=== PATIENT | male | born 1950 | race Caucasian/White ===

== ENCOUNTER 2021-05-03 22:12 | Inpatient (IN) | payer MEDICARE, SELFPAY ==
[2021-05-03 22:29] VITALS: BP 184/94; PULSE 93; RESP 17; TEMP 37; O2SAT 93; BMI 51.3
--- NOTE | 2021-05-03 22:44 | ECG_ITS ---
[facility] Test Date: 2021-05-04 Pat Name: Juan Jose Lamb Department: Room: Gender: Male [employer]cent Sal[employer] Compounder: : 1950 Requested By: Robert Skelton Order Number: [id number] Reading MD: JOON HUFF Measurements Intervals [place] Rate: 92 P: [place]: QRS: -43 QRSD: 117 T: 76 QT: 349 QTc: 433 Interpretive Statements ATRIAL FLUTTER/TACHYCARDIA INFERIOR MYOCARDIAL INFARCTION [40+ ms Q WAVE AND/OR ST/T ABNORMALITY IN II/aVF], PROBABLY OLD Compared to ECG 05/05/2019 17:10:57 Myocardial infarct finding now present Sinus rhythm no longer present Left-axis deviation no longer present Left bundle-branch block no longer present Electronically Signed On 05-05-2021 18:51:02 CDT by JOON HUFF [id number]
--- NOTE | 2021-05-03 22:44 | XRR_ITS ---
PROCEDURE INFORMATION: Exam: XR Chest Exam date and time: 05/03/2021 10:44 PM Age: 70 years old Clinical indication: Dyspnea; Prior surgery; Surgery date: 6+ months; Surgery type: Stent; Additional info: SOB TECHNIQUE: Imaging protocol: XR of the chest. Views: 1 view. COMPARISON: CR Chest 1 [place] [id number] 05/06/2019 11:03 AM FINDINGS: Lungs: There is enlargement of the pulmonary vascularity. There is thickening of the interstitial markings. There is airspace opacity in the right lung. Pleural spaces: Unremarkable. No pleural effusion. No pneumothorax. Heart/Mediastinum: The heart is mildly enlarged. Bones/joints: Unremarkable. XR/XR chest 1V portable [id number] IMPRESSION: Congestive heart failure with airspace opacities in the right lung..
--- NOTE | 2021-05-03 23:27 | ED_ITS ---
HPI - SOB/Dyspnea General: Chief Complaint: Shortness of Breath/Dyspnea Stated Complaint: DIFF BREATHING Time Seen by Provider: 05/03/21 22:13 History of Present Illness: HPI Narrative: 70-year-old male complains of a few days worsening shortness of breath, cough, headache, and feeling feverish. He usually uses 2 L of oxygen by nasal cannula, he is up to 4, and is still short of breath. MD elicited complaint: shortness of breath Pertinent past history: pneumonia and other Context: recent illness Timing: progressively worsening Severity: moderate Exacerbating factors: lying flat, exertion and coughing Relieving factors: oxygen Associated symptoms: Reports cough, dizziness, fever(s), hemoptysis, nausea and orthopnea; Deny abdominal pain, chest congestion, chest pain, diaphoresis, palpitations, rash, syncope or vomiting Treatment prior to arrival: oxygen Review of Systems Const: Reports: fever(s); Denies: diaphoresis Eyes: Denies: change in vision ENMT: Reports: sinus pain; Denies: throat pain Card: Reports: orthopnea; Denies: chest pain, palpitations or syncope Resp: Reports: hemoptysis; Denies: chest congestion GI: Reports: nausea; Denies: abdominal pain or vomiting : Denies: difficulty urinating Neuro: Reports: dizziness PFSH ED PFSH: Medical History B12 deficiency BPH (benign prostatic hyperplasia) Chronic diarrhea Chronic kidney disease, stage II (mild) COPD (chronic obstructive pulmonary disease) 4L oxygen dependent Coronary artery disease Coronary stent patent Diabetes Diastolic congestive heart failure Morbid obesity Obesity hypoventilation syndrome Sleep apnea Surgical History Hx of cardiac cath Family History Other Diabetes Social History (Updated 05/04/21 @ 02:15 by Radhika Vincent MD) Smoking and tobacco status: former smoker Alcohol intake: never Substance/Drug Use: never Household members: children Housing: House Physical Exam Const: GENERAL APPEARANCE: cooperative and ill appearing NUTRITIONAL APPEARANCE: obese morbidly obese ORIENTATION/CONSCIOUSNESS: Yes oriented to person, Yes oriented to place and Yes oriented to time HENMT: COMMON NORMALS: normocephalic, external ears normal and Normal external nose present HEAD & SCALP: normocephalic FACE & SINUS: normal facial exam NOSE: Normal external nose present and No nasal discharge present EXTERNAL EAR: Yes external ears normal Eye: COMMON NORMALS: Equal, round and reactive pupils present, EOMs intact bilaterally and conjunctivae normal EYELID: eyelids normal CONJUNCTIVA: Yes conjunctivae normal PUPIL: Yes Equal, round and reactive pupils present Neck/C-Spine: GENERAL: No tracheal deviation Chest: COMMONS NORMALS: normal inspection of the chest CHEST: No tenderness Resp: COMMON NORMALS: clear to auscultation bilaterally EFFORT & INSPECTION: No tachypneic, No respiratory distress, No retractions, No uses accessory muscles and No tracheal deviation AUSCULTATION: clear to auscultation bilaterally, no rhonchi, no wheezes and diminished lung sounds Cardio: COMMON NORMALS: regular rate and regular rhythm RATE: regular rate RHYTHM: regular rhythm HEART SOUNDS: no murmurs PERIPHERAL PULSES: radial pulses present GI: INSPECTION: No abdominal distension AUSCULTATION: No Hyperactive bowel sounds present and No Hypoactive bowel sounds present PALPATION: No Guarding due to palpation present (GI) and No Rigid due to palpation Neuro: SENSORIUM/ORIENTATION: Yes oriented to person, Yes oriented to place and Yes oriented to time Psych: COMMON NORMALS: mental status grossly normal Skin: COMMON NORMALS: no rashes or lesions noted GENERAL SKIN EXAM: no rashes or lesions noted Course Consultations: Consultation #1: [place] Vital Signs: Vital signs: Vital Signs Temperature 98.2 F 05/04/21 04:22 Pulse Rate 84 05/04/21 04:22 Respiratory Rate 18 05/04/21 04:22 Blood Pressure 152/76 05/04/21 04:22 Pulse Oximetry 93 05/04/21 04:22 MDM - SOB/Dyspnea MDM Narrative: Medical decision making narrative: 70-year-old male with shortness of breath. He says he has had a fever at home. His white blood cell count is 12.8. Hemoglobin 10.3. Chest x-ray shows both signs of heart failure and right-sided infiltrate that is asymmetrical. He will be treated for pneumonia and heart failure as well. His creatinine is 1.8. His BNP is significantly elevated. His rapid antigen is negative for Covid, he will be given a PCR test as well. Lab Data: Labs: Lab Results 05/04/21 05/04/21 05/04/21 Range/Units 00:00 00:00 00:00 WBC 12.8 H (4.0-10.0) 10^3/ uL RBC 3.70 L (4.1-5.3) 10^6/u L Hgb 10.3 L (11.7-16.6) g/dL Hct 34.4 L (42.0-52.0) % MCV 93.0 (80-94) fL MCH 27.8 L (28.0-34.0) pg MCHC 29.9 L (30.0-36.0) g/dL RDW 14.6 (12.1-15.1) % Plt Count 219 (130-400) 10^3/c mm MPV 10.6 H (7.4-10.4) fL Neut % (Auto) 82.7 % Lymph % (Auto) 10.0 % Gordon % (Auto) 6.2 % Eos % (Auto) 0.5 % Baso % (Auto) 0.2 % Neut # (Auto) 10.62 H (1.8-7.7) 10^3/u L Lymph # (Auto) 1.3 (0.8-4.8) 10^3/u L Gordon # (Auto) 0.8 (0.2-0.9) 10^3/u L Eos # (Auto) 0.1 (0.0-0.8) 10^3/u L Baso # (Auto) 0.0 (0.0-0.1) 10^3/u L Nucleated RBC % (a uto) 0 % Nucleated RBCs # 0.0 /100WBC D-Dimer 1.81 H (0-0.59) ug/mIFE U Sodium 141 (136-145) mmol/L Potassium 4.5 (3.5-5.1) mmol/L Chloride 101 (98-107) mmol/L Carbon Dioxide 27 (22-29) mmol/L Anion Gap 17.5 (5-19) BUN 16 (8-23) mg/dL Creatinine 1.8 H (0.7-1.2) mg/dL GFR Calculation Not Reportable Glucose 148 H (65-115) mg/dL Calculated Osmolal ity 296 H (285-295) mOsm/k g Lactic Acid (0.5-2.2) mmol/L Calcium 8.8 (8.5-10.5) mg/dL Total Bilirubin 0.5 (0.15-1.2) mg/dL AST 11 (0-40) U/L ALT 17 (0-41) U/L Alkaline Phosphata se 66 (40-130) IU/L C-Reactive Protein 57.0 H (0.0-4.9) mg/L NT-Pro-B Natriuret Pep 3631 H (0-125) pg/mL Total Protein 7.0 (6.6-8.7) g/dL Albumin 3.8 (3.5-5.2) g/dL Globulin 3.2 (1.3-4.6) g/dL Procalcitonin 0.14 (0-0.5) ng/mL SARS-CoV-2 Ag (Rap id) (Negative) 05/04/21 05/04/21 Range/Units 00:00 00:00 WBC (4.0-10.0) 10^3/ uL RBC (4.1-5.3) 10^6/u L Hgb (11.7-16.6) g/dL Hct (42.0-52.0) % MCV (80-94) fL MCH (28.0-34.0) pg MCHC (30.0-36.0) g/dL RDW (12.1-15.1) % Plt Count (130-400) 10^3/c mm MPV (7.4-10.4) fL Neut % (Auto) % Lymph % (Auto) % Gordon % (Auto) % Eos % (Auto) % Baso % (Auto) % Neut # (Auto) (1.8-7.7) 10^3/u L Lymph # (Auto) (0.8-4.8) 10^3/u L Gordon # (Auto) (0.2-0.9) 10^3/u L Eos # (Auto) (0.0-0.8) 10^3/u L Baso # (Auto) (0.0-0.1) 10^3/u L Nucleated RBC % (a uto) % Nucleated RBCs # /100WBC D-Dimer (0-0.59) ug/mIFE U Sodium (136-145) mmol/L Potassium (3.5-5.1) mmol/L Chloride (98-107) mmol/L Carbon Dioxide (22-29) mmol/L Anion Gap (5-19) BUN (8-23) mg/dL Creatinine (0.7-1.2) mg/dL GFR Calculation Glucose (65-115) mg/dL Calculated Osmolal ity (285-295) mOsm/k g Lactic Acid 1.5 (0.5-2.2) mmol/L Calcium (8.5-10.5) mg/dL Total Bilirubin (0.15-1.2) mg/dL AST (0-40) U/L ALT (0-41) U/L Alkaline Phosphata se (40-130) IU/L C-Reactive Protein (0.0-4.9) mg/L NT-Pro-B Natriuret Pep (0-125) pg/mL Total Protein (6.6-8.7) g/dL Albumin (3.5-5.2) g/dL Globulin (1.3-4.6) g/dL Procalcitonin (0-0.5) ng/mL SARS-CoV-2 Ag (Rap id) Negative (Negative) Discharge Plan Discharge Patient Disposition: Admitted As Inpatient Admit Provider: Radhika Vincent Clinical Impression: BRONWYN (acute kidney injury) Community acquired pneumonia Qualifiers: Laterality: right Lung location: unspecified part of lung Qualified Code(s): J18.9 - Pneumonia, unspecified organism Condition: Stable Coding Level of Care Code ED [employer] 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
[2021-05-04] VITALS (11 sets, daily range): BP systolic 145–173; BP diastolic 72–98; PULSE 18–115; RESP 15–81; TEMP 36.8–37.9; O2SAT 92–97
[2021-05-04 00:23] LABS: Basophils % 0.2 %; Eosinophils # 0.1 10^3/uL (0.0-0.8); Eosinophils % 0.5 %; Hematocrit 34.4 % (42.0-52.0); Hemoglobin 10.3 g/dL (11.7-16.6); Lymphocytes # 1.3 10^3/uL (0.8-4.8); Mean Corpuscular HGB Conc 29.9 g/dL (30.0-36.0); Mean Corpuscular Hemoglobin 27.8 pg (28.0-34.0); Mean Platelet Volume 10.6 fL (7.4-10.4); Monocytes # 0.8 10^3/uL (0.2-0.9); Monocytes % 6.2 %; Neutrophils # 10.62 10^3/uL (1.8-7.7); Neutrophils % 82.7 %; Nucleated Red Blood Cells % 0 %; Platelet Count 219 10^3/cmm (130-400); Red Cell Distribution Width 14.6 % (12.1-15.1); White Blood Count 12.8 10^3/uL (4.0-10.0)
[2021-05-04 00:32] LABS: D Dimer 1.81 ug/mIFEU (0-0.59)
[2021-05-04 00:42] LABS: NT Pro B Type Natriuretic Pept 3631 pg/mL (0-125); Procalcitonin 0.14 ng/mL (0-0.5)
[2021-05-04 00:46] LABS: SARS Covid-2 Antigen Negative (Negative)
[2021-05-04 00:54] LABS: Alanine Aminotransferase 17 U/L (0-41); Albumin Level 3.8 g/dL (3.5-5.2); Alkaline Phosphatase 66 IU/L (40-130); Anion Gap 17.5 (5-19); Aspartate Amino Transferase 11 U/L (0-40); Blood Urea Nitrogen 16 mg/dL (8-23); Calcium 8.8 mg/dL (8.5-10.5); Carbon Dioxide 27 mmol/L (22-29); Chloride 101 mmol/L (98-107); Globulin 3.2 g/dL (1.3-4.6); Glucose 148 mg/dL (65-115); Osmolality Calculated 296 mOsm/kg (285-295); Potassium 4.5 mmol/L (3.5-5.1); Sodium 141 mmol/L (136-145); Total Bilirubin 0.5 mg/dL (0.15-1.2)
[2021-05-04] MEDS: nitroglycerin 1 gm/inch oint Pkt 1 INCH TOPICAL (00:59)
[2021-05-04] MEDS: FUROsemide 10 mg/mL SDV 10mL 80 MG IVP (00:59)
[2021-05-04 01:04] LABS: Lactic Sepsis W/Reflex 1.5 mmol/L (0.5-2.2)
[2021-05-04] MEDS: levofloxacin-dextrose 5 % 750 MG/150 ML PREMIX 100 MG IV (01:21)
--- NOTE | 2021-05-04 01:42 | PM.HP ---
Providers/Chief Complaint Chief Complaint: DIFF BREATHING History of Present Illness Juan Jose Lamb is a 70 year old male with history of obesity hypoventilation, oxygen dependent COPD uses 4 L of oxygen [id number] presented today with chief complaint of subjective fevers and shortness of breath. Patient is stating that his symptoms started 2 to 3 days ago with shortness of breath and productive cough. He has not noticed any fever, he has been bringing up yellowish-green sputum, no diarrhea or recent exposure to a sick person. He is denying chest pain. He is compliant with his trilogy and uses 4 L at baseline. Lately he has been noticing weight gain as well he is not sure about his Lasix dose but tries to watch his sodium. He is adamant that he will not get COVID-19 vaccine. Diagnosis in the ER revealed leukocytosis, chronic anemia, high D-dimer, not a candidate to get CTA chest, he saturating well on 4 L nasal cannula he is not tachycardic, has bilateral lower extremity edema, with signs of congestive heart failure, high BNP with BRONWYN Covid antigen negative, requested PCR chest x-ray is showing pneumonia in the ER he received 80 mg of Lasix and Levaquin Review of Systems Const: Reports: chills, body aches, change in weight and fatigue; Denies: fever(s) Eyes: Denies: change in vision ENMT: Denies: throat pain Card: Reports: swelling of feet/ankles, dyspnea on exertion and orthopnea; Denies: chest pain Resp: Reports: dyspnea and productive cough GI: Denies: abdominal pain or diarrhea : Denies: flank pain Musc: Denies: neck pain Skin/Breast: Denies: lesions Neuro: Reports: headache(s) Psych: Denies: anxiety Endo: Denies: polyuria [place]/Lymph: Denies: easy bruising All/Imm: Denies: urticaria Medications/Allergies Allergies Allergy/AdvReac Type Severity Reaction Status Date / Time No Known Allergies Allergy Verified 05/03/21 22:34 PFSH Acute PFSH: Medical History B12 deficiency BPH (benign prostatic hyperplasia) Chronic diarrhea Chronic kidney disease, stage II (mild) COPD (chronic obstructive pulmonary disease) 4L oxygen dependent Coronary artery disease Coronary stent patent Diabetes Diastolic congestive heart failure Morbid obesity Obesity hypoventilation syndrome Sleep apnea Surgical History Hx of cardiac cath Family History Other Diabetes Social History (Updated 05/04/21 @ 02:15 by Radhika Vincent MD) Smoking and tobacco status: former smoker Alcohol intake: never Substance/Drug Use: never Household members: children Housing: House Vitals/I&O/Wt Last Vital Signs Temp 98.6 F 05/03/21 22:29 Pulse 93 05/03/21 22:29 Resp 17 05/03/21 22:29 BP 184/94 05/03/21 22:29 Pulse Ox 93 05/03/21 22:29 Weight last 48 hrs Weight 181.437 kg Physical Exam Narrative: EXAM NARRATIVE: Pleasant cooperative morbidly obese male was saturating well on 4L nasal cannula No active chest pain or shortness of breath, no active use of respiratory sensory muscles, bilateral breath sounds with crackles at the bases Low symmetry lymphedema with pitting edema Distended abdomen with obesity no signs of peritonitis Sinus rhythm on telemetry EOMI, PERRLA Awake alert oriented x3 GCS 15 No sign of cellulitis or joint swelling Appropriate mood and affect Data : 05/04/21 00:00 05/04/21 00:00 Micro: Microbiology 05/04/21 00:00 Blood Culture - Preliminary Blood SPECIMEN COLLECTED A&P Assessment and plan (1) Community acquired pneumonia: Status: Acute (2) D-dimer, elevated: Status: Acute (3) BRONWYN (acute kidney injury): Status: Acute Additional A&P Information Community-acquired pneumonia Procalcitonin unremarkable, currently saturating well on 4 L nasal cannula Uses BiPAP at night Requested urine antigens, no signs of sepsis Patient endorsing productive cough and shortness of breath Start ceftriaxone and azithromycin, in the ER he received Levaquin Would use Ventolin Reassess inflammatory markers Requested Covid PCR COVID-19 negative, patient is adamant that he would not like to get COVID-19 vaccination Considering elevated D-dimer, shortness of breath, I would start him on heparin and request VQ scan, rule out PE however this high D-dimer could be secondary to bacterial pneumonia as well Diastolic congestive heart failure exacerbation Clinical signs of fluid overload I would use Bumex 1 mg daily His BRONWYN seems secondary to prerenal cardiorenal etiology Anticipating provement with diuresis Etiology seems to be underlying pulmonary pathology and dietary indiscretion Full code Consistent carb diet Moderate sliding scale DVT prophylaxis not indicated, currently on heparin drip Attestations Medical Necessity Statement*: Anticipating discharge within 48 hours, started on community-acquired pneumonia treatment, rule out Covid Time Spent in Patient Care: (>than 50% of time spent in counselling and/or direct pt care on unit). 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
[2021-05-04] MEDS: heparin 5,000 unit/mL INJ 1 mL IV ×2 (04:44→20:01)
[2021-05-04] MEDS: heparin drip 25,000 UNIT/500 ML PREMIX 36 UNIT IV (04:46)
--- NOTE | 2021-05-04 04:51 | PC.NURSE ---
Physician contacted and made aware of heparin protocol's 140kg maximum with patients weight of 184kg. Physician ordered use of maximum weight of 140kg via protocol.
[2021-05-04 05:26] LABS: Basophils % 0.3 %; Eosinophils # 0.1 10^3/uL (0.0-0.8); Eosinophils % 0.8 %; Hematocrit 32.1 % (42.0-52.0); Hemoglobin 9.6 g/dL (11.7-16.6); Lymphocytes # 1.9 10^3/uL (0.8-4.8); Mean Corpuscular HGB Conc 29.9 g/dL (30.0-36.0); Mean Corpuscular Volume 93.6 fL (80-94); Mean Platelet Volume 10.4 fL (7.4-10.4); Monocytes # 1.2 10^3/uL (0.2-0.9); Monocytes % 9.7 %; Neutrophils % 72.8 %; Nucleated Red Blood Cells % 0 %; Platelet Count 210 10^3/cmm (130-400); Red Blood Count 3.43 10^6/uL (4.1-5.3); Red Cell Distribution Width 14.6 % (12.1-15.1); White Blood Count 11.8 10^3/uL (4.0-10.0)
[2021-05-04 05:51] LABS: Anion Gap 14.1 (5-19); Blood Urea Nitrogen 17 mg/dL (8-23); C Reactive Protein 67.6 mg/L (0.0-4.9); Calcium 8.6 mg/dL (8.5-10.5); Carbon Dioxide 28 mmol/L (22-29); Chloride 100 mmol/L (98-107); Glucose 98 mg/dL (65-115); Osmolality Calculated 288 mOsm/kg (285-295); Potassium 4.1 mmol/L (3.5-5.1); Sodium 138 mmol/L (136-145)
[2021-05-04 05:54] LABS: Partial Thromboplastin Time 139.7 SECONDS (23.9-36.7)
[2021-05-04 06:22] LABS: Glucose Point of Care 118 mg/dL (70-110)
[2021-05-04 06:25] LABS: Lactate Dehydrogenase 176 U/L (135-225)
--- NOTE | 2021-05-04 06:28 | PC.NURSE ---
Physician notified of PTT of 139.7. Physician ordered heparin drip held for 2 hours and amount to 33mL/hr from 36mL/hr.
[2021-05-04 07:12] LABS: ABG PCO2 50.3 mmHg (35-45); ABG PH Result 7.37 (7.35-7.45); Arterial Blood Gas Hematocrit 32.5 % (42-52); Base Excess ABG 2.8 mmol/L (-2.0-2.0); Blood Gas Allen Test Pos; Blood Gas Sample Site Radial, left; Blood Gas Sample Type Arterial; Carboxyhemoglobin 1.5 %THgb (0.4-20.1); HCO3 ABG 28.9 mmol/L (22-26); HGB O2 Sat 94.1 % (95-100); Methemoglobin 1.1 % (0.4-1.5); Oxygen Device NC; PO2 ABG 80.2 mmHg (80.0-100.0); Total Hemoglobin 10.6 g/dL (14-18)
--- NOTE | 2021-05-04 09:08 | USCV_ITS ---
Juan Jose Lamb Age: 70 Gender: M : 1950 Exam Date: 05/04/2021 09:39 Ordering Phys: Isidro Adrian MD Technologist: Saloni Cornelius [place] [facility] [place]: Shortness of breath BP: 145 / 74 HR: 86 Rhythm: Sinus Technical Quality: Poor because of body habitus MEASUREMENTS (Male / Female) Normal Values 2D ECHO LV Diastolic Diameter PLAX 5.1 cm 4.2 - 5.9 / 3.9 - 5.3 cm LV Systolic Diameter PLAX 3.5 cm LV Chamber Size 4.0 cm IVS Diastolic Thickness 1.9 cm 0.6 - 1.0 / 0.6 - 0.9 cm IVS Systolic Thickness 2.7 cm LVPW Diastolic Thickness 1.5 cm 0.6 - 1.0 / 0.6 - 0.9 cm LVPW Systolic Thickness 1.7 cm RV Chamber Size 3.8 cm LVOT Diameter 2.7 cm LV Ejection Fraction 2D Teich 59.1 % LA Diameter 3.8 cm LA Width 3.0 cm LA Height 5.6 cm RA Width 3.0 cm RA Height 6.3 cm M-MODE LV Diastolic Diameter MM 6.0 cm 4.2 - 5.9 / 3.9 - 5.3 cm LV Systolic Diameter MM 3.6 cm LV Ejection Fraction MM Teich 69.2 % IVS Diastolic Thickness MM 1.7 cm 0.6 - 1.0 / 0.6 - 0.9 cm IVS Systolic Thickness MM 2.5 cm LVPW Diastolic Thickness MM 1.8 cm 0.6 - 1.0 / 0.6 - 0.9 cm LVPW Systolic Thickness MM 2.2 cm RV Diastolic Diameter MM 2.0 cm DOPPLER AV Peak Velocity 160.0 cm/s LVOT Peak Velocity 97.0 cm/s AV Area Cont Eq vti 3.7 cm squared AV Area Cont Eq pk 3.4 cm squared MV Area PHT 5.0 cm squared MV E' Velocity 124.0 cm/s TV Peak E Velocity 66.0 cm/s Right Atrial Pressure 8.0 mmHg RV Acceleration Time 0.1 s RV Ejection Time 0.2 s RV AcT/ET 0.4 FINDINGS Left Ventricle Normal left ventricular cavity size. Normal left ventricular systolic function. Left ventricular ejection fraction is estimated at 55 %. In the presence of atrial fibrillation diastolic function cannot be assessed accurately. Right Ventricle The right ventricle is normal in size and function. RVSP could not be calculated due to incomplete tricuspid regurgitation velocity profile. Right Atrium The right atrium is normal in size. Left Atrium The left atrium is normal in size. Mitral Valve Moderately thickened mitral valve. Moderate mitral annular calcification. No mitral valve stenosis. Mild mitral valve regurgitation. Aortic Valve Moderate aortic valve calcification. No aortic valve stenosis. Trace aortic valve regurgitation. Tricuspid Valve Structurally normal tricuspid valve without significant stenosis or regurgitation. Pulmonic Valve Structurally normal pulmonic valve without significant stenosis. There is no pulmonic regurgitation. Pericardium Normal pericardium without effusion. Aorta Normal ascending aorta dimension. CONCLUSIONS 1-Normal left ventricular cavity size. Normal left ventricular systolic function. Left ventricular ejection fraction is estimated at 55 %. In the presence of atrial fibrillation diastolic function cannot be assessed accurately. 2-The right ventricle is normal in size and function. RVSP could not be calculated due to incomplete tricuspid regurgitation velocity profile. 3-Moderately thickened mitral valve. Moderate mitral annular calcification. No mitral valve stenosis. Mild mitral valve regurgitation. 4-Moderate aortic valve calcification. No aortic valve stenosis. Trace aortic valve regurgitation. 5-There is no pericardial effusion. 6-Right atrial pressure is around 5 mm of mercury. 7-When compared to the prior echocardiogram dated May 07, 2019 patient appeared to be in atrial fibrillation however left ventricle function appeared to be preserved. Radhika Chaudhary MD (Electronically Signed) Final Date: 04 May 2021 15:24 S
[2021-05-04 09:49] LABS: Ferritin 68 ng/mL (30-400); Iron 22 ug/dL (59-158)
[2021-05-04] MEDS: azithromycin 250 mg Tablet 500 MG PO (10:23)
[2021-05-04] MEDS: bumetanide 0.25 mg/mL SDV 4 mL 1 MG IV (10:23)
[2021-05-04] MEDS: pantoprazole 40 mg SDV IVP ×2 (10:23→22:10)
[2021-05-04] MEDS: cefTRIAXone 1,000 MG in sodium chloride 0.9% (plus) 50 ML 100 MG IV (10:23)
[2021-05-04 10:38] LABS: Partial Thromboplastin Time 31.9 SECONDS (23.9-36.7)
[2021-05-04 10:56] LABS: Glucose Point of Care 99 mg/dL (70-110)
--- NOTE | 2021-05-04 12:31 | P.PN_ITS ---
Subjective Subjective: Interval history: Patient was seen this morning, he tells me that he ambulates around the home in a walker, has diastolic CHF, his legs have been swollen, he does take Lasix at home, he does use 2 L nasal cannula at home, more with exertion, currently he denies any shortness of breath, no fevers, chills Vitals/I&O/Wt Last Vital Signs Temp 98.4 F 05/04/21 11:20 Pulse 92 05/04/21 11:20 Resp 20 H 05/04/21 11:20 BP 164/79 05/04/21 11:20 Pulse Ox 92 05/04/21 11:20 05/03/21 05/04/21 05/04/21 22:59 06:59 14:59 Intake Total 150 / 150 410 / 410 Output Total 575 / 575 250 / 250 Balance -425 / -425 160 / 160 Weight last 48 hrs Weight 181.437 kg Physical Exam Const: COMMON NORMALS: no acute distress and patient oriented x3 HENMT: COMMON NORMALS: normocephalic HEAD & SCALP: normocephalic Resp: COMMON NORMALS: normal respiratory effort, No retractions, No use of accessory muscles and clear to auscultation bilaterally AUSCULTATION: clear to auscultation bilaterally Cardio: COMMON NORMALS: regular rate, regular rhythm, S1 normal heart sound present and S2 normal heart sound present RATE: regular rate RHYTHM: regular rhythm HEART SOUNDS: S1 normal heart sound present and S2 normal heart sound present GI: COMMON NORMALS: Normal to inspection, nondistended, normoactive bowel sounds present, Soft to palpation and non-tender PALPATION: Yes Soft to palpation OTHER: Obese abdomen Extremity: NARRATIVE EXTREMITY EXAM: 1+ pitting edema bilaterally Neuro: COMMON NORMALS: patient oriented x3 Psych: COMMON NORMALS: mental status grossly normal Data : 05/04/21 05:06 05/04/21 05:06 Micro: Microbiology 05/03/21 10:15 Blood Culture - Preliminary Blood SPECIMEN COLLECTED 05/04/21 06:50 Legionella Urinary Antigen - Final Urine,Voided Bacterial Antigens - Final 05/04/21 00:00 Blood Culture - Preliminary Blood SPECIMEN COLLECTED A&P Assessment and plan (1) Community acquired pneumonia: Status: Acute Qualifiers: Laterality: right Lung location: unspecified part of lung Qualified Code(s): J18.9 - Pneumonia, unspecified organism (2) D-dimer, elevated: Status: Acute (3) BRONWYN (acute kidney injury): Status: Acute Additional A&P Information Community-acquired pneumonia COVID-19 isolation until PCR returns back negative Procalcitonin unremarkable, currently saturating well on 4 L nasal cannula Uses BiPAP at night, as needed BiPAP during the day, schedule during the night Requested urine antigens, no signs of sepsis Patient endorsing productive cough and shortness of breath Continue ceftriaxone and azithromycin, in the ER he received Levaquin Would use Ventolin, Advair Vitamin C, zinc, vitamin D, incentive spirometer, flutter valve Reassess inflammatory markers Requested Covid PCR, RAPID COVID-19 negative Considering elevated D-dimer, shortness of breath, I would start him on heparin drip, as we cannot do a CT angiogram given his creatinine 1.8, and cannot do a VQ scan as he is a PUI for COVID-19, rule out PE however this high D-dimer could be secondary to bacterial pneumonia as well Diastolic congestive heart failure exacerbation Clinical signs of fluid overload I would use Bumex 1 mg IV daily, fluid restriction 1500 cc His BRONWYN seems secondary to prerenal cardiorenal etiology, monitor creatinine, monitor potassium Anticipating provement with diuresis Etiology seems to be underlying pulmonary pathology and dietary indiscretion Gmp-vqiwult-ibphhqcim type 2 diabetes mellitus, continue moderate dose sliding scale Full code Consistent carb diet Moderate sliding scale DVT prophylaxis not indicated, currently on heparin drip Attestations Medical Necessity Statement*: Patient requires hospitalization for [facility] pneumonia, diastolic CHF exacerbation, Covid PUI Coding Level of Care Code Acute Pediatric Physiatrist for [facility] Diagnoses Community acquired pneumonia J18.9 Laterality: right Lung location: unspecified part of lung D-dimer, elevated R79.89 BRONWYN (acute kidney injury) N17.9
--- NOTE | 2021-05-04 13:30 | PC.PT ---
Recieved order for PT , as per discussion with nurse, reccomend not starting PT until wednesday. Per nursing patient has completed 3 to 4 supine to sit to std to sit to supine transfers to use urinal , all with only SBA to manage urinal. RESEARCH CHIEF ENGINEER reported patient didn't require any physical assist but would be slightly fatigued from the required effort. Patient is in isolation & may require wide jorge-walker to progress his mobility.
--- NOTE | 2021-05-04 14:55 | PC.OT ---
Orders received. Per nursing, patient is fatigued. Will hold OT evaluation for now and check back tomorrow.
[2021-05-04 16:32] LABS: Partial Thromboplastin Time 25.2 SECONDS (23.9-36.7)
[2021-05-04 17:30] LABS: Glucose Point of Care 91 mg/dL (70-110)
[2021-05-04] MEDS: ascorbic acid 500 mg Tablet PO (18:39)
--- NOTE | 2021-05-04 19:09 | PC.NURSE ---
AT APPROX 1840 DR. BUCHANAN NOTIFIED THAT PTS PTT WAS 25.2, WAS TOLD TO FOLLOW PROTOCOL. 7000 UNIT BOLUS, 44MLS/HR
[2021-05-04] MEDS: albuterol 8 gm MDI 2 PUFF INHALATION (20:11)
[2021-05-04 20:34] LABS: Glucose Point of Care 123 mg/dL (70-110)
[2021-05-04] MEDS: buPROPion SR (12 HR) 150 mg Tablet PO (21:38)
[2021-05-04] MEDS: metoprolol tartrate 25 mg Tablet 12.5 MG PO (21:38)
[2021-05-04] MEDS: heparin drip 25,000 UNIT/500 ML PREMIX 44 UNIT IV (23:45)
[2021-05-05] VITALS (11 sets, daily range): BP systolic 151–188; BP diastolic 66–77; PULSE 85–100; RESP 17–18; TEMP 36.9–37.2; O2SAT 3–97
[2021-05-05 01:59] LABS: Basophils # 0.1 10^3/uL (0.0-0.1); Basophils % 0.4 %; Eosinophils # 0.3 10^3/uL (0.0-0.8); Eosinophils % 2.5 %; Hematocrit 31.7 % (42.0-52.0); Hemoglobin 9.5 g/dL (11.7-16.6); Lymphocytes # 1.9 10^3/uL (0.8-4.8); Lymphocytes % 16.8 %; Mean Corpuscular Hemoglobin 28.1 pg (28.0-34.0); Mean Corpuscular Volume 93.8 fL (80-94); Mean Platelet Volume 10.2 fL (7.4-10.4); Monocytes # 1.2 10^3/uL (0.2-0.9); Monocytes % 10.3 %; Neutrophils # 7.94 10^3/uL (1.8-7.7); Neutrophils % 69.6 %; Nucleated Red Blood Cells % 0 %; Platelet Count 192 10^3/cmm (130-400); Red Blood Count 3.38 10^6/uL (4.1-5.3); Red Cell Distribution Width 14.8 % (12.1-15.1); White Blood Count 11.4 10^3/uL (4.0-10.0)
[2021-05-05 02:25] LABS: Partial Thromboplastin Time 43.8 SECONDS (23.9-36.7)
[2021-05-05 02:35] LABS: NT Pro B Type Natriuretic Pept 1978 pg/mL (0-125); Procalcitonin 0.19 ng/mL (0-0.5)
[2021-05-05 02:46] LABS: Alanine Aminotransferase 14 U/L (0-41); Albumin Level 3.6 g/dL (3.5-5.2); Alkaline Phosphatase 59 IU/L (40-130); Aspartate Amino Transferase 10 U/L (0-40); Blood Urea Nitrogen 20 mg/dL (8-23); C Reactive Protein 101.2 mg/L (0.0-4.9); Calcium 8.7 mg/dL (8.5-10.5); Carbon Dioxide 26 mmol/L (22-29); Chloride 102 mmol/L (98-107); Globulin 3.3 g/dL (1.3-4.6); Glucose 116 mg/dL (65-115); Magnesium 1.9 mg/dL (1.7-2.3); Osmolality Calculated 296 mOsm/kg (285-295); Phosphorus 3.8 mg/dL (2.5-4.5); Sodium 141 mmol/L (136-145); Total Bilirubin 0.4 mg/dL (0.15-1.2); Total Protein 6.9 g/dL (6.6-8.7)
[2021-05-05] MEDS: heparin 5,000 unit/mL INJ 1 mL IV (03:17)
[2021-05-05 06:29] LABS: Glucose Point of Care 148 mg/dL (70-110)
[2021-05-05] MEDS: pantoprazole 40 mg SDV IVP ×2 (08:29→22:48)
[2021-05-05] MEDS: azithromycin 250 mg Tablet 500 MG PO (08:30)
[2021-05-05] MEDS: buPROPion SR (12 HR) 150 mg Tablet PO ×2 (08:30→21:24)
[2021-05-05] MEDS: metoprolol tartrate 25 mg Tablet 12.5 MG PO (08:30)
[2021-05-05] MEDS: zinc gluconate 50 mg Tablet PO (08:30)
[2021-05-05] MEDS: cholecalciferol (vitamin D3) 1,000 unit Tablet 1000 UNIT PO (08:30)
[2021-05-05] MEDS: ascorbic acid 500 mg Tablet PO ×2 (08:31→17:08)
[2021-05-05] MEDS: atorvastatin 40 mg Tablet 20 MG PO (08:31)
[2021-05-05] MEDS: bumetanide 0.25 mg/mL SDV 4 mL 1 MG IV ×2 (08:31→17:09)
[2021-05-05] MEDS: cefTRIAXone 1,000 MG in sodium chloride 0.9% (plus) 50 ML 100 MG IV (08:32)
[2021-05-05] MEDS: albuterol 8 gm MDI 2 PUFF INHALATION ×2 (08:34→20:02)
[2021-05-05 09:47] LABS: Partial Thromboplastin Time 57.9 SECONDS (23.9-36.7)
--- NOTE | 2021-05-05 09:58 | PC.NURSE ---
Aptt was 57.9. NO change to rate of Heparin per protocol.
[2021-05-05] MEDS: amlodipine 10 mg Tablet PO (10:26)
[2021-05-05] MEDS: nystatin cream 30 gm 1 APPLIC TOPICAL ×2 (11:17→17:09)
[2021-05-05 11:18] LABS: Glucose Point of Care 169 mg/dL (70-110)
[2021-05-05] MEDS: heparin drip 25,000 UNIT/500 ML PREMIX 49 UNIT IV ×2 (11:49→21:28)
--- NOTE | 2021-05-05 13:18 | PM.PN ---
Subjective Subjective: Interval history: This morning patient was examined, he does still complain of bilateral extremity edema, but improving, minimal shortness of breath, no fevers, chills, no nausea, no vomiting Vitals/I&O/Wt Last Vital Signs Temp 99.0 F 05/05/21 11:29 Pulse 93 05/05/21 11:29 Resp 18 05/05/21 11:29 BP 188/66 05/05/21 11:29 Pulse Ox 94 05/05/21 11:29 05/04/21 05/05/21 05/05/21 22:59 06:59 14:59 Intake Total 740 / 1390 1150 / 1150 Output Total 350 / 600 575 / 1175 450 / 450 Balance 390 / 790 -575 / 215 700 / 700 Weight last 48 hrs Weight 181.437 kg Physical Exam Const: COMMON NORMALS: no acute distress and patient oriented x3 Resp: COMMON NORMALS: normal respiratory effort, No retractions, No use of accessory muscles and clear to auscultation bilaterally AUSCULTATION: clear to auscultation bilaterally Cardio: COMMON NORMALS: regular rate, S1 normal heart sound present and S2 normal heart sound present RATE: regular rate RHYTHM: abnormal rhythm HEART SOUNDS: S1 normal heart sound present and S2 normal heart sound present GI: COMMON NORMALS: Normal to inspection, nondistended, normoactive bowel sounds present and Soft to palpation PALPATION: Yes Soft to palpation OTHER: Obese abdomen Extremity: NARRATIVE EXTREMITY EXAM: 1+ pitting edema Neuro: COMMON NORMALS: patient oriented x3 Psych: COMMON NORMALS: mental status grossly normal Data : 05/05/21 01:50 05/05/21 01:50 Micro: Microbiology 05/03/21 10:15 Blood Culture - Preliminary Blood NEGATIVE TO DATE 05/04/21 00:00 Blood Culture - Preliminary Blood NEGATIVE TO DATE A&P Assessment and plan (1) Community acquired pneumonia: Status: Acute Qualifiers: Laterality: right Lung location: unspecified part of lung Qualified Code(s): J18.9 - Pneumonia, unspecified organism (2) D-dimer, elevated: Status: Acute (3) BRONWYN (acute kidney injury): Status: Acute (4) New onset atrial fibrillation: Status: Acute Additional A&P Information Community-acquired pneumonia COVID-19 isolation until PCR returns back negative Procalcitonin unremarkable, currently saturating well on 4 L nasal cannula Uses BiPAP at night, as needed BiPAP during the day, schedule during the night Requested urine antigens, no signs of sepsis Patient endorsing productive cough and shortness of breath Continue ceftriaxone and azithromycin, in the ER he received Levaquin Would use Ventolin, Advair Vitamin C, zinc, vitamin D, incentive spirometer, flutter valve Reassess inflammatory markers Requested Covid PCR, RAPID COVID-19 negative Considering elevated D-dimer, shortness of breath, continue heparin drip, as we cannot do a CT angiogram given his creatinine 1.8, and cannot do a VQ scan as he is a PUI for COVID-19, rule out PE however this high D-dimer could be secondary to bacterial pneumonia as well New onset A. fib, no prior history, check TSH, mag within normal limits, currently rate controlled, with metoprolol, currently on heparin drip, cardiac echo shows an ejection fraction of 55%, BRONWYN, creatinine 1.8, likely cardiorenal syndrome, urine output lackluster, potassium 4 Diastolic congestive heart failure exacerbation Clinical signs of fluid overload I would use Bumex 1 mg IV q12h fluid restriction 1500 cc His BRONWYN seems secondary to prerenal cardiorenal etiology, monitor creatinine, monitor potassium Anticipating provement with diuresis Etiology seems to be underlying pulmonary pathology and dietary indiscretion Bnu-ptajorj-aklxmsxxa type 2 diabetes mellitus, continue moderate dose sliding scale Full code Consistent carb diet Moderate sliding scale DVT prophylaxis not indicated, currently on heparin drip Plan for today increase diuresis continue antibiotics, await Covid testing, PT OT Attestations Medical Necessity Statement*: Patient requires hospitalization for pneumonia, BRONWYN, new onset A. fib Coding Level of Care Code Acute Manager Residential for [facility] Diagnoses Community acquired pneumonia J18.9 Laterality: right Lung location: unspecified part of lung D-dimer, elevated R79.89 BRONWYN (acute kidney injury) N17.9 New onset atrial fibrillation I48.91
[2021-05-05] MEDS: cloNIDine 0.1 mg Tablet PO ×2 (15:19→17:08)
[2021-05-05 16:32] LABS: Partial Thromboplastin Time 59.4 SECONDS (23.9-36.7)
[2021-05-05 17:11] LABS: Glucose Point of Care 103 mg/dL (70-110)
[2021-05-05 21:08] LABS: Glucose Point of Care 140 mg/dL (70-110)
[2021-05-05 21:09] LABS: Partial Thromboplastin Time 46.7 SECONDS (23.9-36.7)
[2021-05-05] MEDS: metoprolol tartrate 25 mg Tablet PO (21:24)
[2021-05-05 23:34] LABS: Partial Thromboplastin Time 46.8 SECONDS (23.9-36.7)
[2021-05-06] VITALS (13 sets, daily range): BP systolic 142–175; BP diastolic 72–81; PULSE 80–90; RESP 16–18; TEMP 36.6–36.8; O2SAT 92–96
[2021-05-06] MEDS: heparin 5,000 unit/mL INJ 1 mL IV (00:04)
[2021-05-06] MEDS: bumetanide 0.25 mg/mL SDV 4 mL 1 MG IV ×3 (05:32→22:56)
[2021-05-06 06:30] LABS: Basophils % 0.4 %; Eosinophils # 0.4 10^3/uL (0.0-0.8); Eosinophils % 4.3 %; Hematocrit 31.7 % (42.0-52.0); Hemoglobin 9.4 g/dL (11.7-16.6); Lymphocytes # 1.8 10^3/uL (0.8-4.8); Lymphocytes % 19.5 %; Mean Corpuscular HGB Conc 29.7 g/dL (30.0-36.0); Mean Corpuscular Hemoglobin 28.2 pg (28.0-34.0); Mean Corpuscular Volume 95.2 fL (80-94); Mean Platelet Volume 10.5 fL (7.4-10.4); Monocytes # 0.9 10^3/uL (0.2-0.9); Monocytes % 9.6 %; Neutrophils # 6.05 10^3/uL (1.8-7.7); Neutrophils % 65.8 %; Nucleated Red Blood Cells % 0 %; Platelet Count 193 10^3/cmm (130-400); Red Blood Count 3.33 10^6/uL (4.1-5.3); Red Cell Distribution Width 14.8 % (12.1-15.1); White Blood Count 9.2 10^3/uL (4.0-10.0)
[2021-05-06 06:45] LABS: Partial Thromboplastin Time 55.8 SECONDS (23.9-36.7)
[2021-05-06 06:50] LABS: Alanine Aminotransferase 14 U/L (0-41); Albumin Level 3.6 g/dL (3.5-5.2); Alkaline Phosphatase 55 IU/L (40-130); Anion Gap 12.6 (5-19); Aspartate Amino Transferase 10 U/L (0-40); Blood Urea Nitrogen 18 mg/dL (8-23); C Reactive Protein 84.9 mg/L (0.0-4.9); Calcium 8.6 mg/dL (8.5-10.5); Carbon Dioxide 32 mmol/L (22-29); Chloride 102 mmol/L (98-107); Globulin 3.1 g/dL (1.3-4.6); Glucose 104 mg/dL (65-115); Magnesium 2.2 mg/dL (1.7-2.3); Osmolality Calculated 296 mOsm/kg (285-295); Phosphorus 3.7 mg/dL (2.5-4.5); Potassium 4.6 mmol/L (3.5-5.1); Sodium 142 mmol/L (136-145); Total Bilirubin 0.3 mg/dL (0.15-1.2); Total Protein 6.7 g/dL (6.6-8.7)
[2021-05-06 07:30] LABS: NT Pro B Type Natriuretic Pept 837 pg/mL (0-125); Procalcitonin 0.17 ng/mL (0-0.5)
[2021-05-06] MEDS: heparin drip 25,000 UNIT/500 ML PREMIX 52 UNIT IV (07:56)
[2021-05-06] MEDS: cefTRIAXone 1,000 MG in sodium chloride 0.9% (plus) 50 ML 100 MG IV (07:57)
[2021-05-06] MEDS: cholecalciferol (vitamin D3) 1,000 unit Tablet 1000 UNIT PO (07:58)
[2021-05-06] MEDS: zinc gluconate 50 mg Tablet PO (07:58)
[2021-05-06] MEDS: ascorbic acid 500 mg Tablet PO ×2 (07:58→17:16)
[2021-05-06] MEDS: metoprolol tartrate 25 mg Tablet PO ×2 (07:58→22:56)
[2021-05-06] MEDS: buPROPion SR (12 HR) 150 mg Tablet PO ×2 (07:58→22:56)
[2021-05-06] MEDS: cloNIDine 0.1 mg Tablet PO ×2 (07:59→17:16)
[2021-05-06] MEDS: atorvastatin 40 mg Tablet 20 MG PO (07:59)
[2021-05-06] MEDS: amlodipine 10 mg Tablet PO (07:59)
[2021-05-06] MEDS: azithromycin 250 mg Tablet 500 MG PO (07:59)
[2021-05-06] MEDS: pantoprazole 40 mg SDV IVP ×2 (08:00→22:57)
[2021-05-06] MEDS: albuterol 8 gm MDI 2 PUFF INHALATION ×2 (09:08→19:57)
[2021-05-06 09:12] LABS: Glucose Point of Care 128 mg/dL (70-110)
[2021-05-06 12:23] LABS: Glucose Point of Care 131 mg/dL (70-110)
[2021-05-06 12:57] LABS: Partial Thromboplastin Time 49.9 SECONDS (23.9-36.7)
[2021-05-06] MEDS: nystatin cream 30 gm 1 APPLIC TOPICAL ×2 (13:46→17:18)
--- NOTE | 2021-05-06 14:21 | PM.PN ---
Subjective Subjective: Interval history: Patient was seen this morning, he does tell me he is doing better, but his swelling persists in his legs, still feels short of breath, but tells me he is doing better, no fevers, no chills, no cough, his Covid test still is pending Vitals/I&O/Wt Last Vital Signs Temp 98.1 F 05/06/21 12:00 Pulse 80 05/06/21 12:00 Resp 18 05/06/21 12:00 BP 142/80 05/06/21 12:00 Pulse Ox 94 05/06/21 12:00 05/05/21 05/06/21 05/06/21 22:59 06:59 14:59 Intake Total 832.85 / 2102.85 124.133 / 2226.983 1093.534 / 1093.534 Output Total 1000 / 1450 650 / 2100 1000 / 1000 Balance -167.15 / 652.85 -525.867 / 126.983 93.534 / 93.534 Physical Exam Const: COMMON NORMALS: no acute distress and patient oriented x3 Resp: COMMON NORMALS: normal respiratory effort, No retractions, No use of accessory muscles and clear to auscultation bilaterally AUSCULTATION: clear to auscultation bilaterally Cardio: COMMON NORMALS: regular rate, regular rhythm, S1 normal heart sound present and S2 normal heart sound present RATE: regular rate RHYTHM: regular rhythm HEART SOUNDS: S1 normal heart sound present and S2 normal heart sound present GI: COMMON NORMALS: Normal to inspection, nondistended, normoactive bowel sounds present, Soft to palpation and non-tender PALPATION: Yes Soft to palpation Extremity: NARRATIVE EXTREMITY EXAM: 2+ pitting edema bilaterally Neuro: COMMON NORMALS: patient oriented x3 Psych: COMMON NORMALS: mental status grossly normal Data : 05/06/21 06:06 05/06/21 06:06 Micro: Microbiology 05/05/21 21:30 Gram Stain - Final Sputum - Expectorated Sputum 05/03/21 10:15 Blood Culture - Preliminary Blood NEGATIVE TO DATE A&P Assessment and plan (1) Community acquired pneumonia: Status: Acute Qualifiers: Laterality: right Lung location: unspecified part of lung Qualified Code(s): J18.9 - Pneumonia, unspecified organism (2) D-dimer, elevated: Status: Acute (3) BRONWYN (acute kidney injury): Status: Acute (4) New onset atrial fibrillation: Status: Acute (5) Acute respiratory failure with hypoxia: Status: Acute (6) Diastolic CHF: Status: Acute (7) Obesity hypoventilation syndrome: Status: Acute Additional A&P Information Community-acquired pneumonia COVID-19 isolation until PCR returns back negative Procalcitonin unremarkable, currently saturating well on 3 L nasal cannula Uses BiPAP at night, as needed BiPAP during the day, schedule during the night Requested urine antigens, no signs of sepsis Patient endorsing productive cough and shortness of breath, but improved, continues to have bilateral extremity swelling Continue ceftriaxone and azithromycin, in the ER he received Levaquin Would use Ventolin, Advair Vitamin C, zinc, vitamin D, incentive spirometer, flutter valve Reassess inflammatory markers Requested Covid PCR, RAPID COVID-19 negative Considering elevated D-dimer, shortness of breath, switch to therapeutic Lovenox from heparin drip as his PTTs have been difficult to titrate, as we cannot do a CT angiogram given his creatinine 1.8, and cannot do a VQ scan as he is a PUI for COVID-19, rule out PE however this high D-dimer could be secondary to bacterial pneumonia as well New onset A. fib, no prior history, check TSH 1.5, mag within normal limits, currently rate controlled, with metoprolol, switch to therapeutic Lovenox, cardiac echo shows an ejection fraction of 55%, BRONWYN, creatinine 1.8, likely cardiorenal syndrome, urine output lackluster, potassium 4 Diastolic congestive heart failure exacerbation Clinical signs of fluid overload I would increase Bumex to 1 mg IV every 8 hours for 24 hours, daily dose as needed fluid restriction 1500 cc His BRONWYN seems secondary to prerenal cardiorenal etiology, monitor creatinine, monitor potassium Anticipating provement with diuresis Etiology seems to be underlying pulmonary pathology and dietary indiscretion Egs-uyijcjx-yfzabiado type 2 diabetes mellitus, continue moderate dose sliding scale Full code Consistent carb diet Moderate sliding scale DVT prophylaxis not indicated, currently on heparin drip Plan for today increase diuresis continue antibiotics, await Covid testing, PT OT Attestations Medical Necessity Statement*: Patient requires hospitalization for acute respiratory failure secondary to [facility] pneumonia, diastolic CHF, Covid PUI, new onset A. 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
[2021-05-06] MEDS: enoxaparin 100 mg/mL Syringe SUBCUT (14:46)
[2021-05-06] MEDS: enoxaparin 60 mg/0.6 mL Syringe 50 MG SUBCUT (14:47)
[2021-05-06 15:54] LABS: Coronavirus Test Green County Not Detected
[2021-05-06 17:00] LABS: Glucose Point of Care 123 mg/dL (70-110)
[2021-05-06] MEDS: acetaminophen 500 mg Tablet PO (17:16)
[2021-05-06 21:33] LABS: Glucose Point of Care 116 mg/dL (70-110)
[2021-05-07] VITALS (13 sets, daily range): BP systolic 127–174; BP diastolic 72–84; PULSE 87–114; RESP 15–20; TEMP 36.8–37.3; O2SAT 87–98
[2021-05-07] MEDS: enoxaparin 60 mg/0.6 mL Syringe 50 MG SUBCUT ×2 (03:53→13:42)
[2021-05-07] MEDS: enoxaparin 100 mg/mL Syringe SUBCUT ×2 (03:53→13:42)
[2021-05-07] MEDS: bumetanide 0.25 mg/mL SDV 4 mL 1 MG IV ×2 (05:51→13:42)
[2021-05-07 06:44] LABS: Basophils % 0.2 %; Eosinophils # 0.4 10^3/uL (0.0-0.8); Eosinophils % 4.4 %; Hematocrit 31.3 % (42.0-52.0); Hemoglobin 9.5 g/dL (11.7-16.6); Lymphocytes # 1.6 10^3/uL (0.8-4.8); Lymphocytes % 19.7 %; Mean Corpuscular HGB Conc 30.4 g/dL (30.0-36.0); Mean Corpuscular Hemoglobin 28.2 pg (28.0-34.0); Mean Corpuscular Volume 92.9 fL (80-94); Mean Platelet Volume 10.9 fL (7.4-10.4); Monocytes # 0.8 10^3/uL (0.2-0.9); Monocytes % 9.4 %; Neutrophils % 65.9 %; Nucleated Red Blood Cells % 0 %; Platelet Count 210 10^3/cmm (130-400); Red Blood Count 3.37 10^6/uL (4.1-5.3); Red Cell Distribution Width 14.7 % (12.1-15.1); White Blood Count 8.3 10^3/uL (4.0-10.0)
[2021-05-07 06:48] LABS: Glucose Point of Care 131 mg/dL (70-110)
[2021-05-07 07:08] LABS: INR 1.13 (0.8-1.2)
[2021-05-07 07:26] LABS: Procalcitonin 0.14 ng/mL (0-0.5)
[2021-05-07 07:37] LABS: Alanine Aminotransferase 15 U/L (0-41); Albumin Level 3.5 g/dL (3.5-5.2); Alkaline Phosphatase 60 IU/L (40-130); Anion Gap 14.2 (5-19); Aspartate Amino Transferase 10 U/L (0-40); Blood Urea Nitrogen 17 mg/dL (8-23); C Reactive Protein 75.6 mg/L (0.0-4.9); Carbon Dioxide 30 mmol/L (22-29); Chloride 99 mmol/L (98-107); Globulin 3.3 g/dL (1.3-4.6); Glucose 118 mg/dL (65-115); Osmolality Calculated 291 mOsm/kg (285-295); Phosphorus 2.9 mg/dL (2.5-4.5); Potassium 4.2 mmol/L (3.5-5.1); Sodium 139 mmol/L (136-145); Total Bilirubin 0.4 mg/dL (0.15-1.2); Total Protein 6.8 g/dL (6.6-8.7)
[2021-05-07 08:13] LABS: NT Pro B Type Natriuretic Pept 759 pg/mL (0-125)
[2021-05-07] MEDS: acetaminophen 500 mg Tablet PO (09:14)
[2021-05-07] MEDS: cholecalciferol (vitamin D3) 1,000 unit Tablet 1000 UNIT PO (09:14)
[2021-05-07] MEDS: atorvastatin 40 mg Tablet 20 MG PO (09:14)
[2021-05-07] MEDS: zinc gluconate 50 mg Tablet PO (09:14)
[2021-05-07] MEDS: buPROPion SR (12 HR) 150 mg Tablet PO ×2 (09:14→21:32)
[2021-05-07] MEDS: azithromycin 250 mg Tablet 500 MG PO (09:14)
[2021-05-07] MEDS: ascorbic acid 500 mg Tablet PO ×2 (09:14→18:40)
[2021-05-07] MEDS: cloNIDine 0.1 mg Tablet PO ×2 (09:15→18:40)
[2021-05-07] MEDS: pantoprazole 40 mg SDV IVP (09:15)
[2021-05-07] MEDS: metoprolol tartrate 25 mg Tablet PO ×2 (09:15→21:32)
[2021-05-07] MEDS: cefTRIAXone 1,000 MG in sodium chloride 0.9% (plus) 50 ML 100 MG IV (09:15)
[2021-05-07] MEDS: amlodipine 10 mg Tablet PO (09:15)
[2021-05-07] MEDS: nystatin cream 30 gm 1 APPLIC TOPICAL ×2 (09:17→18:41)
[2021-05-07] MEDS: albuterol 8 gm MDI 2 PUFF INHALATION ×2 (09:32→20:52)
[2021-05-07 11:02] LABS: Glucose Point of Care 122 mg/dL (70-110)
--- NOTE | 2021-05-07 12:21 | P.PN_ITS ---
Subjective Subjective: Interval history: Noted feeling weak and still short of breath. no fever, chills, nausea or vomiting. COVID19 PCR pending Vitals/I&O/Wt Last Vital Signs Temp 98.2 F 05/07/21 15:49 Pulse 100 05/07/21 15:49 Resp 18 05/07/21 15:49 BP 127/72 05/07/21 18:40 Pulse Ox 92 05/07/21 15:49 05/07/21 05/07/21 05/07/21 06:59 14:59 22:59 Intake Total 118 / 2171.534 770 / 770 360 / 1130 Output Total 2350 / 4475 300 / 300 950 / 1250 Balance -2232 / -2303.466 470 / 470 -590 / -120 Physical Exam Const: COMMON NORMALS: no acute distress and patient oriented x3 HENMT: COMMON NORMALS: normocephalic HEAD & SCALP: normocephalic Resp: COMMON NORMALS: normal respiratory effort, No retractions, No use of accessory muscles and clear to auscultation bilaterally AUSCULTATION: clear to auscultation bilaterally Cardio: COMMON NORMALS: regular rate, regular rhythm, S1 normal heart sound present and S2 normal heart sound present RATE: regular rate RHYTHM: regular rhythm and abnormal rhythm HEART SOUNDS: S1 normal heart sound present and S2 normal heart sound present GI: COMMON NORMALS: Normal to inspection, nondistended, normoactive bowel sounds present, Soft to palpation and non-tender PALPATION: Yes Soft to palpation OTHER: Obese abdomen Extremity: NARRATIVE EXTREMITY EXAM: 2+ pitting edema bilaterally Neuro: COMMON NORMALS: patient oriented x3 Psych: COMMON NORMALS: mental status grossly normal Data : 05/07/21 05:47 05/07/21 05:47 Micro: Microbiology 05/05/21 21:30 Gram Stain - Final Sputum - Expectorated Sputum Sputum Culture - Preliminary 05/07/21 01:14 Occult Blood (FIT) - Final Stool Routine Collection A&P Assessment and plan (1) Community acquired pneumonia: Status: Acute Qualifiers: Laterality: right Lung location: unspecified part of lung Qualified Code(s): J18.9 - Pneumonia, unspecified organism (2) D-dimer, elevated: Status: Acute (3) BRONWYN (acute kidney injury): Status: Acute (4) New onset atrial fibrillation: Status: Acute (5) Acute respiratory failure with hypoxia: Status: Acute (6) Diastolic CHF: Status: Acute (7) Obesity hypoventilation syndrome: Status: Acute Additional A&P Information Community-acquired pneumonia Repeat COVID-19 PCR -pending Supplemental o2 Wean as tolerated Chest x-ray in am Duoneb Pablo Sanchez in am New onset A. fib, Rate control Lovenox - will change to eliquis ECHO noted Acute kidney injury Cr stable Likly CKD Renal US Monitor U/o Will consult nephrology Chronic Diastolic congestive heart failure exacerbation ECHO noted Daily weight Continue diuretics Mfm-tzapjey-decnzltqb type 2 diabetes mellitus, Continue moderate dose sliding scale Full code Consistent carb diet Moderate sliding scale DVT prophylaxis not indicated, currently on heparin drip Attestations Medical Necessity Statement*: Will continue hospitalization for management of respiratory failure Time Spent in Patient Care: Greater than 35 minutes (>than 50% of time spent in counselling and/or direct pt care on unit) . 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
--- NOTE | 2021-05-07 13:43 | PC.SOCIAL ---
IMM UPDATE IMM updated with patient. Left copy at bedside. Verbalized understanding. Initialed, dated, timed and placed in chart.
[2021-05-07 17:18] LABS: Glucose Point of Care 127 mg/dL (70-110)
[2021-05-07] MEDS: pantoprazole DR 40 mg Tablet PO (21:32)
[2021-05-07] MEDS: apixaban 5 mg Tablet PO (21:32)
[2021-05-07 21:49] LABS: Glucose Point of Care 123 mg/dL (70-110)
[2021-05-08] VITALS (12 sets, daily range): BP systolic 144–174; BP diastolic 75–82; PULSE 87–116; RESP 16–18; TEMP 36.2–36.8; O2SAT 88–98
[2021-05-08] MEDS: bumetanide 0.25 mg/mL SDV 4 mL 1 MG IV ×2 (01:25→13:45)
--- NOTE | 2021-05-08 05:00 | US_ITS ---
WS: [id number] RENAL ULTRASOUND HISTORY: renal failure COMPARISON: None available. TECHNIQUE: 2-D and color Doppler imaging of the kidney submitted. Right kidney: 13.7 cm x 7.1 cm x 7.7 cm. Normal echogenicity with no hydronephrosis or mass. Left kidney: 10.0 cm x 5.7 cm x 5.1 cm. Normal size kidney. No hydronephrosis. Mild limitations evaluating the kidney due to body habitus. Ex ophytic cyst from the lower pole measures 3.2 x 2.8 x 2.3 cm. Additional cyst from the upper pole beatris sures 2.3 x 2.4 x 2.5 cm. Aorta: Normal. Urinary Bladder: Normal distention. US/US renal BI* [id number] IMPRESSION: 1. No hydronephrosis. 2. LEFT renal cysts. Similar size as compared to 2018. 3. No solid mass.
[2021-05-08 06:39] LABS: Glucose Point of Care 178 mg/dL (70-110)
[2021-05-08 06:57] LABS: Basophils # 0.1 10^3/uL (0.0-0.1); Basophils % 0.7 %; Eosinophils # 0.4 10^3/uL (0.0-0.8); Eosinophils % 5.5 %; Hematocrit 32.7 % (42.0-52.0); Hemoglobin 9.7 g/dL (11.7-16.6); Lymphocytes # 1.6 10^3/uL (0.8-4.8); Lymphocytes % 22.7 %; Mean Corpuscular HGB Conc 29.7 g/dL (30.0-36.0); Mean Corpuscular Hemoglobin 27.7 pg (28.0-34.0); Mean Corpuscular Volume 93.4 fL (80-94); Mean Platelet Volume 10.5 fL (7.4-10.4); Monocytes # 0.8 10^3/uL (0.2-0.9); Monocytes % 11.2 %; Neutrophils # 4.24 10^3/uL (1.8-7.7); Neutrophils % 59.5 %; Nucleated Red Blood Cells % 0 %; Platelet Count 213 10^3/cmm (130-400); Red Cell Distribution Width 14.6 % (12.1-15.1); White Blood Count 7.1 10^3/uL (4.0-10.0)
--- NOTE | 2021-05-08 07:00 | XR_ITS ---
WS: [id number] Portable AP upright chest, 05/08/2021 Clinical Data: respiratory failure Comparison: Portable chest, 05/03/2021. Findings: The pulmonary opacities have partially cleared. There is a pulmonary density remaining in t he right lower lobe. The heart is enlarged. The aortic arch and descending aorta show mild tortuosity . No pneumothorax is seen. Monitor leads are on the chest wall. There are calcifications in the neck which may be in the carotid bifurcations. XR/XR chest 1V portable [id number] Impression: 1. Partial clearing of pulmonary opacities with residual right lower lobe densi ty. 2. Decrease in heart size.
[2021-05-08 07:13] LABS: Alanine Aminotransferase 14 U/L (0-41); Albumin Level 3.8 g/dL (3.5-5.2); Alkaline Phosphatase 57 IU/L (40-130); Anion Gap 12.1 (5-19); Aspartate Amino Transferase 12 U/L (0-40); Blood Urea Nitrogen 15 mg/dL (8-23); Carbon Dioxide 34 mmol/L (22-29); Chloride 99 mmol/L (98-107); Globulin 3.5 g/dL (1.3-4.6); Glucose 138 mg/dL (65-115); Osmolality Calculated 295 mOsm/kg (285-295); Potassium 4.1 mmol/L (3.5-5.1); Sodium 141 mmol/L (136-145); Total Bilirubin 0.3 mg/dL (0.15-1.2); Total Protein 7.3 g/dL (6.6-8.7)
--- NOTE | 2021-05-08 07:25 | PC.RESP ---
PULMONARY REHAB INFORMATION SENT TO PATIENT.
[2021-05-08 07:34] LABS: INR 1.15 (0.8-1.2)
[2021-05-08 08:00] LABS: Procalcitonin 0.16 ng/mL (0-0.5)
[2021-05-08] MEDS: cefTRIAXone 1,000 MG in sodium chloride 0.9% (plus) 50 ML 100 MG IV (09:04)
[2021-05-08] MEDS: buPROPion SR (12 HR) 150 mg Tablet PO (09:05)
[2021-05-08] MEDS: zinc gluconate 50 mg Tablet PO (09:05)
[2021-05-08] MEDS: azithromycin 250 mg Tablet 500 MG PO (09:05)
[2021-05-08] MEDS: cholecalciferol (vitamin D3) 1,000 unit Tablet 1000 UNIT PO (09:05)
[2021-05-08] MEDS: atorvastatin 40 mg Tablet 20 MG PO (09:05)
[2021-05-08] MEDS: apixaban 5 mg Tablet PO (09:05)
[2021-05-08] MEDS: cloNIDine 0.1 mg Tablet PO ×2 (09:05→16:55)
[2021-05-08] MEDS: ascorbic acid 500 mg Tablet PO ×2 (09:05→16:55)
[2021-05-08] MEDS: nystatin cream 30 gm 1 APPLIC TOPICAL ×2 (09:06→16:56)
[2021-05-08] MEDS: metoprolol tartrate 25 mg Tablet PO (09:06)
[2021-05-08] MEDS: pantoprazole DR 40 mg Tablet PO (09:06)
[2021-05-08] MEDS: amlodipine 10 mg Tablet PO (09:10)
[2021-05-08 09:22] LABS: Quest SARS-CoV-2 RNA NOT DETECTED (NOT DETECTED)
[2021-05-08 11:18] LABS: Glucose Point of Care 160 mg/dL (70-110)
--- NOTE | 2021-05-08 15:18 | PM.DCS ---
Discharge Providers Date of Admission: 05/04/21 14:35 Date of Discharge: May 08, 2021 Attending Provider at Admission: Radhika Vincent MD Attending Provider at Discharge: Stephen Monsalve Diagnoses at Discharge Discharge Diagnosis (1) Community acquired pneumonia: Status: Acute Qualifiers: Laterality: right Lung location: unspecified part of lung Qualified Code(s): J18.9 - Pneumonia, unspecified organism (2) D-dimer, elevated: Status: Acute (3) BRONWYN (acute kidney injury): Status: Acute (4) New onset atrial fibrillation: Status: Acute (5) Acute respiratory failure with hypoxia: Status: Acute (6) Diastolic CHF: Status: Acute (7) Obesity hypoventilation syndrome: Status: Acute Reason for Visit Reason for Visit: DIFF BREATHING Hospital Course Hospital Course 70 year old male with history of obesity hypoventilation, oxygen dependent COPD uses 4 L of oxygen appwgy-sbh-tlprz presented today with chief complaint of subjective fevers and shortness of breath. Patient is stating that his symptoms started 2 to 3 days ago with shortness of breath and productive cough. He has not noticed any fever, he has been bringing up yellowish-green sputum, no diarrhea or recent exposure to a sick person. He is denying chest pain. He is compliant with his trilogy and uses 4 L at baseline. Lately he has been noticing weight gain as well he is not sure about his Lasix dose but tries to watch his sodium. He is adamant that he will not get COVID-19 vaccine. Diagnosis in the ER revealed leukocytosis, chronic anemia, high D-dimer, not a candidate to get CTA chest, he saturating well on 4 L nasal cannula he is not tachycardic, has bilateral lower extremity edema, with signs of congestive heart failure, high BNP with BRONWYN. Initial chest x-ray is showing pneumonia in the ER he received 80 mg of Lasix and Levaquin. COVID19 ag and PCR were negative. Upon admission to the hospital patent was started on antibiotics for suspected community acquired pneumonia. Patients leukocytosis had rapidly resolved. Procalcitonin was negative x3 and remained afebrile. Blood and sputum culture were negative. Antibiotics were not continued at discharge. He was suspected to have likely fluid overload. Started on Bumex 1 mg IV q8hr. Creatinine of 1.8 on arrival which remained stable. It was likely patient now had CKD stage 3. Renal US performed did not show any evidence of hydroephrosis. At discharge he was resumed on lasix however dose increased to 40 mg PO BID. AceIn[employer] was held. Advised to avoid NSAIDS. Respiratory status improved. Patient was requiring 2L of o2 via NC on eval. Also patient was noted to have atrial fibrillation with RVR on admission. This was a new diagnosis for him. He was started on metoprolol. Rate remained controlled. He was started on full dose lovenox which was transitioned to Eliquis 5 mg PO BID at discharge. Outpatient follow was arranged with PCP and pulmonary medicine. Follow up labs were ordered. Physical Exam Const: COMMON NORMALS: no acute distress and patient oriented x3 HENMT: COMMON NORMALS: normocephalic HEAD & SCALP: normocephalic Resp: COMMON NORMALS: normal respiratory effort, No retractions, No use of accessory muscles and clear to auscultation bilaterally AUSCULTATION: clear to auscultation bilaterally Cardio: COMMON NORMALS: regular rate, regular rhythm, S1 normal heart sound present and S2 normal heart sound present RATE: regular rate RHYTHM: regular rhythm and abnormal rhythm HEART SOUNDS: S1 normal heart sound present and S2 normal heart sound present GI: COMMON NORMALS: Normal to inspection, nondistended, normoactive bowel sounds present, Soft to palpation and non-tender PALPATION: Yes Soft to palpation Neuro: COMMON NORMALS: patient oriented x3 Psych: COMMON NORMALS: mental status grossly normal Discharge Data Data Completed and Pending: Completed Studies During Hospitalization Category Date Time Status XR chest 1V noe ble [id number] Routine Exams 05/08/21 07:00 Completed XR chest 1V noe ble [id number] Urgent Exams 05/03/21 22:44 Completed CV. echo complete * [id number] Routine Ultrasound 05/04/21 09:08 Completed US renal BI* [id number] Routine Ultrasound 05/08/21 05:00 Completed Pending at discharge Category Date Time Status Blood Culture Sta t Lab 05/03/21 10:15 Results Prothrombin Time INR AM LABS Lab 05/09/21 04:00 Ordered NM pul vent and p erfus* [id number] Routi ne Nuc Med 05/06/21 07:00 Unverified Labs from last 24 hours 05/08/21 05/08/21 05/08/21 10:55 06:32 06:31 WBC RBC Hgb Hct MCV MCH MCHC RDW Plt Count MPV Neut % (Auto) Lymph % (Auto) [place] % (Auto) Eos % (Auto) Baso % (Auto) Neut # (Auto) Lymph # (Auto) [place] # (Auto) Eos # (Auto) Baso # (Auto) Nucleated RBC % (a uto) Nucleated RBCs # PT INR Sodium Potassium Chloride Carbon Dioxide Anion Gap BUN Creatinine GFR Calculation Glucose POC Glucose 160 H 178 H Calculated Osmolal ity Calcium Magnesium Total Bilirubin AST ALT Alkaline Phosphata se Total Protein Albumin Globulin Procalcitonin 0.16 SARS-CoV-2 RNA (RT -PCR) 05/08/21 05/08/21 05/08/21 06:31 06:31 06:31 WBC 7.1 RBC 3.50 L Hgb 9.7 L Hct 32.7 L MCV 93.4 MCH 27.7 L MCHC 29.7 L RDW 14.6 Plt Count 213 MPV 10.5 H Neut % (Auto) 59.5 Lymph % (Auto) 22.7 [place] % (Auto) 11.2 Eos % (Auto) 5.5 Baso % (Auto) 0.7 Neut # (Auto) 4.24 Lymph # (Auto) 1.6 [place] # (Auto) 0.8 Eos # (Auto) 0.4 Baso # (Auto) 0.1 Nucleated RBC % (a uto) 0 Nucleated RBCs # 0.0 PT 15.00 H INR 1.15 Sodium 141 Potassium 4.1 Chloride 99 Carbon Dioxide 34 H Anion Gap 12.1 BUN 15 Creatinine 1.7 H GFR Calculation Not Reportable Glucose 138 H POC Glucose Calculated Osmolal ity 295 Calcium 9.0 Magnesium 2.0 Total Bilirubin 0.3 AST 12 ALT 14 Alkaline Phosphata se 57 Total Protein 7.3 Albumin 3.8 Globulin 3.5 Procalcitonin SARS-CoV-2 RNA (RT -PCR) 05/07/21 05/07/21 05/04/21 21:46 15:54 09:40 WBC RBC Hgb Hct MCV MCH MCHC RDW Plt Count MPV Neut % (Auto) Lymph % (Auto) [place] % (Auto) Eos % (Auto) Baso % (Auto) Neut # (Auto) Lymph # (Auto) [place] # (Auto) Eos # (Auto) Baso # (Auto) Nucleated RBC % (a uto) Nucleated RBCs # PT INR Sodium Potassium Chloride Carbon Dioxide Anion Gap BUN Creatinine GFR Calculation Glucose POC Glucose 123 H 127 H Calculated Osmolal ity Calcium Magnesium Total Bilirubin AST ALT Alkaline Phosphata se Total Protein Albumin Globulin Procalcitonin SARS-CoV-2 RNA (RT -PCR) Not detected Vitals: Last Vital Signs Temp 98.0 F 05/08/21 13:02 Pulse 87 05/08/21 13:02 Resp 16 05/08/21 13:02 BP 144/77 05/08/21 13:02 Pulse Ox 88 L 05/08/21 14:50 Discharge Plan Discharge Patient Disposition: Home Health Service Condition: Stable Prescriptions: New Advair Diskus 250-50 mcg/dose Blister With Device 1 puff inhalation BID.RESPIRATORY Qty: 1 RF: 0 Eliquis 5 mg tablet 5 mg PO BID Qty: 60 RF: 0 Continued fluoxetine 40 mg Capsule 40 mg PO DAILY RF: 0 bupropion HCl 150 mg tablet sustained-release 12 hr 150 mg PO BID RF: 0 albuterol sulfate 2.5 mg /3 mL (0.083 %) solution for nebulization 2.5 mg continuous nebulization Q6H PRN (Reason: Shortness Of Breath) RF: 0 glimepiride 2 mg tablet 2 mg PO DAILY RF: 0 amlodipine 10 mg tablet 10 mg PO DAILY RF: 0 simvastatin 20 mg tablet 20 mg PO DAILY RF: 0 nitroglycerin 0.4 mg tablet, sublingual 0.4 mg sublingual Q5M PRN (Reason: Chest Pain) RF: 0 metoprolol tartrate 25 mg tablet 25 mg PO DAILY RF: 0 Changed furosemide 20 mg tablet 40 mg PO BID Qty: 30 RF: 0 Discontinued metformin 500 mg tablet 500 mg PO BID RF: 0 metoprolol tartrate 50 mg tablet 50 mg PO BID RF: 0 lisinopril 40 mg tablet 40 mg PO DAILY RF: 0 Discharge Orders: Discharge Order (Routine); Ordered 05/08/21 Ordered By: Stephen Monsalev Other Ambulatory Orders: Basic Metabolic Panel (Routine) Timeframe: 3 Days Facility: [facility] - Location: Lab - Main Lab Ordered By: Stephen Monsalve DME: Oxygen (Order) Location: None Selected Ordered By: Stephen Monsalve Referrals: Ledy Lancaster MD [Physician] - 05/15/21 8:45 am Radhika Chaudhary MD [Physician] - 1 week (New onset atrial fib) Discharge Diet: Usual diet Discharge Activity: Increase activity as tolerated Patient Instructions: Furosemide (By mouth), Fluticasone/Salmeterol (By breathing), Atrial Fibrillation (DC), Hypoxia (GEN), CHF Stoplight, Opioid Safety Activity Restrictions/Additional Instructions: Monitor daily weight Return to hospital if increasing respiratory distress. Discharge Attestations Time Spent in Discharge Care*: greater than 30 min Specific Discharge Activities: educating patient, discussing with leather case finisher/social workers/dc planners, documenting/other paperwork and evaluating patient/reviewing data Status at Discharge: Cognitive status at discharge: cognitively intact, Behavioral status at discharge: cooperative, Functional status at discharge: independent ambulation Overall status at discharge: patient is progressing back to baseline Quality Metrics Clinical Quality Measures During this hospital stay, did patient experience: None Coding Level of Care Code Acute Chg FW DC note Diagnoses Community acquired pneumonia J18.9 Laterality: right Lung location: unspecified part of lung D-dimer, elevated R79.89 BRONWYN (acute kidney injury) N17.9 New onset atrial fibrillation I48.91 Acute respiratory failure with hypoxia J96.01 Diastolic CHF I50.30 Obesity hypoventilation syndrome E66.2
== END 2021-05-08 18:49 | disposition home or self-care (01) | DRG 193 ==
LOC: ER 22:48 → MEDSURG 05-04 04:23
PROVIDERS: Family Medicine; Admitting Provider Internal Medicine; Emergency Provider Emergency Medicine; Visit Provider Hospitalist
DX: J18.9 Pneumonia, unspecified organism (principal); I50.33 Acute on chronic diastolic (congestive) heart failure; J96.01 Acute respiratory failure with hypoxia; J44.0 Chronic obstructive pulmonary disease with (acute) lower respiratory infection; I13.0 Hypertensive heart and chronic kidney disease with heart failure and stage 1 through stage 4 chronic kidney disease, or unspecified chronic kidney disease; E66.2 Morbid (severe) obesity with alveolar hypoventilation; Z68.43 Body mass index [BMI] 50.0-59.9, adult; N17.9 Acute kidney failure, unspecified; N18.30 Chronic kidney disease, stage 3 unspecified; E11.22 Type 2 diabetes mellitus with diabetic chronic kidney disease; Z99.81 Dependence on supplemental oxygen; D63.1 Anemia in chronic kidney disease; N40.0 Benign prostatic hyperplasia without lower urinary tract symptoms; K52.9 Noninfective gastroenteritis and colitis, unspecified; I25.10 Atherosclerotic heart disease of native coronary artery without angina pectoris; Z95.5 Presence of coronary angioplasty implant and graft; Z87.891 Personal history of nicotine dependence; I48.91 Unspecified atrial fibrillation; Z79.84 Long term (current) use of oral hypoglycemic drugs
CPT/HCPCS: 36415; 36416; 36600; 71045; 76770; 80048; 80053; 82274; 82728; 82805; 82962; 83540; 83605; 83615; 83735; 83880; 84100; 84145; 84443; 85025; 85378; 85610; 85730; 86140; 86403; 87040; 87070; 87205; 87426; 87449; 87635; 93005; 93306; 94640; 96365; 96372; 96375; 97110; 97162; 97166; 97530; 97535; 99285; C9113; G0378; J0696; J1644; J1650; J1815; J1940; J1956; J3490; J3535; Q0144

== ENCOUNTER → 2021-06-10 10:00 | Outpatient (BNVA) | payer MEDICARE, SELFPAY | PROVIDERS: PCP Family Medicine; Visit Provider Internal Medicine Critical Care Medicine | DX: E66.2 Morbid (severe) obesity with alveolar hypoventilation (principal); Z20.822 Contact with and (suspected) exposure to COVID-19 | CPT/HCPCS: 87635 ==

== ENCOUNTER → 2021-07-25 09:53 | Outpatient (BNVA) | payer MEDICARE, SELFPAY | PROVIDERS: PCP Family Medicine; Visit Provider Internal Medicine Critical Care Medicine | DX: Z01.812 Encounter for preprocedural laboratory examination (principal); Z20.822 Contact with and (suspected) exposure to COVID-19 | CPT/HCPCS: 87635 ==

== ENCOUNTER 2021-07-30 09:49 | Outpatient (CLI) | payer MEDICARE, SELFPAY ==
--- NOTE | 2021-07-30 10:43 | PFTS_ITS ---
Date of Study:07/30/21 Date of Dictation: 07/30/2021 MECHANICS: Postbronchodilator forced vital capacity (FVC) is reduced.. Postbronchodilator forced expiratory volume in one second (FEV1) is moderately reduced.. FEV1/FVC is normal. There is no significant broncho-dilator response FLOW VOLUME LOOP: Flattening of inspiratory limb suggestive of dynamic extrathoracic compression. . LUNG VOLUMES: Total lung capacity (TLC) is normal. Residual volume (RV) is mildly increased suggestive of mild air trapping. DIFFUSING CAPACITY FOR CARBON MONOXIDE: Mildly reduced 61% . INTERPRETATION: The spirometry consistent with moderate restriction. Lung volumes reflect mild air trapping. There is mild gas transfer defect. Flattening of inspiratory limb suggestive of dynamic extrathoracic compression.Clinical correlation recommended.. MTDD
== END 2021-07-30 09:50 | disposition home or self-care (01) ==
LOC: RT 09:52
PROVIDERS: PCP Family Medicine; Visit Provider Internal Medicine Critical Care Medicine
DX: J96.12 Chronic respiratory failure with hypercapnia (principal)
CPT/HCPCS: 94060; 94726; 94729; J7611

== ENCOUNTER 2022-10-23 11:00 | Inpatient (IN) | payer MEDICARE, SELFPAY ==
[2022-10-23] VITALS (29 sets, daily range): BP systolic 123–199; BP diastolic 75–123; PULSE 64–119; RESP 16–30; TEMP 36.5–36.8; O2SAT 84–98; BMI 48.7; BMI 82.7
[2022-10-23] MEDS: FUROsemide 10 mg/mL SDV 10mL 60 MG IVP ×2 (11:10→18:35)
--- NOTE | 2022-10-23 11:11 | ECG_ITS ---
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 Measurements Intervals [place] Rate: 77 P: 0 [place]: 0 QRS: -9 QRSD: 124 T: 47 QT: 367 QTc: 417 Interpretive Statements ATRIAL FIBRILLATION LEFT BUNDLE BRANCH BLOCK [120+ ms QRS DURATION, 80+ ms Q/S IN V1/V2, 85+ ms R IN I/aVL/V5/V6] Compared to ECG 05/04/2021 00:26:31 Left bundle-branch block now present Atrial flutter no longer present Myocardial infarct finding no longer present Electronically Signed On 10-23-2022 15:41:42 VP OF GLOBAL MARKETING by Suman Cordero M.D. [id number]
--- NOTE | 2022-10-23 11:16 | ED_ITS ---
HPI - SOB/Dyspnea General: Chief Complaint: Shortness of Breath/Dyspnea Stated Complaint: Resp Distress Time Seen by Provider: 10/23/22 11:08 Source: patient Mode of arrival: EMS History of Present Illness: HPI Narrative: 72-year-old male who presents to the emergency room with complaint of shortness of breath and increasing swelling in his legs for the last couple of weeks been present progressively worsening increasing orthopnea. Did not recently change any medications he normally takes 20 mg of Lasix twice daily. On arrival in the emergency room he is hypoxic and tachypneic. He has increased work of breathing as well. He has moderate swelling in his lower extremities is progressively worsened. He has a history of congestive heart failure as well. He has atrial fibrillation and is anticoagulated. Denies fever or productive cough. MD elicited complaint: shortness of breath and cough Pertinent past history: COPD and congestive heart failure Severity: moderate Exacerbating factors: nothing Relieving factors: nothing Known history of: COPD Associated symptoms: Deny abdominal pain, chest congestion, chest pain, cough, diaphoresis, dizziness, extremity pain, fever(s), hemoptysis, lightheadedness, myalgias, nausea, orthopnea, palpitations, paresthesias, polydipsia, polyuria, rash, sense of impending doom, syncope or vomiting Treatment prior to arrival: oxygen Review of Systems Const: Denies: fever(s), chills, fatigue, malaise or diaphoresis ENMT: Denies: throat pain, ear or mastoid pain, nasal discharge or nasal congestion Card: Denies: chest pain, palpitations, lightheadedness, syncope or orthopnea Resp: Reports: dyspnea and productive cough; Denies: hemoptysis or chest congestion GI: Denies: abdominal pain, nausea or vomiting : Denies: flank pain, dysuria, urinary frequency or urinary urgency Musc: Denies: extremity pain Skin/Breast: Denies: rash or pruritus Neuro: Denies: dizziness Endo: Denies: polyuria or polydipsia PFS ED PFSH: Medical History Atrial fibrillation B12 deficiency BPH (benign prostatic hyperplasia) Chronic diarrhea Chronic kidney disease, stage II (mild) COPD (chronic obstructive pulmonary disease) 4L oxygen dependent Coronary artery disease Coronary stent patent Diabetes Diastolic congestive heart failure Morbid obesity Obesity hypoventilation syndrome Sleep apnea Surgical History Hx of cardiac cath Family History Other Diabetes Social History Smoking and tobacco status: former smoker Quit status (tobacco): has quit using tobacco Year quit tobacco: 1994 Former quit date comment: Hx of 1 PPD x 20 Years Second hand smoke exposure: No Smoking risk assessment/counseling performed?: No Alcohol intake: never Counseling given: No Counseling given: No Caregiver/support person: Yes Lives independently: Yes Household members: children Housing: House Marital status: / Current occupational status: retired and disabled History of recent travel: No Current gender identity: Male Physical Exam Const: GENERAL APPEARANCE: cooperative ORIENTATION/CONSCIOUSNESS: Yes awake, Yes oriented to person, Yes oriented to place and Yes oriented to time HENMT: COMMON NORMALS: normocephalic, atraumatic and hearing grossly normal bilaterally HEAD & SCALP: normocephalic and atraumatic Resp: COMMON NORMALS: normal respiratory effort, No retractions and No use of accessory muscles AUSCULTATION: crackles Laterality: bilateral (Bases), wheezes and diminished lung sounds Cardio: COMMON NORMALS: regular rate and No murmurs present (Cardio) RATE: regular rate RHYTHM: abnormal rhythm irregularly irregular GI: COMMON NORMALS: Soft to palpation and No hepatosplenomegaly present AUSCULTATION: Yes normoactive bowel sounds PALPATION: Yes Soft to palpation, No Tenderness to palpation present (GI), No Guarding due to palpation present (GI) and Yes No hepatosplenomegaly present Extremity: COMMON NORMALS: normal to inspection, capillary refill normal and no calf tenderness GENERAL: Yes edema (2-3+) Neuro: SENSORIUM/ORIENTATION: Yes oriented to person, Yes oriented to place and Yes oriented to time Skin: COMMON NORMALS: no rashes or lesions noted GENERAL SKIN EXAM: no rashes or lesions noted Course 2 Vital Signs: Vital signs: Vital Signs Temperature 98.0 F 10/24/22 04:00 Pulse Rate 76 10/24/22 08:42 Respiratory Rate 22 H 10/24/22 08:42 Blood Pressure 152/96 10/24/22 04:00 Pulse Oximetry 90 10/24/22 08:42 Oxygen Delivery Me thod 10/24/22 08:42 Oxygen Flow Rate 4 10/24/22 08:42 MDM - SOB/Dyspnea Medical Decision Making Labs imaging and EKG reviewed no acute ST changes noted. Patient has significant oxygen deficit from baseline. He has exacerbation of COPD he was given Lasix in the emergency room as well as nebulizers some mild improvement. Patient has acute exacerbation of COPD as well as exacerbation of congestive h eart failure. Discussed with hospitalist will admit Medical Records I reviewed the patient's medical records. Lab Data I reviewed the patient's lab results. 10/24/22 05:16 10/24/22 05:16 Labs/Radiology: Radiology Impressions Chest X-Ray 10/23/22 11:23 IMPRESSION: 1. Cardiac enlargement with pulmonary vascular congestion and signs of acute CHF. Bilateral basal infiltrates and prominent bibasal pleural effusions. Laboratory Results WBC 12.8 10^3/uL (4.0-10.0) H 10/23/22 11:07 RBC 4.72 10^6/uL (4.1-5.3) 10/23/22 11:07 Hgb 13.1 g/dL (11.7-16.6) 10/23/22 11:07 Hct 44.2 % (42.0-52.0) 10/23/22 11:07 MCV 93.6 fl (80-94) 10/23/22 11:07 MCH 27.8 pg (28.0-34.0) L 10/23/22 11:07 MCHC 29.6 g/dL (30.0-36.0) L 10/23/22 11:07 RDW 15.1 % (12.1-15.1) 10/23/22 11:07 Plt Count 236 10^3/cmm (130-400) 10/23/22 11:07 MPV 11.3 fL (7.4-10.4) H 10/23/22 11:07 Neut % (Auto) 77.7 % 10/23/22 11:07 Lymph % (Auto) 12.1 % 10/23/22 11:07 [place] % (Auto) 7.5 % 10/23/22 11:07 Eos % (Auto) 2.1 % 10/23/22 11:07 Baso % (Auto) 0.4 % 10/23/22 11:07 Neut # (Auto) 9.92 10^3/uL (1.8-7.7) H 10/23/22 11:07 Lymph # (Auto) 1.5 10^3/uL (0.8-4.8) 10/23/22 11:07 [place] # (Auto) 1.0 10^3/uL (0.2-0.9) H 10/23/22 11:07 Eos # (Auto) 0.3 10^3/uL (0.0-0.8) 10/23/22 11:07 Baso # (Auto) 0.1 10^3/uL (0.0-0.1) 10/23/22 11:07 Nucleated RBC % (auto) 0 % 10/23/22 11:07 Nucleated RBCs # 0.0 /100WBC 10/23/22 11:07 Specimen Type Arterial 10/23/22 11:07 Sample Site Radial, left 10/23/22 11:07 ABG pH 7.36 (7.35-7.45) 10/23/22 11:07 ABG pCO2 57.0 mmHg (35-45) H 10/23/22 11:07 ABG pO2 63.2 mmHg (80.0-100.0) L 10/23/22 11:07 ABG HCO3 32.2 mmol/L (22-26) H 10/23/22 11:07 ABG O2 Saturation 92.3 10/23/22 11:07 ABG Base Excess 5.2 mmol/L (-2.0-2.0) H 10/23/22 11:07 Uli Test Pos 10/23/22 11:07 A-a O2 Gradient 12.9 mmHg (5-10) H 10/23/22 11:07 Hematocrit 39.6 % (42-52) L 10/23/22 11:07 Hgb O2 Saturation 90.6 % (95-100) L 10/23/22 11:07 Carboxyhemoglobin 1.5 %THgb (0.4-20.1) 10/23/22 11:07 Methemoglobin 0.4 % (0.4-1.5) 10/23/22 11:07 Total Hemoglobin 12.9 g/dL (14-18) L 10/23/22 11:07 Sodium 144.0 mmol/L (131-143) H 10/23/22 11:07 Potassium 4.5 mmol/L (3.5-5.0) 10/23/22 11:07 Glucose 128.0 mg/dL (70-115) H 10/23/22 11:07 Ionized Calcium 1.2 mmol/L (1.1-1.4) 10/23/22 11:07 O2 Delivery Device Nc 10/23/22 11:07 O2 Liters/Min 3.0 % 10/23/22 11:07 FiO2 32.0 % 10/23/22 11:07 Loss Control Representative ID Cak 10/23/22 11:07 Sodium 140 mmol/L (136-145) 10/23/22 11:07 Potassium 4.3 mmol/L (3.5-5.1) 10/23/22 11:07 Chloride 100 mmol/L (98-107) 10/23/22 11:07 Carbon Dioxide 30 mmol/L (22-29) H 10/23/22 11:07 Anion Gap 14.3 (5-19) 10/23/22 11:07 BUN 21 mg/dL (8-23) 10/23/22 11:07 Creatinine 1.4 mg/dL (0.7-1.2) H 10/23/22 11:07 GFR Calculation Not Reportable 10/23/22 11:07 Glucose 142 mg/dL (65-115) H 10/23/22 11:07 Calculated Osmolality 295 mOsm/kg (285-295) 10/23/22 11:07 Calcium 9.5 mg/dL (8.5-10.5) 10/23/22 11:07 Total Bilirubin 0.5 mg/dL (0.15-1.2) 10/23/22 11:07 AST 20 U/L (0-40) 10/23/22 11:07 ALT 15 U/L (0-41) 10/23/22 11:07 Alkaline Phosphatase 83 U/L (40-130) 10/23/22 11:07 Troponin T Baseline 26 ng/L (0-15) H 10/23/22 11:07 Troponin T 120 Minute 25.49 ng/L (0-15) H 10/23/22 13:08 Delta Troponin T -0.51 ABS# (0-10) L 10/23/22 13:08 NT-Pro-B Natriuret Pep 2754 pg/mL (0-125) H 10/23/22 11:07 Total Protein 8.0 g/dL (6.6-8.7) 10/23/22 11:07 Albumin 3.9 g/dL (3.5-5.2) 10/23/22 11:07 Globulin 4.1 g/dL (1.3-4.6) 10/23/22 11:07 Urine Color Yellow (Yellow) 10/23/22 12:01 Urine Appearance Clear (CLEAR) 10/23/22 12:01 Urine pH 5 (5-7) 10/23/22 12:01 Ur Specific [place] 1.015 (1.005-1.030) 10/23/22 12:01 Urine Protein 3+ (Negative) H 10/23/22 12:01 Urine Glucose (UA) Norm (Normal) 10/23/22 12:01 Urine Ketones Negative (Negative) 10/23/22 12:01 Urine Blood 2+ (Negative) H 10/23/22 12:01 Urine Nitrate Negative (Negative) 10/23/22 12:01 Urine Bilirubin Neg (Negative) 10/23/22 12:01 Urine Urobilinogen Neg mg/dL (Negative) 10/23/22 12:01 Ur Leukocyte Esterase Negative (Negative) 10/23/22 12:01 Urine RBC 10-15 /hpf (0-2) H 10/23/22 12:01 Urine WBC None /hpf (0-5) 10/23/22 12:01 Ur Squamous Epith Cells None /hpf (0-5) 10/23/22 12:01 Amorphous Sediment Not Reportable 10/23/22 12:01 Urine Bacteria None /hpf (NONE) 10/23/22 12:01 Discharge Plan Discharge Patient Disposition: Admitted As Inpatient Admit Provider: Tito Mcclellan Clinical Impression: Acute exacerbation of chronic obstructive airways disease, Heart failure with preserved ejection fraction, Obesity hypoventilation syndrome, Congestive heart failure, Acute respiratory failure with hypoxia and hypercapnia Condition: Stable Coding Level of Care Code ED Estimator Project Manager for Юлия Kenny
[2022-10-23 11:18] LABS: ABG PH Result 7.36 (7.35-7.45); Alveolar-Arterial Oxygen Gradi 12.9 mmHg (5-10); Arterial Blood Gas Hematocrit 39.6 % (42-52); Base Excess ABG 5.2 mmol/L (-2.0-2.0); Blood Gas Allen Test Pos; Blood Gas Operator Identificat CAK; Blood Gas Sample Site Radial, left; Blood Gas Sample Type Arterial; Carboxyhemoglobin 1.5 %THgb (0.4-20.1); HCO3 ABG 32.2 mmol/L (22-26); HGB O2 Sat 90.6 % (95-100); Ionized Calcium Level - ABG 1.2 mmol/L (1.1-1.4); Methemoglobin 0.4 % (0.4-1.5); Oxygen Device NC; Oxygen Saturation ABG 92.3; PO2 ABG 63.2 mmHg (80.0-100.0); Potassium Level - ABG 4.5 mmol/L (3.5-5.0); Total Hemoglobin 12.9 g/dL (14-18)
--- NOTE | 2022-10-23 11:23 | XR_ITS ---
WS: [id number] Exam: XR chest 1V portable [id number] Date/Time of Exam: 10/23/2022 11:23 AM Reason For Exam: dyspnea/cough Comparison 05/08/2021. There is marked cardiac enlargement. Large bibasal pleural effusions are noted. Bilateral lower lobe infiltrates are noted. Pulmonary vascular engorgement. No pneumothorax. Osseous structures are unrema rkable. The mediastinum is unremarkable for technique. XR/XR chest 1V portable [id number] IMPRESSION: 1. Cardiac enlargement with pulmonary vascular congestion and signs of acute CH F. Bilateral basal infiltrates and prominent bibasal pleural effusions.
[2022-10-23 11:36] LABS: Basophils # 0.1 10^3/uL (0.0-0.1); Basophils % 0.4 %; Eosinophils # 0.3 10^3/uL (0.0-0.8); Eosinophils % 2.1 %; Hematocrit 44.2 % (42.0-52.0); Hemoglobin 13.1 g/dL (11.7-16.6); Lymphocytes # 1.5 10^3/uL (0.8-4.8); Lymphocytes % 12.1 %; Mean Corpuscular HGB Conc 29.6 g/dL (30.0-36.0); Mean Corpuscular Hemoglobin 27.8 pg (28.0-34.0); Mean Corpuscular Volume 93.6 fl (80-94); Mean Platelet Volume 11.3 fL (7.4-10.4); Monocytes % 7.5 %; Neutrophils # 9.92 10^3/uL (1.8-7.7); Neutrophils % 77.7 %; Nucleated Red Blood Cells % 0 %; Platelet Count 236 10^3/cmm (130-400); Red Blood Count 4.72 10^6/uL (4.1-5.3); Red Cell Distribution Width 15.1 % (12.1-15.1); White Blood Count 12.8 10^3/uL (4.0-10.0)
[2022-10-23 11:56] LABS: Troponin(5th) Baseline 26 ng/L (0-15)
[2022-10-23 12:05] LABS: Alanine Aminotransferase 15 U/L (0-41); Albumin Level 3.9 g/dL (3.5-5.2); Alkaline Phosphatase 83 U/L (40-130); Aspartate Amino Transferase 20 U/L (0-40); Blood Urea Nitrogen 21 mg/dL (8-23); Calcium 9.5 mg/dL (8.5-10.5); Carbon Dioxide 30 mmol/L (22-29); Chloride 100 mmol/L (98-107); Globulin 4.1 g/dL (1.3-4.6); Glucose 142 mg/dL (65-115); NT Pro B Type Natriuretic Pept 2754 pg/mL (0-125); Osmolality Calculated 295 mOsm/kg (285-295); Sodium 140 mmol/L (136-145); Total Bilirubin 0.5 mg/dL (0.15-1.2)
[2022-10-23 12:09] LABS: Anion Gap 14.3 (5-19); Potassium 4.3 mmol/L (3.5-5.1)
[2022-10-23 12:20] LABS: Add Urine Culture? No; Add Urine Microscopic? YES; Bilirubin Urine Neg (Negative); Blood Urine 2+ (Negative); Glucose Urine UA Norm (Normal); Ketones Urine Negative (Negative); Leukocyte Esterase Urine Negative (Negative); Nitrate Urine Negative (Negative); Protein Urine 3+ (Negative); Specific Gravity, Urine 1.015 (1.005-1.030); Urine Appearance Clear (CLEAR); Urine Color Yellow (Yellow); Urobilinogen Urine Neg (Negative); pH Urine 5 (5-7)
[2022-10-23] MEDS: hyDRALAzine 20 mg/mL INJ 1 mL 10 MG IVP (13:16)
--- NOTE | 2022-10-23 13:43 | ECG_ITS ---
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 Measurements Intervals [place] Rate: 73 P: 0 TN: 0 QRS: -28 QRSD: 127 T: 146 QT: 358 QTc: 396 Interpretive Statements ATRIAL FIBRILLATION LEFT BUNDLE BRANCH BLOCK [120+ ms QRS DURATION, 80+ ms Q/S IN V1/V2, 85+ ms R IN I/aVL/V5/V6] Compared to ECG 10/23/2022 11:11:26 No significant changes Electronically Signed On 10-23-2022 15:47:54 STENCIL MACHINE OPERATOR by Suman Cordero M.D. [id number]
[2022-10-23 13:46] LABS: Troponin 5 2HR 25.49 ng/L (0-15)
[2022-10-23 13:49] LABS: Troponin 5 2HR Delta -0.51 ABS# (0-10)
--- NOTE | 2022-10-23 16:11 | P.HP_ITS ---
Providers/Chief Complaint Primary Care Provider: Unruly Starkey Chief Complaint: Resp Distress History of Present Illness Juan Jose Lamb is a 72 year old male past medical history of hypertension COPD on 4 Ls, home oxygen, obstructive sleep apnea, obesity hypoventilation, atrial fibrillation on Eliquis, coronary artery disease,HFpEF, CKD stage II, Came in with chief complaint of worsening shortness of breath with minimal exertion, PND orthopnea, worsening bilateral lower extremity swelling going on for last couple of months. Patient has denied any cough fever chills, abdominal pain nausea vomiting. X-ray chest done in the ER has shown: Bilateral pleural effusion, pulmonary vascular congestion, bilateral lower lobe infiltrates. EKG: Atrial fibrillation with left bundle branch block Pertinent labs: WBC 12.8, H&H 13/44 , PLT : 236 , serum sodium 140 , serum potassium 4.3, BUN serum creatinine 21/1.4, Serum bicarb 30, 2-hour troponin trend: Unremarkable proBNP 2754 Patient received a dose of Lasix 60 IV in the ER. Review of Systems General: Reports: 10 or more systems reviewed and unremarkable except in HPI and below Card: Reports: edema, swelling of feet/ankles, dyspnea on exertion and orthopnea; Denies: palpitations or leg pain with exertion Resp: Reports: dyspnea; Denies: productive cough, wheezing or pain on inspiration GI: Denies: abdominal pain, nausea, vomiting, diarrhea or constipation Musc: Reports: extremity swelling; Denies: back pain or extremity pain Neuro: Denies: headache(s), difficulty walking or confusion Medications/Allergies Home Medications Medication Instructions Recorded Confirmed Last Taken Type albuterol sulfate 2.5 mg/3 mL 2.5 mg continuous nebulization Q6H 05/04/21 10/23/22 05/03/21 History (0.083 %) solution for nebulization PRN Shortness Of Breath amlodipine 10 mg tablet 10 mg PO DAILY 05/04/21 10/23/22 10/23/22 History bupropion HCl 150 mg tablet,12 hr 150 mg PO BID 05/04/21 10/23/22 10/23/22 History sustained-release fluoxetine 40 mg capsule 40 mg PO DAILY 05/04/21 10/23/22 10/23/22 History nitroglycerin 0.4 mg sublingual 0.4 mg sublingual Q5M PRN Chest 05/04/21 10/23/22 Unknown History tablet Pain simvastatin 20 mg tablet 20 mg PO QPM 05/04/21 10/23/22 10/22/22 History apixaban 5 mg tablet (Eliquis) 5 mg PO BID #60 tabs 05/08/21 10/23/22 10/23/22 Rx multivitamin 1 tab PO DAILY 05/29/21 10/23/22 10/23/22 History potassium chloride 20 mEq 20 meq PO DAILY 05/29/21 10/23/22 10/23/22 History tablet,extended release tramadol 50 mg tablet 50 mg PO Q8H PRN Pain 05/29/21 10/23/22 Unknown History fluticasone fur. 200 mcg-umeclid 1 inh inhalation DAILY 10/23/22 10/23/22 10/23/22 History 62.5 mcg-vilant 25 mcg inhalat.powder (Trelegy Ellipta) furosemide 20 mg tablet 20 mg PO BID 10/23/22 10/23/22 10/23/22 History metoprolol succinate 100 mg 100 mg PO DAILY 10/23/22 10/23/22 10/23/22 History tablet,extended release 24 hr Allergies Allergy/AdvReac Type Severity Reaction Status Date / Time No Known Allergies Allergy Verified 10/23/22 11:48 PFSH Acute PFSH: Medical History (Updated 05/29/21 @ 11:50 by Ledy Lancaster MD) Atrial fibrillation B12 deficiency BPH (benign prostatic hyperplasia) Chronic diarrhea Chronic kidney disease, stage II (mild) COPD (chronic obstructive pulmonary disease) 4L oxygen dependent Coronary artery disease Coronary stent patent Diabetes Diastolic congestive heart failure Morbid obesity Obesity hypoventilation syndrome Sleep apnea Surgical History Hx of cardiac cath Family History Other Diabetes Social History Smoking and tobacco status: former smoker Quit status (tobacco): has quit using tobacco Year quit tobacco: 1994 Former quit date comment: Hx of 1 PPD x 20 Years Second hand smoke exposure: No Smoking risk assessment/counseling performed?: No Alcohol intake: never Counseling given: No Counseling given: No Caregiver/support person: Yes Lives independently: Yes Household members: children Housing: House Marital status: / Current occupational status: retired and disabled History of recent travel: No Current gender identity: Male Vitals/I&O/Wt Last Vital Signs Temp 98.2 F 10/23/22 11:01 Pulse 80 10/23/22 15:15 Resp 18 10/23/22 15:15 BP 154/82 10/23/22 15:15 Pulse Ox 98 10/23/22 15:15 O2 Del Method 10/23/22 11:30 O2 Flow Rate 3 10/23/22 11:30 Weight last 48 hrs Weight 172.365 kg Physical Exam Const: COMMON NORMALS: patient oriented x3 Resp: OTHER: Diminished air entry bilaterally Cardio: PERIPHERAL PULSES: Peripheral pulses 2+ throughout OTHER: Irregularly irregular rhythm S1-S2 variable intensity GI: COMMON NORMALS: Normal to inspection, nondistended, normoactive bowel sounds present, Soft to palpation, non-tender, No hepatosplenomegaly present and no masses AUSCULTATION: Yes normoactive bowel sounds PALPATION: Yes Soft to palpation and Yes No hepatosplenomegaly present RECTAL EXAM: Yes deferred Extremity: NARRATIVE EXTREMITY EXAM: 3+ pitting edema present in both lower extremity up to knee Neuro: COMMON NORMALS: patient oriented x3 Data 10/23/22 11:07 10/23/22 11:07 A&P Assessment and plan (1) COPD (chronic obstructive pulmonary disease): (2) Obstructive sleep apnea: (3) Heart failure with preserved ejection fraction: (4) Obesity hypoventilation syndrome: Plan 72 year old male past medical history of hypertension COPD on 4 Ls, home oxygen, obstructive sleep apnea, obesity hypoventilation, atrial fibrillation on Eliquis, coronary artery disease,HFpEF, CKD stage II, Came in with chief complaint of worsening shortness of breath with minimal exertion, PND orthopnea, worsening bilateral lower extremity swelling going on for last couple of months.Patient has denied any cough fever chills, abdominal pain nausea vomiting. Assessment: Decompensated heart failure with preserved ejection fraction COPD currently not in exacerbation Hypertension Atrial fibrillation Coronary artery disease CKD versus BRONWYN on CKD [facility] Plan: 2D echo done in 2020 result appreciated: Follow 2D echo Lasix 60 IV 3 times daily Monitor intake output charting Monitor electrolytes Continue amlodipine Continue metoprolol succinate Currently on Lovenox for therapeutic anticoagulation Continue atorvastatin DuoNebs as needed Budesonide inhaler CODE STATUS: Attestations Medical Necessity Statement*: Patient is in hospital for management of dec ompensated heart failure.Anticipated length of stay greater than 2 midnights. Time Spent in Patient Care: Greater than 35 minutes (>than 50% of time spent in counselling and/or direct pt care on unit) . Coding Level of Care Code Acute Merchandising Execution Manager for [facility] Fwd Diagnoses COPD (chronic obstructive pulmonary disease) J44.9 Obstructive sleep apnea G47.33 Heart failure with preserved ejection fraction I50.30 Obesity hypoventilation syndrome E66.2
--- NOTE | 2022-10-23 17:15 | ECG_ITS ---
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 Measurements Intervals [place] Rate: 71 P: 0 HI: 0 QRS: -39 QRSD: 125 T: 23 QT: 376 QTc: 409 Interpretive Statements ATRIAL FIBRILLATION LEFT AXIS DEVIATION [QRS AXIS < -30] LEFT BUNDLE BRANCH BLOCK [120+ ms QRS DURATION, 80+ ms Q/S IN V1/V2, 85+ ms R IN I/aVL/V5/V6] Compared to ECG 10/23/2022 13:43:48 Left-axis deviation now present Electronically Signed On 10-25-2022 8:31:17 GREEN PIPEFITTER by Andreina Jauregui M.D. [email or web address] ([id number]
[2022-10-23] MEDS: hyDRALAzine 25 mg Tablet 50 MG PO (18:36)
[2022-10-23] MEDS: atorvastatin 40 mg Tablet 20 MG PO (18:36)
[2022-10-23] MEDS: apixaban 5 mg Tablet PO (18:37)
[2022-10-23 19:03] LABS: Troponin 5 6HR 17.93 ng/L (0-15)
[2022-10-23 19:17] LABS: Troponin 5 6HR Delta -8.07 ng/L (0-12)
[2022-10-23] MEDS: ipratropium-albuterol 3 mL Neb INHALATION (20:00)
[2022-10-23] MEDS: budesonide 0.5 mg/2 mL Neb INHALATION (20:00)
[2022-10-23] MEDS: buPROPion SR (12 HR) 150 mg Tablet PO (20:20)
[2022-10-23] MEDS: acetaminophen 325 mg Tablet 650 MG PO (21:35)
[2022-10-23] MEDS: guaiFENesin 100 mg/5 mL UDC 10 mL 200 MG PO (21:36)
[2022-10-24] VITALS (21 sets, daily range): BP systolic 123–165; BP diastolic 66–96; PULSE 68–85; RESP 16–22; TEMP 36.5–37.2; O2SAT 88–96
--- NOTE | 2022-10-24 06:00 | USCV_ITS ---
Juan Jose Lamb Age: 72 Gender: M : 1950 Exam Date: 10/24/2022 07:32 Ordering Phys: Tito Mcclellan MD Technologist: HEMANT [place] [facility] [place]: Shortness of breath BP: 152 / 96 HR: 62 Rhythm: Sinus Technical Quality: Technically difficult study MEASUREMENTS (Male / Female) Normal Values 2D ECHO LV Diastolic Diameter PLAX 4.5 cm 4.2 - 5.9 / 3.9 - 5.3 cm LV Systolic Diameter PLAX 3.0 cm IVS Diastolic Thickness 1.2 cm 0.6 - 1.0 / 0.6 - 0.9 cm IVS Systolic Thickness 1.7 cm LVPW Diastolic Thickness 1.3 cm 0.6 - 1.0 / 0.6 - 0.9 cm LVPW Systolic Thickness 1.6 cm LVOT Diameter 2.6 cm LV Ejection Fraction 2D Teich 62.2 % LV Ejection Fraction MOD 2C 58.6 % LV Ejection Fraction 2C AL 58.7 % LA Diameter 5.2 cm IVC Diameter 2.4 cm M-MODE Aortic Annulus Diameter 4.3 cm LA Ao Ratio MM 1.2 MV E Point Septal Separation 1.4 cm DOPPLER AV Peak Velocity 103.0 cm/s LVOT Peak Velocity 89.0 cm/s AV Area Cont Eq vti 4.5 cm squared AV Area Cont Eq pk 4.6 cm squared MV Area PHT 3.9 cm squared Mitral E to A Ratio 2.5 MV E' Velocity 77.0 cm/s Mitral E to MV E' Ratio 19.7 Mitral E to LV E' Lateral Ratio 14.1 Mitral E to LV E' Septal Ratio 32.8 TV Peak E Velocity 51.0 cm/s FINDINGS Left Ventricle Normal left ventricular cavity size and systolic function. Left ventricular ejection fraction is estimated at 60 %. There is possible septal hypokinesis. Abnormal septal motion consistent with conduction abnormality. Right Ventricle Normal right ventricular size and systolic function. Right Atrium Normal right atrial size. Left Atrium Mildly increased left atrial size. Mitral Valve Mildly thickened mitral valve. No mitral valve stenosis. No mitral valve regurgitation. Aortic Valve Aortic valve not well visualized. No aortic valve stenosis. No aortic valve regurgitation. Tricuspid Valve Structurally normal tricuspid valve. Trace tricuspid valve regurgitation. Pulmonic Valve Pulmonic valve not well visualized. Pericardium No pericardial effusion. Echo free space anterior to the right ventricle likely represents a fat pad. Aorta Aorta not well visualized. IVC Dilated inferior vena cava with less than 50% respiratory variation. CONCLUSIONS 1. This is a technically difficult study. Optison was used per protocol. 2. Normal left ventricular cavity size and systolic function. Left ventricular ejection fraction is estimated at 60 %. There is possible septal hypokinesis. Abnormal septal motion consistent with conduction abnormality. 3. When compared to study dated 05/04/2021, there may not have been any significant change. Andreina Jauregui MD (Electronically Signed) Final Date: 24 October 2022 13:46 S
[2022-10-24 06:04] LABS: Basophils % 0.1 %; Hematocrit 37.9 % (42.0-52.0); Hemoglobin 11.2 g/dL (11.7-16.6); Lymphocytes # 1.1 10^3/uL (0.8-4.8); Lymphocytes % 7.9 %; Mean Corpuscular HGB Conc 29.6 g/dL (30.0-36.0); Mean Corpuscular Hemoglobin 27.5 pg (28.0-34.0); Mean Corpuscular Volume 93.1 fl (80-94); Mean Platelet Volume 10.9 fL (7.4-10.4); Monocytes % 7.4 %; Neutrophils # 11.32 10^3/uL (1.8-7.7); Neutrophils % 84.1 %; Nucleated Red Blood Cells % 0 %; Platelet Count 225 10^3/cmm (130-400); Red Blood Count 4.07 10^6/uL (4.1-5.3); Red Cell Distribution Width 14.8 % (12.1-15.1); White Blood Count 13.5 10^3/uL (4.0-10.0)
[2022-10-24 06:34] LABS: Anion Gap 12.7 (5-19); Blood Urea Nitrogen 24 mg/dL (8-23); Calcium 9.1 mg/dL (8.5-10.5); Carbon Dioxide 32 mmol/L (22-29); Chloride 100 mmol/L (98-107); Glucose 117 mg/dL (65-115); Osmolality Calculated 297 mOsm/kg (285-295); Potassium 3.7 mmol/L (3.5-5.1); Sodium 141 mmol/L (136-145)
[2022-10-24] MEDS: budesonide 0.5 mg/2 mL Neb INHALATION ×2 (08:39→19:24)
[2022-10-24] MEDS: ipratropium-albuterol 3 mL Neb INHALATION ×4 (08:40→19:24)
[2022-10-24 08:43] LABS: Procalcitonin 0.09 ng/mL (0-0.5); Thyroid Stimulating Hormone 0.85 uIU/mL (0.27-4.20)
[2022-10-24] MEDS: perflutren protein-a microsphr 0.22 mg/mL SDV 3 mL IV (08:51)
[2022-10-24] MEDS: metoprolol succinate ER (24 HR) 100 mg Tablet PO (09:11)
[2022-10-24] MEDS: FUROsemide 10 mg/mL SDV 10mL 60 MG IVP ×3 (09:12→20:34)
[2022-10-24] MEDS: amlodipine 10 mg Tablet PO (09:12)
[2022-10-24] MEDS: fluoxetine 20 mg Capsule 40 MG PO (09:12)
[2022-10-24] MEDS: multivitamin therapeutic Tablet 1 TAB PO (09:12)
[2022-10-24] MEDS: potassium chloride ER 20 mEq Tablet 40 MEQ PO (09:12)
[2022-10-24] MEDS: apixaban 5 mg Tablet PO ×2 (09:12→18:44)
[2022-10-24] MEDS: buPROPion SR (12 HR) 150 mg Tablet PO ×2 (09:12→19:09)
--- NOTE | 2022-10-24 14:59 | P.PN_ITS ---
Subjective Subjective: Patient was seen and examined this morning, was complaining of significant shortness of breath with minimal exertion, agrees for placement of Sanchez catheter for short time so that he can have some rest. Documented urine output since admission 2100. Medications: Medication Review Details: Generic Name Dose Route Start Last Admin Trade Name Freq PRN Reason Stop Dose Admin Acetaminophen 650 mg 10/23/22 16:02 10/23/22 21:35 Acetaminophen 32 5 Mg Tablet PO 650 mg Q6H PRN Administration Mild/Mod Pain Or Temp >/= 101 Albuterol/Ipratrop ium 3 ml 10/23/22 20:00 10/24/22 11:58 Ipratropium-Albu terol 3 Ml Neb INHALATION 3 ml QID.RESPIRATORY S CH Administration Amlodipine Besylat e 10 mg 10/24/22 09:00 10/24/22 09:12 Amlodipine 10 Mg Tablet PO 10 mg DAILY TRELL Administration Apixaban 5 mg 10/23/22 18:00 10/24/22 09:12 Apixaban 5 Mg Ta blet PO 5 mg BID TRELL Administration Atorvastatin Calci um 20 mg 10/23/22 18:00 10/23/22 18:36 Atorvastatin 40 Mg Tablet PO 20 mg QPM TRELL Administration Budesonide 0.5 mg 10/23/22 20:00 10/24/22 08:39 Budesonide 0.5 M g/2 Ml Neb INHALATION 0.5 mg BID.RESPIRATORY S CH Administration Bupropion HCl 150 mg 10/23/22 18:00 10/24/22 09:12 Bupropion Sr (12 Hr) 150 Mg Tablet PO 150 mg BID TRELL Administration Fluoxetine HCl 40 mg 10/24/22 09:00 10/24/22 09:12 Fluoxetine 20 Mg Capsule PO 40 mg DAILY TRELL Administration Furosemide 60 mg 10/23/22 18:00 10/24/22 09:12 Furosemide 10 Mg /Ml Sdv 10ml IVP 60 mg TID TRELL Administration Guaifenesin 200 mg 10/23/22 21:25 10/23/22 21:36 Guaifenesin 100 Mg/5 Ml Udc 10 Ml PO 200 mg Q4H PRN Administration COUGH Metoprolol Succina te 100 mg 10/24/22 09:00 10/24/22 09:11 Metoprolol Succi cullen Er (24 Hr) 10 0 Mg Tablet PO 100 mg DAILY TRELL Administration Multivitamins Ther apeutic 1 tab 10/24/22 09:00 10/24/22 09:12 Multivitamin The rapeutic Tablet PO 1 tab DAILY TRELL Administration Potassium Chloride 40 meq 10/24/22 09:00 10/24/22 09:12 Potassium Chlori de Er 20 Meq Table t PO 40 meq DAILY TRELL Administration Vitals/I&O/Wt Last Vital Signs Temp 97.7 F 10/24/22 12:52 Pulse 77 10/24/22 12:52 Resp 17 10/24/22 12:52 BP 157/82 10/24/22 12:52 Pulse Ox 92 10/24/22 12:52 O2 Del Method 10/24/22 12:52 O2 Flow Rate 3 10/24/22 12:52 10/23/22 10/24/22 10/24/22 22:59 06:59 14:59 Intake Total 240 / 240 720 / 720 Output Total 1350 / 1350 450 / 1800 760 / 760 Balance -1110 / -1110 -450 / -1560 -40 / -40 Weight last 48 hrs Weight 162.84 kg Weight 292.567 kg Weight 172.365 kg Physical Exam Const: COMMON NORMALS: patient oriented x3 Resp: OTHER: Diminished air entry bilaterally Cardio: COMMON NORMALS: Peripheral pulses 2+ throughout PERIPHERAL PULSES: Peripheral pulses 2+ throughout OTHER: Irregularly irregular rhythm S1-S2 variable intensity GI: COMMON NORMALS: Normal to inspection, nondistended, normoactive bowel sounds present, Soft to palpation, non-tender, No hepatosplenomegaly present and no masses AUSCULTATION: Yes normoactive bowel sounds PALPATION: Yes Soft to palpation and Yes No hepatosplenomegaly present RECTAL EXAM: Yes deferred Extremity: NARRATIVE EXTREMITY EXAM: 3+ pitting edema present in both lower extremity up to knee Neuro: COMMON NORMALS: patient oriented x3 Data 10/24/22 05:16 10/24/22 05:16 A&P Assessment and plan (1) COPD (chronic obstructive pulmonary disease): (2) Obstructive sleep apnea: (3) Heart failure with preserved ejection fraction: (4) Obesity hypoventilation syndrome: Plan 72 year old male past medical history of hypertension COPD on 4 Ls, home oxygen, obstructive sleep apnea, obesity hypoventilation, atrial fibrillation on Eliquis, coronary artery disease,HFpEF, CKD stage II, Came in with chief complaint of worsening shortness of breath with minimal exertion, PND orthopnea, worsening bilateral lower extremity swelling going on for last couple of months.Patient has denied any cough fever chills, abdominal pain nausea vomiting. Assessment: Decompensated heart failure with preserved ejection fraction COPD currently not in exacerbation Hypertension Atrial fibrillation Coronary artery disease CKD versus BRONWYN on CKD [facility] Plan: 2D echo done in 2020 result appreciated: 2D echo: Normal LV size and systolic function with LVEF of 60%, dilated IVC, with less than 50% respiratory variation. Lasix 60 IV 3 times daily Monitor intake output charting Monitor electrolytes Continue amlodipine Continue metoprolol succinate Currently on Lovenox for therapeutic anticoagulation Continue atorvastatin DuoNebs as needed Budesonide inhaler CODE STATUS: Full code Attestations Medical Necessity Statement*: Patient needs to be in hospital management of decompensated heart failure. Time Spent in Patient Care: Greater than 35 minutes (>than 50% of time spent in counselling and/or direct pt care on unit) . Coding Level of Care Code Acute Records Management Analyst for [facility] Exam Expanded Problem Focused Diagnoses COPD (chronic obstructive pulmonary disease) J44.9 Obstructive sleep apnea G47.33 Heart failure with preserved ejection fraction I50.30 Obesity hypoventilation syndrome E66.2
[2022-10-24] MEDS: lidocaine 1% 5 ML in potassium chloride premix 100 ML 25 ML IV (18:44)
[2022-10-24] MEDS: atorvastatin 40 mg Tablet 20 MG PO (18:45)
[2022-10-24] MEDS: guaiFENesin 100 mg/5 mL UDC 10 mL 200 MG PO (21:26)
[2022-10-24] MEDS: ondansetron 2 mg/ML SDV 2 mL 4 MG IVP (22:39)
[2022-10-25] VITALS (15 sets, daily range): BP systolic 131–184; BP diastolic 89–111; PULSE 67–91; RESP 16–31; TEMP 36.2–36.8; O2SAT 88–99
[2022-10-25 05:32] LABS: ABG PCO2 57.2 mmHg (35-45); Alveolar-Arterial Oxygen Gradi 10.9 mmHg (5-10); Arterial Blood Gas Hematocrit 34.9 % (42-52); Blood Gas Allen Test Pos; Blood Gas Sample Site Radial, right; Blood Gas Sample Type Arterial; Carboxyhemoglobin 1.6 %THgb (0.4-20.1); HCO3 ABG 35.5 mmol/L (22-26); HGB O2 Sat 96.9 % (95-100); Ionized Calcium Level - ABG 1.2 mmol/L (1.1-1.4); Methemoglobin 0.3 % (0.4-1.5); Oxygen Saturation ABG 98.8; Total Hemoglobin 11.4 g/dL (14-18)
[2022-10-25 05:33] LABS: Oxygen Device BIPAP
[2022-10-25 06:02] LABS: Basophils % 0.3 %; Eosinophils # 0.1 10^3/uL (0.0-0.8); Hematocrit 40.7 % (42.0-52.0); Hemoglobin 11.9 g/dL (11.7-16.6); Lymphocytes # 1.7 10^3/uL (0.8-4.8); Lymphocytes % 12.8 %; Mean Corpuscular HGB Conc 29.2 g/dL (30.0-36.0); Mean Corpuscular Volume 95.8 fl (80-94); Mean Platelet Volume 10.3 fL (7.4-10.4); Monocytes # 1.1 10^3/uL (0.2-0.9); Monocytes % 8.8 %; Neutrophils # 9.92 10^3/uL (1.8-7.7); Neutrophils % 76.8 %; Nucleated Red Blood Cells % 0 %; Platelet Count 205 10^3/cmm (130-400); Red Blood Count 4.25 10^6/uL (4.1-5.3); Red Cell Distribution Width 15.2 % (12.1-15.1); White Blood Count 12.9 10^3/uL (4.0-10.0)
[2022-10-25 06:25] LABS: Blood Urea Nitrogen 28 mg/dL (8-23); Calcium 9.3 mg/dL (8.5-10.5); Carbon Dioxide 35 mmol/L (22-29); Chloride 100 mmol/L (98-107); Glucose 102 mg/dL (65-115); Osmolality Calculated 302 mOsm/kg (285-295); Sodium 143 mmol/L (136-145)
[2022-10-25] MEDS: budesonide 0.5 mg/2 mL Neb INHALATION ×2 (09:06→20:34)
[2022-10-25] MEDS: ipratropium-albuterol 3 mL Neb INHALATION ×4 (09:06→20:34)
[2022-10-25] MEDS: amlodipine 10 mg Tablet PO (09:47)
[2022-10-25] MEDS: fluoxetine 20 mg Capsule 40 MG PO (09:47)
[2022-10-25] MEDS: potassium chloride ER 20 mEq Tablet 40 MEQ PO (09:47)
[2022-10-25] MEDS: multivitamin therapeutic Tablet 1 TAB PO (09:48)
[2022-10-25] MEDS: apixaban 5 mg Tablet PO ×2 (09:48→17:43)
[2022-10-25] MEDS: buPROPion SR (12 HR) 150 mg Tablet PO ×2 (09:48→17:41)
[2022-10-25] MEDS: metoprolol succinate ER (24 HR) 100 mg Tablet PO (09:48)
[2022-10-25] MEDS: FUROsemide 10 mg/mL SDV 10mL 60 MG IVP ×3 (10:09→21:55)
--- NOTE | 2022-10-25 14:36 | P.PN_ITS ---
Subjective Subjective: Patient was seen and examined this morning, still complaining of significant shortness of breath, though slightly better than yesterday.Continue to have robust urine output. Currently patient is -4 LS. Medications: Medication Review Details: Generic Name Dose Route Start Last Admin Trade Name Freq PRN Reason Stop Dose Admin Acetaminophen 650 mg 10/23/22 16:02 10/23/22 21:35 Acetaminophen 32 5 Mg Tablet PO 650 mg Q6H PRN Administration Mild/Mod Pain Or Temp >/= 101 Albuterol/Ipratrop ium 3 ml 10/23/22 20:00 10/25/22 11:51 Ipratropium-Albu terol 3 Ml Neb INHALATION 3 ml QID.RESPIRATORY S CH Administration Amlodipine Besylat e 10 mg 10/24/22 09:00 10/25/22 09:47 Amlodipine 10 Mg Tablet PO 10 mg DAILY TRELL Administration Apixaban 5 mg 10/23/22 18:00 10/25/22 09:48 Apixaban 5 Mg Ta blet PO 5 mg BID TRELL Administration Atorvastatin Calci um 20 mg 10/23/22 18:00 10/24/22 18:45 Atorvastatin 40 Mg Tablet PO 20 mg QPM TRELL Administration Budesonide 0.5 mg 10/23/22 20:00 10/25/22 09:06 Budesonide 0.5 M g/2 Ml Neb INHALATION 0.5 mg BID.RESPIRATORY S CH Administration Bupropion HCl 150 mg 10/23/22 18:00 10/25/22 09:48 Bupropion Sr (12 Hr) 150 Mg Tablet PO 150 mg BID TRELL Administration Fluoxetine HCl 40 mg 10/24/22 09:00 10/25/22 09:47 Fluoxetine 20 Mg Capsule PO 40 mg DAILY TRELL Administration Furosemide 60 mg 10/23/22 18:00 10/25/22 10:09 Furosemide 10 Mg /Ml Sdv 10ml IVP 60 mg TID TRELL Administration Guaifenesin 200 mg 10/23/22 21:25 10/24/22 21:26 Guaifenesin 100 Mg/5 Ml Udc 10 Ml PO 200 mg Q4H PRN Administration COUGH Metoprolol Succina te 100 mg 10/24/22 09:00 10/25/22 09:48 Metoprolol Succi cullen Er (24 Hr) 10 0 Mg Tablet PO 100 mg DAILY TRELL Administration Multivitamins Ther apeutic 1 tab 10/24/22 09:00 10/25/22 09:48 Multivitamin The rapeutic Tablet PO 1 tab DAILY TRELL Administration Ondansetron HCl 4 mg 10/23/22 16:02 10/24/22 22:39 Ondansetron 2 Mg /Ml Sdv 2 Ml IVP 4 mg Q8H PRN Administration vomiting, or N/V if npo Potassium Chloride 40 meq 10/24/22 09:00 10/25/22 09:47 Potassium Chlori de Er 20 Meq Table t PO 40 meq DAILY TRELL Administration Vitals/I&O/Wt Last Vital Signs Temp 97.6 F 10/25/22 11:46 Pulse 78 10/25/22 11:52 Resp 17 10/25/22 11:52 BP 170/89 10/25/22 11:46 Pulse Ox 92 10/25/22 11:52 O2 Del Method 10/25/22 11:52 O2 Flow Rate 6 10/25/22 11:52 10/24/22 10/25/22 10/25/22 22:59 06:59 14:59 Intake Total 465 / 1185 400 / 400 Output Total 1130 / 1890 1450 / 3340 700 / 700 Balance -665 / -705 -1450 / -2155 -300 / -300 Weight last 48 hrs Weight 162.93 kg Weight 162.84 kg Weight 292.567 kg Physical Exam Const: COMMON NORMALS: patient oriented x3 Resp: OTHER: Diminished air entry bilaterally Cardio: COMMON NORMALS: Peripheral pulses 2+ throughout PERIPHERAL PULSES: Peripheral pulses 2+ throughout OTHER: Irregularly irregular rhythm S1-S2 variable intensity GI: COMMON NORMALS: Normal to inspection, nondistended, normoactive bowel sounds present, Soft to palpation, non-tender, No hepatosplenomegaly present and no masses AUSCULTATION: Yes normoactive bowel sounds PALPATION: Yes Soft to palpation and Yes No hepatosplenomegaly present RECTAL EXAM: Yes deferred Extremity: NARRATIVE EXTREMITY EXAM: 3+ pitting edema present in both lower extremity up to knee Neuro: COMMON NORMALS: patient oriented x3 Urinary Catheter Management: Sanchez: Cath Placed During This Visit: yes Reason for Continuing Indwelling Catheter: Other Urinary Catheter Date of Insertion: 10/24/22 Urinary Catheter Time of Insertion: 22:00 Data 10/25/22 05:50 12/25/22 05:50 A&P Assessment and plan (1) COPD (chronic obstructive pulmonary disease): (2) Obstructive sleep apnea: (3) Heart failure with preserved ejection fraction: (4) Obesity hypoventilation syndrome: Plan 72 year old male past medical history of hypertension COPD on 4 Ls, home oxygen, obstructive sleep apnea, obesity hypoventilation, atrial fibrillation on Eliquis, coronary artery disease,HFpEF, CKD stage II, Came in with chief complaint of worsening shortness of breath with minimal exertion, PND orthopnea, worsening bilateral lower extremity swelling going on for last couple of months.Patient has denied any cough fever chills, abdominal pain nausea vomiting. Assessment: Decompensated heart failure with preserved ejection fraction COPD currently not in exacerbation Hypertension Atrial fibrillation Coronary artery disease CKD versus BRONWYN on CKD [facility] Plan: 2D echo done in 2020 result appreciated: 2D echo: Normal LV size and systolic function with LVEF of 60%, dilated IVC, with less than 50% respiratory variation. Lasix 60 IV 3 times daily Monitor intake output charting Monitor electrolytes Continue amlodipine Continue metoprolol succinate Currently on Eliquis for therapeutic anticoagulation Continue atorvastatin DuoNebs as needed Budesonide inhaler Plan for today: Continue aggressive IV diuresis CODE STATUS: Full code Attestations Medical Necessity Statement*: Patient is still in hospital for management of decompensated heart failure, continued need for IV diuresis. Coding Level of Care Code Acute Abrasive Wheel Molder for Юлия Kenny Diagnoses COPD (chronic obstructive pulmonary disease) J44.9 Obstructive sleep apnea G47.33 Heart failure with preserved ejection fraction I50.30 Obesity hypoventilation syndrome E66.2
--- NOTE | 2022-10-25 14:38 | XRR_ITS ---
PROCEDURE INFORMATION: Exam: XR Chest Exam date and time: 10/25/2022 3:32 PM Age: 72 years old Clinical indication: Cough; Additional info: B/l pleural effusion TECHNIQUE: Imaging protocol: Radiologic exam of the chest. Views: 1 view. COMPARISON: CR XR chest 1V portable [id number] 10/23/2022 11:26 AM FINDINGS: Lungs: See Pleural spaces finding. Pleural spaces: Bilateral pleural effusions with adjacent compressive atelectasis and or pneumonia, similar to the prior study. Heart/Mediastinum: Cardiomegaly. Bones/joints: Unremarkable. XR/XR chest 1V portable [id number] IMPRESSION: 1. Bilateral pleural effusions with adjacent compressive atelectasis and or pneumonia, similar to the prior study. 2. Cardiomegaly.
[2022-10-25] MEDS: ondansetron 2 mg/ML SDV 2 mL 4 MG IVP ×2 (16:52→23:53)
[2022-10-25] MEDS: atorvastatin 40 mg Tablet 20 MG PO (17:41)
[2022-10-25] MEDS: acetaminophen 325 mg Tablet 650 MG PO (23:51)
[2022-10-26] VITALS (16 sets, daily range): BP systolic 150–164; BP diastolic 65–82; PULSE 64–80; RESP 12–32; TEMP 36–37.3; O2SAT 88–95
[2022-10-26] MEDS: acetaminophen 325 mg Tablet 650 MG PO ×3 (03:50→20:51)
[2022-10-26 04:01] LABS: Basophils % 0.3 %; Eosinophils # 0.2 10^3/uL (0.0-0.8); Eosinophils % 1.6 %; Hematocrit 39.9 % (42.0-52.0); Hemoglobin 11.3 g/dL (11.7-16.6); Lymphocytes # 1.4 10^3/uL (0.8-4.8); Lymphocytes % 12.5 %; Mean Corpuscular HGB Conc 28.3 g/dL (30.0-36.0); Mean Corpuscular Hemoglobin 27.5 pg (28.0-34.0); Mean Corpuscular Volume 97.1 fl (80-94); Mean Platelet Volume 10.8 fL (7.4-10.4); Monocytes # 1.1 10^3/uL (0.2-0.9); Monocytes % 9.8 %; Neutrophils # 8.66 10^3/uL (1.8-7.7); Neutrophils % 75.3 %; Nucleated Red Blood Cells % 0 %; Platelet Count 192 10^3/cmm (130-400); Red Blood Count 4.11 10^6/uL (4.1-5.3); Red Cell Distribution Width 15.2 % (12.1-15.1); White Blood Count 11.5 10^3/uL (4.0-10.0)
[2022-10-26 04:18] LABS: Anion Gap 10.7 (5-19); Blood Urea Nitrogen 26 mg/dL (8-23); Calcium 8.9 mg/dL (8.5-10.5); Carbon Dioxide 40 mmol/L (22-29); Chloride 97 mmol/L (98-107); Glucose 102 mg/dL (65-115); Osmolality Calculated 303 mOsm/kg (285-295); Potassium 3.7 mmol/L (3.5-5.1); Sodium 144 mmol/L (136-145)
[2022-10-26] MEDS: ondansetron 2 mg/ML SDV 2 mL 4 MG IVP (04:43)
[2022-10-26] MEDS: multivitamin therapeutic Tablet 1 TAB PO (08:32)
[2022-10-26] MEDS: fluoxetine 20 mg Capsule 40 MG PO (08:33)
[2022-10-26] MEDS: FUROsemide 10 mg/mL SDV 10mL 60 MG IVP ×3 (08:33→20:40)
[2022-10-26] MEDS: metoprolol succinate ER (24 HR) 100 mg Tablet PO (08:33)
[2022-10-26] MEDS: potassium chloride ER 20 mEq Tablet 40 MEQ PO (08:33)
[2022-10-26] MEDS: buPROPion SR (12 HR) 150 mg Tablet PO ×2 (08:33→18:10)
[2022-10-26] MEDS: amlodipine 10 mg Tablet PO (08:33)
[2022-10-26] MEDS: apixaban 5 mg Tablet PO ×2 (08:33→18:11)
[2022-10-26] MEDS: budesonide 0.5 mg/2 mL Neb INHALATION ×2 (08:49→20:30)
[2022-10-26] MEDS: ipratropium-albuterol 3 mL Neb INHALATION ×4 (08:49→20:30)
--- NOTE | 2022-10-26 11:44 | PC.SOCIAL ---
Pg 2 IMM Explained to pt Pg 2 IMM. No questions voiced. Provided pt a copy. Initialed, dated, & timed a copy & placed in chart.
--- NOTE | 2022-10-26 16:51 | P.PN_ITS ---
Subjective Subjective: Noted to be in recliner next to bed. States that his breathing is slightly improved and he feels his lower extremity edema is improving, though on examination still has gross anasarca. Oxygen saturation 88 to 92% on 7 to 8 L/min supplemental O2. Medications: Medication Review Details: Generic Name Dose Route Start Last Admin Trade Name Freq PRN Reason Stop Dose Admin Acetaminophen 650 mg 10/23/22 16:02 10/23/22 21:35 Acetaminophen 32 5 Mg Tablet PO 650 mg Q6H PRN Administration Mild/Mod Pain Or Temp >/= 101 Albuterol/Ipratrop ium 3 ml 10/23/22 20:00 10/25/22 11:51 Ipratropium-Albu terol 3 Ml Neb INHALATION 3 ml QID.RESPIRATORY S CH Administration Amlodipine Besylat e 10 mg 10/24/22 09:00 10/25/22 09:47 Amlodipine 10 Mg Tablet PO 10 mg DAILY TRELL Administration Apixaban 5 mg 10/23/22 18:00 10/25/22 09:48 Apixaban 5 Mg Ta blet PO 5 mg BID TRELL Administration Atorvastatin Calci um 20 mg 10/23/22 18:00 10/24/22 18:45 Atorvastatin 40 Mg Tablet PO 20 mg QPM TRELL Administration Budesonide 0.5 mg 10/23/22 20:00 10/25/22 09:06 Budesonide 0.5 M g/2 Ml Neb INHALATION 0.5 mg BID.RESPIRATORY S CH Administration Bupropion HCl 150 mg 10/23/22 18:00 10/25/22 09:48 Bupropion Sr (12 Hr) 150 Mg Tablet PO 150 mg BID TRELL Administration Fluoxetine HCl 40 mg 10/24/22 09:00 10/25/22 09:47 Fluoxetine 20 Mg Capsule PO 40 mg DAILY TRELL Administration Furosemide 60 mg 10/23/22 18:00 10/25/22 10:09 Furosemide 10 Mg /Ml Sdv 10ml IVP 60 mg TID TRELL Administration Guaifenesin 200 mg 10/23/22 21:25 10/24/22 21:26 Guaifenesin 100 Mg/5 Ml Udc 10 Ml PO 200 mg Q4H PRN Administration COUGH Metoprolol Succina te 100 mg 10/24/22 09:00 10/25/22 09:48 Metoprolol Succi cullen Er (24 Hr) 10 0 Mg Tablet PO 100 mg DAILY TRELL Administration Multivitamins Ther apeutic 1 tab 10/24/22 09:00 10/25/22 09:48 Multivitamin The rapeutic Tablet PO 1 tab DAILY TRELL Administration Ondansetron HCl 4 mg 10/23/22 16:02 10/24/22 22:39 Ondansetron 2 Mg /Ml Sdv 2 Ml IVP 4 mg Q8H PRN Administration vomiting, or N/V if npo Potassium Chloride 40 meq 10/24/22 09:00 10/25/22 09:47 Potassium Chlori de Er 20 Meq Table t PO 40 meq DAILY TRELL Administration Vitals/I&O/Wt Last Vital Signs Temp 99.1 F 10/26/22 15:23 Pulse 69 10/26/22 15:23 Resp 32 H 10/26/22 15:23 BP 164/80 10/26/22 15:23 Pulse Ox 88 L 10/26/22 15:23 O2 Del Method 10/26/22 15:23 O2 Flow Rate 5 10/26/22 15:23 FiO2 40 10/26/22 04:00 10/26/22 10/26/22 10/26/22 06:59 14:59 22:59 Intake Total 240 / 1600 460 / 460 Output Total 550 / 3450 900 / 900 Balance -310 / -1850 -440 / -440 Weight last 48 hrs Weight 161.649 kg Weight 162.93 kg Physical Exam Narrative: General: No acute distress, AO x3 HEENT: PERRLA, pupils bilaterally equal and reactive, pallors not present Chest: Normal vesicular breath sounds, no added sounds, equal good air entry bilaterally CVS: S1-S2 regular, no murmurs, no tachycardia, no gallops, no rubs Abdomen: Soft, nontender, no organomegaly, bowel sounds present Neuro: No focal deficits, no facial deformity, AO x3, power 5/5 in all limbs Extremities: 3+ pitting lower extremity edema Urinary Catheter Management: Sanchez: Cath Placed During This Visit: yes Reason for Continuing Indwelling Catheter: Accurate Measurement of Urinary Output in Critically Ill Patients Urinary Catheter Date of Insertion: 10/24/22 Urinary Catheter Time of Insertion: 22:00 Data 10/26/22 02:20 10/26/22 02:20 A&P Assessment and plan (1) COPD (chronic obstructive pulmonary disease): (2) Obstructive sleep apnea: (3) Heart failure with preserved ejection fraction: (4) Obesity hypoventilation syndrome: Plan 72 year old male past medical history of hypertension COPD on 4 Ls, home oxygen, obstructive sleep apnea, obesity hypoventilation, atrial fibrillation on Eliquis, coronary artery disease,HFpEF, CKD stage II, Came in with chief complaint of worsening shortness of breath with minimal exertion, PND orthopnea, worsening bilateral lower extremity swelling going on for last couple of months. Patient has denied any cough fever chills, abdominal pain nausea vomiting. Assessment: Decompensated heart failure with preserved ejection fraction COPD currently not in exacerbation Hypertension Atrial fibrillation Coronary artery disease CKD versus BRONWYN on CKD [facility] Plan: 2D echo done in 2020 result appreciated: 2D echo: Normal LV size and systolic function with LVEF of 60%, dilated IVC, with less than 50% respiratory variation. Lasix 60 IV 3 times daily Monitor intake output charting Monitor electrolytes Continue amlodipine Continue metoprolol succinate Currently on Eliquis for therapeutic anticoagulation Continue atorvastatin DuoNebs as needed Budesonide inhaler Plan for today: Continue aggressive IV diuresis. Lasix cannot be weaned down just yet. Continue with 60 IV 3 times daily closely monitoring renal function and urine output. CODE STATUS: Full code Attestations Medical Necessity Statement*: Ongoing IV diuresis Coding Level of Care Code Acute Cutting And Boning Supervisor for [facility] Fwd Diagnoses COPD (chronic obstructive pulmonary disease) J44.9 Obstructive sleep apnea G47.33 Heart failure with preserved ejection fraction I50.30 Obesity hypoventilation syndrome E66.2
[2022-10-26] MEDS: atorvastatin 40 mg Tablet 20 MG PO (18:10)
[2022-10-26] MEDS: guaiFENesin 100 mg/5 mL UDC 10 mL 200 MG PO (22:21)
[2022-10-27] VITALS (12 sets, daily range): BP systolic 151–172; BP diastolic 79–91; PULSE 58–82; RESP 18–27; TEMP 36.6–37; O2SAT 86–98
[2022-10-27] MEDS: ondansetron 2 mg/ML SDV 2 mL 4 MG IVP ×2 (00:33→14:24)
[2022-10-27 03:09] LABS: Basophils % 0.3 %; Eosinophils # 0.2 10^3/uL (0.0-0.8); Eosinophils % 1.9 %; Hematocrit 38.7 % (42.0-52.0); Hemoglobin 11.1 g/dL (11.7-16.6); Lymphocytes # 1.4 10^3/uL (0.8-4.8); Lymphocytes % 11.8 %; Mean Corpuscular HGB Conc 28.7 g/dL (30.0-36.0); Mean Corpuscular Hemoglobin 27.8 pg (28.0-34.0); Mean Corpuscular Volume 96.8 fl (80-94); Mean Platelet Volume 10.6 fL (7.4-10.4); Monocytes # 1.2 10^3/uL (0.2-0.9); Neutrophils # 8.78 10^3/uL (1.8-7.7); Neutrophils % 75.7 %; Nucleated Red Blood Cells % 0 %; Platelet Count 184 10^3/cmm (130-400); Red Cell Distribution Width 14.9 % (12.1-15.1); White Blood Count 11.6 10^3/uL (4.0-10.0)
[2022-10-27 03:35] LABS: Alanine Aminotransferase 41 U/L (0-41); Albumin Level 3.7 g/dL (3.5-5.2); Alkaline Phosphatase 74 U/L (40-130); Anion Gap 10.8 (5-19); Aspartate Amino Transferase 26 U/L (0-40); Blood Urea Nitrogen 26 mg/dL (8-23); Calcium 8.3 mg/dL (8.5-10.5); Chloride 94 mmol/L (98-107); Globulin 3.2 g/dL (1.3-4.6); Glucose 141 mg/dL (65-115); Osmolality Calculated 301 mOsm/kg (285-295); Potassium 3.8 mmol/L (3.5-5.1); Sodium 142 mmol/L (136-145); Total Bilirubin 0.6 mg/dL (0.15-1.2); Total Protein 6.9 g/dL (6.6-8.7)
[2022-10-27 04:24] LABS: Carbon Dioxide 41 mmol/L (22-29)
[2022-10-27] MEDS: acetaminophen 325 mg Tablet 650 MG PO (05:16)
[2022-10-27] MEDS: saline nasal spray 44mL Btl 1 SPRAY NASAL (07:43)
[2022-10-27] MEDS: budesonide 0.5 mg/2 mL Neb INHALATION ×2 (08:16→22:29)
[2022-10-27] MEDS: ipratropium-albuterol 3 mL Neb INHALATION ×4 (08:19→22:29)
[2022-10-27] MEDS: FUROsemide 10 mg/mL SDV 10mL 60 MG IVP ×2 (09:24→15:50)
[2022-10-27] MEDS: apixaban 5 mg Tablet PO ×2 (09:24→17:14)
[2022-10-27] MEDS: multivitamin therapeutic Tablet 1 TAB PO (09:24)
[2022-10-27] MEDS: potassium chloride ER 20 mEq Tablet 40 MEQ PO (09:24)
[2022-10-27] MEDS: buPROPion SR (12 HR) 150 mg Tablet PO ×2 (09:24→17:28)
[2022-10-27] MEDS: metoprolol succinate ER (24 HR) 100 mg Tablet PO (09:24)
[2022-10-27] MEDS: amlodipine 10 mg Tablet PO (09:24)
[2022-10-27] MEDS: fluoxetine 20 mg Capsule 40 MG PO (09:24)
--- NOTE | 2022-10-27 13:16 | ECG_ITS ---
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 Measurements Intervals [place] Rate: 76 P: 0 MI: 0 QRS: -34 QRSD: 129 T: 106 QT: 380 QTc: 427 Interpretive Statements ATRIAL FIBRILLATION LEFT AXIS DEVIATION [QRS AXIS < -30] LEFT BUNDLE BRANCH BLOCK [120+ ms QRS DURATION, 80+ ms Q/S IN V1/V2, 85+ ms R IN I/aVL/V5/V6] Compared to ECG 10/23/2022 17:31:41 No significant changes Electronically Signed On 10-27-2022 14:09:07 LIQUID FLOOR AND WALL APPLIER by Broderick Bell M.D. [id number]
--- NOTE | 2022-10-27 14:00 | PC.NURSE ---
Patient had complaint of chest pain to left chest and discomfort to left arm. EKG performed and posted to chart. Provider notified. Trop to be drawn will monitor.
[2022-10-27 14:32] LABS: Troponin(5th) Baseline 30 ng/L (0-15)
--- NOTE | 2022-10-27 15:32 | PC.NURSE ---
Provider rounded on patient at this time verbal instructions received to start Nitro paste 1 Q6H as long a pressure holds
[2022-10-27] MEDS: nitroglycerin 1 gm/inch oint Pkt 1 INCH TOPICAL ×2 (15:50→22:19)
[2022-10-27 16:20] LABS: Troponin 5 2HR 30.81 ng/L (0-15)
[2022-10-27 16:22] LABS: Troponin 5 2HR Delta 0.81 ABS# (0-10)
[2022-10-27] MEDS: atorvastatin 40 mg Tablet 20 MG PO (17:14)
[2022-10-27] MEDS: FUROsemide 100 MG in sodium chloride 0.9% 40 ML IV (17:14)
[2022-10-27] MEDS: sodium chloride 0.9% (100 ml) 100 ML 10 ML (17:27)
[2022-10-27] MEDS: metOLazone 5 MG Tablet PO (17:29)
--- NOTE | 2022-10-27 17:32 | P.PN_ITS ---
Subjective Subjective: Patient complains of feeling more short of breath today. He is noted to be more tachypneic. Oxygen requirements are stable at 7 L/min, however tires out easily in conversation. Additionally also complaining of chest pain. EKG and troponin series ordered. Medications: Reviewed: Yes Medication Review Details: Generic Name Dose Route Start Last Admin Trade Name Freq PRN Reason Stop Dose Admin Acetaminophen 650 mg 10/23/22 16:02 10/23/22 21:35 Acetaminophen 32 5 Mg Tablet PO 650 mg Q6H PRN Administration Mild/Mod Pain Or Temp >/= 101 Albuterol/Ipratrop ium 3 ml 10/23/22 20:00 10/25/22 11:51 Ipratropium-Albu terol 3 Ml Neb INHALATION 3 ml QID.RESPIRATORY S CH Administration Amlodipine Besylat e 10 mg 10/24/22 09:00 10/25/22 09:47 Amlodipine 10 Mg Tablet PO 10 mg DAILY TRELL Administration Apixaban 5 mg 10/23/22 18:00 10/25/22 09:48 Apixaban 5 Mg Ta blet PO 5 mg BID TRELL Administration Atorvastatin Calci um 20 mg 10/23/22 18:00 10/24/22 18:45 Atorvastatin 40 Mg Tablet PO 20 mg QPM TRELL Administration Budesonide 0.5 mg 10/23/22 20:00 10/25/22 09:06 Budesonide 0.5 M g/2 Ml Neb INHALATION 0.5 mg BID.RESPIRATORY S CH Administration Bupropion HCl 150 mg 10/23/22 18:00 10/25/22 09:48 Bupropion Sr (12 Hr) 150 Mg Tablet PO 150 mg BID TRELL Administration Fluoxetine HCl 40 mg 10/24/22 09:00 10/25/22 09:47 Fluoxetine 20 Mg Capsule PO 40 mg DAILY TRELL Administration Furosemide 60 mg 10/23/22 18:00 10/25/22 10:09 Furosemide 10 Mg /Ml Sdv 10ml IVP 60 mg TID TRELL Administration Guaifenesin 200 mg 10/23/22 21:25 10/24/22 21:26 Guaifenesin 100 Mg/5 Ml Udc 10 Ml PO 200 mg Q4H PRN Administration COUGH Metoprolol Succina te 100 mg 10/24/22 09:00 10/25/22 09:48 Metoprolol Succi cullen Er (24 Hr) 10 0 Mg Tablet PO 100 mg DAILY TRELL Administration Multivitamins Ther apeutic 1 tab 10/24/22 09:00 10/25/22 09:48 Multivitamin The rapeutic Tablet PO 1 tab DAILY TRELL Administration Ondansetron HCl 4 mg 10/23/22 16:02 10/24/22 22:39 Ondansetron 2 Mg /Ml Sdv 2 Ml IVP 4 mg Q8H PRN Administration vomiting, or N/V if npo Potassium Chloride 40 meq 10/24/22 09:00 10/25/22 09:47 Potassium Chlori de Er 20 Meq Table t PO 40 meq DAILY TRELL Administration Vitals/I&O/Wt Last Vital Signs Temp 98.5 F 10/27/22 16:00 Pulse 82 10/27/22 16:00 Resp 18 10/27/22 16:00 BP 169/85 10/27/22 16:00 Pulse Ox 96 10/27/22 16:00 O2 Del Method 10/27/22 16:00 O2 Flow Rate 7 10/27/22 16:00 FiO2 40 10/27/22 04:00 10/27/22 10/27/22 10/27/22 06:59 14:59 22:59 Intake Total 960 / 960 Output Total 700 / 3600 1300 / 1300 Balance -700 / -2980 -340 / -340 Weight last 48 hrs Weight 160.26 kg Physical Exam Narrative: General: tachypenic in conversation, AO x3 HEENT: PERRLA, pupils bilaterally equal and reactive, pallors not present Chest: Normal vesicular breath sounds, no added sounds, equal good air entry bilaterally CVS: S1-S2 regular, no murmurs, no tachycardia, no gallops, no rubs Abdomen: Soft, nontender, no organomegaly, bowel sounds present Neuro: No focal deficits, no facial deformity, AO x3, power 5/5 in all limbs Urinary Catheter Management: Sanchez: Cath Placed During This Visit: yes Reason for Continuing Indwelling Catheter: Acute Urinary Retention or Obstruction Urinary Catheter Date of Insertion: 10/24/22 Urinary Catheter Time of Insertion: 22:00 Data 10/27/22 02:49 10/27/22 02:49 A&P Assessment and plan (1) COPD (chronic obstructive pulmonary disease): (2) Obstructive sleep apnea: (3) Heart failure with preserved ejection fraction: (4) Obesity hypoventilation syndrome: Plan 72 year old male past medical history of hypertension COPD on 4 Ls, home oxygen, obstructive sleep apnea, obesity hypoventilation, atrial fibrillation on Rose Mary hermes, coronary artery disease,HFpEF, CKD stage II, Came in with chief complaint of worsening shortness of breath with minimal exertion, PND orthopnea, worsening bilateral lower extremity swelling going on for last couple of months.Patient has denied any cough fever chills, abdominal pain nausea vomiting. Assessment: Decompensated heart failure with preserved ejection fraction COPD currently not in exacerbation Hypertension Atrial fibrillation Coronary artery disease CKD versus BRONWYN on CKD [facility] Plan: 2D echo done in 2020 result appreciated: 2D echo: Normal LV size and systolic function with LVEF of 60%, dilated IVC, with less than 50% respiratory variation. Monitor intake output charting Monitor electrolytes Continue amlodipine Continue metoprolol succinate Currently on Eliquis for therapeutic anticoagulation Continue atorvastatin DuoNebs as needed Budesonide inhaler Plan for today: transition iv lasix to lasix drip today, monitor urine output closely. Check EKG and troponin series, D dimer, if elevated, will Obtain CTA CODE STATUS: Full code Attestations Medical Necessity Statement*: lasix drip, monitor urine output Coding Level of Care Code Acute Military Source Operations Officer for [facility] Diagnoses COPD (chronic obstructive pulmonary disease) J44.9 Obstructive sleep apnea G47.33 Heart failure with preserved ejection fraction I50.30 Obesity hypoventilation syndrome E66.2
[2022-10-27 19:03] LABS: D Dimer 2.83 ug/mIFEU (0-0.59)
[2022-10-27 19:12] LABS: Troponin 5 6HR 27.66 ng/L (0-15); Troponin 5 6HR Delta -2.34 ng/L (0-12)
--- NOTE | 2022-10-27 19:30 | ECG_ITS ---
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 Measurements Intervals [place] Rate: 77 P: 0 [place]: 0 QRS: -16 QRSD: 130 T: 80 QT: 383 QTc: 433 Interpretive Statements ATRIAL FIBRILLATION LEFT BUNDLE BRANCH BLOCK [120+ ms QRS DURATION, 80+ ms Q/S IN V1/V2, 85+ ms R IN I/aVL/V5/V6] Compared to ECG 10/27/2022 13:15:21 Left-axis deviation no longer present Electronically Signed On 10-27-2022 16:16:22 ACQUISITIONS EDITOR by Broderick Bell M.D. [id number]
--- NOTE | 2022-10-27 20:03 | CTR_ITS ---
PROCEDURE INFORMATION: Exam: CTA Chest With Contrast Exam date and time: 10/27/2022 11:08 PM Age: 72 years old Clinical indication: Abnormal findings; Abnormal diagnostic tests; Elevated d-dimer; Shortness of breath; Prior surgery; Surgery type: Coronary stent; Patient HX: SOB with hypoxia. Elevated d dimer. TECHNIQUE: Imaging protocol: Computed tomographic angiography of the chest with contrast. 3D rendering (Not supervised by radiologist): MIP and/or 3D reconstructed images were created by the technologist. Radiation optimization: All CT scans at this facility use at least one of these dose optimization techniques: automated exposure control; mA and/or kV adjustment per patient size (includes targeted exams where dose is matched to clinical indication); or iterative reconstruction. Contrast material: OMNI 350; Contrast volume: 89 ml; Contrast route: INTRAVENOUS (IV); COMPARISON: CR (CHEST, ) 10/25/2022 3:32 PM RADIATION DOSE METRICS: Total DLP (mGy-cm): 567.41 FINDINGS: Pulmonary arteries: Normal. No pulmonary emboli. Aorta: Unremarkable. No aortic aneurysm. No aortic dissection. Lungs: Diffuse ground-glass attenuation opacities within the upper lobes and lower lobe superior segments. Right middle lobe partial collapse. Partial collapse of the lingula. Basal segments of the lower lobes are mostly collapsed. Pleural spaces: Large volume bilateral pleural effusions. Negative for pneumothorax. Heart: Mildly dilated cardiac chambers. Negative for pericardial effusion. Lymph nodes: Mildly enlarged right hilar lymph nodes. Bones/joints: Unremarkable. No acute fracture. Soft tissues: Unremarkable. CT/CT angio chest PE protcl [id number] IMPRESSION: 1. Negative for pulmonary embolism. 2. Substantial intrathoracic fluid overload changes. Large volume pleural effusions and pulmonary edema features. 3. Poorly aerated lungs with large areas of atelectasis.
[2022-10-27] MEDS: nystatin powder 15 gm Btl 1 APPLIC TOPICAL (20:23)
--- NOTE | 2022-10-27 23:05 | PC.NURSE ---
Patient transported via W/C to CT for ordered CTA at this time. Accompanied by tech and on the monitor.
[2022-10-27] MEDS: iohexol 350 mg/mL 500 mL Btl (per mL) IV (23:17)
[2022-10-28] VITALS (13 sets, daily range): BP systolic 131–152; BP diastolic 70–81; PULSE 58–82; RESP 13–20; TEMP 36.5–36.8; O2SAT 93–98
[2022-10-28] MEDS: acetaminophen 325 mg Tablet 650 MG PO ×2 (00:12→09:30)
[2022-10-28 03:23] LABS: Glucose Point of Care 108 mg/dL (70-110)
[2022-10-28] MEDS: nitroglycerin 1 gm/inch oint Pkt 1 INCH TOPICAL ×4 (04:36→21:30)
[2022-10-28] MEDS: ondansetron 2 mg/ML SDV 2 mL 4 MG IVP (05:17)
[2022-10-28 07:52] LABS: Anion Gap 8.1 (5-19); Blood Urea Nitrogen 23 mg/dL (8-23); Calcium 8.6 mg/dL (8.5-10.5); Chloride 89 mmol/L (98-107); Glucose 106 mg/dL (65-115); Osmolality Calculated 290 mOsm/kg (285-295); Potassium 3.1 mmol/L (3.5-5.1); Sodium 138 mmol/L (136-145)
[2022-10-28 08:01] LABS: Carbon Dioxide 44 mmol/L (22-29)
[2022-10-28] MEDS: ipratropium-albuterol 3 mL Neb INHALATION ×4 (08:43→21:31)
[2022-10-28] MEDS: budesonide 0.5 mg/2 mL Neb INHALATION ×2 (08:43→21:31)
[2022-10-28] MEDS: guaiFENesin 100 mg/5 mL UDC 10 mL 200 MG PO (09:28)
[2022-10-28] MEDS: potassium chloride ER 20 mEq Tablet 40 MEQ PO (09:28)
[2022-10-28] MEDS: multivitamin therapeutic Tablet 1 TAB PO (09:28)
[2022-10-28] MEDS: amlodipine 10 mg Tablet PO (09:28)
[2022-10-28] MEDS: apixaban 5 mg Tablet PO (09:28)
[2022-10-28] MEDS: fluoxetine 20 mg Capsule 40 MG PO (09:29)
[2022-10-28] MEDS: buPROPion SR (12 HR) 150 mg Tablet PO ×2 (09:29→17:52)
[2022-10-28] MEDS: metoprolol succinate ER (24 HR) 100 mg Tablet PO (09:29)
[2022-10-28] MEDS: nystatin powder 15 gm Btl 1 APPLIC TOPICAL ×2 (09:30→17:52)
[2022-10-28 11:45] LABS: ABG PH Result 7.38 (7.35-7.45); Arterial Blood Gas Hematocrit 34.5 % (42-52); Base Excess ABG 20.3 mmol/L (-2.0-2.0); Blood Gas Allen Test Pos; Blood Gas Sample Type Arterial; HCO3 ABG 49.4 mmol/L (22-26); PO2 ABG 83.5 mmHg (80.0-100.0)
[2022-10-28 11:49] LABS: Blood Gas Sample Site Radial, right; Oxygen Device BIPAP
[2022-10-28 11:50] LABS: ABG PCO2 83.8 mmHg (35-45)
--- NOTE | 2022-10-28 12:12 | PC.SOCIAL ---
IMM Updated Updated pt on IMM. No questions voiced. Provided pt a copy. Initialed, dated, & timed copy in chart.
--- NOTE | 2022-10-28 13:09 | P.PN_ITS ---
Subjective Subjective: Started on Lasix drip yesterday and also received metolazone. This morning he is appearing to be more lethargic. CTA was completed last night due to elevated D-dimer and was noted to be elevated. He is net -11 L, however has not had any significant improvement in his respiratory status. CT also showed bilateral large pleural effusions Medications: Reviewed: Yes Medication Review Details: Generic Name Dose Route Start Last Admin Trade Name Freq PRN Reason Stop Dose Admin Acetaminophen 650 mg 10/23/22 16:02 10/23/22 21:35 Acetaminophen 32 5 Mg Tablet PO 650 mg Q6H PRN Administration Mild/Mod Pain Or Temp >/= 101 Albuterol/Ipratrop ium 3 ml 10/23/22 20:00 10/25/22 11:51 Ipratropium-Albu terol 3 Ml Neb INHALATION 3 ml QID.RESPIRATORY S CH Administration Amlodipine Besylat e 10 mg 10/24/22 09:00 10/25/22 09:47 Amlodipine 10 Mg Tablet PO 10 mg DAILY TRELL Administration Apixaban 5 mg 10/23/22 18:00 10/25/22 09:48 Apixaban 5 Mg Ta blet PO 5 mg BID TRELL Administration Atorvastatin Calci um 20 mg 10/23/22 18:00 10/24/22 18:45 Atorvastatin 40 Mg Tablet PO 20 mg QPM TRELL Administration Budesonide 0.5 mg 10/23/22 20:00 10/25/22 09:06 Budesonide 0.5 M g/2 Ml Neb INHALATION 0.5 mg BID.RESPIRATORY S CH Administration Bupropion HCl 150 mg 10/23/22 18:00 10/25/22 09:48 Bupropion Sr (12 Hr) 150 Mg Tablet PO 150 mg BID TRELL Administration Fluoxetine HCl 40 mg 10/24/22 09:00 10/25/22 09:47 Fluoxetine 20 Mg Capsule PO 40 mg DAILY TRELL Administration Furosemide 60 mg 10/23/22 18:00 10/25/22 10:09 Furosemide 10 Mg /Ml Sdv 10ml IVP 60 mg TID TRELL Administration Guaifenesin 200 mg 10/23/22 21:25 10/24/22 21:26 Guaifenesin 100 Mg/5 Ml Udc 10 Ml PO 200 mg Q4H PRN Administration COUGH Metoprolol Succina te 100 mg 10/24/22 09:00 10/25/22 09:48 Metoprolol Succi cullen Er (24 Hr) 10 0 Mg Tablet PO 100 mg DAILY TRELL Administration Multivitamins Ther apeutic 1 tab 10/24/22 09:00 10/25/22 09:48 Multivitamin The rapeutic Tablet PO 1 tab DAILY TRELL Administration Ondansetron HCl 4 mg 10/23/22 16:02 10/24/22 22:39 Ondansetron 2 Mg /Ml Sdv 2 Ml IVP 4 mg Q8H PRN Administration vomiting, or N/V if npo Potassium Chloride 40 meq 10/24/22 09:00 10/25/22 09:47 Potassium Chlori de Er 20 Meq Table t PO 40 meq DAILY TRELL Administration Vitals/I&O/Wt Last Vital Signs Temp 98.3 F 10/28/22 03:29 Pulse 61 10/28/22 11:15 Resp 20 H 10/28/22 11:12 BP 131/70 10/28/22 09:35 Pulse Ox 96 10/28/22 11:15 O2 Del Method 10/28/22 11:12 O2 Flow Rate 5 10/28/22 08:44 FiO2 40 10/28/22 11:15 10/27/22 10/28/22 10/28/22 22:59 06:59 14:59 Intake Total 480 / 1440 360 / 360 Output Total 2100 / 3400 1275 / 4675 Balance -1620 / -1960 -1275 / -3235 360 / 360 Weight last 48 hrs Weight 160.26 kg Physical Exam Narrative: General: No acute distress, AO x3 however appears to be more l ethargic. Placed on BiPAP currently. HEENT: PERRLA, pupils bilaterally equal and reactive, pallors not present Chest: Normal vesicular breath sounds, no added sounds, equal good air entry bilaterally CVS: S1-S2 regular, no murmurs, no tachycardia, no gallops, no rubs Abdomen: Soft, nontender, no organomegaly, bowel sounds present Neuro: No focal deficits, no facial deformity, power 5/5 in all limbs Urinary Catheter Management: Sanchez: Cath Placed During This Visit: yes Reason for Continuing Indwelling Catheter: Acute Urinary Retention or Obstruction Urinary Catheter Date of Insertion: 10/24/22 Urinary Catheter Time of Insertion: 22:00 Data 10/27/22 02:49 10/28/22 07:26 A&P Assessment and plan (1) COPD (chronic obstructive pulmonary disease): (2) Obstructive sleep apnea: (3) Heart failure with preserved ejection fraction: (4) Obesity hypoventilation syndrome: Plan 72 year old male past medical history of hypertension COPD on 4 Ls, home oxygen, obstructive sleep apnea, obesity hypoventilation, atrial fibrillation on Eliquis, coronary artery disease,HFpEF, CKD stage II, Came in with chief complaint of worsening shortness of breath with minimal exertion, PND orthopnea, worsening bilateral lower extremity swelling going on for last couple of months.Patient has denied any cough fever chills, abdominal pain nausea vomiting. Assessment: Decompensated heart failure with preserved ejection fraction Patient has been on aggressive diuresis with Lasix, yesterday he was changed from Lasix 60 mg IV 3 times daily to a Lasix drip which he is continuing at this time. He is net negative overall 11 L since admission, however has not had any significant improvement in his breathing over the last 2 days. Received an additional dose of metolazone last evening. CTA was performed last night to evaluate for possible PE, while the study was negative for the same it did show bilateral large pleural effusion and signs of pulmonary edema. Echocardiogram from 1224 showed he has a normal left ventricular cavity size and systolic function. LVEF estimated at 60%. There is possible septal hypokinesis. Dilated IVC with less than 50% respiratory variation. No pericardial effusion. Echo-free space anterior to the right ventricle likely a fat pad. 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
[2022-10-28 13:59] LABS: Adenovirus Not Detected (NOT DETECT); Chlamydia Pneumoniae Not Detected (NOT DETECT); Coronavirus 229E,HKU1,NL63,OC4 Not Detected (NOT DETECT); Human Metapneumovirus Not Detected (NOT DETECT); Human Rhinovirus/Enterovirus Not Detected (NOT DETECT); Influenza A Not Detected (NOT DETECT); Influenza A H1 Not Detected (NOT DETECT); Influenza A H1-2009 Not Detected (NOT DETECT); Influenza A H3 Not Detected (NOT DETECT); Influenza B Not Detected (NOT DETECT); Mycoplasma Pneumoniae Not Detected (NOT DETECT); Parainfluenza Virus Type 1 Not Detected (NOT DETECT); Parainfluenza Virus Type 2 Not Detected (NOT DETECT); Parainfluenza Virus Type 3 Not Detected (NOT DETECT); Parainfluenza Virus Type 4 Not Detected (NOT DETECT); Respiratory Syncytial Virus A Not Detected (NOT DETECT); Respiratory Syncytial Virus B Not Detected (NOT DETECT); SARS-COV-2 Not Detected (NOT DETECT)
--- NOTE | 2022-10-28 16:13 | PC.NURSE ---
evening and morning dose of apixaban on hold for thoracentesis 10/29/22,per dr branham.
--- NOTE | 2022-10-28 17:20 | P.CONIM_ITS ---
Providers/Reason For Consult Consulting Physician/Specialty*: LIA Cordero MD/cardiology Reason for Consult*: Patient with worsening shortness of breath spite of aggressive diuresis/heart failure with preserved LV ejection fraction/atrial fibrillation Requesting Physician: Dr. Lau Attending Physician: Linn Lau MD Primary Care Provider: Unruly Starkey History of Present Illness History of Present Illness Juan Jose Lamb is a 72 year old male with a history of COPD with intermittent exacerbation, heart failure with preserved LV ejection fraction, chronic atrial fibrillation?, morbid obesity, coronary artery disease with a previous myocardial infarction and PCI, presented to the hospital due to progressive shortness of breath and cough. She was found to be in congestive heart failure with a COPD exacerbation. She been getting IV diuresis since hospital admission. Apparently there is no significant improvement of the shortness of breath. Cardiology consult is requested for further cardiac evaluation recommendations. Patient denies any chest pain or chest tightness. According to him, ever since the PCI in 2006, he has not had any chest pains or other ischemic symptoms. But he had a few episodes of diastolic heart failure with COPD exacerbations, requiring hospital admissions. He has been in his baseline state of health up until a week prior to hospital admission when he started having a cough associated with shortness of breath. The symptoms gradually started getting worse. For that reason, he came to the hospital. He also had a low-grade fever. No hemoptysis. No abdominal pain or dysuria. He has a history of chronic leg swelling. The swelling also was getting worse with the shortness of breath. Denies any abdominal pain or dysuria. No headache or blurring of vision. No other specific complaints. Patient was treated with IV diuretics, since hospital admission. Currently he is on IV Lasix drip. He has been responding appropriately. He had a chest x- ray showing some features of pulmonary venous congestion and pleural effusion. The CT of the chest from today revealed possibly large bilateral pleural effusion. Patient had echocardiogram which revealed normal LV size and ejection fraction of around 60%. Review of Systems Narrative: CONSTITUTIONAL: No fever or chills. EYES: No blurring of vision or other visual disturbances lately. ENT: No hoarseness of voice, auditory disturbances or sore throat. CARDIOVASCULAR: As mentioned above. RESPIRATORY: As mentioned above. GASTROINTESTINAL: No hematemesis or melena. GENITOURINARY: No dysuria or hematuria. INTEGUMENTARY: No skin rashes or history of skin cancer. NEURO: History of altered mental status with the previous hospital admissions PSYCHIATRIC: No history of psychosis or major depression. HEMATOLOGIC: Patient is on long-term oral anticoagulation for the chronic atrial fibrillation ENDOCRINE: No history of polyuria or polydipsia. MUSCULOSKELETAL: No recent joint pain or swelling. ALLERGY/IMMUNOLOGY: As mentioned above. Medications/Allergies Home Medications Medication Instructions Recorded Confirmed Last Taken Type albuterol sulfate 2.5 mg/3 mL 2.5 mg continuous nebulization Q6H 05/04/21 10/23/22 05/03/21 History (0.083 %) solution for nebulization PRN Shortness Of Breath amlodipine 10 mg tablet 10 mg PO DAILY 05/04/21 10/23/22 10/23/22 History bupropion HCl 150 mg tablet,12 hr 150 mg PO BID 05/04/21 10/23/22 10/23/22 Hi story sustained-release fluoxetine 40 mg capsule 40 mg PO DAILY 05/04/21 10/23/22 10/23/22 History nitroglycerin 0.4 mg sublingual 0.4 mg sublingual Q5M PRN Chest 05/04/21 10/23/22 Unknown History tablet Pain simvastatin 20 mg tablet 20 mg PO QPM 05/04/21 10/23/22 10/22/22 History apixaban 5 mg tablet (Eliquis) 5 mg PO BID #60 tabs 05/08/21 10/23/22 10/23/22 Rx multivitamin 1 tab PO DAILY 05/29/21 10/23/22 10/23/22 History potassium chloride 20 mEq 20 meq PO DAILY 05/29/21 10/23/22 10/23/22 History tablet,extended release tramadol 50 mg tablet 50 mg PO Q8H PRN Pain 05/29/21 10/23/22 Unknown History fluticasone fur. 200 mcg-umeclid 1 inh inhalation DAILY 10/23/22 10/23/22 10/23/22 History 62.5 mcg-vilant 25 mcg inhalat.powder (Trelegy Ellipta) furosemide 20 mg tablet 20 mg PO BID 10/23/22 10/23/22 10/23/22 History metoprolol succinate 100 mg 100 mg PO DAILY 10/23/22 10/23/22 10/23/22 History tablet,extended release 24 hr Allergies Allergy/AdvReac Type Severity Reaction Status Date / Time No Known Allergies Allergy Verified 10/23/22 11:48 Current Medications Generic Name Dose Route Start Last Admin Trade Name Majo PRN Reason Stop Dose Admin Acetaminophen 650 mg 10/23/22 16:02 10/28/22 09:30 Acetaminophen 325 Mg Tablet PO 650 mg Q6H PRN Administration Mild/Mod Pain Or Temp >/= 101 Albuterol/Ipratropium 3 ml 10/23/22 20:00 10/28/22 15:19 Ipratropium-Albuterol 3 Ml Neb INHALATION 3 ml QID.RESPIRATORY TRELL Administration Amlodipine Besylate 10 mg 10/24/22 09:00 10/28/22 09:28 Amlodipine 10 Mg Tablet PO 10 mg DAILY TRELL Administration Apixaban 5 mg 10/23/22 18:00 10/28/22 16:13 Apixaban 5 Mg Tablet PO Not Given BID TRELL Atorvastatin Calcium 20 mg 10/23/22 18:00 10/27/22 17:14 Atorvastatin 40 Mg Tablet PO 20 mg QPM TRELL Administration Budesonide 0.5 mg 10/23/22 20:00 10/28/22 08:43 Budesonide 0.5 Mg/2 Ml Neb INHALATION 0.5 mg BID.RESPIRATORY TRELL Administration Bupropion HCl 150 mg 10/23/22 18:00 10/28/22 09:29 Bupropion Sr (12 Hr) 150 Mg Tablet PO 150 mg BID TRELL Administration Fluoxetine HCl 40 mg 10/24/22 09:00 10/28/22 09:29 Fluoxetine 20 Mg Capsule PO 40 mg DAILY TRELL Administration Guaifenesin 200 mg 10/23/22 21:25 10/28/22 09:28 Guaifenesin 100 Mg/5 Ml Udc 10 Ml PO 200 mg Q4H PRN Administration COUGH Furosemide 100 mg/ Sodium 50 mls @ 0.5 mls/hr 10/27/22 16:30 10/27/22 17:14 Chloride IV 0.5 mls/hr CONT TRELL Administration Metoprolol Succinate 100 mg 10/24/22 09:00 10/28/22 09:29 Metoprolol Succinate Er (24 Hr) 100 Mg Tablet PO 100 mg DAILY TRELL Administration Multivitamins Therapeutic 1 tab 10/24/22 09:00 10/28/22 09:28 Multivitamin Therapeutic Tablet PO 1 tab DAILY TRELL Administration Nitroglycerin 1 inch 10/27/22 16:00 10/28/22 15:36 Nitroglycerin 1 Gm/Inch Oint Pkt TOPICAL 1 inch Q6H TRELL Administration Nystatin 1 applic 10/27/22 18:00 10/28/22 09:30 Nystatin Powder 15 Gm Btl TOPICAL 1 applic BID TRELL Administration Ondansetron HCl 4 mg 10/23/22 16:02 10/28/22 05:17 Ondansetron 2 Mg/Ml Sdv 2 Ml IVP 4 mg Q8H PRN Administration vomiting, or N/V if npo Potassium Chloride 40 meq 10/24/22 09:00 10/28/22 09:28 Potassium Chloride Er 20 Meq Tablet PO 40 meq DAILY TRELL Administration Sodium Chloride 1 spray 10/27/22 07:03 10/27/22 07:43 Saline Nasal [place] 44ml Btl NASAL 1 spray PRN PRN Administration DRYNESS PFSH Acute PFSH: Medical History Atrial fibrillation B12 deficiency BPH (benign prostatic hyperplasia) Chronic diarrhea Chronic kidney disease, stage II (mild) COPD (chronic obstructive pulmonary disease) 4L oxygen dependent Coronary artery disease Coronary stent patent Diabetes Diastolic congestive heart failure Morbid obesity Obesity hypoventilation syndrome Sleep apnea Surgical History Hx of cardiac cath Family History Other Diabetes Social History Smoking and tobacco status: former smoker Quit status (tobacco): has quit using tobacco Year quit tobacco: 1994 Former quit date comment: Hx of 1 PPD x 20 Years Second hand smoke exposure: No Smoking risk assessment/counseling performed?: No Alcohol intake: never Counseling given: No Counseling given: No Caregiver/support person: Yes Lives independently: Yes Household members: children Housing: House Marital status: / Current occupational status: retired and disabled History of recent travel: No Current gender identity: Male Vitals/I&O/Wt Last Vital Signs Temp 98.3 F 10/28/22 03:29 Pulse 58 L 10/28/22 16:31 Resp 20 H 10/28/22 16:31 BP 137/76 10/28/22 16:31 Pulse Ox 97 10/28/22 16:31 O2 Del Method 10/28/22 15:22 O2 Flow Rate 5 10/28/22 08:44 FiO2 40 10/28/22 15:22 10/28/22 10/28/22 10/28/22 06:59 14:59 22:59 Intake Total 720 / 720 Output Total 1275 / 4675 Balance -1275 / -3235 720 / 720 Weight last 48 hrs Weight 353 lb 5 oz Physical Exam Narrative: GENERAL: The patient is alert and oriented times three. Not in any acute distress. Morbidly obese HEENT: No significant pallor, icterus or lymphadenopathy.Oral cavity: There are no mucous membrane lesions. NECK: Trachea appears to be central. No masses noted. No JVD or thyromegaly appreciated. RESPIRATORY: Chest is symmetrical. No intercostals muscle retraction or any accessory muscle activation. There is no chest wall tenderness. Breath sounds are heard bilaterally. The breath sounds are markedly diminished in the mid to lower zone BREASTS: Deferred. HEART: The heart sounds are distant. No S3 or S4. No significant murmurs. No pericardial rub ABDOMEN: Obese, no tenderness. No organomegaly appreciated. Bowel sounds are normally heard. : Deferred. RECTAL: Deferred. LYMPHATIC: No lymphadenopathy noted in the neck. EXTREMITIES: 1+ edema both lower extremities. A focal area of cellulitis in the anterior aspect of the right leg, just above the ankle MUSCULOSKELETAL: No acute joint deformities or swelling SKIN: There are no significant rashes or ecchymosis NEUROPSYCHIATRIC: The patient is alert and oriented x3. Appears to be in a good mood. No tremors or rigidity noted. Urinary Catheter Management: Sanchez: Cath Placed During This Visit: yes Reason for Continuing Indwelling Catheter: Acute Urinary Retention or Obstruction Urinary Catheter Date of Insertion: 10/24/22 Urinary Catheter Time of Insertion: 22:00 Data 10/27/22 02:49 10/28/22 07:26 Other Labs: Laboratory Last Values WBC 11.6 10^3/uL (4.0-10.0) H 10/27/22 02:49 RBC 4.00 10^6/uL (4.1-5.3) L 10/27/22 02:49 Hgb 11.1 g/dL (11.7-16.6) L 10/27/22 02:49 Hct 38.7 % (42.0-52.0) L 10/27/22 02:49 MCV 96.8 fl (80-94) H 10/27/22 02:49 MCH 27.8 pg (28.0-34.0) L 10/27/22 02:49 MCHC 28.7 g/dL (30.0-36.0) L 10/27/22 02:49 RDW 14.9 % (12.1-15.1) 10/27/22 02:49 Plt Count 184 10^3/cmm (130-400) 10/27/22 02:49 MPV 10.6 fL (7.4-10.4) H 10/27/22 02:49 Neut % (Auto) 75.7 % 10/27/22 02:49 Lymph % (Auto) 11.8 % 10/27/22 02:49 [place] % (Auto) 10.0 % 10/27/22 02:49 Eos % (Auto) 1.9 % 10/27/22 02:49 Baso % (Auto) 0.3 % 10/27/22 02:49 Neut # (Auto) 8.78 10^3/uL (1.8-7.7) H 10/27/22 02:49 Lymph # (Auto) 1.4 10^3/uL (0.8-4.8) 10/27/22 02:49 [place] # (Auto) 1.2 10^3/uL (0.2-0.9) H 10/27/22 02:49 Eos # (Auto) 0.2 10^3/uL (0.0-0.8) 10/27/22 02:49 Baso # (Auto) 0.0 10^3/uL (0.0-0.1) 10/27/22 02:49 Nucleated RBC % (auto) 0 % 10/27/22 02:49 Nucleated RBCs # 0.0 /100WBC 10/27/22 02:49 D-Dimer 2.83 ug/mIFEU (0-0.59) H 10/27/22 18:42 Specimen Type Arterial 10/28/22 11:37 Sample Site Radial, right 12/28/22 11:37 ABG pH 7.38 (7.35-7.45) 10/28/22 11:37 ABG pCO2 83.8 mmHg (35-45) H* 10/28/22 11:37 ABG pO2 83.5 mmHg (80.0-100.0) 10/28/22 11:37 ABG HCO3 49.4 mmol/L (22-26) H 10/28/22 11:37 ABG O2 Saturation 98.8 10/25/22 05:20 ABG Base Excess 20.3 mmol/L (-2.0-2.0) H 10/28/22 11:37 Uli Test Pos 10/28/22 11:37 A-a O2 Gradient 10.9 mmHg (5-10) H 10/25/22 05:20 Hematocrit 34.5 % (42-52) L 10/28/22 11:37 Hgb O2 Saturation 96.9 % (95-100) 10/25/22 05:20 Carboxyhemoglobin 1.6 %THgb (0.4-20.1) 10/25/22 05:20 Methemoglobin 0.3 % (0.4-1.5) L 10/25/22 05:20 Total Hemoglobin 11.4 g/dL (14-18) L 10/25/22 05:20 Sodium 146.0 mmol/L (131-143) H 10/25/22 05:20 Potassium 4.0 mmol/L (3.5-5.0) 10/25/22 05:20 Glucose 104.0 mg/dL (70-115) 10/25/22 05:20 Ionized Calcium 1.2 mmol/L (1.1-1.4) 10/25/22 05:20 O2 Delivery Device Bipap 10/28/22 11:37 O2 Liters/Min 3.0 % 10/23/22 11:07 FiO2 40.0 % 10/28/22 11:37 Imcu Nurse ID Monros 10/28/22 11:37 Sodium 138 mmol/L (136-145) 10/28/22 07:26 Potassium 3.1 mmol/L (3.5-5.1) L 10/28/22 07:26 Chloride 89 mmol/L (98-107) L 10/28/22 07:26 Carbon Dioxide 44 mmol/L (22-29) H* 10/28/22 07:26 Anion Gap 8.1 (5-19) 10/28/22 07:26 BUN 23 mg/dL (8-23) 10/28/22 07:26 Creatinine 1.3 mg/dL (0.7-1.2) H 10/28/22 07:26 GFR Calculation Not Reportable 10/28/22 07:26 Glucose 106 mg/dL (65-115) 10/28/22 07:26 POC Glucose 108 mg/dL (70-110) 10/28/22 03:16 Calculated Osmolality 290 mOsm/kg (285-295) 10/28/22 07:26 Calcium 8.6 mg/dL (8.5-10.5) 10/28/22 07:26 Magnesium 2.0 mg/dL (1.7-2.3) 10/24/22 05:16 Total Bilirubin 0.6 mg/dL (0.15-1.2) 10/27/22 02:49 AST 26 U/L (0-40) 10/27/22 02:49 ALT 41 U/L (0-41) 10/27/22 02:49 Alkaline Phosphatase 74 U/L (40-130) 10/27/22 02:49 Troponin T Baseline 30 ng/L (0-15) H 10/27/22 13:45 Troponin T 120 Minute 30.81 ng/L (0-15) H 10/27/22 15:36 Delta Troponin T 0.81 ABS# (0-10) 10/27/22 15:36 Troponin T Hi Sens 6Hr 27.66 ng/L (0-15) H 10/27/22 18:42 Troponin T Hi Sens 6Hr Delta -2.34 ng/L (0-12) L 10/27/22 18:42 NT-Pro-B Natriuret Pep 2754 pg/mL (0-125) H 10/23/22 11:07 Total Protein 6.9 g/dL (6.6-8.7) 10/27/22 02:49 Albumin 3.7 g/dL (3.5-5.2) 10/27/22 02:49 Globulin 3.2 g/dL (1.3-4.6) 10/27/22 02:49 Procalcitonin 0.09 ng/mL (0-0.5) 10/24/22 05:16 TSH 0.85 uIU/mL (0.27-4.20) 10/24/22 05:16 Urine Color Yellow (Yellow) 10/23/22 12:01 Urine Appearance Clear (CLEAR) 10/23/22 12:01 Urine pH 5 (5-7) 10/23/22 12:01 Ur Specific [place] 1.015 (1.005-1.030) 10/23/22 12:01 Urine Protein 3+ (Negative) H 10/23/22 12:01 Urine Glucose (UA) Norm (Normal) 10/23/22 12:01 Urine Ketones Negative (Negative) 10/23/22 12:01 Urine Blood 2+ (Negative) H 10/23/22 12:01 Urine Nitrate Negative (Negative) 10/23/22 12:01 Urine Bilirubin Neg (Negative) 10/23/22 12:01 Urine Urobilinogen Neg mg/dL (Negative) 10/23/22 12:01 Ur Leukocyte Esterase Negative (Negative) 10/23/22 12:01 Urine RBC 10-15 /hpf (0-2) H 10/23/22 12:01 Urine WBC None /hpf (0-5) 10/23/22 12:01 Ur Squamous Epith Cells None /hpf (0-5) 10/23/22 12:01 Amorphous Sediment Not Reportable 10/23/22 12:01 Urine Bacteria None /hpf (NONE) 10/23/22 12:01 Nasal Influ A H1 2008 PCR Not detected (NOT DETECT) 10/28/22 12:00 Adenovirus (PCR) Not detected (NOT DETECT) 10/28/22 12:00 C. pneumoniae DNA (PCR) Not detected (NOT DETECT) 10/28/22 12:00 Coronavirus 229E (PCR) Not detected (NOT DETECT) 10/28/22 12:00 Human Metapneumovir PCR Not detected (NOT DETECT) 10/28/22 12:00 Influenza A (H1) PCR Not detected (NOT DETECT) 10/28/22 12:00 Influenza A (H3) PCR Not detected (NOT DETECT) 10/28/22 12:00 Influenza Type A (PCR) Not detected (NOT DETECT) 10/28/22 12:00 Influenza Type B (PCR) Not detected (NOT DETECT) 10/28/22 12:00 M. pneumoniae (PCR) Not detected (NOT DETECT) 10/28/22 12:00 Parainfluenza 1 (PCR) Not detected (NOT DETECT) 10/28/22 12:00 Parainfluenza 2 (PCR) Not detected (NOT DETECT) 10/28/22 12:00 Parainfluenza 3 (PCR) Not detected (NOT DETECT) 10/28/22 12:00 Parainfluenza 4 (PCR) Not detected (NOT DETECT) 10/28/22 12:00 RSV Type A (PCR) Not detected (NOT DETECT) 10/28/22 12:00 RSV Type B (PCR) Not detected (NOT DETECT) 10/28/22 12:00 Entero/Rhino (PCR) Not detected (NOT DETECT) 10/28/22 12:00 SARS-CoV-2 (PCR) Not detected (NOT DETECT) 10/28/22 12:00 CT Chest: Radiologist's impression: 1. Negative for pulmonary embolism. 2. Substantial intrathoracic fluid overload changes. Large volume pleural effusions and pulmonary edema features. 3. Poorly aerated lungs with large areas of atelectasis. CXR: My impression: 1. Bilateral pleural effusions with adjacent compressive atelectasis and or pneumonia, similar to the prior study. 2. Cardiomegaly. Echo: My impression: 1. This is a technically difficult study.? Optison was used per ?protocol. ?2. Normal left ventricular cavity size and systolic function. ?Left ventricular ejection fraction is estimated at 60 %.? There ?is possible septal hypokinesis. Abnormal septal motion ?consistent with conduction abnormality. ?3.? When compared to study dated 05/04/2021, there may not have ?been any significant change. EKG 1: My Interpretation: Atrial fibrillation with a controlled ventricular response rate of 77 bpm. Nonspecific IVCD. Nonspecific T wave changes A&P Assessment and plan (1) Acute on chronic diastolic (congestive) heart failure: Patient is the heart failure seems to be fairly compensated at this time. (2) Acute exacerbation of chronic obstructive airways disease: The etiology could be multifactorial. Respiratory infection, heart failure, obstructive sleep apnea, etc. are contributing factors. (3) Obstructive sleep apnea: May continue on the current management (4) Atherosclerosis of coronary artery of [place] heart without angina pectoris: Patient has a history of atherosclerotic heart disease and myocardial infarction in 2006. According to him, he had an angiogram followed by PCI of the circumflex artery. This was performed at the [facility] in [place], [place]?. Details are not available. Currently seems to have no specific symptoms of coronary insufficiency. (5) Atrial fibrillation by electrocardiogram: Patient is on oral anticoagulation. Heart rate is under control. Mental recurrence depression at this point. (6) Large pleural effusion: The etiology of the pleural effusion is not clear at this time. Possibly due to the respiratory infection. Most of the shortness of breath, could be related to the large bilateral pleural effusion. Review appropriate to go ahead and do the thoracentesis for diagnostic as well as therapeutic purposes. Plan Problems are Possible respiratory tract infection Renal insufficiency Cellulitis of the right lower extremity Patient is currently on 1 mg of Lasix IV infusion per hour. This may be cont inued. I agree with the thoracentesis, scheduled for tomorrow. I may hold off on any further interventions until the thoracentesis is completed. Based on the progress, further recommendations will be made. Patient may require further cardiac work-up, once respiratory status is stabilized. Thank you for the opportunity to evaluate this patient and make these recommendations Consult Attestations Medical Necessity Statement: Patient requires continued hospital stay for close monitoring and further management Coding Level of Care Code Acute [employer] for Юлия Kenny History Detailed Exam Detailed Medical Decision Making High Complexity Diagnoses Acute on chronic diastolic (congestive) heart failure I50.33 Acute exacerbation of chronic obstructive airways disease J44.1 Obstructive sleep apnea G47.33 Atherosclerosis of coronary artery of [place] heart without angina pectoris I25.10 Atrial fibrillation by electrocardiogram I48.91 Large pleural effusion J90
[2022-10-28] MEDS: atorvastatin 40 mg Tablet 20 MG PO (17:52)
[2022-10-28] MEDS: hyDROXYzine 25 mg Capsule PO (22:06)
[2022-10-29] VITALS (16 sets, daily range): BP systolic 133–158; BP diastolic 77–84; PULSE 59–80; RESP 14–28; TEMP 36.4–36.6; O2SAT 93–97
[2022-10-29] MEDS: bisacodyl 5 mg Tablet 10 MG PO (01:59)
[2022-10-29] MEDS: nitroglycerin 1 gm/inch oint Pkt 1 INCH TOPICAL ×4 (04:42→22:04)
[2022-10-29] MEDS: budesonide 0.5 mg/2 mL Neb INHALATION ×2 (07:52→21:41)
[2022-10-29] MEDS: ipratropium-albuterol 3 mL Neb INHALATION ×4 (07:52→21:41)
--- NOTE | 2022-10-29 08:39 | P.PN_ITS ---
Subjective Subjective: Continues on 7lpm this morning. Planned for throacentesis , kept BIPAP on overnight. No acute events,. Diuresed 2.4 L over last 24 hrs, net negative 13L since admission Medications: Reviewed: Yes Medication Review Details: Generic Name Dose Route Start Last Admin Trade Name Freq PRN Reason Stop Dose Admin Acetaminophen 650 mg 10/23/22 16:02 10/23/22 21:35 Acetaminophen 32 5 Mg Tablet PO 650 mg Q6H PRN Administration Mild/Mod Pain Or Temp >/= 101 Albuterol/Ipratrop ium 3 ml 10/23/22 20:00 10/25/22 11:51 Ipratropium-Albu terol 3 Ml Neb INHALATION 3 ml QID.RESPIRATORY S CH Administration Amlodipine Besylat e 10 mg 10/24/22 09:00 10/25/22 09:47 Amlodipine 10 Mg Tablet PO 10 mg DAILY TRELL Administration Apixaban 5 mg 10/23/22 18:00 10/25/22 09:48 Apixaban 5 Mg Ta blet PO 5 mg BID TRELL Administration Atorvastatin Calci um 20 mg 10/23/22 18:00 10/24/22 18:45 Atorvastatin 40 Mg Tablet PO 20 mg QPM TRELL Administration Budesonide 0.5 mg 10/23/22 20:00 10/25/22 09:06 Budesonide 0.5 M g/2 Ml Neb INHALATION 0.5 mg BID.RESPIRATORY S CH Administration Bupropion HCl 150 mg 10/23/22 18:00 10/25/22 09:48 Bupropion Sr (12 Hr) 150 Mg Tablet PO 150 mg BID TRELL Administration Fluoxetine HCl 40 mg 10/24/22 09:00 10/25/22 09:47 Fluoxetine 20 Mg Capsule PO 40 mg DAILY TRELL Administration Furosemide 60 mg 10/23/22 18:00 10/25/22 10:09 Furosemide 10 Mg /Ml Sdv 10ml IVP 60 mg TID TRELL Administration Guaifenesin 200 mg 10/23/22 21:25 10/24/22 21:26 Guaifenesin 100 Mg/5 Ml Udc 10 Ml PO 200 mg Q4H PRN Administration COUGH Metoprolol Succina te 100 mg 10/24/22 09:00 10/25/22 09:48 Metoprolol Succi cullen Er (24 Hr) 10 0 Mg Tablet PO 100 mg DAILY TRELL Administration Multivitamins Ther apeutic 1 tab 10/24/22 09:00 10/25/22 09:48 Multivitamin The rapeutic Tablet PO 1 tab DAILY TRELL Administration Ondansetron HCl 4 mg 10/23/22 16:02 10/24/22 22:39 Ondansetron 2 Mg /Ml Sdv 2 Ml IVP 4 mg Q8H PRN Administration vomiting, or N/V if npo Potassium Chloride 40 meq 10/24/22 09:00 10/25/22 09:47 Potassium Chlori de Er 20 Meq Table t PO 40 meq DAILY TRELL Administration Vitals/I&O/Wt Last Vital Signs Temp 97.6 F 10/29/22 07:12 Pulse 63 10/29/22 07:55 Resp 19 H 10/29/22 07:54 BP 158/84 10/29/22 07:12 Pulse Ox 96 10/29/22 07:55 O2 Del Method 10/29/22 07:54 O2 Flow Rate 5 10/28/22 08:44 FiO2 40 10/29/22 07:55 10/28/22 10/29/22 10/29/22 22:59 06:59 14:59 Intake Total 240 / 960 Output Total 1725 / 1725 700 / 2425 Balance -1485 / -765 -700 / -1465 Weight last 48 hrs Weight 157.124 kg Physical Exam Narrative: General: lying in bed, tachypneic when laying flat, mouth breathing HEENT: PERRLA, pupils bilaterally equal and reactive, pallors not present Chest: reduced air entry B/L all areas CVS: S1-S2 regular, no murmurs, no tachycardia, no gallops, no rubs Abdomen: Soft, nontender, no organomegaly, bowel sounds present Neuro: No focal deficits, no facial deformity, AO x3, power 5/5 in all limbs Extremities: Improving LE edema Urinary Catheter Management: Sanchez: Cath Placed During This Visit: yes Reason for Continuing Indwelling Catheter: Accurate Measurement of Urinary Output in Critically Ill Patients Urinary Catheter Date of Insertion: 10/24/22 Urinary Catheter Time of Insertion: 22:00 Data 10/27/22 02:49 10/28/22 07:26 A&P Assessment and plan (1) COPD (chronic obstructive pulmonary disease): (2) Obstructive sleep apnea: (3) Heart failure with preserved ejection fraction: (4) Obesity hypoventilation syndrome: Plan 72 year old male past medical history of hypertension COPD on 4 Ls, home oxygen, obstructive sleep apnea, obesity hypoventilation, atrial fibrillation on Eliquis, coronary artery disease,HFpEF, CKD stage II, Came in with chief complaint of worsening shortness of breath with minimal exertion, PND orthopnea, worsening bilateral lower extremity swelling going on for last couple of months.Patient has denied any cough fever chills, abdominal pain nausea vomiting. Assessment: Decompensated heart failure with preserved ejection fraction Patient has been on aggressive diuresis with Lasix, most recently on Lasix drip. He is net negative overall 13 L since admission, however has not had any significant improvement in his breathing over the last 2-3 days. Continues to be tachypneic on laying flat and in conversation. LE edema is improving Change lasix drip to Bumex 2 mg iv q12h CTA negative for PE and consolidation, showed bilateral large pleural effusion and signs of pulmonary edema. Echocardiogram from 10/24 showed he has a normal left ventricular cavity size and systolic function. LVEF estimated at 60%. There is possible septal hypokinesis. Dilated IVC with less than 50% respiratory variation. No pericardial effusion. Echo-free space anterior to the right ventricle likely a fat pad. Less likely pneumonia given absence of fever, leukocytosis or significant cough Check procalcitonin Thoracentesis today, will obtain pleural fluid analysis and gram stain and cx renal function improving at 1.3 thoraentesis today negative resp viral panel Appreciate cardiology recommendations BMP pending COPD , concern for exacerbation ABG with hypercapneic respiratory failure Continue BIpap use at night and prn Hypertension, currently well controlled Atrial fibrillation, rate controlled currently hold Eliquis Coronary artery disease trop series without significant deltas on 10/27, mildly elevated trop 30s range CKD versus BRONWYN on CKD [facility]/OHS CODE STATUS: Full code Attestations Medical Necessity Statement*: thoracentesis, iv diuresis Coding Level of Care Code Acute Steam Tank Operator for Chg Fwd Diagnoses COPD (chronic obstructive pulmonary disease) J44.9 Obstructive sleep apnea G47.33 Heart failure with preserved ejection fraction I50.30 Obesity hypoventilation syndrome E66.2
[2022-10-29 09:51] LABS: Procalcitonin 0.13 ng/mL (0-0.5)
--- NOTE | 2022-10-29 10:00 | US_ITS ---
WS: [id number] ULTRASOUND-GUIDED THORACENTESIS, RIGHT HISTORY: large B/L pleural effusions, worsening respiratory status Procedure, risks, and complications were explained to the patient. With the patient in an upright pos ition, the skin over the RIGHT posterior thorax was cleansed with ChloraPrep and anesthetized with 1% buffered lidocaine. A 5 [place] Yueh needle is inserted into the pleural fluid without complication. Approximately 1000 cc of dark red pleural fluid is removed without difficulty. Specimen collected for analysis as requested. Patient also has a small LEFT pleural effusion with long noted within the effusion. / thoracentesis [id number] IMPRESSION: 1. RIGHT thoracentesis yielding 1000 cc of fluid. 2. Chest radiograph to follow to evaluate for pneumothorax. 3. Fluid collected for analysis as requested.
[2022-10-29 10:03] LABS: Blood Urea Nitrogen 25 mg/dL (8-23); Calcium 9.5 mg/dL (8.5-10.5); Chloride 91 mmol/L (98-107); Glucose 96 mg/dL (65-115); Lactate Dehydrogenase 137 U/L (135-225); Osmolality Calculated 298 mOsm/kg (285-295); Sodium 142 mmol/L (136-145)
[2022-10-29] MEDS: nystatin powder 15 gm Btl 1 APPLIC TOPICAL ×2 (10:03→17:40)
[2022-10-29] MEDS: ondansetron 2 mg/ML SDV 2 mL 4 MG IVP (10:04)
[2022-10-29] MEDS: buPROPion SR (12 HR) 150 mg Tablet PO ×2 (10:04→17:39)
[2022-10-29 10:05] LABS: Carbon Dioxide 45 mmol/L (22-29)
[2022-10-29] MEDS: metoprolol succinate ER (24 HR) 100 mg Tablet PO (10:05)
[2022-10-29] MEDS: amlodipine 10 mg Tablet PO (10:05)
[2022-10-29] MEDS: fluoxetine 20 mg Capsule 40 MG PO (10:05)
[2022-10-29] MEDS: multivitamin therapeutic Tablet 1 TAB PO (10:06)
[2022-10-29] MEDS: potassium chloride ER 20 mEq Tablet 40 MEQ PO ×2 (10:06→23:51)
--- NOTE | 2022-10-29 10:37 | XR_ITS ---
WS: [id number] PORTABLE CHEST HISTORY: post thoracentesis, RIGHT. COMPARISON: 10/25/2022 Status post RIGHT thoracentesis. There is a small residual RIGHT pleural effusion with compressive at electasis at the RIGHT lung base. Moderate improvement since the prior study. Small LEFT pleural effusion is reidentified but improved since 10/25/2022. Improved pulmonary edema. Cardiac size: Moderately enlarged cardiac silhouette. Mediastinum/Aorta: Mild atherosclerosis aorta. No osseous abnormality seen. XR/XR chest 1V portable [id number] IMPRESSION: 1. No pneumothorax status post RIGHT thoracentesis. 2. Small bilateral pleural effusions but improved since 10/25/2022.
--- NOTE | 2022-10-29 11:06 | PC.NURSE ---
dr hernandez performed thorocentesis on right lung at 1030,using sterile technique.approx 1000 cc dark red pleural fluid obtained.pt tolerated procedure well.
[2022-10-29 11:09] LABS: Body Fluid WBC 983 /uL; Monocytes # Body Fluid 0.913
[2022-10-29 11:28] LABS: Albumin Body Fluid 2.5 g/dL; Creatinine Body Fluid 1.52 (0.7-1.2); LDH Pleural Fluid 136 U/L; Total Protein Pleural Fluid 3.7 g/dL; Triglycerides, Pleural Fluid 24 mg/dL
[2022-10-29 11:30] LABS: Apprearance, Body Fluid CLOUDY; Color, Body Fluid SLIGHT PINK
[2022-10-29 11:48] LABS: Cyto Order Verification Order Verified
[2022-10-29] MEDS: bumetanide 0.25 mg/mL SDV 10 mL 2 MG IVP ×2 (13:22→23:52)
[2022-10-29] MEDS: atorvastatin 40 mg Tablet 20 MG PO (17:40)
--- NOTE | 2022-10-29 19:18 | PM.PN ---
Subjective Subjective: The patient had a thoracentesis on the right side. 1 L of fluid was taken out. The fluid studies are pending. According the patient, he is feeling much better. He is able to lie almost flat in the bed. Denies any chest pain. No fever or chills. Medications: Medication Review Details: Current Medications Acetaminophen (Acetaminophen 325 Mg Tablet) 650 mg PO Q6H PRN PRN Reason: Mild/Mod Pain Or Temp >/= 101 Last Admin: 10/28/22 09:30 Dose: 650 mg Albuterol/Ipratropium (Ipratropium-Albuterol 3 Ml Neb) 3 ml INHALATION Q6H PRN PRN Reason: SHORTNESS OF BREATH Albuterol/Ipratropium (Ipratropium-Albuterol 3 Ml Neb) 3 ml INHALATION QID.RESPIRATORY TRELL Last Admin: 10/29/22 16:13 Dose: 3 ml Amlodipine Besylate (Amlodipine 10 Mg Tablet) 10 mg PO DAILY TRELL Last Admin: 10/29/22 10:05 Dose: 10 mg Apixaban (Apixaban 5 Mg Tablet) 5 mg PO BID TRELL Last Admin: 10/29/22 07:31 Dose: Not Given Atorvastatin Calcium (Atorvastatin 40 Mg Tablet) 20 mg PO QPM TRELL Last Admin: 10/29/22 17:40 Dose: 20 mg Bisacodyl (Bisacodyl 5 Mg Tablet) 10 mg PO DAILY PRN; Protocol PRN Reason: Constipation (see protocol) Last Admin: 10/29/22 01:59 Dose: 10 mg Budesonide (Budesonide 0.5 Mg/2 Ml Neb) 0.5 mg INHALATION BID.RESPIRATORY TRELL Last Admin: 10/29/22 07:52 Dose: 0.5 mg Bumetanide (Bumetanide 0.25 Mg/Ml Sdv 10 Ml) 2 mg IVP Q12H TRELL Last Admin: 10/29/22 13:22 Dose: 2 mg Bupropion HCl (Bupropion Sr (12 Hr) 150 Mg Tablet) 150 mg PO BID TRELL Last Admin: 10/29/22 17:39 Dose: 150 mg Fluoxetine HCl (Fluoxetine 20 Mg Capsule) 40 mg PO DAILY TRELL Last Admin: 10/29/22 10:05 Dose: 40 mg Guaifenesin (Guaifenesin 100 Mg/5 Ml Udc 10 Ml) 200 mg PO Q4H PRN PRN Reason: COUGH Last Admin: 10/28/22 09:28 Dose: 200 mg Metoprolol Succinate (Metoprolol Succinate Er (24 Hr) 100 Mg Tablet) 100 mg PO DAILY [facility] Last Admin: 10/29/22 10:05 Dose: 100 mg Multivitamins Therapeutic (Multivitamin Therapeutic Tablet) 1 tab PO DAILY [facility] Last Admin: 10/29/22 10:06 Dose: 1 tab Nitroglycerin (Nitroglycerin 1 Gm/Inch Oint Pkt) 1 inch TOPICAL Q6H [facility] Last Admin: 10/29/22 17:39 Dose: 1 inch Nystatin (Nystatin Powder 15 Gm Btl) 1 applic TOPICAL BID [facility] Last Admin: 10/29/22 17:40 Dose: 1 applic Ondansetron HCl (Ondansetron 2 Mg/Ml Sdv 2 Ml) 4 mg IVP Q8H PRN PRN Reason: vomiting, or N/V if npo Last Admin: 10/29/22 10:04 Dose: 4 mg Potassium Chloride (Potassium Chloride Er 20 Meq Tablet) 40 meq PO DAILY [facility] Last Admin: 10/29/22 10:06 Dose: 40 meq Sodium Chloride (Saline Nasal [place] 44ml Btl) 1 spray NASAL PRN PRN PRN Reason: DRYNESS Last Admin: 10/27/22 07:43 Dose: 1 spray Vitals/I&O/Wt Last Vital Signs Temp 97.6 F 10/29/22 07:12 Pulse 78 10/29/22 16:15 Resp 16 10/29/22 16:15 BP 155/81 10/29/22 15:06 Pulse Ox 96 10/29/22 16:15 O2 Del Method 10/29/22 16:15 O2 Flow Rate 4 10/29/22 16:15 FiO2 5 10/29/22 11:40 10/29/22 10/29/22 10/29/22 06:59 14:59 22:59 Intake Total 50 / 50 240 / 290 Output Total 700 / 2425 1000 / 1000 1425 / 2425 Balance -700 / -1465 -950 / -950 -1185 / -2135 Weight last 48 hrs Weight 346 lb 6.4 oz Physical Exam Narrative: GENERAL: The patient is alert and oriented times three. Not in any acute distress. Morbidly obese HEENT: No significant pallor, icterus or lymphadenopathy.Oral cavity: There are no mucous membrane lesions. NECK: Trachea appears to be central. No masses noted. No JVD or thyromegaly appreciated. RESPIRATORY: Chest is symmetrical. No intercostals muscle retraction or any accessory muscle activation. There is no chest wall tenderness. Breath sounds are heard bilaterally. No rales or rhonchi heard. No evidence of any consolidation. BREASTS: Deferred. HEART: The heart sounds are somewhat distant. No S3 or S4. Short systolic murmur in the left sternal border. No pericardial rub ABDOMEN: No vessel pulsations or distention. No tenderness. No organomegaly appreciated. Bowel sounds are normally heard. : Deferred. RECTAL: Deferred. LYMPHATIC: No lymphadenopathy noted in the neck. EXTREMITIES: Trace edema with no cyanosis. No clubbing. MUSCULOSKELETAL: No acute joint deformities or swelling SKIN: There are no significant rashes or ecchymosis NEUROPSYCHIATRIC: The patient is alert and oriented x3. Appears to be in a good mood. No tremors or rigidity noted. Urinary Catheter Management: Sanchez: Cath Placed During This Visit: yes Reason for Continuing Indwelling Catheter: Accurate Measurement of Urinary Output in Critically Ill Patients Urinary Catheter Date of Insertion: 10/24/22 Urinary Catheter Time of Insertion: 22:00 Data 10/27/22 02:49 10/29/22 09:13 Micro: Microbiology 10/29/22 10:40 Gram Stain - Final Pleural Fluid A&P Assessment and plan (1) Acute on chronic diastolic (congestive) heart failure: Patient is the heart failure seems to be fairly compensated at this time. (2) Acute exacerbation of chronic obstructive airways disease: The etiology could be multifactorial. Respiratory infection, heart failure, obstructive sleep apnea, etc. are contributing factors. (3) Obstructive sleep apnea: May continue on the current management (4) Atherosclerosis of coronary artery of [place] heart without angina pectoris: Patient has a history of atherosclerotic heart disease and myocardial infarction in 2006. According to him, he had an angiogram followed by PCI of the circumflex artery. This was performed at the [facility] in [place], [place]?. Details are not available. Currently seems to have no specific symptoms of coronary insufficiency. May consider doing a Myocardial perfusion imaging later on, when he is able to lie totally flat in the bed (5) Atrial fibrillation by electrocardiogram: Patient is on oral anticoagulation. Heart rate is under control. May continue on the current measures. (6) Large pleural effusion: Status post thoracentesis. Pleural fluid studies pending. Plan Other problems are Hypokalemia, needs to be corrected Possible respiratory tract infection Renal insufficiency Cellulitis of the right lower extremity Possible thoracentesis of the left side tomorrow May switch to p.o. Lasix tomorrow Potassium supplement Continue on the other current measures Attestations Medical Necessity Statement*: Patient requires continued hospital stay for close monitoring and further management Coding Level of Care Code Acute Graphic Design Assistant for Chg Fwd History Expanded Problem Focused Exam Expanded Problem Focused Medical Decision Making Moderate Complexity Diagnoses Acute on chronic diastolic (congestive) heart failure I50.33 Acute exacerbation of chronic obstructive airways disease J44.1 Obstructive sleep apnea G47.33 Atherosclerosis of coronary artery of [place] heart without angina pectoris I25.10 Atrial fibrillation by electrocardiogram I48.91 Large pleural effusion J90
[2022-10-29 20:21] LABS: Blood Urea Nitrogen 28 mg/dL (8-23); Calcium 8.8 mg/dL (8.5-10.5); Chloride 90 mmol/L (98-107); Glucose 113 mg/dL (65-115); Osmolality Calculated 300 mOsm/kg (285-295); Sodium 142 mmol/L (136-145)
[2022-10-29 20:40] LABS: Carbon Dioxide 47 mmol/L (22-29)
--- NOTE | 2022-10-29 22:20 | PC.NURSE ---
Messaged Dr Adrian regarding patients low potassium from this morning, received Scheduled dose of potassium but no further supplementation. wanted repeat BMP, potassium was still 3.0. Dr Adrian ordered 40meq PO potassium.
[2022-10-30] VITALS (15 sets, daily range): BP systolic 119–151; BP diastolic 62–80; PULSE 65–82; RESP 17–24; TEMP 36.6–37.1; O2SAT 84–96
[2022-10-30] MEDS: nitroglycerin 1 gm/inch oint Pkt 1 INCH TOPICAL ×4 (04:29→22:26)
[2022-10-30] MEDS: bisacodyl 5 mg Tablet 10 MG PO (04:29)
[2022-10-30 04:39] LABS: Basophils # 0.1 10^3/uL (0.0-0.1); Basophils % 0.5 %; Eosinophils # 0.3 10^3/uL (0.0-0.8); Eosinophils % 2.7 %; Hematocrit 36.4 % (42.0-52.0); Hemoglobin 10.7 g/dL (11.7-16.6); Lymphocytes # 1.5 10^3/uL (0.8-4.8); Lymphocytes % 14.6 %; Mean Corpuscular HGB Conc 29.4 g/dL (30.0-36.0); Mean Corpuscular Hemoglobin 27.6 pg (28.0-34.0); Mean Corpuscular Volume 94.1 fl (80-94); Mean Platelet Volume 11.1 fL (7.4-10.4); Monocytes # 1.2 10^3/uL (0.2-0.9); Monocytes % 11.7 %; Neutrophils # 7.15 10^3/uL (1.8-7.7); Neutrophils % 70.1 %; Nucleated Red Blood Cells % 0 %; Platelet Count 165 10^3/cmm (130-400); Red Blood Count 3.87 10^6/uL (4.1-5.3); Red Cell Distribution Width 14.8 % (12.1-15.1); White Blood Count 10.2 10^3/uL (4.0-10.0)
[2022-10-30 04:46] LABS: Alanine Aminotransferase 26 U/L (0-41); Albumin Level 3.5 g/dL (3.5-5.2); Alkaline Phosphatase 78 U/L (40-130); Anion Gap 9.1 (5-19); Aspartate Amino Transferase 21 U/L (0-40); Blood Urea Nitrogen 26 mg/dL (8-23); Calcium 8.8 mg/dL (8.5-10.5); Chloride 89 mmol/L (98-107); Globulin 3.1 g/dL (1.3-4.6); Glucose 92 mg/dL (65-115); Osmolality Calculated 298 mOsm/kg (285-295); Potassium 3.1 mmol/L (3.5-5.1); Sodium 142 mmol/L (136-145); Total Bilirubin 0.6 mg/dL (0.15-1.2); Total Protein 6.6 g/dL (6.6-8.7)
[2022-10-30 05:09] LABS: Carbon Dioxide 47 mmol/L (22-29)
[2022-10-30] MEDS: budesonide 0.5 mg/2 mL Neb INHALATION ×2 (09:07→22:20)
--- NOTE | 2022-10-30 09:45 | US_ITS ---
WS: [id number] ULTRASOUND-GUIDED THORACENTESIS, LEFT HISTORY: LT pleural effusion Procedure, risks, and complications were explained to the patient. With the patient in an upright pos ition, the skin over the LEFT posterior thorax was cleansed with ChloraPrep and anesthetized with 1% buffered lidocaine. A 5 [place] Yueh needle is inserted into the pleural fluid without complication. A pproximately 900 cc of light red pleural fluid is removed without difficulty. / thoracentesis [id number] IMPRESSION: 1. LEFT thoracentesis yielding 900 cc of fluid. 2. Chest radiograph to follow to evaluate for pneumothorax.
[2022-10-30] MEDS: buPROPion SR (12 HR) 150 mg Tablet PO ×2 (09:54→17:16)
[2022-10-30] MEDS: fluoxetine 20 mg Capsule 40 MG PO (09:55)
[2022-10-30] MEDS: multivitamin therapeutic Tablet 1 TAB PO (09:55)
[2022-10-30] MEDS: metoprolol succinate ER (24 HR) 100 mg Tablet PO (09:56)
[2022-10-30] MEDS: amlodipine 10 mg Tablet PO (09:56)
[2022-10-30] MEDS: potassium chloride ER 20 mEq Tablet 40 MEQ PO (09:57)
[2022-10-30] MEDS: nystatin powder 15 gm Btl 1 APPLIC TOPICAL ×2 (09:58→17:33)
--- NOTE | 2022-10-30 10:35 | PM.PN ---
Subjective Subjective: Underwent thoracentesis yesterday following which symptoms are improving. He is able to lay flat. Metabolic alkalosis worsening Medications: Reviewed: Yes Medication Review Details: Current Medications Acetaminophen (Acetaminophen 325 Mg Tablet) 650 mg PO Q6H PRN PRN Reason: Mild/Mod Pain Or Temp >/= 101 Last Admin: 10/28/22 09:30 Dose: 650 mg Albuterol/Ipratropium (Ipratropium-Albuterol 3 Ml Neb) 3 ml INHALATION Q6H PRN PRN Reason: SHORTNESS OF BREATH Albuterol/Ipratropium (Ipratropium-Albuterol 3 Ml Neb) 3 ml INHALATION QID.RESPIRATORY TRELL Last Admin: 10/29/22 16:13 Dose: 3 ml Amlodipine Besylate (Amlodipine 10 Mg Tablet) 10 mg PO DAILY TRELL Last Admin: 10/29/22 10:05 Dose: 10 mg Apixaban (Apixaban 5 Mg Tablet) 5 mg PO BID TRELL Last Admin: 10/29/22 07:31 Dose: Not Given Atorvastatin Calcium (Atorvastatin 40 Mg Tablet) 20 mg PO QPM TRELL Last Admin: 10/29/22 17:40 Dose: 20 mg Bisacodyl (Bisacodyl 5 Mg Tablet) 10 mg PO DAILY PRN; Protocol PRN Reason: Constipation (see protocol) Last Admin: 10/29/22 01:59 Dose: 10 mg Budesonide (Budesonide 0.5 Mg/2 Ml Neb) 0.5 mg INHALATION BID.RESPIRATORY TRELL Last Admin: 10/29/22 07:52 Dose: 0.5 mg Bumetanide (Bumetanide 0.25 Mg/Ml Sdv 10 Ml) 2 mg IVP Q12H TRELL Last Admin: 10/29/22 13:22 Dose: 2 mg Bupropion HCl (Bupropion Sr (12 Hr) 150 Mg Tablet) 150 mg PO BID TRELL Last Admin: 10/29/22 17:39 Dose: 150 mg Fluoxetine HCl (Fluoxetine 20 Mg Capsule) 40 mg PO DAILY TRELL Last Admin: 10/29/22 10:05 Dose: 40 mg Guaifenesin (Guaifenesin 100 Mg/5 Ml Udc 10 Ml) 200 mg PO Q4H PRN PRN Reason: COUGH Last Admin: 10/28/22 09:28 Dose: 200 mg Metoprolol Succinate (Metoprolol Succinate Er (24 Hr) 100 Mg Tablet) 100 mg PO DAILY [facility] Last Admin: 10/29/22 10:05 Dose: 100 mg Multivitamins Therapeutic (Multivitamin Therapeutic Tablet) 1 tab PO DAILY [facility] Last Admin: 10/29/22 10:06 Dose: 1 tab Nitroglycerin (Nitroglycerin 1 Gm/Inch Oint Pkt) 1 inch TOPICAL Q6H [facility] Last Admin: 10/29/22 17:39 Dose: 1 inch Nystatin (Nystatin Powder 15 Gm Btl) 1 applic TOPICAL BID [facility] Last Admin: 10/29/22 17:40 Dose: 1 applic Ondansetron HCl (Ondansetron 2 Mg/Ml Sdv 2 Ml) 4 mg IVP Q8H PRN PRN Reason: vomiting, or N/V if npo Last Admin: 10/29/22 10:04 Dose: 4 mg Potassium Chloride (Potassium Chloride Er 20 Meq Tablet) 40 meq PO DAILY [facility] Last Admin: 10/29/22 10:06 Dose: 40 meq Sodium Chloride (Saline Nasal [place] 44ml Btl) 1 spray NASAL PRN PRN PRN Reason: DRYNESS Last Admin: 10/27/22 07:43 Dose: 1 spray Vitals/I&O/Wt Last Vital Signs Temp 97.8 F 10/30/22 08:00 Pulse 82 10/30/22 08:08 Resp 24 H 10/30/22 08:08 BP 119/62 10/30/22 08:08 Pulse Ox 92 10/30/22 08:08 O2 Del Method 10/30/22 08:00 O2 Flow Rate 4 10/30/22 08:00 FiO2 40 10/30/22 04:00 10/29/22 10/30/22 10/30/22 22:59 06:59 14:59 Intake Total 480 / 530 240 / 770 354 / 354 Output Total 1925 / 2925 1450 / 4375 Balance -1445 / -2395 -1210 / -3605 354 / 354 Weight last 48 hrs Weight 157.538 kg Weight 157.124 kg Physical Exam Narrative: General: No acute distress, AO x3 HEENT: PERRLA, pupils bilaterally equal and reactive, pallors not present Chest: Normal vesicular breath sounds, no added sounds, equal good air entry bilaterally CVS: S1-S2 regular, no murmurs, no tachycardia, no gallops, no rubs Abdomen: Soft, nontender, no organomegaly, bowel sounds present Neuro: No focal deficits, no facial deformity, AO x3, power 5/5 in all limbs Urinary Catheter Management: Sanchez: Cath Placed During This Visit: yes Reason for Continuing Indwelling Catheter: Acute Urinary Retention or Obstruction Urinary Catheter Date of Insertion: 10/24/22 Urinary Catheter Time of Insertion: 22:00 Data 10/30/22 03:11 10/30/22 03:11 Micro: Microbiology 10/29/22 10:40 Gram Stain - Final Pleural Fluid A&P Assessment and plan (1) COPD (chronic obstructive pulmonary disease): (2) Obstructive sleep apnea: (3) Heart failure with preserved ejection fraction: (4) Obesity hypoventilation syndrome: Plan 72 year old male past medical history of hypertension COPD on 4 Ls, home oxygen, obstructive sleep apnea, obesity hypoventilation, atrial fibrillation on Eliquis, coronary artery disease,HFpEF, CKD stage II, Came in with chief complaint of worsening shortness of breath with minimal exertion, PND orthopnea, worsening bilateral lower extremity swelling going on for last couple of months.Patient has denied any cough fever chills, abdominal pain nausea vomiting. Assessment: Decompensated heart failure with preserved ejection fraction Patient has been on aggressive diuresis with Lasix, most recently on Lasix drip. He is net negative overall 13 L since admission, however did not have any significant improvement in his breathing. Underwent thoracentesis 10/29 with symptomatic relief. LE edema is improving Change iv bumex to po today, diamox x 1 CTA negative for PE and consolidation, showed bilateral large pleural effusion and signs of pulmonary edema. Echocardiogram from 10/24 showed he has a normal left ventricular cavity size and systolic function. LVEF estimated at 60%. There is possible septal hypokinesis. Dilated IVC with less than 50% respiratory variation. No pericardial effusion. Echo-free space anterior to the right ventricle likely a fat pad. Less likely pneumonia given absence of fever, leukocytosis or significant cough Appreciate cardiology recommendations #Large oleural effusion s/p thoracentesis exudative per light's criteria however unlikely parapneumonic effusion or empyema, LDH normal, Ph elevated, no consolidation on C, afebrile. . Negative procal. Gram stain with GPR prelim- discussed with micro lab- likely contaminant- is an ongoing issue for the lab. No growth on plates thus far, will follow. negative resp viral panel # metaboilic alkalosis related to diuresis, diamox x1 today COPD , concern for exacerbation ABG with hypercapneic respiratory failure Continue BIpap use at night and prn continue scheduled duoneb and budesonide inhalation Hypertension, currently well controlled Atrial fibrillation, rate controlled currently resume Eliquis Coronary artery disease trop series without significant deltas on 10/27, mildly elevated trop 30s range CKD versus BRONWYN on CKD [facility]/OHS CODE STATUS: Full code Attestations Medical Necessity Statement*: change iv to po diuresis, monitor for improvement Coding Level of Care Code Acute Air Route Traffic Controller for Chg Fwd Diagnoses COPD (chronic obstructive pulmonary disease) J44.9 Obstructive sleep apnea G47.33 Heart failure with preserved ejection fraction I50.30 Obesity hypoventilation syndrome E66.2
--- NOTE | 2022-10-30 11:15 | PM.PN ---
Subjective Subjective: The patient continues to feel better. The chest x-ray revealed no pneumothorax after the thoracentesis. Medications: Medication Review Details: Current Medications Acetaminophen (Acetaminophen 325 Mg Tablet) 650 mg PO Q6H PRN PRN Reason: Mild/Mod Pain Or Temp >/= 101 Last Admin: 10/28/22 09:30 Dose: 650 mg Acetazolamide (Acetazolamide 250 Mg Tablet) 250 mg PO ONCE TRELL Albuterol Sulfate (Albuterol 2.5 Mg/3 Ml Neb) 2.5 mg INHALATION Q4H.RESPIRATORY TRELL Albuterol/Ipratropium (Ipratropium-Albuterol 3 Ml Neb) 3 ml INHALATION Q6H PRN PRN Reason: SHORTNESS OF BREATH Albuterol/Ipratropium (Ipratropium-Albuterol 3 Ml Neb) 3 ml INHALATION QID.RESPIRATORY TRELL Last Admin: 10/30/22 09:06 Dose: Not Given Amlodipine Besylate (Amlodipine 10 Mg Tablet) 10 mg PO DAILY TRELL Last Admin: 10/30/22 09:56 Dose: 10 mg Apixaban (Apixaban 5 Mg Tablet) 5 mg PO BID TRELL Last Admin: 10/29/22 07:31 Dose: Not Given Atorvastatin Calcium (Atorvastatin 40 Mg Tablet) 20 mg PO QPM TRELL Last Admin: 10/29/22 17:40 Dose: 20 mg Bisacodyl (Bisacodyl 5 Mg Tablet) 10 mg PO DAILY PRN; Protocol PRN Reason: Constipation (see protocol) Last Admin: 10/30/22 04:29 Dose: 10 mg Budesonide (Budesonide 0.5 Mg/2 Ml Neb) 0.5 mg INHALATION BID.RESPIRATORY TRELL Last Admin: 10/30/22 09:07 Dose: 0.5 mg Bumetanide (Bumetanide 1 Mg Tablet) 2 mg PO DAILY TRELL Bupropion HCl (Bupropion Sr (12 Hr) 150 Mg Tablet) 150 mg PO BID TRELL Last Admin: 10/30/22 09:54 Dose: 150 mg Doxycycline Monohydrate (Doxycycline 100 Mg Tablet) 100 mg PO BID TRELL; Protocol Fluoxetine HCl (Fluoxetine 20 Mg Capsule) 40 mg PO DAILY TRELL Last Admin: 10/30/22 09:55 Dose: 40 mg Guaifenesin (Guaifenesin 100 Mg/5 Ml Udc 10 Ml) 200 mg PO Q4H PRN PRN Reason: COUGH Last Admin: 10/28/22 09:28 Dose: 200 mg Ipratropium [place] (Ipratropium 0.5 Mg/2.5 Ml Neb) 0.5 mg INHALATION Q4H.RESPIRATORY TRELL Metoprolol Succinate (Metoprolol Succinate Er (24 Hr) 100 Mg Tablet) 100 mg PO DAILY [facility] Last Admin: 10/30/22 09:56 Dose: 100 mg Multivitamins Therapeutic (Multivitamin Therapeutic Tablet) 1 tab PO DAILY [facility] Last Admin: 10/30/22 09:55 Dose: 1 tab Nitroglycerin (Nitroglycerin 1 Gm/Inch Oint Pkt) 1 inch TOPICAL Q6H [facility] Last Admin: 10/30/22 10:00 Dose: 1 inch Nystatin (Nystatin Powder 15 Gm Btl) 1 applic TOPICAL BID [facility] Last Admin: 10/30/22 09:58 Dose: 1 applic Ondansetron HCl (Ondansetron 2 Mg/Ml Sdv 2 Ml) 4 mg IVP Q8H PRN PRN Reason: vomiting, or N/V if npo Last Admin: 10/29/22 10:04 Dose: 4 mg Potassium Chloride (Potassium Chloride Er 20 Meq Tablet) 40 meq PO DAILY [facility] Last Admin: 10/30/22 09:57 Dose: 40 meq Sodium Chloride (Saline Nasal Speculator 44ml Btl) 1 spray NASAL PRN PRN PRN Reason: DRYNESS Last Admin: 10/27/22 07:43 Dose: 1 spray Vitals/I&O/Wt Last Vital Signs Temp 97.8 F 10/30/22 08:00 Pulse 82 10/30/22 08:08 Resp 24 H 10/30/22 08:08 BP 119/62 10/30/22 08:08 Pulse Ox 92 10/30/22 08:08 O2 Del Method 10/30/22 08:00 O2 Flow Rate 4 10/30/22 08:00 FiO2 40 10/30/22 04:00 10/29/22 10/30/22 10/30/22 22:59 06:59 14:59 Intake Total 480 / 530 240 / 770 354 / 354 Output Total 1925 / 2925 1450 / 4375 Balance -1445 / -2395 -1210 / -3605 354 / 354 Weight last 48 hrs Weight 347 lb 5 oz Weight 346 lb 6.4 oz Physical Exam Narrative: GENERAL: The patient is alert and oriented times three. Not in any acute distress. Morbidly obese HEENT: No significant pallor, icterus or lymphadenopathy.Oral cavity: There are no mucous membrane lesions. NECK: Trachea appears to be central. No masses noted. No JVD or thyromegaly appreciated. RESPIRATORY: Chest is symmetrical. No intercostals muscle retraction or any accessory muscle activation. There is no chest wall tenderness. Breath sounds are heard bilaterally. No rales or rhonchi heard. No evidence of any consolidation. BREASTS: Deferred. HEART: The heart sounds are normal. No S3 or S4. No significant murmurs. No pericardial rub ABDOMEN: No vessel pulsations or distention. No tenderness. No organomegaly appreciated. Bowel sounds are normally heard. : Deferred. RECTAL: Deferred. LYMPHATIC: No lymphadenopathy noted in the neck. EXTREMITIES: Trace edema with no cyanosis MUSCULOSKELETAL: No acute joint deformities or swelling SKIN: There are no significant rashes or ecchymosis NEUROPSYCHIATRIC: The patient is alert and oriented x3. Appears to be in a good mood. No tremors or rigidity noted. Urinary Catheter Management: Sanchez: Cath Placed During This Visit: yes Reason for Continuing Indwelling Catheter: Acute Urinary Retention or Obstruction Urinary Catheter Date of Insertion: 10/24/22 Urinary Catheter Time of Insertion: 22:00 Data 10/30/22 03:11 10/30/22 03:11 Other Labs: Laboratory Last Values WBC 10.2 10^3/uL (4.0-10.0) H 10/30/22 03:11 RBC 3.87 10^6/uL (4.1-5.3) L 10/30/22 03:11 Hgb 10.7 g/dL (11.7-16.6) L 10/30/22 03:11 Hct 36.4 % (42.0-52.0) L 10/30/22 03:11 MCV 94.1 fl (80-94) H 10/30/22 03:11 MCH 27.6 pg (28.0-34.0) L 10/30/22 03:11 MCHC 29.4 g/dL (30.0-36.0) L 10/30/22 03:11 RDW 14.8 % (12.1-15.1) 10/30/22 03:11 Plt Count 165 10^3/cmm (130-400) 10/30/22 03:11 MPV 11.1 fL (7.4-10.4) H 10/30/22 03:11 Neut % (Auto) 70.1 % 10/30/22 03:11 Lymph % (Auto) 14.6 % 10/30/22 03:11 Person % (Auto) 11.7 % 10/30/22 03:11 Eos % (Auto) 2.7 % 10/30/22 03:11 Baso % (Auto) 0.5 % 10/30/22 03:11 Neut # (Auto) 7.15 10^3/uL (1.8-7.7) 10/30/22 03:11 Lymph # (Auto) 1.5 10^3/uL (0.8-4.8) 10/30/22 03:11 Person # (Auto) 1.2 10^3/uL (0.2-0.9) H 10/30/22 03:11 Eos # (Auto) 0.3 10^3/uL (0.0-0.8) 10/30/22 03:11 Baso # (Auto) 0.1 10^3/uL (0.0-0.1) 10/30/22 03:11 Nucleated RBC % (auto) 0 % 10/30/22 03:11 Nucleated RBCs # 0.0 /100WBC 10/30/22 03:11 D-Dimer 2.83 ug/mIFEU (0-0.59) H 10/27/22 18:42 Specimen Type Arterial 10/28/22 11:37 Sample Site Radial, right 10/28/22 11:37 ABG pH 7.38 (7.35-7.45) 10/28/22 11:37 ABG pCO2 83.8 mmHg (35-45) H* 10/28/22 11:37 ABG pO2 83.5 mmHg (80.0-100.0) 10/28/22 11:37 ABG HCO3 49.4 mmol/L (22-26) H 10/28/22 11:37 ABG O2 Saturation 98.8 10/25/22 05:20 ABG Base Excess 20.3 mmol/L (-2.0-2.0) H 10/28/22 11:37 Uli Test Pos 10/28/22 11:37 A-a O2 Gradient 10.9 mmHg (5-10) H 10/25/22 05:20 Hematocrit 34.5 % (42-52) L 10/28/22 11:37 Hgb O2 Saturation 96.9 % (95-100) 10/25/22 05:20 Carboxyhemoglobin 1.6 %THgb (0.4-20.1) 10/25/22 05:20 Methemoglobin 0.3 % (0.4-1.5) L 10/25/22 05:20 Total Hemoglobin 11.4 g/dL (14-18) L 10/25/22 05:20 Sodium 146.0 mmol/L (131-143) H 10/25/22 05:20 Potassium 4.0 mmol/L (3.5-5.0) 10/25/22 05:20 Glucose 104.0 mg/dL (70-115) 10/25/22 05:20 Ionized Calcium 1.2 mmol/L (1.1-1.4) 10/25/22 05:20 O2 Delivery Device Bipap 10/28/22 11:37 O2 Liters/Min 3.0 % 10/23/22 11:07 FiO2 40.0 % 10/28/22 11:37 Manager Fund ID Monros 10/28/22 11:37 Sodium 142 mmol/L (136-145) 10/30/22 03:11 Potassium 3.1 mmol/L (3.5-5.1) L 10/30/22 03:11 Chloride 89 mmol/L (98-107) L 10/30/22 03:11 Carbon Dioxide 47 mmol/L (22-29) H* 10/30/22 03:11 Anion Gap 9.1 (5-19) 10/30/22 03:11 BUN 26 mg/dL (8-23) H 10/30/22 03:11 Creatinine 1.5 mg/dL (0.7-1.2) H 10/30/22 03:11 GFR Calculation Not Reportable 10/30/22 03:11 Glucose 92 mg/dL (65-115) 10/30/22 03:11 POC Glucose 108 mg/dL (70-110) 10/28/22 03:16 Calculated Osmolality 298 mOsm/kg (285-295) H 10/30/22 03:11 Calcium 8.8 mg/dL (8.5-10.5) 10/30/22 03:11 Magnesium 2.0 mg/dL (1.7-2.3) 10/24/22 05:16 Total Bilirubin 0.6 mg/dL (0.15-1.2) 10/30/22 03:11 AST 21 U/L (0-40) 10/30/22 03:11 ALT 26 U/L (0-41) 10/30/22 03:11 Alkaline Phosphatase 78 U/L (40-130) 10/30/22 03:11 Lactate Dehydrogenase 137 U/L (135-225) 10/29/22 09:13 Troponin T Baseline 30 ng/L (0-15) H 10/27/22 13:45 Troponin T 120 Minute 30.81 ng/L (0-15) H 10/27/22 15:36 Delta Troponin T 0.81 ABS# (0-10) 10/27/22 15:36 Troponin T Hi Sens 6Hr 27.66 ng/L (0-15) H 10/27/22 18:42 Troponin T Hi Sens 6Hr Delta -2.34 ng/L (0-12) L 10/27/22 18:42 NT-Pro-B Natriuret Pep 2754 pg/mL (0-125) H 10/23/22 11:07 Total Protein 6.6 g/dL (6.6-8.7) 10/30/22 03:11 Albumin 3.5 g/dL (3.5-5.2) 10/30/22 03:11 Globulin 3.1 g/dL (1.3-4.6) 10/30/22 03:11 Procalcitonin 0.13 ng/mL (0-0.5) 10/29/22 09:13 TSH 0.85 uIU/mL (0.27-4.20) 10/24/22 05:16 Urine Color Yellow (Yellow) 10/23/22 12:01 Urine Appearance Clear (CLEAR) 10/23/22 12:01 Urine pH 5 (5-7) 10/23/22 12:01 Ur Specific [place] 1.015 (1.005-1.030) 10/23/22 12:01 Urine Protein 3+ (Negative) H 10/23/22 12:01 Urine Glucose (UA) Norm (Normal) 10/23/22 12:01 Urine Ketones Negative (Negative) 10/23/22 12:01 Urine Blood 2+ (Negative) H 10/23/22 12:01 Urine Nitrate Negative (Negative) 10/23/22 12:01 Urine Bilirubin Neg (Negative) 10/23/22 12:01 Urine Urobilinogen Neg mg/dL (Negative) 10/23/22 12:01 Ur Leukocyte Esterase Negative (Negative) 10/23/22 12:01 Urine RBC 10-15 /hpf (0-2) H 10/23/22 12:01 Urine WBC None /hpf (0-5) 10/23/22 12:01 Ur Squamous Epith Cells None /hpf (0-5) 10/23/22 12:01 Amorphous Sediment Not Reportable 10/23/22 12:01 Urine Bacteria None /hpf (NONE) 10/23/22 12:01 Fluid Color Slight pink 10/29/22 10:40 Fluid Appearance Cloudy 10/29/22 10:40 Fluid WBC 983 /uL 10/29/22 10:40 Fluid RBC 20.000 10^3/uL 10/29/22 10:40 Fld Polynuclear WBCs # 0.070 10/29/22 10:40 Fld Polynuclear WBCs % 7.100 % 10/29/22 10:40 Fl Mononucl WBCs #(Auto) 0.913 10/29/22 10:40 Fl Mononuclear % Auto 92.900 % 10/29/22 10:40 Fluid Albumin 2.5 g/dL 10/29/22 10:40 Fluid Creatinine 1.52 (0.7-1.2) H 10/29/22 10:40 Pleural pH 8.00 (6.5-7.5) H 10/29/22 10:40 Pleural Total Protein 3.7 g/dL 10/29/22 10:40 Pleural LDH 136 U/L 10/29/22 10:40 Pleural Glucose 98.0 mg/dL 10/29/22 10:40 Pleural Amylase 24.0 U/L 10/29/22 10:40 Pleural Triglycerides 24 mg/dL 10/29/22 10:40 Nasal Influ A H1 2008 PCR Not detected (NOT DETECT) 10/28/22 12:00 Adenovirus (PCR) Not detected (NOT DETECT) 10/28/22 12:00 C. pneumoniae DNA (PCR) Not detected (NOT DETECT) 10/28/22 12:00 Coronavirus 229E (PCR) Not detected (NOT DETECT) 10/28/22 12:00 Human Metapneumovir PCR Not detected (NOT DETECT) 10/28/22 12:00 Influenza A (H1) PCR Not detected (NOT DETECT) 10/28/22 12:00 Influenza A (H3) PCR Not detected (NOT DETECT) 10/28/22 12:00 Influenza Type A (PCR) Not detected (NOT DETECT) 10/28/22 12:00 Influenza Type B (PCR) Not detected (NOT DETECT) 10/28/22 12:00 M. pneumoniae (PCR) Not detected (NOT DETECT) 10/28/22 12:00 Parainfluenza 1 (PCR) Not detected (NOT DETECT) 10/28/22 12:00 Parainfluenza 2 (PCR) Not detected (NOT DETECT) 10/28/22 12:00 Parainfluenza 3 (PCR) Not detected (NOT DETECT) 10/28/22 12:00 Parainfluenza 4 (PCR) Not detected (NOT DETECT) 10/28/22 12:00 RSV Type A (PCR) Not detected (NOT DETECT) 10/28/22 12:00 RSV Type B (PCR) Not detected (NOT DETECT) 10/28/22 12:00 Entero/Rhino (PCR) Not detected (NOT DETECT) 10/28/22 12:00 SARS-CoV-2 (PCR) Not detected (NOT DETECT) 10/28/22 12:00 Micro: Microbiology 10/29/22 10:40 Gram Stain - Final Pleural Fluid Body Fluid Culture - Preliminary A&P Assessment and plan (1) Acute on chronic diastolic (congestive) heart failure: Patient is the heart failure seems to be fairly compensated at this time. (2) Atherosclerosis of coronary artery of [place] heart without angina pectoris: Patient has a history of atherosclerotic heart disease and myocardial infarction in 2006. According to him, he had an angiogram followed by PCI of the circumflex artery. This was performed at the [facility] in [place], [place]?. Details are not available. Currently seems to have no specific symptoms of coronary insufficiency. May consider doing a Myocardial perfusion imaging next week as an outpatient. (3) Acute exacerbation of chronic obstructive airways disease: The etiology could be multifactorial. Respiratory infection, heart failure, obstructive sleep apnea, etc. are contributing factors. (4) Obstructive sleep apnea: May continue on the current management (5) Atrial fibrillation by electrocardiogram: Patient is on oral anticoagulation. Heart rate is under control. May continue on the current measures. (6) Large pleural effusion: Status post thoracentesis. The pleural fluid is found to be exudative, based on Light's criteria Plan Other problems are Hypokalemia, Possible respiratory tract infection Renal insufficiency Cellulitis of the right lower extremity Possible thoracentesis of the left side today May switch to p.o. Lasix today Potassium supplement Continue on the other current measures Attestations Medical Necessity Statement*: Patient requires continued hospital stay for close monitoring and further management Coding Level of Care Code Acute Slot Operations Manager for Chg Fwd History Expanded Problem Focused Exam Detailed Medical Decision Making Moderate Complexity Diagnoses Acute on chronic diastolic (congestive) heart failure I50.33 Atherosclerosis of coronary artery of [place] heart without angina pectoris I25.10 Acute exacerbation of chronic obstructive airways disease J44.1 Obstructive sleep apnea G47.33 Atrial fibrillation by electrocardiogram I48.91 Large pleural effusion J90
--- NOTE | 2022-10-30 11:38 | XR_ITS ---
WS: [id number] PORTABLE CHEST HISTORY: Status post LEFT thoracentesis. COMPARISON: 10/29/2022. Mild improvement in aeration at the LEFT lung base. No pneumothorax status post LEFT thoracentesis. T here is continued obscuration of the LEFT lung base due to combination of residual fluid and compress santiago atelectasis. Small RIGHT pleural effusion. Mild pulmonary congestion. Cardiac size: Moderately enlarged cardiac silhouette. Mediastinum/Aorta: Mild atherosclerosis aorta. No osseous abnormality seen. XR/XR chest 1V portable [id number] IMPRESSION: 1. No pneumothorax status post LEFT thoracentesis. 2. Small, residual bilateral pleural effusions. 3. Mild pulmonary congestion.
[2022-10-30] MEDS: ipratropium 0.5 mg/2.5 mL Neb INHALATION ×2 (15:19→22:20)
[2022-10-30] MEDS: albuterol 2.5 mg/3 mL Neb INHALATION ×2 (15:19→22:20)
[2022-10-30] MEDS: acetaZOLAMIDE 250 mg Tablet PO (17:16)
[2022-10-30] MEDS: bumetanide 1 mg Tablet 2 MG PO (17:16)
[2022-10-30] MEDS: atorvastatin 40 mg Tablet 20 MG PO (17:17)
[2022-10-30] MEDS: apixaban 5 mg Tablet PO (17:25)
[2022-10-30] MEDS: doxycycline 100 mg Tablet PO (17:30)
[2022-10-31] VITALS (13 sets, daily range): BP systolic 111–164; BP diastolic 72–89; PULSE 62–88; RESP 12–24; TEMP 36.7; O2SAT 90–99
--- NOTE | 2022-10-31 04:00 | XRR_ITS ---
PROCEDURE INFORMATION: Exam: XR Chest Exam date and time: 10/31/2022 4:02 AM Age: 72 years old Clinical indication: Other: Effusion; Additional info: Follow up effusion TECHNIQUE: Imaging protocol: Radiologic exam of the chest. Views: 1 view. COMPARISON: CR XR chest 1V portable [id number] 10/30/2022 11:48 AM FINDINGS: Lungs: Bibasilar consolidative changes likely secondary to the increased bilateral pleural effusions and associated atelectasis. Pleural spaces: Bilateral pleural effusions persist and appear mildly increased when compared to the prior exam. No pneumothorax. Heart/Mediastinum: Cardiomegaly. Bones/joints: No acute fracture. XR/XR chest 1V portable [id number] IMPRESSION: 1. Bilateral pleural effusions appear mildly increased when compared with the prior exam. 2. Basilar consolidative changes likely secondary to effusions and atelectasis, cardiomegaly, and pulmonary vascular congestion persist.
[2022-10-31] MEDS: nitroglycerin 1 gm/inch oint Pkt 1 INCH TOPICAL ×3 (04:34→16:28)
[2022-10-31 07:15] LABS: Basophils % 0.3 %; Eosinophils # 0.2 10^3/uL (0.0-0.8); Eosinophils % 2.5 %; Hematocrit 36.8 % (42.0-52.0); Hemoglobin 10.7 g/dL (11.7-16.6); Lymphocytes # 1.6 10^3/uL (0.8-4.8); Lymphocytes % 16.6 %; Mean Corpuscular HGB Conc 29.1 g/dL (30.0-36.0); Mean Corpuscular Hemoglobin 27.5 pg (28.0-34.0); Mean Corpuscular Volume 94.6 fl (80-94); Monocytes % 10.3 %; Neutrophils % 70.1 %; Nucleated Red Blood Cells % 0 %; Platelet Count 169 10^3/cmm (130-400); Red Blood Count 3.89 10^6/uL (4.1-5.3); Red Cell Distribution Width 14.9 % (12.1-15.1); White Blood Count 9.6 10^3/uL (4.0-10.0)
[2022-10-31 07:30] LABS: Alanine Aminotransferase 22 U/L (0-41); Albumin Level 3.5 g/dL (3.5-5.2); Alkaline Phosphatase 72 U/L (40-130); Anion Gap 7.8 (5-19); Aspartate Amino Transferase 17 U/L (0-40); Blood Urea Nitrogen 24 mg/dL (8-23); Calcium 8.6 mg/dL (8.5-10.5); Chloride 92 mmol/L (98-107); Glucose 97 mg/dL (65-115); Osmolality Calculated 302 mOsm/kg (285-295); Sodium 144 mmol/L (136-145); Total Bilirubin 0.5 mg/dL (0.15-1.2); Total Protein 6.5 g/dL (6.6-8.7)
[2022-10-31 07:44] LABS: Carbon Dioxide 47 mmol/L (22-29); Potassium 2.8 mmol/L (3.5-5.1)
[2022-10-31] MEDS: nystatin powder 15 gm Btl 1 APPLIC TOPICAL ×2 (08:56→17:32)
[2022-10-31] MEDS: multivitamin therapeutic Tablet 1 TAB PO (08:57)
[2022-10-31] MEDS: apixaban 5 mg Tablet PO ×2 (08:57→17:31)
[2022-10-31] MEDS: potassium chloride ER 20 mEq Tablet 40 MEQ PO (08:57)
[2022-10-31] MEDS: doxycycline 100 mg Tablet PO ×2 (08:57→17:31)
[2022-10-31] MEDS: fluoxetine 20 mg Capsule 40 MG PO (08:57)
[2022-10-31] MEDS: buPROPion SR (12 HR) 150 mg Tablet PO ×2 (08:57→17:31)
[2022-10-31] MEDS: metoprolol succinate ER (24 HR) 100 mg Tablet PO (08:57)
[2022-10-31] MEDS: bumetanide 1 mg Tablet 2 MG PO (08:57)
[2022-10-31] MEDS: amlodipine 10 mg Tablet PO (09:01)
--- NOTE | 2022-10-31 09:22 | PM.PN ---
Subjective Subjective: This patient had a thoracentesis on the left side yesterday. A total of 900 cc of fluid was drained from the side. He is feeling okay. Apparently he was getting dizzy when he tried to get up and move around. He has no chest pain. No fever or chills. No cough. He is able to lie flat in the bed. No other specific complaints. Potassium was found to be very low today Medications: Medication Review Details: Current Medications Acetaminophen (Acetaminophen 325 Mg Tablet) 650 mg PO Q6H PRN PRN Reason: Mild/Mod Pain Or Temp >/= 101 Last Admin: 10/28/22 09:30 Dose: 650 mg Acetazolamide (Acetazolamide 250 Mg Tablet) 250 mg PO ONCE PENDING SALE TO [facility] Last Admin: 10/30/22 17:16 Dose: 250 mg Albuterol Sulfate (Albuterol 2.5 Mg/3 Ml Neb) 2.5 mg INHALATION Q4H.RESPIRATORY TRELL Last Admin: 10/31/22 09:15 Dose: Not Given Albuterol/Ipratropium (Ipratropium-Albuterol 3 Ml Neb) 3 ml INHALATION Q6H PRN PRN Reason: SHORTNESS OF BREATH Amlodipine Besylate (Amlodipine 10 Mg Tablet) 10 mg PO DAILY TRELL Last Admin: 10/31/22 09:01 Dose: 10 mg Apixaban (Apixaban 5 Mg Tablet) 5 mg PO BID TRELL Last Admin: 10/31/22 08:57 Dose: 5 mg Atorvastatin Calcium (Atorvastatin 40 Mg Tablet) 20 mg PO QPM TRELL Last Admin: 10/30/22 17:17 Dose: 20 mg Bisacodyl (Bisacodyl 5 Mg Tablet) 10 mg PO DAILY PRN; Protocol PRN Reason: Constipation (see protocol) Last Admin: 10/30/22 04:29 Dose: 10 mg Budesonide (Budesonide 0.5 Mg/2 Ml Neb) 0.5 mg INHALATION BID.RESPIRATORY TRELL Last Admin: 10/31/22 09:15 Dose: Not Given Bumetanide (Bumetanide 1 Mg Tablet) 2 mg PO DAILY TRELL Last Admin: 10/31/22 08:57 Dose: 2 mg Bupropion HCl (Bupropion Sr (12 Hr) 150 Mg Tablet) 150 mg PO BID TRELL Last Admin: 10/31/22 08:57 Dose: 150 mg Doxycycline Monohydrate (Doxycycline 100 Mg Tablet) 100 mg PO BID [facility] TO [facility]; Protocol Last Admin: 10/31/22 08:57 Dose: 100 mg Fluoxetine HCl (Fluoxetine 20 Mg Capsule) 40 mg PO DAILY [facility] Last Admin: 10/31/22 08:57 Dose: 40 mg Guaifenesin (Guaifenesin 100 Mg/5 Ml Udc 10 Ml) 200 mg PO Q4H PRN PRN Reason: COUGH Last Admin: 10/28/22 09:28 Dose: 200 mg Ipratropium [place] (Ipratropium 0.5 Mg/2.5 Ml Neb) 0.5 mg INHALATION Q4H.RESPIRATORY [facility] Last Admin: 10/31/22 04:00 Dose: Not Given Metoprolol Succinate (Metoprolol Succinate Er (24 Hr) 100 Mg Tablet) 100 mg PO DAILY [facility] Last Admin: 10/31/22 08:57 Dose: 100 mg Multivitamins Therapeutic (Multivitamin Therapeutic Tablet) 1 tab PO DAILY [facility] Last Admin: 10/31/22 08:57 Dose: 1 tab Nitroglycerin (Nitroglycerin 1 Gm/Inch Oint Pkt) 1 inch TOPICAL Q6H [facility] Last Admin: 10/31/22 08:57 Dose: 1 inch Nystatin (Nystatin Powder 15 Gm Btl) 1 applic TOPICAL BID [facility] Last Admin: 10/31/22 08:56 Dose: 1 applic Ondansetron HCl (Ondansetron 2 Mg/Ml Sdv 2 Ml) 4 mg IVP Q8H PRN PRN Reason: vomiting, or N/V if npo Last Admin: 10/29/22 10:04 Dose: 4 mg Potassium Chloride (Potassium Chloride Er 20 Meq Tablet) 40 meq PO DAILY [facility] Last Admin: 10/31/22 08:57 Dose: 40 meq Sodium Chloride (Saline Nasal [place] 44ml Btl) 1 spray NASAL PRN PRN PRN Reason: DRYNESS Last Admin: 10/27/22 07:43 Dose: 1 spray Vitals/I&O/Wt Last Vital Signs Temp 98.0 F 10/31/22 04:00 Pulse 67 10/31/22 07:56 Resp 13 10/31/22 07:56 BP 164/79 10/31/22 07:56 Pulse Ox 93 10/31/22 07:56 O2 Del Method 10/31/22 04:00 O2 Flow Rate 5 10/31/22 04:00 FiO2 40 10/31/22 04:00 10/30/22 10/31/22 10/31/22 22:59 06:59 14:59 Intake Total 358 / 830 Output Total 1400 / 1980 500 / 2480 Balance -1042 / -1150 -500 / -1650 Weight last 48 hrs Weight 340 lb Weight 347 lb 5 oz Physical Exam Narrative: GENERAL: The patient is alert and oriented times three. Not in any acute distress. Morbidly obese HEENT: No significant pallor, icterus or lymphadenopathy.Oral cavity: There are no mucous membrane lesions. NECK: Trachea appears to be central. No masses noted. No JVD or thyromegaly appreciated. RESPIRATORY: Chest is symmetrical. No intercostals muscle retraction or any accessory muscle activation. There is no chest wall tenderness. Breath sounds are heard bilaterally. The intensity of breath sounds are diminished in the bases, bilaterally. BREASTS: Deferred. HEART: The heart sounds are normal. No S3 or S4. Short systolic murmur at the mitral area. No significant murmurs. No pericardial rub ABDOMEN: No vessel pulsations or distention. No tenderness. No organomegaly appreciated. Bowel sounds are normally heard. : Deferred. RECTAL: Deferred. LYMPHATIC: No lymphadenopathy noted in the neck. EXTREMITIES: Trace edema with no cyanosis MUSCULOSKELETAL: No acute joint deformities or swelling SKIN: There are no significant rashes or ecchymosis NEUROPSYCHIATRIC: The patient is alert and oriented x3. Appears to be in a good mood. No tremors or rigidity noted. Urinary Catheter Management: Sanchez: Cath Placed During This Visit: yes Reason for Continuing Indwelling Catheter: Acute Urinary Retention or Obstruction Urinary Catheter Date of Insertion: 10/24/22 Urinary Catheter Time of Insertion: 22:00 Data 10/31/22 06:57 10/31/22 06:57 Other Labs: Laboratory Last Values WBC 9.6 10^3/uL (4.0-10.0) 10/31/22 06:57 RBC 3.89 10^6/uL (4.1-5.3) L 10/31/22 06:57 Hgb 10.7 g/dL (11.7-16.6) L 10/31/22 06:57 Hct 36.8 % (42.0-52.0) L 10/31/22 06:57 MCV 94.6 fl (80-94) H 10/31/22 06:57 MCH 27.5 pg (28.0-34.0) L 10/31/22 06:57 MCHC 29.1 g/dL (30.0-36.0) L 10/31/22 06:57 RDW 14.9 % (12.1-15.1) 10/31/22 06:57 Plt Count 169 10^3/cmm (130-400) 10/31/22 06:57 MPV 11.0 fL (7.4-10.4) H 10/31/22 06:57 Neut % (Auto) 70.1 % 10/31/22 06:57 Lymph % (Auto) 16.6 % 10/31/22 06:57 [place] % (Auto) 10.3 % 10/31/22 06:57 Eos % (Auto) 2.5 % 10/31/22 06:57 Baso % (Auto) 0.3 % 10/31/22 06:57 Neut # (Auto) 6.70 10^3/uL (1.8-7.7) 10/31/22 06:57 Lymph # (Auto) 1.6 10^3/uL (0.8-4.8) 10/31/22 06:57 [place] # (Auto) 1.0 10^3/uL (0.2-0.9) H 10/31/22 06:57 Eos # (Auto) 0.2 10^3/uL (0.0-0.8) 10/31/22 06:57 Baso # (Auto) 0.0 10^3/uL (0.0-0.1) 10/31/22 06:57 Nucleated RBC % (auto) 0 % 10/31/22 06:57 Nucleated RBCs # 0.0 /100WBC 10/31/22 06:57 D-Dimer 2.83 ug/mIFEU (0-0.59) H 10/27/22 18:42 Specimen Type Arterial 10/28/22 11:37 Sample Site Radial, right 10/28/22 11:37 ABG pH 7.38 (7.35-7.45) 10/28/22 11:37 ABG pCO2 83.8 mmHg (35-45) H* 10/28/22 11:37 ABG pO2 83.5 mmHg (80.0-100.0) 10/28/22 11:37 ABG HCO3 49.4 mmol/L (22-26) H 10/28/22 11:37 ABG O2 Saturation 98.8 10/25/22 05:20 ABG Base Excess 20.3 mmol/L (-2.0-2.0) H 10/28/22 11:37 Uli Test Pos 10/28/22 11:37 A-a O2 Gradient 10.9 mmHg (5-10) H 10/25/22 05:20 Hematocrit 34.5 % (42-52) L 10/28/22 11:37 Hgb O2 Saturation 96.9 % (95-100) 10/25/22 05:20 Carboxyhemoglobin 1.6 %THgb (0.4-20.1) 10/25/22 05:20 Methemoglobin 0.3 % (0.4-1.5) L 10/25/22 05:20 Total Hemoglobin 11.4 g/dL (14-18) L 10/25/22 05:20 Sodium 146.0 mmol/L (131-143) H 10/25/22 05:20 Potassium 4.0 mmol/L (3.5-5.0) 10/25/22 05:20 Glucose 104.0 mg/dL (70-115) 10/25/22 05:20 Ionized Calcium 1.2 mmol/L (1.1-1.4) 10/25/22 05:20 O2 Delivery Device Bipap 10/28/22 11:37 O2 Liters/Min 3.0 % 10/23/22 11:07 FiO2 40.0 % 10/28/22 11:37 Channel Supervisor ID Johnros 10/28/22 11:37 Sodium 144 mmol/L (136-145) 10/31/22 06:57 Potassium 2.8 mmol/L (3.5-5.1) L* 10/31/22 06:57 Chloride 92 mmol/L (98-107) L 10/31/22 06:57 Carbon Dioxide 47 mmol/L (22-29) H* 10/31/22 06:57 Anion Gap 7.8 (5-19) 10/31/22 06:57 BUN 24 mg/dL (8-23) H 10/31/22 06:57 Creatinine 1.5 mg/dL (0.7-1.2) H 10/31/22 06:57 GFR Calculation Not Reportable 10/31/22 06:57 Glucose 97 mg/dL (65-115) 10/31/22 06:57 POC Glucose 108 mg/dL (70-110) 10/28/22 03:16 Calculated Osmolality 302 mOsm/kg (285-295) H 10/31/22 06:57 Calcium 8.6 mg/dL (8.5-10.5) 10/31/22 06:57 Magnesium 2.0 mg/dL (1.7-2.3) 10/24/22 05:16 Total Bilirubin 0.5 mg/dL (0.15-1.2) 10/31/22 06:57 AST 17 U/L (0-40) 10/31/22 06:57 ALT 22 U/L (0-41) 10/31/22 06:57 Alkaline Phosphatase 72 U/L (40-130) 10/31/22 06:57 Lactate Dehydrogenase 137 U/L (135-225) 10/29/22 09:13 Troponin T Baseline 30 ng/L (0-15) H 10/27/22 13:45 Troponin T 120 Minute 30.81 ng/L (0-15) H 10/27/22 15:36 Delta Troponin T 0.81 ABS# (0-10) 10/27/22 15:36 Troponin T Hi Sens 6Hr 27.66 ng/L (0-15) H 10/27/22 18:42 Troponin T Hi Sens 6Hr Delta -2.34 ng/L (0-12) L 10/27/22 18:42 NT-Pro-B Natriuret Pep 2754 pg/mL (0-125) H 10/23/22 11:07 Total Protein 6.5 g/dL (6.6-8.7) L 10/31/22 06:57 Albumin 3.5 g/dL (3.5-5.2) 10/31/22 06:57 Globulin 3.0 g/dL (1.3-4.6) 10/31/22 06:57 Procalcitonin 0.13 ng/mL (0-0.5) 10/29/22 09:13 TSH 0.85 uIU/mL (0.27-4.20) 10/24/22 05:16 Urine Color Yellow (Yellow) 10/23/22 12:01 Urine Appearance Clear (CLEAR) 10/23/22 12:01 Urine pH 5 (5-7) 10/23/22 12:01 Ur Specific [place] 1.015 (1.005-1.030) 10/23/22 12:01 Urine Protein 3+ (Negative) H 10/23/22 12:01 Urine Glucose (UA) Norm (Normal) 10/23/22 12:01 Urine Ketones Negative (Negative) 10/23/22 12:01 Urine Blood 2+ (Negative) H 10/23/22 12:01 Urine Nitrate Negative (Negative) 10/23/22 12:01 Urine Bilirubin Neg (Negative) 10/23/22 12:01 Urine Urobilinogen Neg mg/dL (Negative) 10/23/22 12:01 Ur Leukocyte Esterase Negative (Negative) 10/23/22 12:01 Urine RBC 10-15 /hpf (0-2) H 10/23/22 12:01 Urine WBC None /hpf (0-5) 10/23/22 12:01 Ur Squamous Epith Cells None /hpf (0-5) 10/23/22 12:01 Amorphous Sediment Not Reportable 10/23/22 12:01 Urine Bacteria None /hpf (NONE) 10/23/22 12:01 Fluid Color Slight pink 10/29/22 10:40 Fluid Appearance Cloudy 10/29/22 10:40 Fluid WBC 983 /uL 10/29/22 10:40 Fluid RBC 20.000 10^3/uL 10/29/22 10:40 Fld Polynuclear WBCs # 0.070 10/29/22 10:40 Fld Polynuclear WBCs % 7.100 % 10/29/22 10:40 Fl Mononucl WBCs #(Auto) 0.913 10/29/22 10:40 Fl Mononuclear % Auto 92.900 % 10/29/22 10:40 Fluid Albumin 2.5 g/dL 10/29/22 10:40 Fluid Creatinine 1.52 (0.7-1.2) H 10/29/22 10:40 Pleural pH 8.00 (6.5-7.5) H 10/29/22 10:40 Pleural Total Protein 3.7 g/dL 10/29/22 10:40 Pleural LDH 136 U/L 10/29/22 10:40 Pleural Glucose 98.0 mg/dL 10/29/22 10:40 Pleural Amylase 24.0 U/L 10/29/22 10:40 Pleural Triglycerides 24 mg/dL 10/29/22 10:40 Nasal Influ A H1 2009 PCR Not detected (NOT DETECT) 10/28/22 12:00 Adenovirus (PCR) Not detected (NOT DETECT) 10/28/22 12:00 C. pneumoniae DNA (PCR) Not detected (NOT DETECT) 10/28/22 12:00 Coronavirus 229E (PCR) Not detected (NOT DETECT) 10/28/22 12:00 Human Metapneumovir PCR Not detected (NOT DETECT) 10/28/22 12:00 Influenza A (H1) PCR Not detected (NOT DETECT) 10/28/22 12:00 Influenza A (H3) PCR Not detected (NOT DETECT) 10/28/22 12:00 Influenza Type A (PCR) Not detected (NOT DETECT) 10/28/22 12:00 Influenza Type B (PCR) Not detected (NOT DETECT) 10/28/22 12:00 M. pneumoniae (PCR) Not detected (NOT DETECT) 10/28/22 12:00 Parainfluenza 1 (PCR) Not detected (NOT DETECT) 10/28/22 12:00 Parainfluenza 2 (PCR) Not detected (NOT DETECT) 10/28/22 12:00 Parainfluenza 3 (PCR) Not detected (NOT DETECT) 10/28/22 12:00 Parainfluenza 4 (PCR) Not detected (NOT DETECT) 10/28/22 12:00 RSV Type A (PCR) Not detected (NOT DETECT) 10/28/22 12:00 RSV Type B (PCR) Not detected (NOT DETECT) 10/28/22 12:00 Entero/Rhino (PCR) Not detected (NOT DETECT) 10/28/22 12:00 SARS-CoV-2 (PCR) Not detected (NOT DETECT) 10/28/22 12:00 Micro: Microbiology 10/29/22 10:40 Gram Stain - Final Pleural Fluid Body Fluid Culture - Preliminary A&P Assessment and plan (1) Hypokalemia: The patient will be treated with IV potassium rider. May continue on the p.o. May hold off on the Lasix for today (2) Acute on chronic diastolic (congestive) heart failure: Patient is the heart failure seems to be fairly compensated at this time. (3) Atherosclerosis of coronary artery of [place] heart without angina pectoris: Patient has a history of atherosclerotic heart disease and myocardial infarction in 2006. According to him, he had an angiogram followed by PCI of the circumflex artery. This was performed at the [facility] in [place], [place]?. Details are not available. Currently seems to have no specific symptoms of coronary insufficiency. May consider doing a Myocardial perfusion imaging next week as an outpatient. (4) Acute exacerbation of chronic obstructive airways disease: Currently the respiratory status has improved. Continue the management as per the primary attending (5) Obstructive sleep apnea: May continue on the current management (6) Atrial fibrillation by electrocardiogram: Patient is on oral anticoagulation. Heart rate is under control. May continue on the current measures. (7) Large pleural effusion: Status post thoracentesis. The pleural fluid is found to be exudative, based on Light's criteria Further studies are pending. Plan Other problems are Dizziness, etiology, could be multifactorial. Poor ambulation Will correct the potassium. Need to encourage ambulation, after correcting the potassium. Continue on all current medications. 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
[2022-10-31] MEDS: lidocaine 1% 5 ML in potassium chloride premix 100 ML 25 ML IV ×2 (11:17→15:32)
[2022-10-31] MEDS: ipratropium 0.5 mg/2.5 mL Neb INHALATION ×2 (11:26→15:09)
[2022-10-31] MEDS: albuterol 2.5 mg/3 mL Neb INHALATION ×2 (11:27→15:09)
--- NOTE | 2022-10-31 15:44 | P.PN_ITS ---
Subjective Subjective: Patient underwent left-sided thoracentesis on October 30, 2022 900 cc fluid was removed. 1 day prior he had had right-sided thoracentesis with removal of 1 L fluid.Patient states he is feeling much improved as far as his breathing goes. He is tired. Oxygen requirements are down to 4 L/min today. Hypokalemia corrected. Medications: Reviewed: Yes Medication Review Details: Current Medications Acetaminophen (Acetaminophen 325 Mg Tablet) 650 mg PO Q6H PRN PRN Reason: Mild/Mod Pain Or Temp >/= 101 Last Admin: 10/28/22 09:30 Dose: 650 mg Acetazolamide (Acetazolamide 250 Mg Tablet) 250 mg PO ONCE TRELL Last Admin: 10/30/22 17:16 Dose: 250 mg Albuterol Sulfate (Albuterol 2.5 Mg/3 Ml Neb) 2.5 mg INHALATION Q4H.RESPIRATORY TRELL Last Admin: 10/31/22 09:15 Dose: Not Given Albuterol/Ipratropium (Ipratropium-Albuterol 3 Ml Neb) 3 ml INHALATION Q6H PRN PRN Reason: SHORTNESS OF BREATH Amlodipine Besylate (Amlodipine 10 Mg Tablet) 10 mg PO DAILY [facility] Last Admin: 10/31/22 09:01 Dose: 10 mg Apixaban (Apixaban 5 Mg Tablet) 5 mg PO BID TRELL Last Admin: 10/31/22 08:57 Dose: 5 mg Atorvastatin Calcium (Atorvastatin 40 Mg Tablet) 20 mg PO QPM TRELL Last Admin: 10/30/22 17:17 Dose: 20 mg Bisacodyl (Bisacodyl 5 Mg Tablet) 10 mg PO DAILY PRN; Protocol PRN Reason: Constipation (see protocol) Last Admin: 10/30/22 04:29 Dose: 10 mg Budesonide (Budesonide 0.5 Mg/2 Ml Neb) 0.5 mg INHALATION BID.RESPIRATORY TRELL Last Admin: 10/31/22 09:15 Dose: Not Given Bumetanide (Bumetanide 1 Mg Tablet) 2 mg PO DAILY TRELL Last Admin: 10/31/22 08:57 Dose: 2 mg Bupropion HCl (Bupropion Sr (12 Hr) 150 Mg Tablet) 150 mg PO BID TRELL Last Admin: 10/31/22 08:57 Dose: 150 mg Doxycycline Monohydrate (Doxycycline 100 Mg Tablet) 100 mg PO BID TRELL; Protocol Last Admin: 10/31/22 08:57 Dose: 100 mg Fluoxetine HCl (Fluoxetine 20 Mg Capsule) 40 mg PO DAILY [facility] Last Admin: 10/31/22 08:57 Dose: 40 mg Guaifenesin (Guaifenesin 100 Mg/5 Ml Udc 10 Ml) 200 mg PO Q4H PRN PRN Reason: COUGH Last Admin: 10/28/22 09:28 Dose: 200 mg Ipratropium [place] (Ipratropium 0.5 Mg/2.5 Ml Neb) 0.5 mg INHALATION Q4H.RESPIRATORY TRELL Last Admin: 10/31/22 04:00 Dose: Not Given Metoprolol Succinate (Metoprolol Succinate Er (24 Hr) 100 Mg Tablet) 100 mg PO DAILY [facility] Last Admin: 10/31/22 08:57 Dose: 100 mg Multivitamins Therapeutic (Multivitamin Therapeutic Tablet) 1 tab PO DAILY [facility] Last Admin: 10/31/22 08:57 Dose: 1 tab Nitroglycerin (Nitroglycerin 1 Gm/Inch Oint Pkt) 1 inch TOPICAL Q6H TRELL Last Admin: 10/31/22 08:57 Dose: 1 inch Nystatin (Nystatin Powder 15 Gm Btl) 1 applic TOPICAL BID [facility] Last Admin: 10/31/22 08:56 Dose: 1 applic Ondansetron HCl (Ondansetron 2 Mg/Ml Sdv 2 Ml) 4 mg IVP Q8H PRN PRN Reason: vomiting, or N/V if npo Last Admin: 10/29/22 10:04 Dose: 4 mg Potassium Chloride (Potassium Chloride Er 20 Meq Tablet) 40 meq PO DAILY [facility] Last Admin: 10/31/22 08:57 Dose: 40 meq Sodium Chloride (Saline Nasal [place] 44ml Btl) 1 spray NASAL PRN PRN PRN Reason: DRYNESS Last Admin: 10/27/22 07:43 Dose: 1 spray Vitals/I&O/Wt Last Vital Signs Temp 98.0 F 10/31/22 04:00 Pulse 69 10/31/22 15:14 Resp 18 10/31/22 15:14 BP 122/73 10/31/22 12:14 Pulse Ox 99 10/31/22 15:14 O2 Del Method 10/31/22 15:10 O2 Flow Rate 4 10/31/22 11:27 FiO2 4 10/31/22 15:10 10/31/22 10/31/22 10/31/22 06:59 14:59 22:59 Intake Total 720 / 720 105 / 825 Output Total 500 / 2480 Balance -500 / -1650 720 / 720 105 / 825 Weight last 48 hrs Weight 154.221 kg Weight 157.538 kg Physical Exam Narrative: General: No acute distress, AO x3 HEENT: PERRLA, pupils bilaterally equal and reactive, pallors not present Chest: Normal vesicular breath sounds, no added sounds, equal good air entry bilaterally CVS: S1-S2 regular, no murmurs, no tachycardia, no gallops, no rubs Abdomen: Soft, nontender, no organomegaly, bowel sounds present Neuro: No focal deficits, no facial deformity, AO x3, power 5/5 in all limbs ext: B/L LE edema is improving Urinary Catheter Management: Sanchez: Cath Placed During This Visit: yes Reason for Continuing Indwelling Catheter: Acute Urinary Retention or Obstructio n Urinary Catheter Date of Insertion: 10/24/22 Urinary Catheter Time of Insertion: 22:00 Data 10/31/22 06:57 10/31/22 06:57 Micro: Microbiology 10/29/22 10:40 Gram Stain - Final Pleural Fluid Body Fluid Culture - Preliminary A&P Assessment and plan (1) COPD (chronic obstructive pulmonary disease): (2) Obstructive sleep apnea: (3) Heart failure with preserved ejection fraction: (4) Obesity hypoventilation syndrome: Plan 72 year old male past medical history of hypertension COPD on 4 Ls, home oxygen, obstructive sleep apnea, obesity hypoventilation, atrial fibrillation on Eliquis, coronary artery disease,HFpEF, CKD stage II, Came in with chief complaint of worsening shortness of breath with minimal exertion, PND orthopnea, worsening bilateral lower extremity swelling going on for last couple of months.Patient has denied any cough fever chills, abdominal pain nausea vomiting. Assessment: Decompensated heart failure with preserved ejection fraction Patient has been on aggressive diuresis with Lasix, then Lasix drip and most recently Bumex now . He is net negative overall 17 L since admission, Underwent thoracentesis right side on 10/29 and then left sided on 10/30 with symptomatic relief. LE edema is improving Continue Bumex 2mg po daily, additional diamox x 1 today CTA negative for PE and consolidation, showed bilateral large pleural effusion and signs of pulmonary edema. Echocardiogram from 10/24 showed he has a normal left ventricular cavity size and systolic function. LVEF estimated at 60%. There is possible septal hypokinesis. Dilated IVC with less than 50% respiratory variation. No pericardial effusion. Echo-free space anterior to the right ventricle likely a fat pad. No current chest pain. Less likely pneumonia given absence of fever, leukocytosis or significant cough Appreciate cardiology recommendations #Large oleural effusion s/p thoracentesis exudative per light's criteria however unlikely parapneumonic effusion or e mpyema, LDH normal, Ph elevated, no consolidation on C, afebrile. . Negative procal. Gram stain with GPR prelim- discussed with micro lab- likely contaminant- is an ongoing issue for the lab. No growth on plates thus far, will follow. negative resp viral panel # metaboilic alkalosis related to diuresis, diamox x1 today COPD , concern for exacerbation ABG with hypercapneic respiratory failure Continue BIpap use at night and prn continue scheduled duoneb and budesonide inhalation Hypertension, currently well controlled Atrial fibrillation, rate controlled currently resume Eliquis Coronary artery disease trop series without significant deltas on 10/27, mildly elevated trop 30s range CKD versus BRONWYN on CKD [place]/[facility] CODE STATUS: Full code Ambulating with PT. 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
[2022-10-31] MEDS: acetaZOLAMIDE 250 mg Tablet PO (16:28)
[2022-10-31] MEDS: atorvastatin 40 mg Tablet 20 MG PO (17:31)
[2022-11-01] VITALS (9 sets, daily range): BP systolic 129–148; BP diastolic 64–81; PULSE 70–78; RESP 16–22; TEMP 36.9–37; O2SAT 85–99
[2022-11-01 04:24] LABS: Basophils % 0.4 %; Eosinophils # 0.4 10^3/uL (0.0-0.8); Eosinophils % 3.2 %; Hematocrit 36.4 % (42.0-52.0); Hemoglobin 10.6 g/dL (11.7-16.6); Lymphocytes % 18.3 %; Mean Corpuscular HGB Conc 29.1 g/dL (30.0-36.0); Mean Corpuscular Hemoglobin 27.5 pg (28.0-34.0); Mean Corpuscular Volume 94.5 fl (80-94); Mean Platelet Volume 11.1 fL (7.4-10.4); Monocytes # 1.2 10^3/uL (0.2-0.9); Monocytes % 11.3 %; Neutrophils # 7.17 10^3/uL (1.8-7.7); Neutrophils % 66.5 %; Nucleated Red Blood Cells % 0 %; Platelet Count 170 10^3/cmm (130-400); Red Blood Count 3.85 10^6/uL (4.1-5.3); Red Cell Distribution Width 14.9 % (12.1-15.1); White Blood Count 10.8 10^3/uL (4.0-10.0)
[2022-11-01 04:47] LABS: Alanine Aminotransferase 22 U/L (0-41); Albumin Level 3.5 g/dL (3.5-5.2); Alkaline Phosphatase 75 U/L (40-130); Aspartate Amino Transferase 18 U/L (0-40); Blood Urea Nitrogen 30 mg/dL (8-23); Calcium 9.2 mg/dL (8.5-10.5); Globulin 3.3 g/dL (1.3-4.6); Glucose 104 mg/dL (65-115); Total Bilirubin 0.5 mg/dL (0.15-1.2); Total Protein 6.8 g/dL (6.6-8.7)
[2022-11-01 05:01] LABS: Carbon Dioxide 44 mmol/L (22-29)
[2022-11-01 06:39] LABS: Anion Gap 10.2 (5-19); Chloride 91 mmol/L (98-107); Osmolality Calculated 300 mOsm/kg (285-295); Potassium 3.2 mmol/L (3.5-5.1); Sodium 142 mmol/L (136-145)
[2022-11-01] MEDS: ipratropium 0.5 mg/2.5 mL Neb INHALATION (08:53)
[2022-11-01] MEDS: albuterol 2.5 mg/3 mL Neb INHALATION (08:53)
[2022-11-01] MEDS: budesonide 0.5 mg/2 mL Neb INHALATION (08:53)
[2022-11-01] MEDS: buPROPion SR (12 HR) 150 mg Tablet PO (09:04)
[2022-11-01] MEDS: apixaban 5 mg Tablet PO (09:04)
[2022-11-01] MEDS: metoprolol succinate ER (24 HR) 100 mg Tablet PO (09:04)
[2022-11-01] MEDS: amlodipine 10 mg Tablet PO (09:04)
[2022-11-01] MEDS: multivitamin therapeutic Tablet 1 TAB PO (09:04)
[2022-11-01] MEDS: nystatin powder 15 gm Btl 1 APPLIC TOPICAL (09:04)
[2022-11-01] MEDS: doxycycline 100 mg Tablet PO (09:04)
[2022-11-01] MEDS: potassium chloride ER 20 mEq Tablet 40 MEQ PO (09:04)
[2022-11-01] MEDS: fluoxetine 20 mg Capsule 40 MG PO (09:05)
[2022-11-01] MEDS: bumetanide 1 mg Tablet 2 MG PO (09:05)
--- NOTE | 2022-11-01 09:52 | PC.SOCIAL ---
IMM Update pg 2 of IMM updated and reviewed w/ patient. Copy provided and copy in chart dated, and initialed.
--- NOTE | 2022-11-01 10:34 | PM.PN ---
Subjective Subjective: Patient is feeling much better. No chest pain or chest tightness. Has been ambulating on telemetry. The potassium levels are improving. Medications: Medication Review Details: Current Medications Acetaminophen (Acetaminophen 325 Mg Tablet) 650 mg PO Q6H PRN PRN Reason: Mild/Mod Pain Or Temp >/= 101 Last Admin: 10/28/22 09:30 Dose: 650 mg Acetazolamide (Acetazolamide 250 Mg Tablet) 250 mg PO ONCE [facility] [place] Last Admin: 10/30/22 17:16 Dose: 250 mg Albuterol Sulfate (Albuterol 2.5 Mg/3 Ml Neb) 2.5 mg INHALATION Q4H.RESPIRATORY RTELL Last Admin: 11/01/22 08:53 Dose: 2.5 mg Albuterol/Ipratropium (Ipratropium-Albuterol 3 Ml Neb) 3 ml INHALATION Q6H PRN PRN Reason: SHORTNESS OF BREATH Amlodipine Besylate (Amlodipine 10 Mg Tablet) 10 mg PO DAILY [facility] [place] Last Admin: 11/01/22 09:04 Dose: 10 mg Apixaban (Apixaban 5 Mg Tablet) 5 mg PO BID [facility] [place] Last Admin: 11/01/22 09:04 Dose: 5 mg Atorvastatin Calcium (Atorvastatin 40 Mg Tablet) 20 mg PO QPM TRELL Last Admin: 10/31/22 17:31 Dose: 20 mg Bisacodyl (Bisacodyl 5 Mg Tablet) 10 mg PO DAILY PRN; Protocol PRN Reason: Constipation (see protocol) Last Admin: 10/30/22 04:29 Dose: 10 mg Budesonide (Budesonide 0.5 Mg/2 Ml Neb) 0.5 mg INHALATION BID.RESPIRATORY TRELL Last Admin: 11/01/22 08:53 Dose: 0.5 mg Bumetanide (Bumetanide 1 Mg Tablet) 2 mg PO DAILY [facility] [place] Last Admin: 11/01/22 09:05 Dose: 2 mg Bupropion HCl (Bupropion Sr (12 Hr) 150 Mg Tablet) 150 mg PO BID TRELL Last Admin: 11/01/22 09:04 Dose: 150 mg Doxycycline Monohydrate (Doxycycline 100 Mg Tablet) 100 mg PO BID [facility] [place]; Protocol Last Admin: 11/01/22 09:04 Dose: 100 mg Fluoxetine HCl (Fluoxetine 20 Mg Capsule) 40 mg PO DAILY [facility] [place] Last Admin: 11/01/22 09:05 Dose: 40 mg Guaifenesin (Guaifenesin 100 Mg/5 Ml Udc 10 Ml) 200 mg PO Q4H PRN PRN Reason: COUGH Last Admin: 10/28/22 09:28 Dose: 200 mg Ipratropium [place] (Ipratropium 0.5 Mg/2.5 Ml Neb) 0.5 mg INHALATION Q4H.RESPIRATORY [facility] [place] Last Admin: 11/01/22 08:53 Dose: 0.5 mg Metoprolol Succinate (Metoprolol Succinate Er (24 Hr) 100 Mg Tablet) 100 mg PO DAILY [facility] [place] Last Admin: 11/01/22 09:04 Dose: 100 mg Multivitamins Therapeutic (Multivitamin Therapeutic Tablet) 1 tab PO DAILY [facility] [place] Last Admin: 11/01/22 09:04 Dose: 1 tab Nystatin (Nystatin Powder 15 Gm Btl) 1 applic TOPICAL BID [facility] [place] Last Admin: 11/01/22 09:04 Dose: 1 applic Ondansetron HCl (Ondansetron 2 Mg/Ml Sdv 2 Ml) 4 mg IVP Q8H PRN PRN Reason: vomiting, or N/V if npo Last Admin: 10/29/22 10:04 Dose: 4 mg Potassium Chloride (Potassium Chloride Er 20 Meq Tablet) 40 meq PO DAILY [facility] [place] Last Admin: 11/01/22 09:04 Dose: 40 meq Sodium Chloride (Saline Nasal [place] 44ml Btl) 1 spray NASAL PRN PRN PRN Reason: DRYNESS Last Admin: 10/27/22 07:43 Dose: 1 spray Vitals/I&O/Wt Last Vital Signs Temp 98.4 F 11/01/22 04:00 Pulse 78 11/01/22 09:05 Resp 16 11/01/22 09:05 BP 148/81 11/01/22 07:13 Pulse Ox 95 11/01/22 09:05 O2 Del Method 11/01/22 09:05 O2 Flow Rate 4 11/01/22 09:05 FiO2 40 11/01/22 08:00 10/31/22 11/01/22 11/01/22 22:59 06:59 14:59 Intake Total 810 / 1530 600 / 600 Output Total 1550 / 1550 600 / 2150 Balance -740 / -20 -600 / -620 600 / 600 Weight last 48 hrs Weight 347 lb 3.2 oz Weight 340 lb Physical Exam Narrative: GENERAL: The patient is alert and oriented times three. Not in any acute distress. HEENT: No significant pallor, icterus or lymphadenopathy.Oral cavity: There are no mucous membrane lesions. NECK: Trachea appears to be central. No masses noted. No JVD or thyromegaly appreciated. RESPIRATORY: Chest is symmetrical. No intercostals muscle retraction or any accessory muscle activation. There is no chest wall tenderness. Breath sounds are heard bilaterally. No rales or rhonchi heard. No evidence of any consolidation. BREASTS: Deferred. HEART: The heart sounds are normal. No S3 or S4. Short systolic murmur in the left sternal border no pericardial rub ABDOMEN: No vessel pulsations or distention. No tenderness. No organomegaly appreciated. Bowel sounds are normally heard. : Deferred. RECTAL: Deferred. LYMPHATIC: No lymphadenopathy noted in the neck. EXTREMITIES: Trace edema with no cyanosis MUSCULOSKELETAL: No acute joint deformities or swelling SKIN: There are no significant rashes or ecchymosis NEUROPSYCHIATRIC: The patient is alert and oriented x3. Appears to be in a good mood. No tremors or rigidity noted. Urinary Catheter Management: Sanchez: Cath Placed During This Visit: yes, but has since been removed by the nurse Reason for Continuing Indwelling Catheter: Decision to DC Catheter Urinary Catheter Date of Insertion: 10/24/22 Urinary Catheter Time of Insertion: 22:00 Date Urinary Catheter Removed: 11/01/22 Time Urinary Catheter Discontinued: 05:39 Data 11/01/22 03:07 11/01/22 03:07 Other Labs: Laboratory Last Values WBC 10.8 10^3/uL (4.0-10.0) H 11/01/22 03:07 RBC 3.85 10^6/uL (4.1-5.3) L 11/01/22 03:07 Hgb 10.6 g/dL (11.7-16.6) L 11/01/22 03:07 Hct 36.4 % (42.0-52.0) L 11/01/22 03:07 MCV 94.5 fl (80-94) H 11/01/22 03:07 MCH 27.5 pg (28.0-34.0) L 11/01/22 03:07 MCHC 29.1 g/dL (30.0-36.0) L 11/01/22 03:07 RDW 14.9 % (12.1-15.1) 11/01/22 03:07 Plt Count 170 10^3/cmm (130-400) 11/01/22 03:07 MPV 11.1 fL (7.4-10.4) H 11/01/22 03:07 Neut % (Auto) 66.5 % 11/01/22 03:07 Lymph % (Auto) 18.3 % 11/01/22 03:07 Ashley % (Auto) 11.3 % 11/01/22 03:07 Eos % (Auto) 3.2 % 11/01/22 03:07 Baso % (Auto) 0.4 % 11/01/22 03:07 Neut # (Auto) 7.17 10^3/uL (1.8-7.7) 11/01/22 03:07 Lymph # (Auto) 2.0 10^3/uL (0.8-4.8) 11/01/22 03:07 Ashley # (Auto) 1.2 10^3/uL (0.2-0.9) H 11/01/22 03:07 Eos # (Auto) 0.4 10^3/uL (0.0-0.8) 11/01/22 03:07 Baso # (Auto) 0.0 10^3/uL (0.0-0.1) 11/01/22 03:07 Nucleated RBC % (auto) 0 % 11/01/22 03:07 Nucleated RBCs # 0.0 /100WBC 11/01/22 03:07 D-Dimer 2.83 ug/mIFEU (0-0.59) H 10/27/22 18:42 Specimen Type Arterial 10/28/22 11:37 Sample Site Radial, right 10/28/22 11:37 ABG pH 7.38 (7.35-7.45) 10/28/22 11:37 ABG pCO2 83.8 mmHg (35-45) H* 10/28/22 11:37 ABG pO2 83.5 mmHg (80.0-100.0) 10/28/22 11:37 ABG HCO3 49.4 mmol/L (22-26) H 10/28/22 11:37 ABG O2 Saturation 98.8 10/25/22 05:20 ABG Base Excess 20.3 mmol/L (-2.0-2.0) H 10/28/22 11:37 Uli Test Pos 10/28/22 11:37 A-a O2 Gradient 10.9 mmHg (5-10) H 10/25/22 05:20 Hematocrit 34.5 % (42-52) L 10/28/22 11:37 Hgb O2 Saturation 96.9 % (95-100) 10/25/22 05:20 Carboxyhemoglobin 1.6 %THgb (0.4-20.1) 10/25/22 05:20 Methemoglobin 0.3 % (0.4-1.5) L 10/25/22 05:20 Total Hemoglobin 11.4 g/dL (14-18) L 10/25/22 05:20 Sodium 146.0 mmol/L (131-143) H 10/25/22 05:20 Potassium 4.0 mmol/L (3.5-5.0) 10/25/22 05:20 Glucose 104.0 mg/dL (70-115) 10/25/22 05:20 Ionized Calcium 1.2 mmol/L (1.1-1.4) 10/25/22 05:20 O2 Delivery Device Bipap 10/28/22 11:37 O2 Liters/Min 3.0 % 10/23/22 11:07 FiO2 40.0 % 10/28/22 11:37 Go Go Dancer ID Johnros 10/28/22 11:37 Sodium 142 mmol/L (136-145) 11/01/22 03:07 Potassium 3.2 mmol/L (3.5-5.1) L 11/01/22 03:07 Chloride 91 mmol/L (98-107) L 11/01/22 03:07 Carbon Dioxide 44 mmol/L (22-29) H* 11/01/22 03:07 Anion Gap 10.2 (5-19) 11/01/22 03:07 BUN 30 mg/dL (8-23) H 11/01/22 03:07 Creatinine 1.7 mg/dL (0.7-1.2) H 11/01/22 03:07 GFR Calculation Not Reportable 11/01/22 03:07 Glucose 104 mg/dL (65-115) 11/01/22 03:07 POC Glucose 108 mg/dL (70-110) 10/28/22 03:16 Calculated Osmolality 300 mOsm/kg (285-295) H 11/01/22 03:07 Calcium 9.2 mg/dL (8.5-10.5) 11/01/22 03:07 Magnesium 2.0 mg/dL (1.7-2.3) 10/24/22 05:16 Total Bilirubin 0.5 mg/dL (0.15-1.2) 11/01/22 03:07 AST 18 U/L (0-40) 11/01/22 03:07 ALT 22 U/L (0-41) 11/01/22 03:07 Alkaline Phosphatase 75 U/L (40-130) 11/01/22 03:07 Lactate Dehydrogenase 137 U/L (135-225) 10/29/22 09:13 Troponin T Baseline 30 ng/L (0-15) H 10/27/22 13:45 Troponin T 120 Minute 30.81 ng/L (0-15) H 10/27/22 15:36 Delta Troponin T 0.81 ABS# (0-10) 10/27/22 15:36 Troponin T Hi Sens 6Hr 27.66 ng/L (0-15) H 10/27/22 18:42 Troponin T Hi Sens 6Hr Delta -2.34 ng/L (0-12) L 10/27/22 18:42 NT-Pro-B Natriuret Pep 2754 pg/mL (0-125) H 10/23/22 11:07 Total Protein 6.8 g/dL (6.6-8.7) 11/01/22 03:07 Albumin 3.5 g/dL (3.5-5.2) 11/01/22 03:07 Globulin 3.3 g/dL (1.3-4.6) 11/01/22 03:07 Procalcitonin 0.13 ng/mL (0-0.5) 10/29/22 09:13 TSH 0.85 uIU/mL (0.27-4.20) 10/24/22 05:16 Urine Color Yellow (Yellow) 10/23/22 12:01 Urine Appearance Clear (CLEAR) 10/23/22 12:01 Urine pH 5 (5-7) 10/23/22 12:01 Ur Specific [place] 1.015 (1.005-1.030) 10/23/22 12:01 Urine Protein 3+ (Negative) H 10/23/22 12:01 Urine Glucose (UA) Norm (Normal) 10/23/22 12:01 Urine Ketones Negative (Negative) 10/23/22 12:01 Urine Blood 2+ (Negative) H 10/23/22 12:01 Urine Nitrate Negative (Negative) 10/23/22 12:01 Urine Bilirubin Neg (Negative) 10/23/22 12:01 Urine Urobilinogen Neg mg/dL (Negative) 10/23/22 12:01 Ur Leukocyte Esterase Negative (Negative) 10/23/22 12:01 Urine RBC 10-15 /hpf (0-2) H 10/23/22 12:01 Urine WBC None /hpf (0-5) 10/23/22 12:01 Ur Squamous Epith Cells None /hpf (0-5) 10/23/22 12:01 Amorphous Sediment Not Reportable 10/23/22 12:01 Urine Bacteria None /hpf (NONE) 10/23/22 12:01 Fluid Color Slight pink 10/29/22 10:40 Fluid Appearance Cloudy 10/29/22 10:40 Fluid WBC 983 /uL 10/29/22 10:40 Fluid RBC 20.000 10^3/uL 10/29/22 10:40 Fld Polynuclear WBCs # 0.070 10/29/22 10:40 Fld Polynuclear WBCs % 7.100 % 10/29/22 10:40 Fl Mononucl WBCs #(Auto) 0.913 10/29/22 10:40 Fl Mononuclear % Auto 92.900 % 10/29/22 10:40 Fluid Albumin 2.5 g/dL 10/29/22 10:40 Fluid Creatinine 1.52 (0.7-1.2) H 10/29/22 10:40 Pleural pH 8.00 (6.5-7.5) H 10/29/22 10:40 Pleural Total Protein 3.7 g/dL 10/29/22 10:40 Pleural LDH 136 U/L 10/29/22 10:40 Pleural Glucose 98.0 mg/dL 10/29/22 10:40 Pleural Amylase 24.0 U/L 10/29/22 10:40 Pleural Triglycerides 24 mg/dL 10/29/22 10:40 Nasal Influ A H1 2009 PCR Not detected (NOT DETECT) 10/28/22 12:00 Adenovirus (PCR) Not detected (NOT DETECT) 10/28/22 12:00 C. pneumoniae DNA (PCR) Not detected (NOT DETECT) 10/28/22 12:00 Coronavirus 229E (PCR) Not detected (NOT DETECT) 10/28/22 12:00 Human Metapneumovir PCR Not detected (NOT DETECT) 10/28/22 12:00 Influenza A (H1) PCR Not detected (NOT DETECT) 10/28/22 12:00 Influenza A (H3) PCR Not detected (NOT DETECT) 10/28/22 12:00 Influenza Type A (PCR) Not detected (NOT DETECT) 10/28/22 12:00 Influenza Type B (PCR) Not detected (NOT DETECT) 10/28/22 12:00 M. pneumoniae (PCR) Not detected (NOT DETECT) 10/28/22 12:00 Parainfluenza 1 (PCR) Not detected (NOT DETECT) 10/28/22 12:00 Parainfluenza 2 (PCR) Not detected (NOT DETECT) 10/28/22 12:00 Parainfluenza 3 (PCR) Not detected (NOT DETECT) 10/28/22 12:00 Parainfluenza 4 (PCR) Not detected (NOT DETECT) 10/28/22 12:00 RSV Type A (PCR) Not detected (NOT DETECT) 10/28/22 12:00 RSV Type B (PCR) Not detected (NOT DETECT) 10/28/22 12:00 Entero/Rhino (PCR) Not detected (NOT DETECT) 10/28/22 12:00 SARS-CoV-2 (PCR) Not detected (NOT DETECT) 10/28/22 12:00 Micro: Microbiology 10/29/22 10:40 Gram Stain - Final Pleural Fluid Body Fluid Culture - Preliminary A&P Assessment and plan (1) Hypokalemia: The potassium levels are improving. The patient has no specific symptoms of hypokalemia at this time. He continues to be on potassium supplement. (2) Acute on chronic diastolic (congestive) heart failure: Patient is the heart failure seems to be fairly compensated at this time. (3) Atherosclerosis of coronary artery of [place] heart without angina pectoris: Patient has a history of atherosclerotic heart disease and myocardial infarction in 2006. According to him, he had an angiogram followed by PCI of the circumflex artery. This was performed at the [facility] in [place], [place]?. Details are not available. Currently seems to have no specific symptoms of coronary insufficiency. Planning to schedule Myocardial perfusion imaging as an outpatient. (4) Acute exacerbation of chronic obstructive airways disease: Currently the respiratory status has improved. Continue the management as per the primary attending (5) Obstructive sleep apnea: May continue on the current management (6) Atrial fibrillation by electrocardiogram: Patient is on oral anticoagulation. Heart rate is under control. May continue on the current measures. (7) Large pleural effusion: Status post thoracentesis. The pleural fluid is found to be exudative, based on Light's criteria Further studies are pending. 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
--- NOTE | 2022-11-01 10:59 | P.DS_ITS ---
Discharge Providers Date of Admission: 10/23/22 16:58 Date of Discharge: November 01, 2022 Attending Provider at Admission: Tito Mcclellan MD Attending Provider at Discharge: Linn Lau MD Primary Care Provider: Unruly Starkey Diagnoses at Discharge Discharge Diagnosis (1) Hypokalemia: Status: Acute (2) Acute on chronic diastolic (congestive) heart failure: Status: Acute (3) Atherosclerosis of coronary artery of [place] heart without angina pectoris: Status: Acute (4) Acute exacerbation of chronic obstructive airways disease: Status: Acute (5) Obstructive sleep apnea: Status: Acute (6) Atrial fibrillation by electrocardiogram: Status: Acute (7) Large pleural effusion: Status: Acute Reason for Visit Reason for Visit: Resp Distress Brief History: Juan Jose Lamb is a 72 year old male with a history of COPD with intermitte nt exacerbation, heart failure with preserved LV ejection fraction, chronic atrial fibrillation?, morbid obesity, coronary artery disease with a previous myocardial infarction and PCI, presented to the hospital due to progressive shortness of breath, Le edema and cough.? he was found to be in congestive heart failure with a COPD exacerbation. Hospital Course Hospital Course Assessment: - Decompensated heart failure with preserved ejection fraction Patient was on aggressive diuresis with Lasix, then Lasix drip and most recently iv Bumex now .? He is net negative overall 17 L since admission, Underwent thoracentesis right side on 10/29 and then left sided on 10/30 with symptomatic relief. His oxygen requirements improved from 8-10 lpm upon admission to 4lpm now. LE edema is improving Planned discharge on Bumex 2mg po BID with supplemental potassium CTA negative for PE and consolidation,? showed bilateral large pleural effusion and signs of pulmonary edema. Echocardiogram from 10/24 showed he has a normal left ventricular cavity size and systolic function.? LVEF estimated at 60%.? There is possible septal hypokinesis.? Dilated IVC with less than 50% respiratory variation.? No pericardial effusion.? Echo-free space anterior to the right ventricle likely a fat pad. No current chest pain. Less likely pneumonia given absence of fever, leukocytosis or significant cough Appreciate cardiology recommendations #Large pleural effusion s/p thoracentesis left and right sides exudative per light's criteria however unlikely parapneumonic effusion or empyema, LDH normal, Ph elevated, no consolidation on CT, afebrile. . Negative procal. Gram stain with GPR prelim- discussed with micro lab- likely contaminant- is an ongoing issue for the lab. No growth on final plates. ?negative resp viral panel # metaboilic alkalosis related to diuresis, received intermittent doses of Diamox # COPD , concern for exacerbation ABG with hypercapneic respiratory failure Continue Bipap use at night and prn continue scheduled duoneb and budesonide inhalation # Hypertension, currently well controlled Atrial fibrillation, rate controlled currently resume Eliquis ?Coronary artery disease trop series without significant deltas on 10/27, mildly elevated trop 30s range # CKD versus BRONWYN on CKD # CARLTON/OHS: Has CPAP at home Patient is chronically ill but best optimized for discharge today, He is in much improved condition compared to admission Physical Exam Narrative: General: No acute distress, AO x3 HEENT: PERRLA, pupils bilaterally equal and reactive, pallors not present Chest: Normal vesicular breath sounds, no added sounds, equal good air entry bilaterally CVS: S1-S2 regular, no murmurs, no tachycardia, no gallops, no rubs Abdomen: Soft, nontender, no organomegaly, bowel sounds present Neuro: No focal deficits, no facial deformity, AO x3, power 5/5 in all limbs Extremities: LE edema still present but much improved since admission Urinary Catheter Management: Sanchez: Cath Placed During This Visit: yes, but has since been removed by the nurse Reason for Continuing Indwelling Catheter: Decision to DC Catheter Urinary Catheter Date of Insertion: 10/24/22 Urinary Catheter Time of Insertion: 22:00 Date Urinary Catheter Removed: 11/01/22 Time Urinary Catheter Discontinued: 05:39 Discharge Data Studies Completed and Pending Completed Studies During Hospitalization Category Date Time Status CT angio chest PE protcl [id number] Routine Cat Scan 10/27/22 20:03 Completed CXRP [XR chest 1V portable [id number]] AM LABS Exams 10/31/22 04:00 Completed CXRP [XR chest 1V portable [id number]] Stat Exams 10/29/22 10:37 Completed XR chest 1V portable [id number] Routine Exams 10/25/22 14:38 Completed XR chest 1V portable [id number] Stat Exams 10/23/22 11:23 Completed XR chest 1V portable [id number] Stat Exams 10/30/22 11:38 Completed CV. echo w/w bubble cont [id number] Routine Ultrasound 10/24/22 06:00 Completed US thoracentesis [id number] Routine Ultrasound 10/29/22 10:00 Completed US thoracentesis [id number] Routine Ultrasound 10/30/22 09:45 Completed Pending at discharge Category Date Time Status Body Fluid Culture & GS Routine Lab 10/29/22 10:40 Results Cytology [PTH] Routine Pth 10/29/22 11:36 Received Radiology Impressions Chest CTA 10/27/22 20:03 IMPRESSION: 1. Negative for pulmonary embolism. 2. Substantial intrathoracic fluid overload changes. Large volume pleural effusions and pulmonary edema features. 3. Poorly aerated lungs with large areas of atelectasis. Thoracentesis Ultrasound 10/30/22 09:45 IMPRESSION: 1. LEFT thoracentesis yielding 900 cc of fluid. 2. Chest radiograph to follow to evaluate for pneumothorax. Chest X-Ray 10/31/22 04:00 IMPRESSION: 1. Bilateral pleural effusions appear mildly increased when compared with the prior exam. 2. Basilar consolidative changes likely secondary to effusions and atelectasis, cardiomegaly, and pulmonary vascular congestion persist. Laboratory Results WBC 10.8 10^3/uL (4.0-10.0) H 11/01/22 03:07 RBC 3.85 10^6/uL (4.1-5.3) L 11/01/22 03:07 Hgb 10.6 g/dL (11.7-16.6) L 11/01/22 03:07 Hct 36.4 % (42.0-52.0) L 11/01/22 03:07 MCV 94.5 fl (80-94) H 11/01/22 03:07 MCH 27.5 pg (28.0-34.0) L 11/01/22 03:07 MCHC 29.1 g/dL (30.0-36.0) L 11/01/22 03:07 RDW 14.9 % (12.1-15.1) 11/01/22 03:07 Plt Count 170 10^3/cmm (130-400) 11/01/22 03:07 MPV 11.1 fL (7.4-10.4) H 11/01/22 03:07 Neut % (Auto) 66.5 % 11/01/22 03:07 Lymph % (Auto) 18.3 % 11/01/22 03:07 [place] % (Auto) 11.3 % 11/01/22 03:07 Eos % (Auto) 3.2 % 11/01/22 03:07 Baso % (Auto) 0.4 % 11/01/22 03:07 Neut # (Auto) 7.17 10^3/uL (1.8-7.7) 11/01/22 03:07 Lymph # (Auto) 2.0 10^3/uL (0.8-4.8) 11/01/22 03:07 [place] # (Auto) 1.2 10^3/uL (0.2-0.9) H 11/01/22 03:07 Eos # (Auto) 0.4 10^3/uL (0.0-0.8) 11/01/22 03:07 Baso # (Auto) 0.0 10^3/uL (0.0-0.1) 11/01/22 03:07 Nucleated RBC % (auto) 0 % 11/01/22 03:07 Nucleated RBCs # 0.0 /100WBC 11/01/22 03:07 D-Dimer 2.83 ug/mIFEU (0-0.59) H 10/27/22 18:42 Specimen Type Arterial 10/28/22 11:37 Sample Site Radial, right 10/28/22 11:37 ABG pH 7.38 (7.35-7.45) 10/28/22 11:37 ABG pCO2 83.8 mmHg (35-45) H* 10/28/22 11:37 ABG pO2 83.5 mmHg (80.0-100.0) 10/28/22 11:37 ABG HCO3 49.4 mmol/L (22-26) H 10/28/22 11:37 ABG O2 Saturation 98.8 10/25/22 05:20 ABG Base Excess 20.3 mmol/L (-2.0-2.0) H 10/28/22 11:37 Uli Test Pos 10/28/22 11:37 A-a O2 Gradient 10.9 mmHg (5-10) H 10/25/22 05:20 Hematocrit 34.5 % (42-52) L 10/28/22 11:37 Hgb O2 Saturation 96.9 % (95-100) 10/25/22 05:20 Carboxyhemoglobin 1.6 %THgb (0.4-20.1) 10/25/22 05:20 Methemoglobin 0.3 % (0.4-1.5) L 10/25/22 05:20 Total Hemoglobin 11.4 g/dL (14-18) L 10/25/22 05:20 Sodium 146.0 mmol/L (131-143) H 10/25/22 05:20 Potassium 4.0 mmol/L (3.5-5.0) 10/25/22 05:20 Glucose 104.0 mg/dL (70-115) 10/25/22 05:20 Ionized Calcium 1.2 mmol/L (1.1-1.4) 10/25/22 05:20 O2 Delivery Device Bipap 10/28/22 11:37 O2 Liters/Min 3.0 % 10/23/22 11:07 FiO2 40.0 % 10/28/22 11:37 Shift Leader ID Monros 10/28/22 11:37 Sodium 142 mmol/L (136-145) 11/01/22 03:07 Potassium 3.2 mmol/L (3.5-5.1) L 11/01/22 03:07 Chloride 91 mmol/L (98-107) L 11/01/22 03:07 Carbon Dioxide 44 mmol/L (22-29) H* 11/01/22 03:07 Anion Gap 10.2 (5-19) 11/01/22 03:07 BUN 30 mg/dL (8-23) H 11/01/22 03:07 Creatinine 1.7 mg/dL (0.7-1.2) H 11/01/22 03:07 GFR Calculation Not Reportable 11/01/22 03:07 Glucose 104 mg/dL (65-115) 11/01/22 03:07 POC Glucose 108 mg/dL (70-110) 10/28/22 03:16 Calculated Osmolality 300 mOsm/kg (285-295) H 11/01/22 03:07 Calcium 9.2 mg/dL (8.5-10.5) 11/01/22 03:07 Magnesium 2.0 mg/dL (1.7-2.3) 10/24/22 05:16 Total Bilirubin 0.5 mg/dL (0.15-1.2) 11/01/22 03:07 AST 18 U/L (0-40) 11/01/22 03:07 ALT 22 U/L (0-41) 11/01/22 03:07 Alkaline Phosphatase 75 U/L (40-130) 11/01/22 03:07 Lactate Dehydrogenase 137 U/L (135-225) 10/29/22 09:13 Troponin T Baseline 30 ng/L (0-15) H 10/27/22 13:45 Troponin T 120 Minute 30.81 ng/L (0-15) H 10/27/22 15:36 Delta Troponin T 0.81 ABS# (0-10) 10/27/22 15:36 Troponin T Hi Sens 6Hr 27.66 ng/L (0-15) H 10/27/22 18:42 Troponin T Hi Sens 6Hr Delta -2.34 ng/L (0-12) L 10/27/22 18:42 NT-Pro-B Natriuret Pep 2754 pg/mL (0-125) H 10/23/22 11:07 Total Protein 6.8 g/dL (6.6-8.7) 11/01/22 03:07 Albumin 3.5 g/dL (3.5-5.2) 11/01/22 03:07 Globulin 3.3 g/dL (1.3-4.6) 11/01/22 03:07 Procalcitonin 0.13 ng/mL (0-0.5) 10/29/22 09:13 TSH 0.85 uIU/mL (0.27-4.20) 10/24/22 05:16 Urine Color Yellow (Yellow) 10/23/22 12:01 Urine Appearance Clear (CLEAR) 10/23/22 12:01 Urine pH 5 (5-7) 10/23/22 12:01 Ur Specific [place] 1.015 (1.005-1.030) 10/23/22 12:01 Urine Protein 3+ (Negative) H 10/23/22 12:01 Urine Glucose (UA) Norm (Normal) 10/23/22 12:01 Urine Ketones Negative (Negative) 10/23/22 12:01 Urine Blood 2+ (Negative) H 10/23/22 12:01 Urine Nitrate Negative (Negative) 10/23/22 12:01 Urine Bilirubin Neg (Negative) 10/23/22 12:01 Urine Urobilinogen Neg mg/dL (Negative) 10/23/22 12:01 Ur Leukocyte Esterase Negative (Negative) 10/23/22 12:01 Urine RBC 10-15 /hpf (0-2) H 10/23/22 12:01 Urine WBC None /hpf (0-5) 10/23/22 12:01 Ur Squamous Epith Cells None /hpf (0-5) 10/23/22 12:01 Amorphous Sediment Not Reportable 10/23/22 12:01 Urine Bacteria None /hpf (NONE) 10/23/22 12:01 Fluid Color Slight pink 10/29/22 10:40 Fluid Appearance Cloudy 10/29/22 10:40 Fluid WBC 983 /uL 10/29/22 10:40 Fluid RBC 20.000 10^3/uL 10/29/22 10:40 Fld Polynuclear WBCs # 0.070 10/29/22 10:40 Fld Polynuclear WBCs % 7.100 % 10/29/22 10:40 Fl Mononucl WBCs #(Auto) 0.913 10/29/22 10:40 Fl Mononuclear % Auto 92.900 % 10/29/22 10:40 Fluid Albumin 2.5 g/dL 10/29/22 10:40 Fluid Creatinine 1.52 (0.7-1.2) H 10/29/22 10:40 Pleural pH 8.00 (6.5-7.5) H 10/29/22 10:40 Pleural Total Protein 3.7 g/dL 10/29/22 10:40 Pleural LDH 136 U/L 10/29/22 10:40 Pleural Glucose 98.0 mg/dL 10/29/22 10:40 Pleural Amylase 24.0 U/L 10/29/22 10:40 Pleural Triglycerides 24 mg/dL 10/29/22 10:40 Nasal Influ A H1 2009 PCR Not detected (NOT DETECT) 10/28/22 12:00 Adenovirus (PCR) Not detected (NOT DETECT) 10/28/22 12:00 C. pneumoniae DNA (PCR) Not detected (NOT DETECT) 10/28/22 12:00 Coronavirus 229E (PCR) Not detected (NOT DETECT) 10/28/22 12:00 Human Metapneumovir PCR Not detected (NOT DETECT) 10/28/22 12:00 Influenza A (H1) PCR Not detected (NOT DETECT) 10/28/22 12:00 Influenza A (H3) PCR Not detected (NOT DETECT) 10/28/22 12:00 Influenza Type A (PCR) Not detected (NOT DETECT) 10/28/22 12:00 Influenza Type B (PCR) Not detected (NOT DETECT) 10/28/22 12:00 M. pneumoniae (PCR) Not detected (NOT DETECT) 10/28/22 12:00 Parainfluenza 1 (PCR) Not detected (NOT DETECT) 10/28/22 12:00 Parainfluenza 2 (PCR) Not detected (NOT DETECT) 10/28/22 12:00 Parainfluenza 3 (PCR) Not detected (NOT DETECT) 10/28/22 12:00 Parainfluenza 4 (PCR) Not detected (NOT DETECT) 10/28/22 12:00 RSV Type A (PCR) Not detected (NOT DETECT) 10/28/22 12:00 RSV Type B (PCR) Not detected (NOT DETECT) 10/28/22 12:00 Entero/Rhino (PCR) Not detected (NOT DETECT) 10/28/22 12:00 SARS-CoV-2 (PCR) Not detected (NOT DETECT) 10/28/22 12:00 Vitals Last Vital Signs Temp 98.4 F 11/01/22 04:00 Pulse 78 11/01/22 09:05 Resp 16 11/01/22 09:05 BP 148/81 11/01/22 07:13 Pulse Ox 88 L 11/01/22 10:55 O2 Del Method 11/01/22 09:05 O2 Flow Rate 3 11/01/22 10:55 FiO2 40 11/01/22 08:00 Discharge Plan Discharge Patient Disposition: Home Health Service Condition: Stable Prescriptions: New doxycycline monohydrate 100 mg Tablet 100 mg PO BID 3 Days Qty: 6 0RF bumetanide 1 mg Tablet 2 mg PO DAILY 30 Days Qty: 30 0RF Continued potassium chloride 20 mEq tablet extended release 20 meq PO DAILY tramadol 50 mg tablet 50 mg PO Q8H PRN (Reason: Pain) multivitamin Tablet 1 tab PO DAILY fluoxetine 40 mg Capsule 40 mg PO DAILY bupropion HCl 150 mg tablet sustained-release 12 hr 150 mg PO BID albuterol sulfate 2.5 mg /3 mL (0.083 %) solution for nebulization 2.5 mg continuous nebulization Q6H PRN (Reason: Shortness Of Breath) amlodipine 10 mg tablet 10 mg PO DAILY simvastatin 20 mg tablet 20 mg PO QPM nitroglycerin 0.4 mg tablet, sublingual 0.4 mg sublingual Q5M PRN (Reason: Chest Pain) Eliquis 5 mg tablet 5 mg PO BID Qty: 60 0RF metoprolol succinate 100 mg tablet extended release 24 hr 100 mg PO DAILY Trelegy Ellipta 200-62.5-25 mcg blister with device 1 inh INHALATION DAILY Discontinued furosemide 20 mg tablet 20 mg PO BID Discharge Orders: Discharge Order (Routine); Ordered 11/01/22 Ordered By: Linn Lau Referrals: Unruly Starkey [Primary Care Provider] - Tana Sandoval FNP [Nurse Practitioner] - 2 weeks (hospital discharge follow up for CHF ) Discharge Diet: Usual diet, Cardiac and Low Salt Discharge Activity: Resume usual activity Patient Instructions: Opioid Safety Discharge Attestations Time Spent in Discharge Care*: greater than 30 min Status at Discharge: Cognitive status at discharge: cognitively intact , Behavioral status at discharge: cooperative , Quality Metrics Clinical Quality Measures [ No reported AMI, CVA or VTE this stay] Coding Level of Care Code Acute Chg FW DC note Diagnoses Hypokalemia E87.6 Acute on chronic diastolic (congestive) heart failure I50.33 Atherosclerosis of coronary artery of [place] heart without angina pectoris I25.10 Acute exacerbation of chronic obstructive airways disease J44.1 Obstructive sleep apnea G47.33 Atrial fibrillation by electrocardiogram I48.91 Large pleural effusion J90
--- NOTE | 2022-11-01 15:12 | PC.NURSE ---
discharge instructions given and explained.pt verb understanding of instructions.o2 tank delivered for the trip home.pt discharged via w/c to exit.cab to take pt home
== END 2022-11-01 15:13 | disposition home health service (06) | DRG 291 ==
LOC: ER 12:17 → CSU 16:59
PROVIDERS: Family Medicine; Admitting Provider Internal Medicine; Emergency Provider Family Medicine; PCP Family Medicine; Visit Provider Student in an Organized Health Care Education/Training Program
DX: I13.0 Hypertensive heart and chronic kidney disease with heart failure and stage 1 through stage 4 chronic kidney disease, or unspecified chronic kidney disease (principal); I50.33 Acute on chronic diastolic (congestive) heart failure; J44.1 Chronic obstructive pulmonary disease with (acute) exacerbation; I48.20 Chronic atrial fibrillation, unspecified; J90 Pleural effusion, not elsewhere classified; E66.2 Morbid (severe) obesity with alveolar hypoventilation; Z68.41 Body mass index [BMI] 40.0-44.9, adult; E87.3 Alkalosis; N17.9 Acute kidney failure, unspecified; L03.115 Cellulitis of right lower limb; N18.2 Chronic kidney disease, stage 2 (mild); E87.6 Hypokalemia; I25.10 Atherosclerotic heart disease of native coronary artery without angina pectoris; Z95.5 Presence of coronary angioplasty implant and graft; I25.2 Old myocardial infarction; Z99.89 Dependence on other enabling machines and devices; Z79.891 Long term (current) use of opiate analgesic; Z79.51 Long term (current) use of inhaled steroids; Z79.01 Long term (current) use of anticoagulants; Z99.81 Dependence on supplemental oxygen; Z87.891 Personal history of nicotine dependence; N40.0 Benign prostatic hyperplasia without lower urinary tract symptoms
CPT/HCPCS: 32555; 36415; 36416; 36600; 51702; 71045; 71275; 80048; 80051; 80053; 80503; 81001; 82042; 82150; 82330; 82570; 82803; 82805; 82945; 82962; 83615; 83735; 83880; 83986; 84145; 84157; 84443; 84478; 84484; 85025; 85378; 87070; 87075; 87205; 87486; 87581; 87633; 88108; 88305; 89050; 93005; 94640; 94660; 94760; 96374; 96375; 97110; 97116; 97162; 97530; 99285; C8929; J0360; J1940; J2405; J3480; J3490; J7613; J7626; J7644; Q9956; Q9967

== ENCOUNTER → 2022-11-18 10:16 | Outpatient (BNVA) | payer MEDICARE, SELFPAY | PROVIDERS: PCP Family Medicine; Visit Provider Nurse Practitioner Family | DX: I25.10 Atherosclerotic heart disease of native coronary artery without angina pectoris (principal); I48.20 Chronic atrial fibrillation, unspecified; I50.33 Acute on chronic diastolic (congestive) heart failure; Z87.891 Personal history of nicotine dependence; Z79.01 Long term (current) use of anticoagulants | CPT/HCPCS: 80048; 83880; 99214 ==

== ENCOUNTER → 2022-11-24 10:58 | Outpatient (BNVA) | payer MEDICARE, SELFPAY | PROVIDERS: PCP Family Medicine; Visit Provider Nurse Practitioner Family | DX: E87.5 Hyperkalemia (principal); N17.9 Acute kidney failure, unspecified | CPT/HCPCS: 80048 ==

== ENCOUNTER → 2023-01-27 15:27 | Outpatient (BNVA) | payer MEDICARE, SELFPAY | PROVIDERS: PCP Family Medicine; Visit Provider Internal Medicine Cardiovascular Disease | DX: R06.02 Shortness of breath (principal); I25.10 Atherosclerotic heart disease of native coronary artery without angina pectoris; I48.20 Chronic atrial fibrillation, unspecified; I50.32 Chronic diastolic (congestive) heart failure; J44.9 Chronic obstructive pulmonary disease, unspecified; N17.9 Acute kidney failure, unspecified | CPT/HCPCS: 36415; 80048; 83880; 99214 ==

== ENCOUNTER 2023-03-24 10:15 | Outpatient (CLI) | payer MEDICARE, SELFPAY ==
--- NOTE | 2023-03-24 | ECG_ITS ---
[facility] Test Date: 2023-03-24 Pat Name: Juan Jose Lamb Department: Room: Gender: Male Neck Skewer: : 1950 Requested By: Suman Cordero Order Number: [id number] Alen MD: Suman Cordero M.D. Interpretive Statements NAME OF STUDY: LEXISCAN SESTAMIBI STRESS TEST INDICATION: CHF; ASHD PROCEDURE: At the baseline, the EKG revealed atrial fibrillation with a controlled ventricular response rate. Nonspecific IVCD. The baseline heart was 71 bpm with a blood pressue of 136/69 mm of Hg Lexiscan was infused over a period of 20 seconds. A total of 0.4 milligrams of Lexiscan was infused. The stress phase was continued for a total of 5 minutes. Heart rate at the end of the stress phase was 78 bpm with a blood pressure 141/78 mm of Hg. The EKG at the peak infusion revealed no significant changes. Sestamibi was injected 20 seconds after the Lexiscan infusion. Heart rate at the end of the recovery phase was 75 bpm with a blood pressure of 149/72 mm of Hg. CONCLUSION: 1. No significant EKG changes with the LexiScan infusion 2. No LexiScan induced chest pain or cardiac arrhythmia 3. Normal blood pressure and heart rate response 4. Sestamibi/sestamibi perfusion scan pending; see separate report. Electronically Signed On 03-25-2023 8:08:25 CDT by Suman Cordero M.D. [email or web address]
[2023-03-24 10:36] VITALS: BMI 41.4
--- NOTE | 2023-03-24 10:44 | NMCV_ITS ---
NM axel perf SPECT r/s* [id number] Juan Jose Lamb Age: 72 Gender: M : 1950 Exam Date: 03/24/2023 10:44 Ordering Phys: Suman Cordero MD ([email or web address]) Technologist: PATT Ivy Exam [facility]: [facility] Indications: CORONARY ANGIOPLASTY STATUS, ATHEROSCLEROTIC HEART DISEASE STRESS TEST Please see separate stress test report in [facility] for full findings IMAGE PROTOCOL Rest/Stress 1 Lexiscan Day Radiopharmaceutical Dose (mCi) Administration Site Administered by Rest: Tc-99m 11.0 IV PATT Ivy Sestamibi Stress:Tc-99m 33.0 IV PATT South Sestamibi Rest: 24-Mar-2023 60 Discovery 630 Stress: 24-Mar-2023 30 Discovery 630 0.4mg Lexiscan. Supine position only as patient was unable to lay prone. SPECT RESULTS Technical Quality: Good Raw Data Analysis: Normal Image Corrections: No attenuation or motion correction applied Summed Stress Score: 7 Summed Rest Score: 5 Summed Difference Score: 2 PERFUSION FINDINGS Moderate area of moderate to severely decreased tracer uptake in the basal, mid and apical inferior wall regions with some reversibility in the basal and mid inferior wall region. FUNCTIONAL RESULTS (calculated via Gated SPECT) Stress Image LV EF (%): 62 Stress EDV (mL):170 TID: 0.88 Stress ESV (mL):65 FUNCTIONAL FINDINGS: Segmental wall motion analysis revealing no gross wall motion abnormalities IMPRESSIONS 1. Myocardial perfusion imaging revealing moderate area of moderate to severely decreased tracer uptake in the inferior wall region with a some areas of reversibility suggesting myocardial scarring in the distribution of the right coronary artery with small areas of ischemia. 2. Normal LV ejection fraction 62%. 3. LV wall motion analysis revealing no gross wall motion abnormalities. 4. Mildly dilated LV cavity No similar previous studies are available for comparison Dr Suman Cordero MD FACC (Electronically Signed) Final Date: 24 Mar 2023 14:15 S
[2023-03-24] MEDS: regadenoson 0.4 Mg/5 ml Syringe IVP (12:22)
[2023-03-24 13:06] VITALS: BP 133/84; PULSE 68
== END 2023-03-24 10:16 | disposition home or self-care (01) ==
LOC: CDL 10:16
PROVIDERS: PCP Family Medicine; Visit Provider Internal Medicine Cardiovascular Disease
DX: I50.9 Heart failure, unspecified (principal); I25.10 Atherosclerotic heart disease of native coronary artery without angina pectoris; Z98.61 Coronary angioplasty status
CPT/HCPCS: 36415; 78452; 93017; 96374; A9500; J2785

== ENCOUNTER → 2023-10-27 11:03 | Outpatient (BNVA) | payer MEDICARE, SELFPAY | PROVIDERS: PCP Family Medicine; Referring Provider Family Medicine; Visit Provider Internal Medicine Pulmonary Disease | DX: R91.8 Other nonspecific abnormal finding of lung field (principal); J90 Pleural effusion, not elsewhere classified; J43.2 Centrilobular emphysema; I50.30 Unspecified diastolic (congestive) heart failure; G47.33 Obstructive sleep apnea (adult) (pediatric); Z87.891 Personal history of nicotine dependence | CPT/HCPCS: 99214 ==

== ENCOUNTER 2023-11-09 09:39 | Day surgery (SDC) | payer MEDICARE, SELFPAY ==
[2023-11-09] VITALS (11 sets, daily range): BP systolic 116–130; BP diastolic 53–69; PULSE 63–79; RESP 13–21; TEMP 36.1–36.4; O2SAT 92–100; BMI 38.9
[2023-11-09] MEDS: sodium chloride 0.9% 1,000 ML 30 ML IV (10:04)
--- NOTE | 2023-11-09 10:05 | W.PM.OPSUD ---
Surgery/Procedure H&P Update DATE OF PROCEDURE: November 09, 2023 DATE H&P PERFORMED: 10/27/23 H&P UPDATE INFORMATION: I have reviewed H&P completed within last 30 days, I have examined patient prior to procedure and No changes to prior documentation CHANGES TO PREVIOUS DOCUMENTATION: none PREOP DIAGNOSIS: suspected malignancy PRIMARY INDICATION FOR PROCEDURE: Right hilar mass on CT scan suspected for malignancy PLANNED PROCEDURE: Operation Date: 11/09/23 10:30 Proposed Procedures p BRONCH, EBUS, 86592, 95588, 03102, 10117, 30615, 96498, 18447, 67098, 38267,R91.8,J90(Not Applicable) - Sriram Yang MD s Ebus(Bilateral) - Sriram Yang MD
[2023-11-09 10:19] LABS: Glucose Point of Care 91 mg/dL (70-110)
--- NOTE | 2023-11-09 10:22 | ANES.PREANE2 ---
Pre-Anesthetic Assessment Height/Weight: Height 1.88 m Weight 137.438 kg Temp Pulse Resp BP Pulse Ox O2 Del Method O2 Flow Rate 97.6 F 74 18 128/66 99 Nasal Cannula 3 11/09/23 10:11/09/23 10:11/09/23 10:11/09/23 10:11/09/23 10:11/09/23 10:11/09/23 10:01 Preop Diagnosis: suspected malignancy Operation Date: 11/09/23 10:30 Proposed Procedures p BRONCH, EBUS, 57535, 19512, 83043, 97376, 80238, 77736, 39980, 43843, 22405,R91.8,J90(Not Applicable) - Sriram Yang MD s Ebus(Bilateral) - Sriram Yang MD Familial anesthetic complications: none Was Beta Manjeet taken within 24 hours: Yes Was Clonidine taken within 24 hours: N/A Last intake: Intake Last Liquid Date 11/08/23 Last Liquid Time 21:00 Last Solid Date 11/08/23 Last Solid Time 20:00 Social No alcohol and No tobacco (quit 2005) Exam alert, oriented x 3, clear to auscultation bilaterally and regular rate & rhythm Airway Submandibular: within normal limits Cervical ROM: within normal limits Mallampati: Class I Dentition: chipped, loose and full Comments: Comments: poor dentition Pulmonary Chronic Obstructive Pulmonary Disease and Sleep Apnea 3 L O2 all the time and cpap at night CV/HEM Atrial Fibrillation, Coronary Artery Disease, Congestive Heart Failure, Hypertension and Myocardial Infarction stent x 1 2005 Chronic Renal Insufficiency Hepatic None reported GI Gastroesophageal Reflux Disease (infrequent ) Metabolic Diabetes Mellitus (diet controlled), Hyperlipidemia and Morbid Obesity [facility] [place] Osteoarthritis/DJD Neuropsych None reported Anesthetic Plan ASA status: 3 Anesthesia: General Risk of > 500 ml blood loss (7ml/kg in children): No Medications/Allergies Home Medications Medication Instructions Recorded Confirmed Last Taken Type albuterol sulfate 2.5 mg/3 mL 2.5 mg continuous nebulization Q6H 05/04/21 11/09/23 11/05/23 History (0.083 %) solution for nebulization PRN Shortness Of Breath amlodipine 10 mg tablet 10 mg PO DAILY 05/04/21 11/09/23 11/09/23 History bupropion HCl 150 mg tablet,12 hr 150 mg PO BID 05/04/21 11/09/23 11/04/23 History sustained-release (Wellbutrin SR) fluoxetine 40 mg capsule 40 mg PO DAILY 05/04/21 11/09/23 11/04/23 History nitroglycerin 0.4 mg sublingual 0.4 mg sublingual Q5M PRN Chest 05/04/21 11/09/23 Unknown History tablet Pain simvastatin 20 mg tablet 20 mg PO QPM 05/04/21 11/09/23 11/04/23 History multivitamin 1 tab PO DAILY 05/29/21 11/09/23 10/23/22 History tramadol 50 mg tablet 50 mg PO Q8H PRN Pain 05/29/21 11/09/23 Unknown History fluticasone fur. 200 mcg-umeclid 1 inh inhalation DAILY 10/23/22 11/09/23 11/04/23 History 62.5 mcg-vilant 25 mcg inhalat.powder (Trelegy Ellipta) metoprolol succinate 100 mg 100 mg PO DAILY 10/23/22 11/09/23 11/09/23 History tablet,extended release 24 hr bumetanide 1 mg tablet 2 mg (2 x 1 mg) PO DAILY #90 tabs 11/27/22 11/09/23 11/04/23 Rx apixaban 5 mg tablet (Eliquis) 2.5 mg PO BID 01/27/23 11/09/23 11/04/23 History isosorbide mononitrate 30 mg 30 mg PO DAILY #30 tabs 07/29/23 11/09/23 11/09/23 Rx tablet,extended release 24 hr losartan 25 mg tablet 25 mg PO DAILY 30 days #30 tabs 07/29/23 11/09/23 11/04/23 Rx spironolactone 25 mg tablet 25 mg PO DAILY 10/27/23 11/09/23 11/04/23 History potassium chloride 8 mEq 8 meq PO DAILY 11/05/23 11/09/23 11/04/23 History tablet,extended release Allergies Allergy/AdvReac Type Severity Reaction Status Date / Time No Known Allergies Allergy Verified 11/09/23 09:59 Current Medications Generic Name Dose Route Start Last Admin Trade Name Freq PRN Reason Stop Dose Admin Sodium Chloride 1,000 mls @ 30 mls/hr 11/09/23 09:45 11/09/23 10:04 Sodium Chloride 0.9% IV 11/10/23 09:44 30 mls/hr .Q24H TRELL Administration PFSH Anesthesia Medical History (Updated 11/03/23 @ 22:56 by Sriram Yang MD) Atrial fibrillation Coronary stent patent Chronic kidney disease, stage II (mild) Sleep apnea Obesity hypoventilation syndrome BPH (benign prostatic hyperplasia) Morbid obesity B12 deficiency Diastolic congestive heart failure Chronic diarrhea Coronary artery disease Diabetes COPD (chronic obstructive pulmonary disease) 4L oxygen dependent Surgical History Hx of cardiac cath Family History Other Diabetes Social History Smoking and tobacco/nicotine status: former use of tobacco/nicotine Quit status (tobacco/nicotine): has quit using Year quit tobacco: 1994 Former quit date comment: Hx of 1 PPD x 20 Years Second hand smoke exposure: No Alcohol intake: never Substance/Drug Use: never Caregiver/support person: Yes Lives independently: Yes Household members: children Housing: House Marital status: / Current occupational status: retired and disabled Do you think of yourself as: Straight/Heterosexual Current gender identity: Male Data Anesthesia Cardiac Studies: Echocardiogram 10/24/22 Sestamibi Stress Test (Cardiology) 03/24/23
[2023-11-09] MEDS: lidocaine 1% INJ 10 mL (per mL) XX (10:45)
[2023-11-09 11:29] LABS: Cyto Order Verification No Order
[2023-11-09 11:30] LABS: Apprearance, Bronch Wash Cloudy (CLEAR); Color, Bronc Wash Red; PATH Referral Yes; Total Cells Counted Bronch 200
--- NOTE | 2023-11-09 11:43 | P.OP_ITS ---
Operative Report Date of procedure: November 09, 2023 Pre-op diagnosis: Right hilar mass on CT suspicious for malignancy Post-op diagnosis: Suspicious for malignancy Procedure done: Dx Bronchoscope w/BAL Dx Bronchoscopy w/Bronchial or Endobronchial biopsy(s), single or multiple sites Bronchoscopy w/ therapeutic aspiration of the tracheobronchial tree (clearance of airway secretions, removal of mucus plugs) EBUS Sampling >=3 nodes Surgeon: Sriram Yang MD Brief History: Mr. Juan Jose Lamb is a 73-year-old male with past medical history of COPD, ex-smoker, referred by Dr. Starkey for pleural effusion and hilar mass. Recently patient C/O months of intermittent cough with hemoptysis. He had CT chest 10/05/[address] Starkey for hemoptysis. and found to have right hilar mass and moderate right pleural effusion. Patient reported having had thoracentesis on right side (1000 cc ) and next day on left side (900 cc). exudative per light's criteria however unlikely parapneumonic effusion or empyema, LDH normal, Ph elevated. He has hx of smoking 1ppdX 20 years, quit in 1994. Given he is history of significant smoking-right hilar mass is suspected to be malignancy-hence I have recommended him bronchoscopy/endobronchial ultrasound surveillance of hilar/mediastinal lymph nodes and possible biopsies Discussed with patient regarding the indication, nature, alternatives, complications, benefits procedure. Applications like pneumothorax requiring chest tubes and prolonged hospitalization, bleeding were extensively discussed. Patient verbalized understanding and agreed with the procedure. Today he comes for the same. Procedure: Dx Bronchoscope w/BAL Dx Bronchoscopy w/Bronchial or Endobronchial biopsy(s), single or multiple sites Bronchoscopy w/ therapeutic aspiration of the tracheobronchial tree (clearance of airway secretions, removal of mucus plugs) EBUS Sampling >=3 nodes Indication: CT 10/05/2023-right hilar mass and moderate right pleural effusion Anesthesia: General anesthesia. Local anesthesia: The geronimo in the right and left mainstem bronchi were anesthetized with 1% lidocaine, 3 mL. Description of the procedure: The procedure was explained to the patient and the consent was obtained. The patient was brought to the OR. The patient underwent induction for general anesthesia and endotracheal tube was placed. The bronchoscope was advanced through the ET tube. The distal trachea was visualized. There were copious amount of secretions which were suctioned right away. Tracheal mucosa appeared normal, no endotracheal lesion was seen. The geronimo was sharp. 1 mL each of 1% lidocaine was instilled in the trachea the right and left mainstem bronchi for local anesthesia. In a systematic manner bilateral bronchial tree was then examined. The bronchoscope was then introduced into the right mainstem bronchus. I can visualize right upper lobe opening but there is a near complete occlusion of bronchus intermedius with infiltrating mass. The right upper lobe is examined up to the third subsegmental level and no abnormalities were identified. There were mucoid secretions which were suctioned right away. The bronchoscope was advanced into the left mainstem bronchus. There is a endobronchial lesion in distal left mainstem bronchus noted. The left upper lobe, and lingula were examined up to the third subsegmental level and no abnormalities were identified. Mucosa of left upper lobe and lingula appeared normal with no endobronchial lesion. There were clear secretions which were suctioned right away. With the help of forceps took endobronchial biopsies were taken from the mass in the right bronchus intermedius. There was some evidence of bleeding which was controlled with cold saline. BAL was taken from the same area. Another forceps was used to take endobronchial biopsies of lesion in left main stem bronchus and sent separately. There was some evidence of bleeding which was controlled with cold saline. Bronchoscope was retracted and Endobronchial Ultrasound (EBUS) was introduced. Identified a large hypoechoic mass in 11 L, station 7, station 11 R. Using [id number] were taken from all the stations; there was some evidence of bleeding which is controlled with instillation of cold saline. After making sure there is no active bleeding, bronchoscope retracted and procedure terminated. Samples: 1. Endobronchial biopsies from right bronchus intermedius mass occluding left lower lobe airway. 2. Endobronchial biopsies from distal left mainstem bronchus. 3. Bronchoalveolar lavage was performed after wedging the bronchoscope at the entrance of occluded right bronchus intermedius. 30 mL of saline was instilled, fluid return was 10 mL. Bronchoalveolar lavage specimen was sent for cell count and differential, gram stain and culture, cytology B. EBUS guided Fine-needle aspiration biopsies were taken from station station 11 L, station 4R and station 7. 1. Total of 3 passes were made using needle aspiration(33823) from station 11 L; all the material was placed in formalin and sent for histopathology 2. Total of 3 passes were made using needle aspiration(24209) from station 7; all the material was placed in formalin and sent for histopathology 3. Total of 3 passes were made using needle aspiration([id number]) from station 11 R; all the material was placed in formalin and sent for histopathology Complications: None.The patient was extubated and brought to the PACU in stable condition. Disposition: Patient can be discharged home in stable condition. Pt and his son are aware that I am going to call them to update final biopsy results once available. Related Problem List Diagnoses (1) Hilar mass:
[2023-11-17 07:16] LABS: PD-L1 (Clone 22C3) by IHC BBPL See Report
== END 2023-11-09 13:10 | disposition home or self-care (01) ==
PROVIDERS: PCP Family Medicine; Visit Provider Internal Medicine Pulmonary Disease
PROC: 0BJ08ZZ Inspection of Tracheobronchial Tree, Via Natural or Artificial Opening Endoscopic (ICD-10-PCS; CPT 31622; principal; 2023-11-09 10:20)
PROC: BB4BZZZ Ultrasonography of Pleura (ICD-10-PCS; 2023-11-09 10:20)
DX: C34.91 Malignant neoplasm of unspecified part of right bronchus or lung (principal); C77.9 Secondary and unspecified malignant neoplasm of lymph node, unspecified; J44.9 Chronic obstructive pulmonary disease, unspecified; Z99.81 Dependence on supplemental oxygen; I48.91 Unspecified atrial fibrillation; I13.0 Hypertensive heart and chronic kidney disease with heart failure and stage 1 through stage 4 chronic kidney disease, or unspecified chronic kidney disease; I50.30 Unspecified diastolic (congestive) heart failure; N18.2 Chronic kidney disease, stage 2 (mild); I25.2 Old myocardial infarction; Z95.5 Presence of coronary angioplasty implant and graft; E11.9 Type 2 diabetes mellitus without complications; E78.5 Hyperlipidemia, unspecified; E66.01 Morbid (severe) obesity due to excess calories; Z68.38 Body mass index [BMI] 38.0-38.9, adult; I25.10 Atherosclerotic heart disease of native coronary artery without angina pectoris; N40.0 Benign prostatic hyperplasia without lower urinary tract symptoms; Z87.891 Personal history of nicotine dependence
CPT/HCPCS: 31624; 31625; 31645; 31653; 36416; 80503; 82962; 87070; 87205; 88112; 88305; 88341; 88342; 89050; J1100; J2405; J2704; J2710; J3010; J3490; J7030

== ENCOUNTER 2023-11-24 09:48 | Oncology outpatient (recurring) (ONCR) | payer MEDICARE, SELFPAY | END 2023-12-01 23:59 | disposition home or self-care (01) | PROVIDERS: PCP Family Medicine; Visit Provider Internal Medicine Medical Oncology | DX: C34.31 Malignant neoplasm of lower lobe, right bronchus or lung (principal); Z79.899 Other long term (current) drug therapy | CPT/HCPCS: 99205 ==

== ENCOUNTER 2023-12-01 10:28 | Day surgery (SDC) | payer MEDICARE, SELFPAY ==
[2023-12-01 11:22] VITALS: BP 130/64; PULSE 65; RESP 18; TEMP 36.5; O2SAT 97; BMI 38.7
--- NOTE | 2023-12-01 12:40 | XR_ITS ---
WS: [id number] Portable AP upright chest, 12/01/2023 Clinical Data: RT THORACENTESIS Comparison: Two-view chest, 09/21/2023 Findings: No nodules or masses are seen. There is a moderate right pleural effusion. The heart is enl arged. The pulmonary vascularity is not increased. No pneumonia or pneumothorax is seen. Impression: 1. Moderate right pleural effusion but no pneumothorax. 2. Cardiomegaly.
[2023-12-01 13:30] LABS: Color, Pleural Fluid Yellow (Pale Yellow); Cyto Order Verification No Order; Mononuclear %, Pleural Fluid 80 %; Polynuclear Cells, Pleural % 20 %
[2023-12-01 13:31] LABS: Appearance, Pleural Fluid CLOUDY (CLEAR); PATH Referal YES
[2023-12-01 17:18] LABS: Albumin Body Fluid 2.7 g/dL; Amylase Body Fluid 49 U/L; Cholesterol Body Fluid 58 mg/dL (0-200); Fluid Alkaline Phos. 18 IU/L; LDH Body Fluid 232 U/L; Triglycerides Body Fluid 20 mg/dL (0-150)
[2023-12-01 17:19] LABS: Total Protein Pleural Fluid 4.5 g/dL
--- NOTE | 2023-12-01 21:35 | PM.OUTPTPROC ---
Outpatient Procedures Thoracentesis Consent signed and on chart: Yes Time Out Performed: Yes Procedure: therapeutic thoracentesis and diagnostic thoracentesis Location: Right Local anesthetic used: lidocaine 1% Bedside ultrasound used: yes, pleural effusion confirmed and location marked and yes, real-time guidance Preparation: sterile prep and drape and 10 blade used to make zita in skin Amount of fluid obtained (mL): 1,100 Fluid: clear (Straw-colored) and sent to lab for analysis Size of needle used: 21 Post Procedure Exam: awake, alert, normal BP, normal HR and normal SpO2 Post-procedure chest x-ray ordered: Yes Estimated blood loss (mL): 5 Patient Tolerated Procedure: well and no complications Procedure Note: Pulmonary & Critical Care Medicine Procedure - Ultrasound guided Thoracentesis Procedure: CPT code 61181 thoracentesis, needle or catheter, aspiration of the pleural space; with imaging guidance Indication: Worsening right pleural effusion. 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 We will proceed with thoracentesis for diagnostic as well as therapeutic benefits. We need pleural fluid samples to check for malignant cells which will help with staging patient's lung cancer. Technique: The study was performed in an ACR accredited facility. Medication reconciliation form reviewed and any changes related this procedure resolved. Report: The procedure for thoracentesis was explained to the patient including the risks, benefits and possible complications. The patient was given the opportunity to ask questions, wished to proceed, and signed the written informed consent form. Using ultrasound guidance, a safe route of access was identified into the right pleural space. The site was then prepped and draped using maximal sterile barrier technique. The 1% lidocaine was used for local anesthetic. With sonographic guidance, a 6 Syrian thoracentesis catheter was placed with return of 5 cc straw-colored pleural fluid. The catheter was slipped into the pleural cavity and approximately 1100 cc of straw-colored pleural fluid was removed. The patient tolerated the procedure well without any immediate complications. Impression: 1. Successful ultrasound-guided right thoracentesis with removal of approximately 1100 cc of sanguinous pleural fluid. ICD-10 code-J90 pleural effusion, not elsewhere classified
== END 2023-12-01 12:59 | disposition home or self-care (01) ==
PROVIDERS: PCP Family Medicine; Visit Provider Internal Medicine Pulmonary Disease
PROC: (CPT 32554; principal; 2023-12-01 11:30)
DX: J90 Pleural effusion, not elsewhere classified (principal)
CPT/HCPCS: 32555; 71045; 80503; 82042; 82150; 82465; 82945; 83615; 83986; 84075; 84157; 84315; 84478; 87070; 87075; 87205; 88112; 88305; 89050

== ENCOUNTER 2023-12-21 09:41 | Outpatient (CLI) | payer MEDICARE, SELFPAY ==
--- NOTE | 2023-12-21 10:30 | PETR_ITS ---
PROCEDURE INFORMATION: Exam: PET/CT Skull Base to Mid-thigh Exam date and time: 12/21/2023 10:30 AM Age: 73 years old Clinical indication: Abnormal findings; Hilar mass, pleural effusion; Prior surgery; Surgery date: 6+ months; Surgery type: Coronary stent LABS AND CLINICAL REPORTS: Glucose: 95 mg/dl Treatment strategy for malignancy (PET staging): Initial Staging (PI) TECHNIQUE: Imaging protocol: Following at least four-hour fasting and following the injection of radiopharmaceutical, low dose CT images were obtained. Then, PET images were obtained. Attenuation corrected images were constructed using the CT scan. Fused images of PET and CT were reviewed. The standardized uptake values (SUV) reported below are maximum values within a region of interest, expressed in gm/ml. Exam includes orbital meatal line to mid-thigh. Radiopharmaceutical: 14.76 mCi F-18 FDG (Fluorodeoxyglucose), IV. Time of imaging post radiopharmaceutical administration: 1 hour Injection site: Left hand COMPARISON: CT chest 10/05/2023, CT angio chest PE 10/27/2022, CT abdomen pelvis 09/01/2018 FINDINGS: Brain: Visualized brain has normal physiologic uptake. Pharynx: No abnormal uptake. Larynx: No abnormal uptake. Lungs, pleura and trachea: Elongated intensely FDG avid abnormality involving the entire collapsed right lower lobe with the highest uptake of 14.7 SUV associated with occlusion of bronchus intermedius is contiguous with the right hilum and right subcarinal metastatic lymphadenopathy with the highest uptake of 19.5 SUV. There is partial collapse of the right middle lobe.There is moderate partially loculated right pleural effusion with no abnormal uptake in the pleura. No suspicious nodules or masses in the left lung. Heart: Normal physiologic uptake. There is no cardiomegaly. Coronary artery calcification is present. There is no pericardial effusion. Mediastinal space: See above in lungs . Liver: No abnormal uptake. Gallbladder and bile ducts: No abnormal uptake. Pancreas: No abnormal uptake. Spleen: No abnormal uptake. No splenomegaly. Adrenal glands: No abnormal uptake. No nodules. Kidneys and ureters: Mildly diminished uptake within the left kidney with no hydronephrosis with stones and simple cortical and parapelvic cysts. Intense uptake within the right intrarenal collecting system with mild dilatation of the upper and lower calyces in presence of multiple stones including large 2.5 x 1.6 cm stone filling the right renal pelvis. Stomach and bowel: No abnormal uptake. Extensive diverticulosis of the left colon. Intraperitoneal and retroperitoneal spaces: No abnormal uptake. No ascites. Urinary bladder: The bladder is moderately distended with diminished concentration of excreted FDG layering within the dependent portion of the bladder suggestive of postvoiding residual. Reproductive: No abnormal uptake. The prostate is not enlarged. Vasculature: No abnormal uptake. No aortic aneurysm. Lymph nodes: See above in lungs . No FDG avid lymphadenopathy in the head, neck, abdomen, pelvis, and extremities. Bones/joints: No abnormal uptake in the visualized axial and appendicular skeleton. Soft tissues: No abnormal uptake in the visualized head, neck, chest, abdomen, pelvis, and extremities. Small to moderate size fat containing umbilical hernia. Stable calcified soft tissue density focus in the left lower quadrant representing sequela of left inguinal hernia repair. PET/PET skulltothi INITIAL [id number] IMPRESSION: 1. Intense abnormal uptake within the collapsed right lower lobe associated with occlusion of the bronchus intermedius the suggestive of primary lung malignancy contiguous with metastatic lymphadenopathy in the right hilum and the right subcarinal area. No FDG avid abnormality outside of the chest to suggest distant metastatic disease. 2. Bilateral renal stones including the largest stone occluding the right renal pelvis with mild dilatation of the right renal calyces. The size and number of stones significantly increased since 2018. Suspected moderate postvoiding residual urine in the bladder with no abnormal enlargement of the prostate. No hydroureter or left hydronephrosis.
== END 2023-12-21 09:42 | disposition home or self-care (01) ==
LOC: RAD 09:42
PROVIDERS: PCP Family Medicine; Visit Provider Internal Medicine Pulmonary Disease
DX: R91.8 Other nonspecific abnormal finding of lung field (principal)
CPT/HCPCS: 78815; A9552

== ENCOUNTER 2023-12-29 09:40 | Oncology outpatient (recurring) (ONCR) | payer MEDICARE, SELFPAY ==
--- NOTE | 2023-12-29 10:28 | XR_ITS ---
WS: [id number] Exam: XR chest 2V insp/exp [id number] Date/Time of Exam: 12/29/2023 10:37 AM Reason For Exam: pleural effusion Comparison 12/01/2023. Prominent right-sided pleural effusion has increased. There is significant compressive atelectasis of the middle and lower lobes of the RIGHT lung. The lungs are fully expanded. Mild infiltrate along th e LEFT heart border. Mild cardiac enlargement unchanged. The mediastinum is normal in contour. Bony s tructures are intact. IMPRESSION: 1. Increased right-sided pleural effusion with significant compressive atelectasis of the right lung. 2. No pneumothorax is seen. 3. Mild infiltrate along the LEFT heart border that may represent developing pneumonia. There is also probable small LEFT basal pleural effusion.
--- NOTE | 2023-12-29 11:59 | N.ONRAD NP_ITS ---
Radiation Oncology New Patient Visit Patient: Juan Jose Lamb MR#: [id number] : 1950 Age: 73 Sex: Male Dictated by: Dr. Cathi Guy Date of Service: 12/29/2023 Referring Physician(s) : Dr. 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 Chief Complaint / History of Present Illness: Patient recalls how about a year ago he actually was placed on blood thinners and at that time he had episodes of hemoptysis and hematuria. This was last spring. He was found to be on a higher dose of blood thinner and this was decreased. He said the hematuria stopped but he continued to have the hemoptysis about once or twice a week. During this time he also has been on a keto based diet and lost 100 pounds. His respiratory status has remained fairly stable. He has been on oxygen for many years. A workup was begun in October to determine the cause of his hemoptysis. He was found to have a right hilar mass and a large pleural effusion on the right as well as 1 on the left. The left has resolved subsequently. He still has a pleural effusion on the right. At bronchoscopy he was found to have the right upper lobe bronchus intermedius occluded and biopsies were taken and it was found to be poorly differentiated squamous of carcinoma. PD-L1 was 60%. He had a PET scan which confirmed the extent of disease in the chest and no evidence of metastatic disease. He is here today to discuss the radiation portion of his combined modality therapy. Current Medications: albuterol sulfate 2.5 mg continuous nebulization Q6H PRN amlodipine 10 mg PO DAILY apixaban (Eliquis) 2.5 mg PO BID bumetanide 2 mg (2 x 1 mg) PO DAILY bupropion HCl (Wellbutrin SR) 150 mg PO BID fluoxetine 40 mg PO DAILY vvvvgdfghbq-wqzqpwgou-toezxvib 200-62.5-25 mcg (Trelegy Ellipta) 1 inh inhalation DAILY isosorbide mononitrate ER 30 mg PO DAILY losartan 25 mg PO DAILY 30 days metoprolol succinate ER 100 mg PO DAILY multivitamin 1 tab PO DAILY nitroglycerin 0.4 mg sublingual Q5M PRN potassium chloride ER 8 mEq PO DAILY simvastatin 20 mg PO QPM spironolactone 25 mg PO DAILY tramadol 50 mg PO Q8H PRN Allergies: NKA Medical History: No history of collagen vascular disease. No previous radiation therapy. COPD, home oxygen, GERD, kidney stones, obesity, diabetes Surgical History: Family History: Diabetes Social History: ocial History Smoking and tobacco/nicotine status: former use of tobacco/nicotine Quit status (tobacco/nicotine): has quit using Year quit tobacco: 1994 Former quit date comment: Hx of 1 PPD x 20 Years Second hand smoke exposure: No Alcohol intake: never Substance/Drug Use: never Caregiver/support person: Yes Lives independently: Yes Household members: children Housing: House Marital status: / Current occupational status: retired and disabled Do you think of yourself as: Straight/Heterosexual Current gender identity: Male Current Complaints / Review of Systems: . His only complaint today is significant fatigue. Vital Signs: Performed on 12/29/2023 9:49 AM BMI - 40.136 kg/m2 (high), Height - 74 in, Weight - 312.6 lbs, Temperature - 96.6 f, Pulse - 70 /min, Respiration - 18 /min, O2 Sat - 96 %, Pain - 0, Fatigue - 0 and BP - 130/ 76 mm(hg). Physical Exam: General: Patient is sitting comfortably in his wheelchair. He is accompanied today by his son. His oxygen is in place HEENT: Normocephalic atraumatic. Pupils are equal, sclera clear, extraocular muscles intact. Lungs: Lungs reveal decreased breath sounds significantly on the right in the lower half of the field. He also had decreased breath sounds on the left. Respiratory rate is regular nonlabored Cardiovascular: Regular rate and rhythm Abdomen: Protuberant, nontender, without hepatomegaly Extremities: Without clubbing cyanosis or edema Skin: Warm and dry without signs of ecchymoses at this time Neurological: Alert and orient x 3. Speech is intact, gait not tested Psych: Affect is appropriate for current situation Performance Status: KPS 80 Pathology: Poorly differentiated squamous cell carcinoma Lab: Imaging: See HPI Impression: Stage III poorly differentiated squamous of carcinoma of the right lung Plan: I reviewed with Mr. Lamb the history of his illness. We discussed the different imaging that he has had. We reviewed the typical course of treatment for his stage of cancer. We talked about how typically it is a combined treatment followed by immunotherapy if appropriate. I reviewed with him the simulation process. We discussed the daily treatment regiment. We discussed the risks and side effects both acute and long-term. At this point he had no additional questions. He is waiting to have his port placed next week. He had questions about transportation today and we will see if we can get him some help with that. He will also get a chest x-ray today to see if he has enough of the pleural effusion that needs to be drained prior to simulation. At this point he will be coming back next Wednesday on the weekly bus and he will undergo simulation at that time. Will see if we can get him set up to have his pleural effusion drained right before simulation. Signed by: 12/29/2023 11:58:13 AM <<Signature on File>> Time spent with patient:60 CPT Code: CPT Code:
== END 2023-12-30 23:59 | disposition home or self-care (01) ==
LOC: ONCMED 09:41
PROVIDERS: PCP Family Medicine; Visit Provider Internal Medicine Medical Oncology
DX: C34.31 Malignant neoplasm of lower lobe, right bronchus or lung (principal); Z87.891 Personal history of nicotine dependence
CPT/HCPCS: 71046; 99205

== ENCOUNTER 2024-01-05 09:15 | Day surgery (SDC) | payer MEDICARE, SELFPAY ==
--- NOTE | 2024-01-05 09:20 | US_ITS ---
WS: [id number] ULTRASOUND-GUIDED THORACENTESIS, RIGHT HISTORY: right lung pleural effusion Procedure, risks, and complications were explained to the patient. With the patient in an upright pos ition, the skin over the RIGHT posterior thorax was cleansed with ChloraPrep and anesthetized with 1% buffered lidocaine. A 5 Maltese Yueh needle is inserted into the pleural fluid without complication. Approximately 1600 cc of clear pleural fluid is removed without difficulty. IMPRESSION: 1. RIGHT thoracentesis yielding 1600 cc of fluid. 2. Chest radiograph to follow to evaluate for pneumothorax.
[2024-01-05 09:42] VITALS: BP 150/94; PULSE 86; RESP 18; TEMP 36.1; O2SAT 90; BMI 38.9
[2024-01-05 10:01] LABS: INR 1.08 (0.8-1.2)
[2024-01-05 10:50] VITALS: PULSE 84; O2SAT 94
--- NOTE | 2024-01-05 11:04 | XR_ITS ---
WS: [id number] PORTABLE CHEST HISTORY: post thoracentesis right lung COMPARISON: 12/29/2023 No pneumothorax status post RIGHT thoracentesis. Still moderate obscuration of the mid to lower RIGHT lung despite the thoracentesis. Reidentified is a soft tissue mass centered at the RIGHT hilum. Fullness at the LEFT hilum also may be adenopathy. Sm all LEFT pleural effusion. No pneumothorax. Cardiac size: Enlarged but partially obscured by the pleural fluid. Mediastinum/Aorta: Mildly ectatic aorta. No osseous abnormality seen. IMPRESSION: 1. No pneumothorax status post RIGHT thoracentesis. 2. Residual small to moderate RIGHT pleural effusion. 3. Very small LEFT pleural effusion. 4. RIGHT hilar mass incompletely visualized. Patient has a known PET/CT positive neoplasm.
== END 2024-01-05 11:45 | disposition home or self-care (01) ==
PROVIDERS: Radiology Diagnostic Radiology; PCP Family Medicine; Visit Provider Radiology Radiation Oncology
PROC: (CPT 32554; principal; 2024-01-05 10:15)
DX: J90 Pleural effusion, not elsewhere classified (principal); Z51.0 Encounter for antineoplastic radiation therapy; C34.31 Malignant neoplasm of lower lobe, right bronchus or lung; Z99.81 Dependence on supplemental oxygen; Z87.891 Personal history of nicotine dependence
CPT/HCPCS: 32555; 36415; 71045; 77334; 77470; 85610; 99204

== ENCOUNTER 2024-01-05 11:47 | Oncology outpatient (recurring) (ONCR) | payer MEDICARE, SELFPAY | END 2024-01-30 23:59 | disposition home or self-care (01) | PROVIDERS: PCP Family Medicine; Visit Provider Internal Medicine Medical Oncology | DX: Z51.0 Encounter for antineoplastic radiation therapy (principal); C34.31 Malignant neoplasm of lower lobe, right bronchus or lung; Z99.81 Dependence on supplemental oxygen; Z87.891 Personal history of nicotine dependence | CPT/HCPCS: 77300; 77301; 77334; 77338; 77470; 99204 ==

== ENCOUNTER 2024-01-12 10:18 | Day surgery (SDC) | payer MEDICARE, SELFPAY ==
[2024-01-12] VITALS (7 sets, daily range): BP systolic 117–136; BP diastolic 69–82; PULSE 75–85; RESP 16–18; TEMP 36.1–36.4; O2SAT 91–97
--- NOTE | 2024-01-12 10:43 | ECG_ITS ---
[facility] Test Date: 2024-01-12 Pat Name: Juan Jose Lamb Department: Room: Gender: Male Office Clin Asst: : 1950 Requested By: Daniella Warren Order Number: [id number] Lowry MD: Broderick Bell M.D. Measurements Intervals [place] Rate: 81 P: 0 MT: 0 QRS: -80 QRSD: 141 T: 43 QT: 395 QTc: 459 Interpretive Statements ATRIAL FIBRILLATION WITH ABERRANT CONDUCTION OR VENTRICULAR PREMATURE COMPLEXES RIGHT BUNDLE BRANCH BLOCK [120+ ms QRS DURATION, UPRIGHT V1, 40+ ms S IN I/aVL/V4/V5/V6] POSSIBLE ANTERIOR MYOCARDIAL INFARCTION , PROBABLY OLD [30 ms Q WAVE IN V3/V4, OR R < 0.2 mV IN V4] INFERIOR MYOCARDIAL INFARCTION , PROBABLY OLD [40+ ms Q WAVE AND/OR ST/T ABNORMALITY IN II/aVF] Compared to ECG 10/27/2022 15:11:19 Ventricular premature complex(es) now present Aberrant conduction of supraventricular beat(s) now present Right bundle-branch block now present Myocardial infarct finding now present Left bundle-branch block no longer present Electronically Signed On 01-12-2024 10:56:36 CDT by Broderick Bell M.D. [id number]
[2024-01-12] MEDS: sodium chloride 0.9% 1,000 ML 30 ML IV (11:00)
[2024-01-12 11:09] LABS: Basophils % 0.4 %; Eosinophils # 0.2 10^3/uL (0.0-0.8); Eosinophils % 1.9 %; Lymphocytes # 1.5 10^3/uL (0.8-4.8); Lymphocytes % 13.7 %; Mean Corpuscular HGB Conc 29.5 g/dL (30-55); Mean Corpuscular Hemoglobin 26.9 pg (27-33); Mean Corpuscular Volume 91.1 fl (82-101); Mean Platelet Volume 9.5 fL (7.4-10.4); Monocytes # 0.9 10^3/uL (0.2-0.9); Monocytes % 8.7 %; Neutrophils # 8.07 10^3/uL (1.8-7.7); Neutrophils % 74.9 %; Nucleated Red Blood Cells % 0 %; Platelet Count 207 10^3/cmm (157-399); Red Blood Count 4.17 10^6/uL (3.85-5.65); Red Cell Distribution Width 14.8 % (12.1-15.1); White Blood Count 10.78 10^3/uL (3.29-11.43)
--- NOTE | 2024-01-12 11:18 | P.HPUD_ITS ---
Surgery/Procedure H&P Update DATE OF PROCEDURE: January 12, 2024 DATE H&P PERFORMED: 01/05/24 H&P UPDATE INFORMATION: I have reviewed H&P completed within last 30 days, I have examined patient prior to procedure, No changes to prior documentation and H&P is in [facility] EMR on date indicated PLANNED PROCEDURE: Operation Date: 01/12/24 12:00 Proposed Procedures p [id number] port placemen C34.31,(Not Applicable) - Tad Marie MD
--- NOTE | 2024-01-12 11:18 | W.PM.OPSUD ---
Surgery/Procedure H&P Update DATE OF PROCEDURE: January 12, 2024 DATE H&P PERFORMED: 01/05/24 H&P UPDATE INFORMATION: I have reviewed H&P completed within last 30 days, I have examined patient prior to procedure, No changes to prior documentation and H&P is in [facility] EMR on date indicated PLANNED PROCEDURE: Operation Date: 01/12/24 12:00 Proposed Procedures p [id number] port placemen C34.31,(Not Applicable) - Tad Marie MD
--- NOTE | 2024-01-12 11:31 | ANES.PREANE2 ---
Pre-Anesthetic Assessment Height/Weight: Height 1.88 m Weight 137.438 kg Temp Pulse Resp BP Pulse Ox O2 Del Method O2 Flow Rate 97.5 F L 79 18 131/76 97 Nasal Cannula 3 01/12/24 10:35 01/12/24 10:35 01/12/24 10:35 01/12/24 10:35 01/12/24 10:35 01/12/24 10:35 01/12/24 10:35 Operation Date: 01/12/24 12:00 Proposed Procedures p [id number] port placemen C34.31,(Not Applicable) - Tad Marie MD Familial anesthetic complications: None Was Beta Manjeet taken within 24 hours: Yes Was Clonidine taken within 24 hours: N/A Last intake: Intake Last Liquid Date 01/11/24 Last Liquid Time 23:00 Last Solid Date 01/11/24 Last Solid Time 23:00 Social No alcohol and No tobacco former smoker Exam alert, oriented x 3, clear to auscultation bilaterally and regular rate & rhythm Airway Mallampati: Class III Dentition: chipped Pulmonary Chronic Obstructive Pulmonary Disease (3 L NC) and Sleep Apnea (CPAP) CV/HEM Atrial Fibrillation, Coronary Artery Disease (stent), Congestive Heart Failure and Myocardial Infarction Chronic Renal Insufficiency GI Gastroesophageal Reflux Disease Metabolic Diabetes Mellitus and Morbid Obesity Anesthetic Plan ASA status: 4 Anesthesia: MAC Risk of > 500 ml blood loss (7ml/kg in children): No Medications/Allergies Home Medications Medication Instructions Recorded Confirmed Last Taken Type albuterol sulfate 2.5 mg/3 mL 2.5 mg continuous nebulization Q6H 05/04/21 01/12/24 01/11/24 History (0.083 %) solution for nebulization PRN Shortness Of Breath amlodipine 10 mg tablet 10 mg PO DAILY 05/04/21 01/12/24 01/11/24 History bupropion HCl 150 mg tablet,12 hr 150 mg PO BID 05/04/21 01/12/24 01/11/24 History sustained-release (Wellbutrin SR) fluoxetine 40 mg capsule 40 mg PO DAILY 05/04/21 01/12/24 01/11/24 History nitroglycerin 0.4 mg sublingual 0.4 mg sublingual Q5M PRN Chest 05/04/21 01/11/24 Unknown History tablet Pain simvastatin 20 mg tablet 20 mg PO QPM 05/04/21 01/12/24 01/11/24 History multivitamin 1 tab PO DAILY 05/29/21 01/12/24 01/11/24 History tramadol 50 mg tablet 50 mg PO Q8H PRN Pain 05/29/21 01/12/24 01/11/24 History fluticasone fur. 200 mcg-umeclid 1 inh inhalation DAILY 10/23/22 01/12/24 01/11/24 History 62.5 mcg-vilant 25 mcg inhalat.powder (Trelegy Ellipta) metoprolol succinate 100 mg 100 mg PO DAILY 10/23/22 01/12/24 01/11/24 History tablet,extended release 24 hr bumetanide 1 mg tablet 2 mg (2 x 1 mg) PO DAILY #90 tabs 11/27/22 01/12/24 01/11/24 Rx apixaban 5 mg tablet (Eliquis) 2.5 mg PO BID 01/27/23 01/11/24 01/09/24 History isosorbide mononitrate 30 mg 30 mg PO DAILY #30 tabs 07/29/23 01/12/24 01/11/24 Rx tablet,extended release 24 hr losartan 25 mg tablet 25 mg PO DAILY 30 days #30 tabs 07/29/23 01/12/24 01/11/24 Rx spironolactone 25 mg tablet 25 mg PO DAILY 10/27/23 01/12/24 01/11/24 History potassium chloride 8 mEq 8 meq PO DAILY 11/05/23 01/12/24 01/11/24 History tablet,extended release famotidine 20 mg tablet (Pepcid) 20 mg PO BID #60 tabs 12/21/23 01/12/24 01/11/24 Rx Allergies Allergy/AdvReac Type Severity Reaction Status Date / Time No Known Allergies Allergy Verified 01/11/24 13:04 Current Medications Generic Name Dose Route Start Last Admin Trade Name Freq PRN Reason Stop Dose Admin Sodium Chloride 1,000 mls @ 30 mls/hr 01/12/24 10:30 01/12/24 11:00 Sodium Chloride 0.9% IV 01/13/24 10:29 30 mls/hr .Q24H TRELL Administration PFSH Anesthesia Medical History Hyperlipidemia Hypertension Squamous cell lung cancer Atrial fibrillation Coronary stent patent Chronic kidney disease, stage II (mild) Sleep apnea Obesity hypoventilation syndrome BPH (benign prostatic hyperplasia) Morbid obesity B12 deficiency Diastolic congestive heart failure Chronic diarrhea Coronary artery disease Diabetes COPD (chronic obstructive pulmonary disease) 4L oxygen dependent Surgical History (Updated 01/05/24 @ 12:58 by Angelita Ragsdale, CT) H/O left inguinal hernia repair Hx of tonsillectomy History of bronchoscopy (11/09/23) Bronchoscopy/EBUS History of coronary artery stent placement Family History Other Diabetes Social History Smoking and tobacco/nicotine status: former use of tobacco/nicotine Quit status (tobacco/nicotine): has quit using Year quit tobacco: 1994 Former quit date comment: Hx of 1 PPD x 20 Years Second hand smoke exposure: No Alcohol intake: never Substance/Drug Use: never Caregiver/support person: Yes Lives independently: Yes Household members: children Housing: House Marital status: / Current occupational status: retired and disabled Do you think of yourself as: Straight/Heterosexual Current gender identity: Male Data Anesthesia 01/12/24 10:59 Short CBC 01/12/24 Range/Units 10:59 WBC 10.78 (3.29-11.43) 10^3/uL Hgb 11.20 L (11.27-16.99) g/dL Hct 38.0 (37-53) % MCV 91.1 (82-101) fl Plt Count 207 (157-399) 10^3/cmm Neut % (Auto) 74.9 % Neut # (Auto) 8.07 H (1.8-7.7) 10^3/uL Cardiac Studies: Echocardiogram 10/24/22 Sestamibi Stress Test (Cardiology) 03/24/23
[2024-01-12] MEDS: ceFAZolin 2,000 MG in sodium chloride 0.9% (plus) 50 ML 100 MG IV (11:52)
--- NOTE | 2024-01-12 12:00 | SC_ITS ---
WS: [id number] INTRAOPERATIVE TECHNIQUE: 1 Spot fluoroscopic images for intraoperative purposes. FLUOROSCOPY TIME: ?? seconds CLINICAL INFORMATION: PORT-A-CATH 01/12/24 FINDINGS: RIGHT Port-A-Cath with tip in the distal SVC in good position. No visualized pneumothorax partially v isualized RIGHT lung. IMPRESSION: Images obtained for intraoperative purposes.
[2024-01-12] MEDS: lidocaine-epi 1% PF 1:200,000 30 mL SDV INJECTION (12:24)
[2024-01-12] MEDS: heparin, porcine 1,000 unit/mL INJ 10 mL 10000 UNIT IRRIGATION (12:25)
--- NOTE | 2024-01-12 12:44 | PM.OP ---
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 After discussion of all risk and benefits as documented in my preop note we decided to proceed. I met the patient in the preoperative area and marked the right chest in the area where the Port-A-Cath this cannot be located. Procedure: Patient was brought into the OR, he was placed in a supine position, mother anesthesia sedation was given. Timeout was conducted after the skin was prepped and draped in the usual sterile fashion. I then proceeded to identify the right IJ vein with ultrasound, I infiltrated local anesthesia on top of the vein. I then proceeded to cannulate the vein under direct ultrasound guidance using an 18-gauge needle, the needle tip was seen entering the vein and immediate return of blood was noted. A wire was advanced through the needle and the needle was removed. The position of the wire was verified with ultrasound and fluoroscopy. The wire was then fixed to the drapes. I then placed my attention to the chest, local anesthesia was infiltrated in the previously marked area on the chest and then a tract connecting the chest to the wire insertion site in the neck. I then proceeded to make a 3.5 cm incision in the right upper chest, the incision was deepened to subcutaneous tissue with electrocautery and electrocautery was used to create the subcutaneous pocket to house the Port-A-Cath. I then proceeded to use a hemostat to create a tunnel from the chest wound to the neck. I then proceeded to make a 0.5 cm incision at the level of the wire insertion site in the neck. Hemostasis was verified. I then placed the Port-A-Cath in the pocket and tunneled the catheter using the provided tunneler. The catheter was cut to appropriate length under fluoroscopy guidance and then flushed. I then proceeded to insert an introducer with a peel-off sheath over the wire under direct fluoroscopic guidance. I then remove the wire and the introducer leaving the peel-off sheath in place. The catheter was then advanced through the peel-off sheath and the peel-off sheath was removed leaving the catheter in place. Fluoroscopy showed evidence of acute liquid catheter position. I then proceeded to access the port the port was retrieving blood and flushing fine, I then hep-locked the catheter. Hemostasis was verified. The wound was closed in layers using #3-0 Vicryl for the subcutaneous tissue and #4 Monocryl for the skin. Dermabond was applied. At the end of the procedure all counts were correct. The patient tolerated well the procedure and was transferred to the PACU in stable condition.
--- NOTE | 2024-01-12 13:45 | ANE.PACU2 ---
Inpatient post-anesthesia follow up: Airway intact: Yes Vital signs: Temperature 97 F Pulse Rate 81 Respiratory Rate 17 Blood Pressure 136/78 Pulse Oximetry 94 Oxygen Delivery Me thod Nasal Cannula Oxygen Flow Rate 3 Fraction of Inspir ed Oxygen Hydration adequate: Yes Nausea and vomiting: No Pain level: 1 Mental status: Baseline
== END 2024-01-12 13:48 | disposition home or self-care (01) ==
PROVIDERS: PCP Family Medicine; Visit Provider Surgery
PROC: (CPT 36561; principal; 2024-01-12 12:00)
DX: C34.90 Malignant neoplasm of unspecified part of unspecified bronchus or lung (principal); Z87.891 Personal history of nicotine dependence; J44.9 Chronic obstructive pulmonary disease, unspecified; Z99.81 Dependence on supplemental oxygen; G47.30 Sleep apnea, unspecified; I48.91 Unspecified atrial fibrillation; I25.10 Atherosclerotic heart disease of native coronary artery without angina pectoris; Z95.5 Presence of coronary angioplasty implant and graft; I50.30 Unspecified diastolic (congestive) heart failure; I25.2 Old myocardial infarction; K21.9 Gastro-esophageal reflux disease without esophagitis; E11.22 Type 2 diabetes mellitus with diabetic chronic kidney disease; N18.2 Chronic kidney disease, stage 2 (mild); E66.01 Morbid (severe) obesity due to excess calories; Z68.38 Body mass index [BMI] 38.0-38.9, adult; E78.5 Hyperlipidemia, unspecified; N40.0 Benign prostatic hyperplasia without lower urinary tract symptoms
CPT/HCPCS: 36561; 36415; 77001; 85025; 93005; C1788; J0690; J1644; J2371; J2704; J7030

== ENCOUNTER → 2024-01-19 10:10 | Outpatient (BNVA) | payer MEDICARE, SELFPAY | PROVIDERS: PCP Family Medicine; Visit Provider Internal Medicine Cardiovascular Disease | DX: I13.0 Hypertensive heart and chronic kidney disease with heart failure and stage 1 through stage 4 chronic kidney disease, or unspecified chronic kidney disease (principal); I50.33 Acute on chronic diastolic (congestive) heart failure; E11.22 Type 2 diabetes mellitus with diabetic chronic kidney disease; N18.2 Chronic kidney disease, stage 2 (mild); Z87.891 Personal history of nicotine dependence; I48.20 Chronic atrial fibrillation, unspecified; Z79.01 Long term (current) use of anticoagulants; I25.10 Atherosclerotic heart disease of native coronary artery without angina pectoris; C34.31 Malignant neoplasm of lower lobe, right bronchus or lung; E78.2 Mixed hyperlipidemia; E66.2 Morbid (severe) obesity with alveolar hypoventilation; Z68.38 Body mass index [BMI] 38.0-38.9, adult | CPT/HCPCS: 99214 ==

== ENCOUNTER 2024-01-22 14:23 | Inpatient (IN) | payer MEDICARE, SELFPAY ==
[2024-01-22] VITALS (11 sets, daily range): BP systolic 122–159; BP diastolic 74–91; PULSE 69–91; RESP 22–24; TEMP 36.8; O2SAT 4–97; BMI 38.9
--- NOTE | 2024-01-22 14:32 | XRR_ITS ---
PROCEDURE INFORMATION: Exam: XR Chest Exam date and time: 01/22/2024 2:54 PM Age: 73 years old Clinical indication: Shortness of breath; Prior surgery; Surgery date: 3-7 days post-operative; Patient HX: Increased SOB; Low o2 sat; Recent lung CA diagnosis; HX cardiac stent (2005) port placement x 1 week ago TECHNIQUE: Imaging protocol: Radiologic exam of the chest. Views: 1 view. COMPARISON: CR XR chest 1V portable [id number] 01/05/2024 11:36 AM FINDINGS: Tubes, catheters and devices: Right chest port terminates at the superior cavoatrial junction. Lungs: Stable retrocardiac left lower lobe consolidation. Pleural spaces: Increased large right pleural effusion obscures right heart border and hilum. Stable small left pleural effusion. No pneumothorax. Heart/Mediastinum: Unremarkable. No cardiomegaly. Vasculature: Aortic arch atherosclerotic calcification. Bones/joints: Degenerative changes along the spine. XR/XR chest 1V portable [id number] IMPRESSION: 1. Right chest port terminates at the superior cavoatrial junction. 2. Increased large right pleural effusion. Stable small left pleural effusion. 3. Stable retrocardiac left lower lobe consolidation may represent atelectasis or pneumonia.
--- NOTE | 2024-01-22 14:40 | ECG_ITS ---
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 Measurements Intervals Gould Rate: 67 P: 0 NM: 0 QRS: -39 QRSD: 130 T: 98 QT: 386 QTc: 408 Interpretive Statements ATRIAL FIBRILLATION WITH ABERRANT CONDUCTION OR VENTRICULAR PREMATURE COMPLEXES LEFT AXIS DEVIATION [QRS AXIS < -30] LEFT BUNDLE BRANCH BLOCK [120+ ms QRS DURATION, 80+ ms Q/S IN V1/V2, 85+ ms R IN I/aVL/V5/V6] Compared to ECG 01/12/2024 10:51:39 Left-axis deviation now present Left bundle-branch block now present Right bundle-branch block no longer present Myocardial infarct finding no longer present Electronically Signed On 01-22-2024 15:50:31 CDT by Broderick Bell M.D. [id number]
--- NOTE | 2024-01-22 14:50 | ED_ITS ---
HPI - SOB/Dyspnea 2 General: Chief Complaint: Shortness of Breath/Dyspnea Stated Complaint: SOB Time Seen by Provider: 01/22/24 14:30 Source: patient Mode of arrival: EMS History of Present Illness: HPI Narrative: 73-year-old male presents emergency room complaining of shortness of breath. Patient was in diagnosis of lung cancer had a right subclavian Port-A-Cath placed. He recently had a thoracentesis to reduce a pleural effusion had good improvement that was within the last week. He comes in today complaining of worsening shortness of breath over the last 2 days. Patient is on Eliquis for atrial fibrillation. He has had some mildly blood-tinged sputum and discolored sputum but no fever sweats or chills he is usually on 3 L/min of oxygen he is now requiring 4. He denies substernal chest pain but does have some right-sided lower chest pain posteriorly in the area where the recent thoracentesis was done. History of COPD congestive heart failure and squamous cell CA right lower bronchus MD elicited complaint: shortness of breath and cough Pertinent past history: COPD and other Associated symptoms: Deny abdominal pain, chest congestion, chest pain, cough, diaphoresis, dizziness, extremity pain, fever(s), hemoptysis, lightheadedness, myalgias, nausea, orthopnea, palpitations, paresthesias, polydipsia, polyuria, rash, sense of impending doom, syncope or vomiting Treatment prior to arrival: oxygen, bronchodilator and other (Steroids) Review of Systems 2 Const: Denies: fever(s) or diaphoresis Card: Denies: chest pain, palpitations, lightheadedness, syncope or orthopnea Resp: Denies: hemoptysis or chest congestion GI: Denies: abdominal pain, nausea or vomiting Musc: Denies: extremity pain Neuro: Denies: dizziness Endo: Denies: polyuria or polydipsia PFSH ED 2 PFSH: Medical History Hyperlipidemia Hypertension Squamous cell lung cancer Atrial fibrillation Coronary stent patent Chronic kidney disease, stage II (mild) Sleep apnea Obesity hypoventilation syndrome BPH (benign prostatic hyperplasia) Morbid obesity B12 deficiency Diastolic congestive heart failure Chronic diarrhea Coronary artery disease Diabetes COPD (chronic obstructive pulmonary disease) 4L oxygen dependent Surgical History H/O left inguinal hernia repair Hx of tonsillectomy History of bronchoscopy (11/09/23) Bronchoscopy/EBUS History of coronary artery stent placement Family History Other Diabetes Social History Smoking and tobacco/nicotine status: former use of tobacco/nicotine Quit status (tobacco/nicotine): has quit using Year quit tobacco: 1994 Former quit date comment: Hx of 1 PPD x 20 Years Second hand smoke exposure: No Alcohol intake: never Substance/Drug Use: never Caregiver/support person: Yes Lives independently: Yes Household members: children Housing: House Marital status: / Current occupational status: retired and disabled Do you think of yourself as: Straight/Heterosexual Current gender identity: Male Course 2 Vital Signs: Vital signs: Vital Signs Temperature 99.3 F 01/26/24 12:30 Pulse Rate 66 01/26/24 19:45 Respiratory Rate 16 01/26/24 17:21 Blood Pressure 105/68 01/26/24 19:45 Pulse Oximetry 93 01/26/24 20:15 Oxygen Delivery Me thod Mechanical Ventil ation 01/26/24 20:15 Oxygen Flow Rate 15 01/25/24 09:24 Fraction of Inspir ed Oxygen 40 01/26/24 20:15 MDM - SOB/Dyspnea Medical Decision Making Acute on chronic hypercapnic respiratory failure with hypoxia acute congestive heart failure large right pleural effusion which is recurrent. Consult pulmonology for possible drain placement for the pleural effusion. Treat for underlying pneumonia as well as heart failure. Discussed with hospitalist orders written for admission. Medical Records I reviewed the patient's medical records. Lab Data I reviewed the patient's lab results. 01/26/24 15:18 01/26/24 04:25 Labs/Radiology: Radiology Impressions Chest CTA 01/22/24 18:13 IMPRESSION: 1. There are filling defects in the right pulmonary veins extending into the right side of the left atrium consistent with thrombus and/or tumor. 2. Right perihilar mass lesion obscured by adjacent pulmonary consolidation. 3. Large right pleural effusion and moderate left pleural effusion with adjacent compressive atelectasis or pneumonia. Findings raise concern for congestive heart failure however the heart is not currently enlarged. 4. There is mediastinal and right perihilar lymphadenopathy. COMMENTS: The presence of pulmonary emphysema on CT is an independent risk factor for lung cancer. In the absence of a history or active diagnosis of lung cancer, it is recommended that this patient with emphysema be evaluated for enrollment in a low dose CT lung cancer screening program. Laboratory Results WBC 11.15 10^3/uL (3.29-11.43) 01/22/24 14:49 RBC 3.97 10^6/uL (3.85-5.65) 01/22/24 14:49 Hgb 10.80 g/dL (11.27-16.99) L 01/22/24 14:49 Hct 36.7 % (37-53) L 01/22/24 14:49 MCV 92.4 fl (82-101) 01/22/24 14:49 MCH 27.2 pg (27-33) 01/22/24 14:49 MCHC 29.4 g/dL (30-55) L 01/22/24 14:49 RDW 14.6 % (12.1-15.1) 01/22/24 14:49 Plt Count 257 10^3/cmm (157-399) 01/22/24 14:49 MPV 10.5 fL (7.4-10.4) H 01/22/24 14:49 Neut % (Auto) 76.9 % 01/22/24 14:49 Lymph % (Auto) 11.4 % 01/22/24 14:49 Roane % (Auto) 9.1 % 01/22/24 14:49 Eos % (Auto) 1.9 % 01/22/24 14:49 Baso % (Auto) 0.4 % 01/22/24 14:49 Neut # (Auto) 8.59 10^3/uL (1.8-7.7) H 01/22/24 14:49 Lymph # (Auto) 1.3 10^3/uL (0.8-4.8) 01/22/24 14:49 Roane # (Auto) 1.0 10^3/uL (0.2-0.9) H 01/22/24 14:49 Eos # (Auto) 0.2 10^3/uL (0.0-0.8) 01/22/24 14:49 Baso # (Auto) 0.0 10^3/uL (0.0-0.1) 01/22/24 14:49 Nucleated RBC % (auto) 0 % 01/22/24 14:49 Nucleated RBCs # 0.0 /100WBC 01/22/24 14:49 D-Dimer 3.15 ug/mLFEU (0-0.59) H 01/22/24 14:45 Sodium 140 mmol/L (136-145) 01/22/24 14:49 Potassium 5.1 mmol/L (3.5-5.1) 01/22/24 14:49 Chloride 101 mmol/L (98-107) 01/22/24 14:49 Carbon Dioxide 29 mmol/L (22-29) 01/22/24 14:49 Anion Gap 15.1 (5-19) 01/22/24 14:49 BUN 31 mg/dL (8-23) H 01/22/24 14:49 Creatinine 1.7 mg/dL (0.7-1.2) H 01/22/24 14:49 GFR Calculation Not Reportable 01/22/24 14:49 Glucose 94 mg/dL (65-115) 01/22/24 14:49 Calculated Osmolality 296 mOsm/kg (285-295) H 01/22/24 14:49 Calcium 8.5 mg/dL (8.5-10.5) 01/22/24 14:49 Total Bilirubin 0.5 mg/dL (0.15-1.2) 01/22/24 14:49 AST 13 U/L (0-40) 01/22/24 14:49 ALT 7 U/L (0-41) 01/22/24 14:49 Alkaline Phosphatase 82 U/L (40-130) 01/22/24 14:49 Troponin T Baseline 28 ng/L (0-15) H 01/22/24 15:49 Total Protein 6.7 g/dL (6.6-8.7) 01/22/24 14:49 Albumin 3.6 g/dL (3.5-5.2) 01/22/24 14:49 Globulin 3.1 g/dL (1.3-4.6) 01/22/24 14:49 All radiology interpretation(s) finalized by discharge Discharge Plan Discharge Patient Disposition: Admitted As Inpatient Admit Provider: Linn Lau Clinical Impression: Acute on chronic diastolic CHF (congestive heart failure), Acute respiratory failure with hypoxia and hypercapnia, Large pleural effusion, Hilar mass, Pleural effusion, right, 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
[2024-01-22 15:09] LABS: Basophils % 0.4 %; Eosinophils # 0.2 10^3/uL (0.0-0.8); Eosinophils % 1.9 %; Hematocrit 36.7 % (37-53); Lymphocytes # 1.3 10^3/uL (0.8-4.8); Lymphocytes % 11.4 %; Mean Corpuscular HGB Conc 29.4 g/dL (30-55); Mean Corpuscular Hemoglobin 27.2 pg (27-33); Mean Corpuscular Volume 92.4 fl (82-101); Mean Platelet Volume 10.5 fL (7.4-10.4); Monocytes % 9.1 %; Neutrophils # 8.59 10^3/uL (1.8-7.7); Neutrophils % 76.9 %; Nucleated Red Blood Cells % 0 %; Platelet Count 257 10^3/cmm (157-399); Red Blood Count 3.97 10^6/uL (3.85-5.65); Red Cell Distribution Width 14.6 % (12.1-15.1); White Blood Count 11.15 10^3/uL (3.29-11.43)
[2024-01-22 15:26] LABS: Alanine Aminotransferase 7 U/L (0-41); Albumin Level 3.6 g/dL (3.5-5.2); Alkaline Phosphatase 82 U/L (40-130); Anion Gap 15.1 (5-19); Aspartate Amino Transferase 13 U/L (0-40); Blood Urea Nitrogen 31 mg/dL (8-23); Calcium 8.5 mg/dL (8.5-10.5); Carbon Dioxide 29 mmol/L (22-29); Chloride 101 mmol/L (98-107); Creatinine Clr Calc Pharmacy 56.2376; Globulin 3.1 g/dL (1.3-4.6); Glucose 94 mg/dL (65-115); Osmolality Calculated 296 mOsm/kg (285-295); Potassium 5.1 mmol/L (3.5-5.1); Sodium 140 mmol/L (136-145); Total Bilirubin 0.5 mg/dL (0.15-1.2); Total Protein 6.7 g/dL (6.6-8.7)
--- NOTE | 2024-01-22 15:36 | PC.PHAR ---
PT STATES HIS SON GINNA [phone] TAKES CARE OF HIS MEDICATIONS-GINNA STATES THE PT TAKES THE MEDICATIONS ENTERED
[2024-01-22 16:16] LABS: Troponin(5th) Baseline 28 ng/L (0-15)
--- NOTE | 2024-01-22 17:14 | ECG_ITS ---
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 Measurements Intervals Mousie Rate: 85 P: 0 MS: 0 QRS: -63 QRSD: 137 T: 62 QT: 394 QTc: 469 Interpretive Statements ATRIAL FIBRILLATION LEFT AXIS DEVIATION [QRS AXIS < -30] RIGHT BUNDLE BRANCH BLOCK [120+ ms QRS DURATION, UPRIGHT V1, 40+ ms S IN I/aVL/V4/V5/V6] POSSIBLE ANTERIOR MYOCARDIAL INFARCTION , OF INDETERMINATE AGE [30 ms Q WAVE IN V3/V4, OR R < 0.2 mV IN V4] Compared to ECG 01/22/2024 14:40:06 Right bundle-branch block now present Myocardial infarct finding now present Ventricular premature complex(es) no longer present Aberrant conduction of supraventricular beat(s) no longer present Left bundle-branch block no longer present Electronically Signed On 01-23-2024 23:59:44 CDT by Broderick Bell M.D. [id number]
[2024-01-22] MEDS: ipratropium-albuterol 3 mL Neb INHALATION (17:54)
--- NOTE | 2024-01-22 18:13 | CTR_ITS ---
PROCEDURE INFORMATION: Exam: CTA Chest With Contrast Exam date and time: 01/22/2024 6:44 PM Age: 73 years old Clinical indication: Shortness of breath; Prior surgery; Surgery date: 6+ months; Surgery type: Coronary stent; Patient HX: Copd, lung cancer, chf; Additional info: SOB TECHNIQUE: Imaging protocol: Computed tomographic angiography of the chest with contrast. Exam focused on the arteries. 3D rendering (Not supervised by radiologist): MIP and/or 3D reconstructed images were created by the technologist. Radiation optimization: All CT scans at this facility use at least one of these dose optimization techniques: automated exposure control; mA and/or kV adjustment per patient size (includes targeted exams where dose is matched to clinical indication); or iterative reconstruction. Contrast material: OMNI 350; Contrast volume: 93 ml; Contrast route: INTRAVENOUS (IV); COMPARISON: CT angio chest PE protcl [id number] 10/27/2022 11:08 PM RADIATION DOSE METRICS: Total DLP (mGy-cm): 668.66 FINDINGS: Pulmonary arteries: Normal. No pulmonary emboli. Aorta: Unremarkable. No aortic aneurysm. No aortic dissection. Lungs: Right perihilar mass lesion obscured by adjacent pulmonary consolidation. There are emphysematous changes in the lungs. Pleural spaces: Large right pleural effusion and moderate left pleural effusion with adjacent compressive atelectasis or pneumonia. Heart: There are filling defects in the right pulmonary veins extending into the right side of the left atrium consistent with thrombus and/or tumor. The heart is not enlarged. Coronary arteries: Multivessel atherosclerotic disease which involves the coronary arteries. Lymph nodes: There is mediastinal and right perihilar lymphadenopathy. Bones/joints: Unremarkable. No acute fracture. Soft tissues: Unremarkable. CT/CT angio chest PE protcl [id number] IMPRESSION: 1. There are filling defects in the right pulmonary veins extending into the right side of the left atrium consistent with thrombus and/or tumor. 2. Right perihilar mass lesion obscured by adjacent pulmonary consolidation. 3. Large right pleural effusion and moderate left pleural effusion with adjacent compressive atelectasis or pneumonia. Findings raise concern for congestive heart failure however the heart is not currently enlarged. 4. There is mediastinal and right perihilar lymphadenopathy. COMMENTS: The presence of pulmonary emphysema on CT is an independent risk factor for lung cancer. In the absence of a history or active diagnosis of lung cancer, it is recommended that this patient with emphysema be evaluated for enrollment in a low dose CT lung cancer screening program.
[2024-01-22 18:46] LABS: Troponin 5 2HR 26.14 ng/L (0-15); Troponin 5 2HR Delta -1.86 ABS# (0-10)
[2024-01-22] MEDS: iohexol 350 mg/mL 500 mL Btl (per mL) IV (18:48)
[2024-01-22 19:30] LABS: ABG PH Result 7.25 (7.35-7.45); Arterial Blood Gas Hematocrit 35.3 % (42-52); Base Excess ABG 1.5 mmol/L (-2.0-2.0); Blood Gas Allen Test Pos; Blood Gas Sample Site Radial, left; Blood Gas Sample Type Arterial; HCO3 ABG 30.3 mmol/L (22-26); Oxygen Device NC; PO2 ABG 91.1 mmHg (80.0-100.0); PO2 FiO2 Ratio Arterial Blood 0
[2024-01-22 19:31] LABS: ABG PCO2 69.8 mmHg (35-45)
--- NOTE | 2024-01-22 20:16 | PM.HP ---
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 Patient has not noticed any fever, chest pain, diarrhea stating that he has been extremely short of breath on minimal exertion, orthopnea and PND positive, his last dose of Eliquis was around 9 AM on 01/21, in the ER he has been diagnosed with recurrence of pleural effusion, hims clerk is planning for Pleurx catheter placement CT chest showing filling defect in right pulmonary veins consistent with thrombus/tumor, right perihilar mass with enlarged pleural effusions, last thoracentesis was on 04 January, Discontinue Eliquis, started on heparin Spoke with Dr. Wan who is in agreement with heparin drip, planning for Pleurx catheter on Wednesday Review of Systems Const: Reports: chills, body aches, change in weight and fatigue; Denies: fever(s) Eyes: Denies: change in vision ENMT: Denies: throat pain Card: Reports: swelling of feet/ankles; Denies: chest pain Resp: Reports: dyspnea GI: Denies: abdominal pain : Denies: flank pain Musc: Reports: extremity pain; Denies: neck pain Skin/Breast: Denies: rash Medications/Allergies Home Medications Medication Instructions Recorded Confirmed Last Taken Type albuterol sulfate 2.5 mg/3 mL 2.5 mg continuous nebulization Q6H 05/04/21 01/22/24 01/11/24 History (0.083 %) solution for nebulization PRN Shortness Of Breath amlodipine 10 mg tablet 10 mg PO QAM 05/04/21 01/22/24 01/22/24 History bupropion HCl 150 mg tablet,12 hr 150 mg PO BID 05/04/21 01/22/24 01/22/24 History sustained-release (Wellbutrin SR) fluoxetine 40 mg capsule 40 mg PO QAM 05/04/21 01/22/24 01/22/24 History simvastatin 20 mg tablet 20 mg PO QPM 05/04/21 01/22/24 01/21/24 History multivitamin 1 tab PO QAM 05/29/21 01/22/24 01/22/24 History fluticasone fur. 200 mcg-umeclid 1 inh inhalation DAILY 10/23/22 01/22/24 01/11/24 History 62.5 mcg-vilant 25 mcg inhalat.powder (Trelegy Ellipta) metoprolol succinate 100 mg 100 mg PO QAM 10/23/22 01/22/24 01/22/24 History tablet,extended release 24 hr spironolactone 25 mg tablet 25 mg PO QAM 10/27/23 01/22/24 01/22/24 History oxycodone 5 mg tablet 5 mg PO Q8H PRN pain #14 tabs 01/12/24 01/22/24 Unknown Rx apixaban 2.5 mg tablet (Eliquis) 2.5 mg PO BID 01/22/24 01/22/24 01/22/24 History bumetanide 1 mg tablet 1 mg PO BID PRN Edema 01/22/24 01/22/24 Unknown History famotidine 20 mg tablet 20 mg PO BID 01/22/24 01/22/24 01/22/24 History isosorbide mononitrate 30 mg 30 mg PO QAM 01/22/24 01/22/24 01/22/24 History tablet,extended release 24 hr losartan 25 mg tablet 25 mg PO BEDTIME 01/22/24 01/22/24 Unknown History nitroglycerin 0.4 mg sublingual 0.4 mg sublingual Q5M PRN Chest 01/22/24 01/22/24 Unknown History tablet (Nitrostat) Pain potassium chloride 8 mEq 8 meq PO QAM 01/22/24 01/22/24 01/22/24 History tablet,extended release tramadol 50 mg tablet 50 mg PO Q6H PRN Pain 01/22/24 01/22/24 Unknown History Allergies Allergy/AdvReac Type Severity Reaction Status Date / Time No Known Allergies Allergy Verified 01/22/24 14:34 PFSH Acute PFSH: Medical History Hyperlipidemia Hypertension Squamous cell lung cancer Atrial fibrillation Coronary stent patent Chronic kidney disease, stage II (mild) Sleep apnea Obesity hypoventilation syndrome BPH (benign prostatic hyperplasia) Morbid obesity B12 deficiency Diastolic congestive heart failure Chronic diarrhea Coronary artery disease Diabetes COPD (chronic obstructive pulmonary disease) 4L oxygen dependent Surgical History H/O left inguinal hernia repair Hx of tonsillectomy History of bronchoscopy (11/09/23) Bronchoscopy/EBUS History of coronary artery stent placement Family History Other Diabetes Social History Smoking and tobacco/nicotine status: former use of tobacco/nicotine Quit status (tobacco/nicotine): has quit using Year quit tobacco: 1994 Former quit date comment: Hx of 1 PPD x 20 Years Second hand smoke exposure: No Alcohol intake: never Substance/Drug Use: never Caregiver/support person: Yes Lives independently: Yes Household members: children Housing: House Marital status: / Current occupational status: retired and disabled Do you think of yourself as: Straight/Heterosexual Current gender identity: Male Vitals/I&O/Wt Last Vital Signs Temp 98.2 F 01/22/24 14:26 Pulse 78 01/22/24 19:37 Resp 22 H 01/22/24 17:55 BP 148/91 01/22/24 17:30 Pulse Ox 96 01/22/24 19:37 O2 Del Method Nasal Cannula 01/22/24 17:55 O2 Flow Rate 4 01/22/24 17:55 FiO2 50 01/22/24 19:37 Weight last 48 hrs Weight 137.438 kg Physical Exam Narrative: Morbid obese male Currently on BiPAP Settings 18/08, pressure rate 14, FiO2 50% Pulling tidal volume up to 550 to 600 mL Awake and alert No asterixis Able to follow commands No sign of confusion Patient was requiring 4 L before we put him on BiPAP S1, S2 Abdomen distended nontender Lower extremity swelling Patient has compression stockings Data 01/22/24 14:49 01/22/24 14:49 A&P Assessment and plan (1) Acute on chronic diastolic (congestive) heart failure: (2) Chronic atrial fibrillation: (3) D-dimer, elevated: (4) Diabetes: Qualifiers: Diabetes mellitus type: type 2 Diabetes mellitus principal archaeologist insulin use: without principal archaeologist use Diabetes mellitus complication status: without complication Qualified Code(s): E11.9 - Type 2 diabetes mellitus without complications (5) Obesity hypoventilation syndrome: (6) COPD (chronic obstructive pulmonary disease): Qualifiers: COPD type: emphysema Emphysema type: centrilobular Qualified Code(s): J43.2 - Centrilobular emphysema (7) Acute exacerbation of chronic obstructive airways disease: (8) Hilar mass: (9) Large pleural effusion: (10) Chronic kidney disease: (11) Acute hypoxic on chronic hypercapnic respiratory failure: Plan Acute hypoxic hypercapnic respite failure COPD exacerbation Related to underlying malignancy Concern for extension of tumor into left atrial right pulmonary vein Last Eliquis dose was 9 AM this morning I will switch him to heparin drip He will be able to get Pleurx catheter until Wednesday Spoke with Dr. Benitez who is in agreement I will let him have cardiac diet for tonight I have started him on BiPAP Repeat ABG at 9:30 PM Recurrent pleural effusion Will need Pleurx catheter Large hilar mass Significant atelectasis Will treat him with broad-spectrum antibiotics for now He is afebrile Patient has history of sleep apnea Currently I would continue BiPAP Will put him on cardiac diet Acute diastolic CHF exacerbation Will put him on Bumex every [address] a Sanchez catheter for accurate output Full code goals of care discussed with the patient, He lives with his son Uses a wheelchair Lives 1 hour away from the hospital Poorly differentiated lung cancer stage III, has not started chemo or radiotherapy yet Patient got Mediport placed Attestations Medical Necessity Statement*: More than 2 midnights anticipated Diagnoses Acute on chronic diastolic (congestive) heart failure I50.33 Chronic atrial fibrillation I48.20 D-dimer, elevated R79.89 Type 2 diabetes mellitus without complication, without long-term current use of insulin E11.9 Diabetes mellitus type: type 2 Diabetes mellitus principal archaeologist insulin use: without fpc use Diabetes mellitus complication status: without complication Obesity hypoventilation syndrome E66.2 Centrilobular emphysema J43.2 COPD type: emphysema Emphysema type: centrilobular Acute exacerbation of chronic obstructive airways disease J44.1 Hilar mass R91.8 Large pleural effusion J90 Chronic kidney disease N18.9 Acute hypoxic on chronic hypercapnic respiratory failure J96.01; J96.12
[2024-01-22 21:00] LABS: D Dimer 3.15 ug/mLFEU (0-0.59)
[2024-01-22] MEDS: losartan 50 mg Tablet 25 MG PO (21:18)
[2024-01-22] MEDS: piperacillin-tazobactam 3.375 GM in sodium chloride 0.9% (plus) 50 ML IV (21:19)
[2024-01-22 21:20] LABS: ABG PH Result 7.29 (7.35-7.45); Arterial Blood Gas Hematocrit 33.9 % (42-52); Base Excess ABG 3.1 mmol/L (-2.0-2.0); Blood Gas Allen Test Pos; Blood Gas Sample Site Brachial, right; Blood Gas Sample Type Arterial; HCO3 ABG 31.1 mmol/L (22-26); Oxygen Device BIPAP; PO2 FiO2 Ratio Arterial Blood 0
[2024-01-22 21:21] LABS: ABG PCO2 65.2 mmHg (35-45)
[2024-01-22] MEDS: bumetanide 0.25 mg/mL SDV 4 mL 1 MG IVP (21:40)
[2024-01-22] MEDS: vancomycin 2,000 MG/400 ML PIGGYBACK 200 MG IV (21:41)
[2024-01-22] MEDS: atorvastatin 40 mg Tablet 20 MG PO (21:41)
[2024-01-22] MEDS: heparin 5,000 unit/mL INJ 1 mL IV (22:00)
[2024-01-22] MEDS: heparin drip 25,000 UNIT/500 ML PREMIX 39 UNIT IV (22:03)
[2024-01-22 22:36] LABS: Troponin 5 6HR 25.09 ng/L (0-15)
[2024-01-22 22:39] LABS: Partial Thromboplastin Time 34.1 SECONDS (23.9-36.7)
[2024-01-22 22:40] LABS: Troponin 5 6HR Delta -2.91 ng/L (0-12)
[2024-01-22 22:54] LABS: Add Urine Microscopic? YES
[2024-01-22 22:55] LABS: Bilirubin Urine Neg (Negative); Blood Urine 3+ (Negative); Glucose Urine UA Norm (Normal); Ketones Urine Negative (Negative); Leukocyte Esterase Urine 2+ (Negative); Nitrate Urine Positive (Negative); Protein Urine 1+ (Negative); Specific Gravity, Urine 1.015 (1.005-1.030); Squamous Epithelial Cell Urine 0-4 /hpf (0-5); Urine Appearance Cloudy (CLEAR); Urine Color Yellow (Yellow); Urobilinogen Urine Neg (Negative); WBC Urine 15-25 /hpf (0-5); pH Urine 5 (5-7)
[2024-01-22 22:56] LABS: Amorphous Sediment Urine TRACE /hpf; Bacteria Urine 2+ /hpf; Fine Granular Casts Urine 0-4 /lpf; Hyaline Casts Urine 0-4 /lpf; Mucus Urine 1+ /hpf
[2024-01-22 22:57] LABS: Add Urine Culture? Yes
[2024-01-23] VITALS (16 sets, daily range): BP systolic 113–127; BP diastolic 68–84; PULSE 65–87; RESP 16–30; TEMP 36.4–36.8; O2SAT 92–100
[2024-01-23 03:34] LABS: ABG PH Result 7.29 (7.35-7.45); Arterial Blood Gas Hematocrit 31.6 % (42-52); Base Excess ABG 2.5 mmol/L (-2.0-2.0); Blood Gas Allen Test Pos; Blood Gas Sample Site Radial, right; Blood Gas Sample Type Arterial; HCO3 ABG 30.2 mmol/L (22-26); Oxygen Device BIPAP; PO2 FiO2 Ratio Arterial Blood 0
[2024-01-23 03:35] LABS: ABG PCO2 62.5 mmHg (35-45)
[2024-01-23 04:36] LABS: Basophils % 0.2 %; Hematocrit 35.4 % (37-53); Lymphocytes # 0.7 10^3/uL (0.8-4.8); Lymphocytes % 5.8 %; Mean Corpuscular HGB Conc 29.4 g/dL (30-55); Mean Corpuscular Hemoglobin 27.3 pg (27-33); Mean Corpuscular Volume 92.9 fl (82-101); Mean Platelet Volume 10.3 fL (7.4-10.4); Monocytes # 0.3 10^3/uL (0.2-0.9); Monocytes % 2.2 %; Neutrophils # 11.12 10^3/uL (1.8-7.7); Neutrophils % 91.3 %; Nucleated Red Blood Cells % 0 %; Platelet Count 222 10^3/cmm (157-399); Red Blood Count 3.81 10^6/uL (3.85-5.65); Red Cell Distribution Width 14.5 % (12.1-15.1); White Blood Count 12.18 10^3/uL (3.29-11.43)
[2024-01-23 04:58] LABS: Partial Thromboplastin Time 128.6 SECONDS (23.9-36.7)
[2024-01-23 04:59] LABS: Blood Urea Nitrogen 31 mg/dL (8-23); C Reactive Protein 24.8 mg/L (0.0-4.9); Calcium 8.8 mg/dL (8.5-10.5); Carbon Dioxide 30 mmol/L (22-29); Chloride 100 mmol/L (98-107); Creatinine Clr Calc Pharmacy 53.7603; Glucose 124 mg/dL (65-115); Magnesium 2.2 mg/dL (1.7-2.3); Osmolality Calculated 298 mOsm/kg (285-295); Phosphorus 4.8 mg/dL (2.5-4.5); Sodium 140 mmol/L (136-145)
--- NOTE | 2024-01-23 04:59 | PC.NURSE ---
PT WEIGHT weight of pt on admission on bed scale was 310lbs/140kg. weight for pt on heparin gtt in dec went off stated weight that was put in at ER, which was 303lbs. dosed off bed weight for accurate administration.
--- NOTE | 2024-01-23 06:13 | PC.NURSE ---
K+ 6.[address] [facility] hospitalist Carlton over AM lab result of K+ 6.0. telephone order given for 10 unit regular insulin IVP, 250mL D10% bolus, and early administration of scheduled 1mg bumex IVP to be given now instead of at scheduled time of 9am.
[2024-01-23] MEDS: piperacillin-tazobactam 3.375 GM in sodium chloride 0.9% (plus) 50 ML IV ×3 (06:16→20:18)
[2024-01-23] MEDS: metoprolol succinate ER (24 HR) 100 mg Tablet PO (06:17)
[2024-01-23] MEDS: bumetanide 0.25 mg/mL SDV 4 mL 1 MG IVP ×2 (06:17→20:16)
[2024-01-23] MEDS: dextrose 10% 250 ML 1000 ML IV (06:40)
[2024-01-23] MEDS: insulin regular-human 10 UNIT in SYRINGE 1 EACH IVP (06:40)
--- NOTE | 2024-01-23 09:42 | P.CONIM_ITS ---
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 Patient also has past medical history of COPD and extensive smoking history 1 pack/day 20 years quit in 1994. October 2022: Patient reported having had thoracentesis on right side (1000 cc ) and next day on left side (900 cc). exudative per light's criteria however unlikely parapneumonic effusion or empyema, LDH normal, Ph elevated. October 2023: Patient was has beent C/O months of intermittent cough with hemoptysis. He had CT chest 10/05/23 for hemoptysis and found to have right hilar mass and moderate right pleural effusion. 11/09/23: He underwent bronchoscopic inspection of airways as well as endobronchial ultrasound-guided biopsy of hilar mass/mediastinal lymph nodes on 11/09/2023-; there is near complete occlusion of right bronchus intermedius with infiltrating mass causing collapse of right middle lobe as well as right lower lobe. Biopsy of the right bronchus intermedius mass showed poorly differentiated squamous cell carcinoma. FNA biopsies of station 7 and station 11R showed metastatic poorly differentiated squamous cell carcinoma. By clinical evaluation, his disease is stage at least IIIA (T2, N2, M0). 12/01/23: Ultrasound-guided right thoracentesis with removal of approximately 1100 cc of sanguinous pleural fluid - Cytology negative for malignancy Feb 12/22/23: PET scan which confirmed the extent of disease in the chest and no evidence of metastatic disease. Intense abnormal uptake within the collapsed right lower lobe associated with occlusion of the bronchus intermedius the suggestive of primary lung malignancy contiguous with metastatic lymphadenopathy in the right hilum and the right subcarinal area. 01/05/2024-patient went for radiation therapy evaluation-however he was referred for outpatient thoracentesis to drain right Pleural effusion prior to simulation. She was drained 1600 cc pleural effusion. 01/12/2024: Port-A-Cath was placed in anticipation for chemotherapy 01/22/2024: Patient comes to emergency room complaining of worsening shortness of breath on exertion. Chest x-ray showed increased right pleural effusion. Showed and was placed on 4 L supplemental oxygen. ABG showed acidotic pH with CO2 62 (previously baseline CO2 around 80 with normal pH)-suspect metabolic component. CTA during admission showed filling defects in right pulmonary veins extending into right side of the left atrium consistent with thrombus/tumor. Patient tells me that he was previously on Eliquis 5 Mg twice daily for A-fib RVR-he had hematuria and hemoptysis and so he is Eliquis was cut down to 2.5 Mg twice daily which he is taking. His hematuria has resolved but he still have mild hemoptysis. With new findings of PE on CT chest--he is started on heparin. Pulmonary consult requested for worsening leg right pleural effusion and increasing oxygen requirement. Patient seen at bedside today-he is on BiPAP switched to 7 L nasal cannula-patient is comfortable, awake alert and communicative; she uses baseline 3 L oxygen at home Reported his breathing seems to be better since admission; as he is staying on bed and not exerting much Asking for coffee Review of Systems 2 General: Reports: 10 or more systems reviewed and unremarkable except in HPI and below Medications/Allergies Home Medications Medication Instructions Recorded Confirmed Last Taken Type albuterol sulfate 2.5 mg/3 mL 2.5 mg continuous nebulization Q6H 05/04/21 01/22/24 01/11/24 History (0.083 %) solution for nebulization PRN Shortness Of Breath amlodipine 10 mg tablet 10 mg PO QAM 05/04/21 01/22/24 01/22/24 History bupropion HCl 150 mg tablet,12 hr 150 mg PO BID 05/04/21 01/22/24 01/22/24 History sustained-release (Wellbutrin SR) fluoxetine 40 mg capsule 40 mg PO QAM 05/04/21 01/22/24 01/22/24 History simvastatin 20 mg tablet 20 mg PO QPM 05/04/21 01/22/24 01/21/24 History multivitamin 1 tab PO QAM 05/29/21 01/22/24 01/22/24 History fluticasone fur. 200 mcg-umeclid 1 inh inhalation DAILY 10/23/22 01/22/24 01/11/24 History 62.5 mcg-vilant 25 mcg inhalat.powder (Trelegy Ellipta) metoprolol succinate 100 mg 100 mg PO QAM 10/23/22 01/22/24 01/22/24 History tablet,extended release 24 hr spironolactone 25 mg tablet 25 mg PO QAM 10/27/23 01/22/24 01/22/24 History oxycodone 5 mg tablet 5 mg PO Q8H PRN pain #14 tabs 01/12/24 01/22/24 Unknown Rx apixaban 2.5 mg tablet (Eliquis) 2.5 mg PO BID 01/22/24 01/22/24 01/22/24 History bumetanide 1 mg tablet 1 mg PO BID PRN Edema 01/22/24 01/22/24 Unknown History famotidine 20 mg tablet 20 mg PO BID 01/22/24 01/22/24 01/22/24 History isosorbide mononitrate 30 mg 30 mg PO QAM 01/22/24 01/22/24 01/22/24 History tablet,extended release 24 hr losartan 25 mg tablet 25 mg PO BEDTIME 01/22/24 01/22/24 Unknown History nitroglycerin 0.4 mg sublingual 0.4 mg sublingual Q5M PRN Chest 01/22/24 01/22/24 Unknown History tablet (Nitrostat) Pain potassium chloride 8 mEq 8 meq PO QAM 01/22/24 01/22/24 01/22/24 History tablet,extended release tramadol 50 mg tablet 50 mg PO Q6H PRN Pain 01/22/24 01/22/24 Unknown History Allergies Allergy/AdvReac Type Severity Reaction Status Date / Time No Known Allergies Allergy Verified 01/22/24 14:34 Current Medications Generic Name Dose Route Start Last Admin Trade Name Freq PRN Reason Stop Dose Admin Atorvastatin Calcium 20 mg 01/22/24 21:29 01/22/24 21:41 Atorvastatin 40 Mg Tablet PO 20 mg QPM TRELL Administration Bumetanide 1 mg 01/22/24 21:15 01/23/24 06:17 Bumetanide 0.25 Mg/Ml Sdv 4 Ml IVP 1 mg Q12H TRELL Administration Heparin Sodium (Porcine) 0 unit 01/22/24 21:16 01/22/24 22:00 Heparin 5,000 Unit/Ml Inj 1 Ml IV 7,000 unit PRN PRN Administration Heparin weight-base protocol Protocol Piperacillin Sod/Tazobactam 50 mls @ 12.5 mls/hr 01/22/24 21:00 01/23/24 06:16 Sod 3.375 gm/ Sodium Chloride IV 12.5 mls/hr Q8H TRELL Administration Vancomycin/PEG/NADA/Lysine/Water 2,000 mg in 400 mls @ 200 mls/hr 01/22/24 22:00 01/23/24 00:14 Vancocin IV Infused Q24H TRELL Infusion Heparin Sodium/Sodium Chloride 25,000 unit in 500 mls @ 0 mls/hr 01/22/24 21:30 01/23/24 05:10 Heparin Drip IV 11.28 unit/kg/hr .Q0M TRELL 31 mls/hr Titration Protocol Per Protocol Losartan Potassium 25 mg 01/22/24 21:00 01/22/24 21:18 Losartan 50 Mg Tablet PO 25 mg BEDTIME TRELL Administration Metoprolol Succinate 100 mg 01/23/24 06:00 01/23/24 06:17 Metoprolol Succinate Er (24 Hr) 100 Mg Tablet PO 100 mg QAM TRELL Administration PFSH Acute 2 PFSH: Medical History Hyperlipidemia Hypertension Squamous cell lung cancer Atrial fibrillation Coronary stent patent Chronic kidney disease, stage II (mild) Sleep apnea Obesity hypoventilation syndrome BPH (benign prostatic hyperplasia) Morbid obesity B12 deficiency Diastolic congestive heart failure Chronic diarrhea Coronary artery disease Diabetes COPD (chronic obstructive pulmonary disease) 4L oxygen dependent Surgical History H/O left inguinal hernia repair Hx of tonsillectomy History of bronchoscopy (11/09/23) Bronchoscopy/EBUS History of coronary artery stent placement Family History Other Diabetes Social History Smoking and tobacco/nicotine status: former use of tobacco/nicotine Quit status (tobacco/nicotine): has quit using Year quit tobacco: 1994 Former quit date comment: Hx of 1 PPD x 20 Years Second hand smoke exposure: No Alcohol intake: never Substance/Drug Use: never Caregiver/support person: Yes Lives independently: Yes Household members: children Housing: House Marital status: / Current occupational status: retired and disabled Do you think of yourself as: Straight/Heterosexual Current gender identity: Male Vitals/I&O/Wt Last Vital Signs Temp 97.6 F 01/23/24 07:42 Pulse 73 01/23/24 09:20 Resp 18 01/23/24 07:42 BP 113/68 01/23/24 07:42 Pulse Ox 95 01/23/24 09:20 O2 Del Method Nasal Cannula 01/23/24 07:42 O2 Flow Rate 7 01/23/24 07:35 FiO2 40 01/23/24 09:20 01/22/24 01/23/24 01/23/24 22:59 06:59 14:59 Intake Total 727.55 / 727.55 610.1 / 610.1 Output Total 800 / 800 400 / 1200 Balance -800 / -800 327.55 / -472.45 610.1 / 610.1 Weight last 48 hrs Weight 319 lb 8 oz Weight 310 lb Weight 310 lb Weight 303 lb Physical Exam 2 Narrative: General: alert, NAD HEENT: conj clear, EOMI, PERRL, mmm, Neck: supple, no meningismus Heme: no cervical LAP Respiratory: Inspection: No visible deformity of the chest wall Palpation: Trachea is mildly deviated to the right, bilateral symmetric expansion Percussion: Dullness to percussion on right side lower lung zone Auscultation: Reduced breath sounds on right lower lung zone Cardiovascular: rrr, nl s1s2, no mrg Abdomen: soft, nt, nd, no r/g, bs+ Extremities: pulses +, no edema, no c/c : no CVA tenderness Skin: intact, no rash MSK: no back or neck pain Neurologic: grossly intact Urinary Catheter Management: Sanchez: Cath Placed During This Visit: yes Reason for Continuing Indwelling Catheter: Other Urinary Catheter Date of Insertion: 01/22/24 Urinary Catheter Time of Insertion: 22:00 Data 01/23/24 04:12 01/23/24 04:12 Other Labs: Radiology Impressions Chest X-Ray 01/22/24 14:32 IMPRESSION: 1. Right chest port terminates at the superior cavoatrial junction. 2. Increased large right pleural effusion. Stable small left pleural effusion. 3. Stable retrocardiac left lower lobe consolidation may represent atelectasis or pneumonia. Chest CTA 01/22/24 18:13 IMPRESSION: 1. There are filling defects in the right pulmonary veins extending into the right side of the left atrium consistent with thrombus and/or tumor. 2. Right perihilar mass lesion obscured by adjacent pulmonary consolidation. 3. Large right pleural effusion and moderate left pleural effusion with adjacent compressive atelectasis or pneumonia. Findings raise concern for congestive heart failure however the heart is not currently enlarged. 4. There is mediastinal and right perihilar lymphadenopathy. COMMENTS: The presence of pulmonary emphysema on CT is an independent risk factor for lung cancer. In the absence of a history or active diagnosis of lung cancer, it is recommended that this patient with emphysema be evaluated for enrollment in a low dose CT lung cancer screening program. Laboratory Results WBC 12.18 10^3/uL (3.29-11.43) H 01/23/24 04:12 RBC 3.81 10^6/uL (3.85-5.65) L 01/23/24 04:12 Hgb 10.40 g/dL (11.27-16.99) L 01/23/24 04:12 Hct 35.4 % (37-53) L 01/23/24 04:12 MCV 92.9 fl (82-101) 01/23/24 04:12 MCH 27.3 pg (27-33) 01/23/24 04:12 MCHC 29.4 g/dL (30-55) L 01/23/24 04:12 RDW 14.5 % (12.1-15.1) 01/23/24 04:12 Plt Count 222 10^3/cmm (157-399) 01/23/24 04:12 MPV 10.3 fL (7.4-10.4) 01/23/24 04:12 Neut % (Auto) 91.3 % 01/23/24 04:12 Lymph % (Auto) 5.8 % 01/23/24 04:12 [place] % (Auto) 2.2 % 01/23/24 04:12 Eos % (Auto) 0.0 % 01/23/24 04:12 Baso % (Auto) 0.2 % 01/23/24 04:12 Neut # (Auto) 11.12 10^3/uL (1.8-7.7) H 01/23/24 04:12 Lymph # (Auto) 0.7 10^3/uL (0.8-4.8) L 01/23/24 04:12 [place] # (Auto) 0.3 10^3/uL (0.2-0.9) 01/23/24 04:12 Eos # (Auto) 0.0 10^3/uL (0.0-0.8) 01/23/24 04:12 Baso # (Auto) 0.0 10^3/uL (0.0-0.1) 01/23/24 04:12 Nucleated RBC % (auto) 0 % 01/23/24 04:12 Nucleated RBCs # 0.0 /100WBC 01/23/24 04:12 APTT 128.6 SECONDS (23.9-36.7) H D 01/23/24 04:12 D-Dimer 3.15 ug/mLFEU (0-0.59) H 01/22/24 14:45 Specimen Type Arterial 01/23/24 03:28 Sample Site Radial, right 01/23/24 03:28 ABG pH 7.29 (7.35-7.45) L 01/23/24 03:28 ABG pCO2 62.5 mmHg (35-45) H* 01/23/24 03:28 ABG pO2 112.0 mmHg (80.0-100.0) H 01/23/24 03:28 ABG PO2/FiO2 Ratio 0 01/23/24 03:28 ABG HCO3 30.2 mmol/L (22-26) H 01/23/24 03:28 ABG Base Excess 2.5 mmol/L (-2.0-2.0) H 01/23/24 03:28 Uli Test Pos 01/23/24 03:28 Hematocrit 31.6 % (42-52) L 01/23/24 03:28 O2 Delivery Device Bipap 01/23/24 03:28 O2 Liters/Min 5.0 % 01/22/24 19:24 FiO2 50.0 % 01/23/24 03:28 PEEP 12.0 cmH20 01/23/24 03:28 Motion Graphics Designer ID [email or web address] 01/23/24 03:28 Sodium 140 mmol/L (136-145) 01/23/24 04:12 Potassium 6.0 mmol/L (3.5-5.1) H 01/23/24 04:12 Chloride 100 mmol/L (98-107) 01/23/24 04:12 Carbon Dioxide 30 mmol/L (22-29) H 01/23/24 04:12 Anion Gap 16.0 (5-19) 01/23/24 04:12 BUN 31 mg/dL (8-23) H 01/23/24 04:12 Creatinine 1.8 mg/dL (0.7-1.2) H 01/23/24 04:12 GFR Calculation Not Reportable 01/23/24 04:12 Glucose 124 mg/dL (65-115) H 01/23/24 04:12 Calculated Osmolality 298 mOsm/kg (285-295) H 01/23/24 04:12 Calcium 8.8 mg/dL (8.5-10.5) 01/23/24 04:12 Phosphorus 4.8 mg/dL (2.5-4.5) H 01/23/24 04:12 Magnesium 2.2 mg/dL (1.7-2.3) 01/23/24 04:12 Total Bilirubin 0.5 mg/dL (0.15-1.2) 01/22/24 14:49 AST 13 U/L (0-40) 01/22/24 14:49 ALT 7 U/L (0-41) 01/22/24 14:49 Alkaline Phosphatase 82 U/L (40-130) 01/22/24 14:49 Troponin T Baseline 28 ng/L (0-15) H 01/22/24 15:49 Troponin T 120 Minute 26.14 ng/L (0-15) H 01/22/24 18:23 Delta Troponin T -1.86 ABS# (0-10) L 01/22/24 18:23 Troponin T Hi Sens 6Hr 25.09 ng/L (0-15) H 01/22/24 21:55 Troponin T Hi Sens 6Hr Delta -2.91 ng/L (0-12) L 01/22/24 21:55 C-Reactive Protein 24.8 mg/L (0.0-4.9) H 01/23/24 04:12 Total Protein 6.7 g/dL (6.6-8.7) 01/22/24 14:49 Albumin 3.6 g/dL (3.5-5.2) 01/22/24 14:49 Globulin 3.1 g/dL (1.3-4.6) 01/22/24 14:49 Urine Color Yellow (Yellow) 01/22/24 22:00 Urine Appearance Cloudy (CLEAR) A 01/22/24 22:00 Urine pH 5 (5-7) 01/22/24 22:00 Ur Specific [place] 1.015 (1.005-1.030) 01/22/24 22:00 Urine Protein 1+ (Negative) H 01/22/24 22:00 Urine Glucose (UA) Norm (Normal) 01/22/24 22:00 Urine Ketones Negative (Negative) 01/22/24 22:00 Urine Blood 3+ (Negative) H 01/22/24 22:00 Urine Nitrate Positive (Negative) H 01/22/24 22:00 Urine Bilirubin Neg (Negative) 01/22/24 22:00 Urine Urobilinogen Neg mg/dL (Negative) 01/22/24 22:00 Ur Leukocyte Esterase 2+ (Negative) H 01/22/24 22:00 Urine RBC 5-10 /hpf (0-2) H 01/22/24 22:00 Urine WBC 15-25 /hpf (0-5) H 01/22/24 22:00 Ur Squamous Epith Cells 0-4 /hpf (0-5) H 01/22/24 22:00 Amorphous Sediment Trace /hpf 01/22/24 22:00 Urine Bacteria 2+ /hpf (NONE) H 01/22/24 22:00 Hyaline Casts 0-4 /lpf H 01/22/24 22:00 Fine Granular Casts 0-4 /lpf H 01/22/24 22:00 Urine Mucus 1+ /hpf 01/22/24 22:00 A&P Assessment and plan (1) Acute hypoxic on chronic hypercapnic respiratory failure: patient uses baseline 3 L oxygen at home Here is requiring 5 L supplemental oxygen-this could be secondary to small pulmonary emboli/right pleural effusion (2) Pulmonary embolism: CTA 01/22/2024 showed filling defects in the right pulmonary veins extending into the right side of the left atrium consistent with thrombus and/or tumor. Patient is hemodynamically stable-saturating 93% on 5 L supplemental oxygen Patient tells me that he was previously on Eliquis 5 Mg twice daily for A-fib RVR-he had hematuria and hemoptysis and so he is Eliquis was cut down to 2.5 Mg twice daily which he is taking. His hematuria has resolved but he still have mild hemoptysis. With new findings of suspected PE on CT chest--he is started on heparin. Will monitor for signs and symptoms of bleeding. Will obtain echocardiogram to check for RV strain and clot seen left atrium Qualifiers: Pulmonary embolism type: unspecified Chronicity: acute Acute cor pulmonale presence: unspecified Qualified Code(s): I26.99 - Other pulmonary embolism without acute cor pulmonale (3) Pleural effusion, right: Recurrent right pleural effusion Reports having thoracentesis October 2022-transudative Second thoracentesis 11/30/2023-1100 cc hemorrhagic fluid [id number]-flvddanb negative for malignancy Prior thoracentesis 01/05/20245322-8941 cc fluid removed Imaging shows worsening right lung opacification suggestive of worsening pleural effusion however review of PET/CT shows significantly elevated uptake in atelectatic right lung suggestive of malignant mass within the right pleural cavity. Bronchoscopy 11/09/2023-showed near complete occlusion of right bronchus intermedius-which is contributing to collapse of right lower lobe/right middle lobe-causing trapped lung and contributing to majority of his pleural effusion. Even though patient is getting recurrent thoracentesis- postthoracentesis-there is no significant improvement in his right lower lobe opacification-suggestive of incomplete expansion as well as existence of lung mass. For now we will continue heparin to treat his pulmonary emboli which may be contributing to his current increase in oxygen requirements. 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 There is also show risk of infection associated with an indwelling Pleurx catheter. Patient verbalized understanding and agreed to go ahead with drain placement knowing the complications and may not give him significant relief. His previous echocardiogram October 2022-normal LV size systolic function; LVEF 60%; possible septal hypokinesis. We are repeating Echocardiogram today He is currently on Bumex 1 Mg every 12. (4) Chronic hypercapnic respiratory failure: Patient had underlying COPD-uses 3 L supplemental oxygen Previous admissions he had baseline CO2 60s to 70s This admission even with CO2 65-pH is 7.25-suspect if he has underlying metabolic lactic acidosis secondary to underlying tumor-I am going to obtain lactate levels (5) COPD (chronic obstructive pulmonary disease): Patient was using Trelegy 1 puff daily Currently is not in exacerbation-we can use DuoNeb nebulization as needed. 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 Biopsy of the right bronchus intermedius mass showed poorly differentiated squamous cell carcinoma. FNA biopsies of station 7 and station 11R showed metastatic poorly differentiated squamous cell carcinoma. By clinical evaluation, his disease is stage at least IIIA (T2, N2, M0). 12/01/23: Ultrasound-guided right thoracentesis with removal of approximately 1100 cc of sanguinous pleural fluid - Cytology negative for malignancy Fe12/22/23: PET scan which confirmed the extent of disease in the chest and no evidence of metastatic disease. Intense abnormal uptake within the collapsed right lower lobe associated with occlusion of the bronchus intermedius the suggestive of primary lung malignancy contiguous with metastatic lymphadenopathy in the right hilum and the right subcarinal area. 01/05/2024-patient went for radiation therapy evaluation-however he was referred for outpatient thoracentesis to drain right Pleural effusion prior to simulation. She was drained 1600 cc pleural effusion. 01/12/2024: Port-A-Cath was placed in anticipation for chemotherapy (7) Hyperkalemia: Potassium 6 Patient received dextrose plus insulin Will repeat BMP in the afternoon Plan Overall patient has grave prognosis-with extensive right lower lung cancer and suspected tumor emboli-still not on chemotherapy versus small pulmonary emboli with significant bleeding risk with anticoagulation. Consult Attestations 2 Medical Necessity Statement: He will stay in hospital 24 to 48 hours-on heparin drip Time Spent in Patient Care: Greater than 35 minutes (>than 50% of time spent in counselling and/or direct pt care on unit) . 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
[2024-01-23] MEDS: famotidine 20 mg Tablet PO ×2 (10:18→17:35)
[2024-01-23] MEDS: sennosides-docusate Tablet 1 TAB PO (10:18)
[2024-01-23] MEDS: buPROPion SR (12 HR) 150 mg Tablet PO ×2 (10:18→17:34)
--- NOTE | 2024-01-23 10:36 | USCV_ITS ---
Juan Jose Lamb Age: 73 Gender: M : 1950 Exam Date: 01/23/2024 11:26 Ordering Phys: Sriram Yang MD Technologist: Rui Francis Exam Location: [facility] [place] Indication: SUSPECTED CLOT IN LEFT ATRIUM BP: 113 / 68 HR: 72 Rhythm: Sinus Technical Quality: Adequate MEASUREMENTS (Male / Female) Normal Values 2D ECHO LVOT Diameter 2.0 cm LV Ejection Fraction MOD 2C 62.4 % LV Ejection Fraction 2C AL 63.6 % LA Diameter 5.5 cm RA Systolic Volume 4C AL 55.5 ml RA Systolic Volume 4C MOD 54.9 ml Aorta at Sinotubular Diameter 2.7 cm M-MODE LA Ao Ratio MM 1.3 AV Cusp Separation MM 2.6 cm DOPPLER AV Peak Velocity 130.0 cm/s LVOT Peak Velocity 79.0 cm/s AV Area Cont Eq vti 2.4 cm squared AV Area Cont Eq pk 1.9 cm squared MV Peak Velocity 140.0 cm/s MV Area PHT 9.7 cm squared Mitral E to A Ratio 4.0 TR Peak Velocity 298.0 cm/s TR Peak Gradient 35.5 mmHg TR Mean Velocity 229.0 cm/s TR Mean Gradient 22.9 mmHg TR Velocity Time Integral 83.3 cm PV Peak Velocity 99.0 cm/s RV Ejection Time 0.3 s FINDINGS Left Ventricle Left ventricle is normal size. LV systolic function is normal with EF of 60 to 65%. No regional wall motion abnormalities are seen. Right Ventricle Normal in size and function Right Atrium Normal in size Left Atrium Dilated. There is 3.2 x 4.1 cm echogenic structure/mass seen in upper portion of left atrium.This may represent thrombus Mitral Valve Mild mitral annular calcification seen. Mild mitral regurgitation. Aortic Valve Structurally normal aortic valve. No significant stenosis or regurgitation. Tricuspid Valve Mild tricuspid regurgitation. Insufficient TR jet to calculate RVSP Pulmonic Valve Not well visualized Pericardium Normal Aorta Normal in size IVC Not visualized CONCLUSIONS LV systolic function is normal with EF of 60-65% Dilated left atrium. There is 3.2 x 4.1 cm echogenic structure/mass seen in upper portion of left atrium.This may represent thrombus Mild mitral regurgitation Mild tricuspid regurgitation Compared to prior echocardiogram from 2021, left atrial mass/structure is new. Can further evaluate with cardiac CT/MRI vs TEJ. Broderick Bell MD (Electronically Signed) Final Date: 23 January 2024 12:40 S
[2024-01-23 11:04] LABS: Ketone (Acetest) Serum Negative (Negative)
[2024-01-23 11:11] LABS: Lactate (Lactic Acid level) 2.4 mmol/L (0.5-2.2)
[2024-01-23 11:16] LABS: Partial Thromboplastin Time 99.2 SECONDS (23.9-36.7)
[2024-01-23] MEDS: heparin drip 25,000 UNIT/500 ML PREMIX 23 UNIT IV (12:59)
[2024-01-23 15:50] LABS: Alanine Aminotransferase 7 U/L (0-41); Albumin Level 3.7 g/dL (3.5-5.2); Alkaline Phosphatase 80 U/L (40-130); Anion Gap 21.1 (5-19); Aspartate Amino Transferase 13 U/L (0-40); Blood Urea Nitrogen 37 mg/dL (8-23); Calcium 8.9 mg/dL (8.5-10.5); Carbon Dioxide 24 mmol/L (22-29); Chloride 99 mmol/L (98-107); Globulin 3.2 g/dL (1.3-4.6); Glucose 118 mg/dL (65-115); Osmolality Calculated 298 mOsm/kg (285-295); Potassium 5.1 mmol/L (3.5-5.1); Sodium 139 mmol/L (136-145); Total Bilirubin 0.4 mg/dL (0.15-1.2); Total Protein 6.9 g/dL (6.6-8.7)
[2024-01-23 15:59] LABS: Creatinine Clr Calc Pharmacy 49.1742
--- NOTE | 2024-01-23 16:05 | P.PN_ITS ---
Subjective 2 Subjective: CTA of the chest and follow-up echocardiogram showed 3.2 x 4.1 cm echogenic structure/mass seen in the upper portion of the left atrium possibly representing a thrombus versus extension of tumor process. Medications: Reviewed: Yes Vitals/I&O/Wt Last Vital Signs Temp 97.6 F 01/23/24 11:00 Pulse 78 01/23/24 15:12 Resp 20 H 01/23/24 11:00 BP 121/75 01/23/24 11:00 Pulse Ox 94 01/23/24 15:12 O2 Del Method Nasal Cannula 01/23/24 11:00 O2 Flow Rate 6 01/23/24 09:35 FiO2 40 01/23/24 15:12 01/23/24 01/23/24 01/23/24 06:59 14:59 22:59 Intake Total 727.55 / 727.55 1362.550 / 1362.550 Output Total 400 / 1200 550 / 550 Balance 327.55 / -472.45 812.550 / 812.550 Weight last 48 hrs Weight 144.923 kg Weight 140.614 kg Weight 140.614 kg Weight 137.438 kg Physical Exam 2 Urinary Catheter Management: Sanchez: Cath Placed During This Visit: yes Reason for Continuing Indwelling Catheter: Other Urinary Catheter Date of Insertion: 01/22/24 Urinary Catheter Time of Insertion: 22:00 Data 01/23/24 04:12 01/23/24 10:46 A&P Assessment and plan (1) Acute on chronic diastolic (congestive) heart failure: (2) Chronic atrial fibrillation: (3) D-dimer, elevated: (4) Diabetes: Qualifiers: Diabetes mellitus type: type 2 Diabetes mellitus fdc insulin use: without independent sales representative use Diabetes mellitus complication status: without complication Qualified Code(s): E11.9 - Type 2 diabetes mellitus without complications (5) Obesity hypoventilation syndrome: (6) COPD (chronic obstructive pulmonary disease): Qualifiers: COPD type: emphysema Emphysema type: centrilobular Qualified Code(s): J43.2 - Centrilobular emphysema (7) Acute exacerbation of chronic obstructive airways disease: (8) Hilar mass: (9) Large pleural effusion: (10) Chronic kidney disease: (11) Acute hypoxic on chronic hypercapnic respiratory failure: Plan Acute hypoxic hypercapnic respite failure COPD exacerbation Related to underlying malignancy Concern for extension of tumor into left atrial right pulmonary vein Last Eliquis dose was 9 AM this morning I will switch him to heparin drip He will be able to get Pleurx catheter until Wednesday Spoke with Dr. Benitez who is in agreement I will let him have cardiac diet for tonight I have started him on BiPAP Repeat ABG at 9:30 PM Recurrent pleural effusion Will need Pleurx catheter Large hilar mass Significant atelectasis Will treat him with broad-spectrum antibiotics for now He is afebrile Patient has history of sleep apnea Currently I would continue BiPAP Will put him on cardiac diet Acute diastolic CHF exacerbation Will put him on Bumex every [address] a Sanchez catheter for accurate output Full code goals of care discussed with the patient, He lives with his son Uses a wheelchair Lives 1 hour away from the hospital Poorly differentiated lung cancer stage III, has not started chemo or radiotherapy yet Patient got Mediport placed Plan for today : 01/23/24 : CTA chest and echocardiogram show mass in the left atrium which likely represents thrombus versus extension of malignant process. Discussed case with cardiology on-call. TEJ would likely not be able to delineate mass from thrombus given high riding location. Likely patient will not be a candidate for clot extraction due to high risk of embolization. Recommended to obtain cardiac MRI to be able to differentiate between the 2 processes. We are unable to get a cardiac MRI at our institution. Will attempt to transfer, patient prefers a hospital in [place] over [place]. In the interim continue heparin drip. Appreciate pulmonology and cardiology recommendations. Noted to have hyperkalemia this morning. Received insulin and dextrose. Recheck CMP now. Attestations 2 Medical Necessity Statement*: Continued need for heparin drip, plan Pleurx catheter, cardiac findings as above. Coding Level of Care Code Acute Code for Chg Fwd Diagnoses Acute on chronic diastolic (congestive) heart failure I50.33 Chronic atrial fibrillation I48.20 D-dimer, elevated R79.89 Type 2 diabetes mellitus without complication, without long-term current use of insulin E11.9 Diabetes mellitus type: type 2 Diabetes mellitus fdc insulin use: without independent sales representative use Diabetes mellitus complication status: without complication Obesity hypoventilation syndrome E66.2 Centrilobular emphysema J43.2 COPD type: emphysema Emphysema type: centrilobular Acute exacerbation of chronic obstructive airways disease J44.1 Hilar mass R91.8 Large pleural effusion J90 Chronic kidney disease N18.9 Acute hypoxic on chronic hypercapnic respiratory failure J96.01; J96.12
[2024-01-23] MEDS: atorvastatin 40 mg Tablet 20 MG PO (17:34)
[2024-01-23 19:51] LABS: Partial Thromboplastin Time 42.2 SECONDS (23.9-36.7)
[2024-01-23] MEDS: heparin 5,000 unit/mL INJ 1 mL IV (20:56)
[2024-01-23] MEDS: vancomycin 2,000 MG/400 ML PIGGYBACK 200 MG IV (21:00)
--- NOTE | 2024-01-23 22:10 | W.PM.EVENTAC ---
Event Note Event Note: Spoke with [facility] vascular surgery Dr. Singh Vascular surgery was questioning the indication for transfer, there is no vascular intervention for pulmonary vein, they would still treat the patient with heparin which she is already on at this hospital For intracardiac mass further management could be discussed with the cardiothoracic surgery if needed Cardiac MRI could be done outpatient as well
[2024-01-24] VITALS (15 sets, daily range): BP systolic 105–166; BP diastolic 45–91; PULSE 63–85; RESP 16–22; TEMP 36.1–36.7; O2SAT 92–97
[2024-01-24] MEDS: ALPRAZolam 0.5 mg Tablet PO (02:30)
[2024-01-24 02:43] LABS: Platelet Count 200 10^3/cmm (157-399)
[2024-01-24 02:57] LABS: Partial Thromboplastin Time 69.8 SECONDS (23.9-36.7)
[2024-01-24] MEDS: metoprolol succinate ER (24 HR) 100 mg Tablet PO (05:29)
[2024-01-24] MEDS: piperacillin-tazobactam 3.375 GM in sodium chloride 0.9% (plus) 50 ML IV ×3 (05:29→20:40)
--- NOTE | 2024-01-24 08:23 | P.PN_ITS ---
Subjective 2 Subjective: Patient seen at bedside today morning-he was on BiPAP-switch to 6 L high flow nasal cannula As he is CTA of the chest showed clot in left atrium-a follow-up echocardiogram showed 3.2 x 4.1 cm echogenic structure/mass seen in the upper portion of the left atrium possibly representing a thrombus versus extension of tumor process. Recommended cardiac MRI. As there is no intervention for pulmonary vein/left side thrombus-recommendation was to continue anticoagulation; vascular surgery at [facility] were consulted and recommendations appreciated. Informed patient about his high risk for developing stroke and the need to continue anticoagulation. It is to be noted that previously he was on Eliquis 5 Mg twice daily for A-fib RVR-which caused him hematuria and hemoptysis-dose reduced to 2.5 Mg twice daily and his hematuria improved but mild hemoptysis continued. Now with ongoing anticoagulation-he needs close monitoring for bleeding. I reiterated that placing a West drain into the pleural effusion due to trapped lung will not yield significant benefit and as he is relatively stable with slight increase in his FiO2 requirements-we will defer [place] drain placement.he would benefit from endobronchial tumor debulking-which is responsible for right lower lung and middle lobe atelectasis causing trapped lung and recurrent fluid accumulation. However given his ongoing anticoagulation he may not be a candidate for tumor debulking at this point of time. Recommended to consult interventional pulmonary in [place] and get their opinion/arrange for follow-up prior to discharge. Overall explained in detail patient about the grave prognosis-given clot in left atrium with high risk for for developing stroke; need for tumor debulking at higher facility while still needing to receive his chemotherapy/radiation for underlying cancer. Medications: Reviewed: Yes Vitals/I&O/Wt Last Vital Signs Temp 97.8 F 01/24/24 08:00 Pulse 77 01/24/24 08:19 Resp 18 01/24/24 08:19 BP 126/59 01/24/24 08:00 Pulse Ox 92 01/24/24 08:19 O2 Del Method High Flow Nasal Cannula 01/24/24 08:19 O2 Flow Rate 6 01/24/24 08:19 FiO2 40 01/23/24 23:56 01/23/24 01/24/24 01/24/24 22:59 06:59 14:59 Intake Total 1415.6 / 2778.150 664.6 / 3442.750 240 / 240 Output Total 1200 / 1750 400 / 2150 Balance 215.6 / 1028.150 264.6 / 1292.750 240 / 240 Weight last 48 hrs Weight 322 lb Weight 319 lb 8 oz Weight 310 lb Weight 310 lb Weight 303 lb Physical Exam 2 Narrative: General: alert, NAD HEENT: conj clear, EOMI, PERRL, mmm, Neck: supple, no meningismus Heme: no cervical LAP Respiratory: Inspection: No visible deformity of the chest wall Palpation: Trachea is mildly deviated to the right, bilateral symmetric expansion Percussion: Dullness to percussion on right side lower lung zone Auscultation: Reduced breath sounds on right lower lung zone Cardiovascular: rrr, nl s1s2, no mrg Abdomen: soft, nt, nd, no r/g, bs+ Extremities: pulses +, no edema, no c/c : no CVA tenderness Skin: intact, no rash MSK: no back or neck pain Neurologic: grossly intact Urinary Catheter Management: Sanchez: Cath Placed During This Visit: yes Reason for Continuing Indwelling Catheter: Other Urinary Catheter Date of Insertion: 01/22/24 Urinary Catheter Time of Insertion: 22:00 Data 01/24/24 02:20 01/23/24 10:46 Other Labs: Radiology Impressions Chest X-Ray 01/22/24 14:32 IMPRESSION: 1. Right chest port terminates at the superior cavoatrial junction. 2. Increased large right pleural effusion. Stable small left pleural effusion. 3. Stable retrocardiac left lower lobe consolidation may represent atelectasis or pneumonia. Chest CTA 01/22/24 18:13 IMPRESSION: 1. There are filling defects in the right pulmonary veins extending into the right side of the left atrium consistent with thrombus and/or tumor. 2. Right perihilar mass lesion obscured by adjacent pulmonary consolidation. 3. Large right pleural effusion and moderate left pleural effusion with adjacent compressive atelectasis or pneumonia. Findings raise concern for congestive heart failure however the heart is not currently enlarged. 4. There is mediastinal and right perihilar lymphadenopathy. COMMENTS: The presence of pulmonary emphysema on CT is an independent risk factor for lung cancer. In the absence of a history or active diagnosis of lung cancer, it is recommended that this patient with emphysema be evaluated for enrollment in a low dose CT lung cancer screening program. Laboratory Results WBC 12.18 10^3/uL (3.29-11.43) H 01/23/24 04:12 RBC 3.81 10^6/uL (3.85-5.65) L 01/23/24 04:12 Hgb 10.40 g/dL (11.27-16.99) L 01/23/24 04:12 Hct 35.4 % (37-53) L 01/23/24 04:12 MCV 92.9 fl (82-101) 01/23/24 04:12 MCH 27.3 pg (27-33) 01/23/24 04:12 MCHC 29.4 g/dL (30-55) L 01/23/24 04:12 RDW 14.5 % (12.1-15.1) 01/23/24 04:12 Plt Count 200 10^3/cmm (157-399) 01/24/24 02:20 MPV 10.3 fL (7.4-10.4) 01/23/24 04:12 Neut % (Auto) 91.3 % 01/23/24 04:12 Lymph % (Auto) 5.8 % 01/23/24 04:12 Tripp % (Auto) 2.2 % 01/23/24 04:12 Eos % (Auto) 0.0 % 01/23/24 04:12 Baso % (Auto) 0.2 % 01/23/24 04:12 Neut # (Auto) 11.12 10^3/uL (1.8-7.7) H 01/23/24 04:12 Lymph # (Auto) 0.7 10^3/uL (0.8-4.8) L 01/23/24 04:12 Tripp # (Auto) 0.3 10^3/uL (0.2-0.9) 01/23/24 04:12 Eos # (Auto) 0.0 10^3/uL (0.0-0.8) 01/23/24 04:12 Baso # (Auto) 0.0 10^3/uL (0.0-0.1) 01/23/24 04:12 Nucleated RBC % (auto) 0 % 01/23/24 04:12 Nucleated RBCs # 0.0 /100WBC 01/23/24 04:12 APTT 53.1 SECONDS (23.9-36.7) H 01/24/24 08:48 D-Dimer 3.15 ug/mLFEU (0-0.59) H 01/22/24 14:45 Specimen Type Arterial 01/23/24 03:28 Sample Site Radial, right 01/23/24 03:28 ABG pH 7.29 (7.35-7.45) L 01/23/24 03:28 ABG pCO2 62.5 mmHg (35-45) H* 01/23/24 03:28 ABG pO2 112.0 mmHg (80.0-100.0) H 01/23/24 03:28 ABG PO2/FiO2 Ratio 0 01/23/24 03:28 ABG HCO3 30.2 mmol/L (22-26) H 01/23/24 03:28 ABG Base Excess 2.5 mmol/L (-2.0-2.0) H 01/23/24 03:28 Uli Test Pos 01/23/24 03:28 Hematocrit 31.6 % (42-52) L 01/23/24 03:28 O2 Delivery Device Bipap 01/23/24 03:28 O2 Liters/Min 5.0 % 01/22/24 19:24 FiO2 50.0 % 01/23/24 03:28 PEEP 12.0 cmH20 01/23/24 03:28 Cellophane Bag Machine Operator ID [email or web address] 01/23/24 03:28 Sodium 139 mmol/L (136-145) 01/23/24 10:46 Potassium 5.1 mmol/L (3.5-5.1) 01/23/24 10:46 Chloride 99 mmol/L (98-107) 01/23/24 10:46 Carbon Dioxide 24 mmol/L (22-29) 01/23/24 10:46 Anion Gap 21.1 (5-19) H 01/23/24 10:46 BUN 37 mg/dL (8-23) H 01/23/24 10:46 Creatinine 2.0 mg/dL (0.7-1.2) H 01/23/24 10:46 GFR Calculation Not Reportable 01/23/24 10:46 Glucose 118 mg/dL (65-115) H 01/23/24 10:46 Calculated Osmolality 298 mOsm/kg (285-295) H 01/23/24 10:46 Lactate 2.4 mmol/L (0.5-2.2) H 01/23/24 10:46 Calcium 8.9 mg/dL (8.5-10.5) 01/23/24 10:46 Phosphorus 4.8 mg/dL (2.5-4.5) H 01/23/24 04:12 Magnesium 2.2 mg/dL (1.7-2.3) 01/23/24 04:12 Total Bilirubin 0.4 mg/dL (0.15-1.2) 01/23/24 10:46 AST 13 U/L (0-40) 01/23/24 10:46 ALT 7 U/L (0-41) 01/23/24 10:46 Alkaline Phosphatase 80 U/L (40-130) 01/23/24 10:46 Troponin T Baseline 28 ng/L (0-15) H 01/22/24 15:49 Troponin T 120 Minute 26.14 ng/L (0-15) H 01/22/24 18:23 Delta Troponin T -1.86 ABS# (0-10) L 01/22/24 18:23 Troponin T Hi Sens 6Hr 25.09 ng/L (0-15) H 01/22/24 21:55 Troponin T Hi Sens 6Hr Delta -2.91 ng/L (0-12) L 01/22/24 21:55 C-Reactive Protein 24.8 mg/L (0.0-4.9) H 01/23/24 04:12 Total Protein 6.9 g/dL (6.6-8.7) 01/23/24 10:46 Albumin 3.7 g/dL (3.5-5.2) 01/23/24 10:46 Globulin 3.2 g/dL (1.3-4.6) 01/23/24 10:46 Urine Color Yellow (Yellow) 01/22/24 22:00 Urine Appearance Cloudy (CLEAR) A 01/22/24 22:00 Urine pH 5 (5-7) 01/22/24 22:00 Ur Specific [place] 1.015 (1.005-1.030) 01/22/24 22:00 Urine Protein 1+ (Negative) H 01/22/24 22:00 Urine Glucose (UA) Norm (Normal) 01/22/24 22:00 Urine Ketones Negative (Negative) 01/22/24 22:00 Urine Blood 3+ (Negative) H 01/22/24 22:00 Urine Nitrate Positive (Negative) H 01/22/24 22:00 Urine Bilirubin Neg (Negative) 01/22/24 22:00 Urine Urobilinogen Neg mg/dL (Negative) 01/22/24 22:00 Ur Leukocyte Esterase 2+ (Negative) H 01/22/24 22:00 Urine RBC 5-10 /hpf (0-2) H 01/22/24 22:00 Urine WBC 15-25 /hpf (0-5) H 01/22/24 22:00 Ur Squamous Epith Cells 0-4 /hpf (0-5) H 01/22/24 22:00 Amorphous Sediment Trace /hpf 01/22/24 22:00 Urine Bacteria 2+ /hpf (NONE) H 01/22/24 22:00 Hyaline Casts 0-4 /lpf H 01/22/24 22:00 Fine Granular Casts 0-4 /lpf H 01/22/24 22:00 Urine Mucus 1+ /hpf 01/22/24 22:00 Serum Ketones Negative (Negative) 01/23/24 10:46 A&P Assessment and plan (1) Acute hypoxic on chronic hypercapnic respiratory failure: patient uses baseline 3 L oxygen at home Here is requiring 5 L supplemental oxygen-this could be secondary to small pulmonary emboli/right pleural effusion (2) Pulmonary embolism: CTA 01/22/2024 showed filling defects in the right pulmonary veins extending into the right side of the left atrium consistent with thrombus and/or tumor. Patient is hemodynamically stable-saturating 93% on 5 L supplemental oxygen Patient tells me that he was previously on Eliquis 5 Mg twice daily for A-fib RVR-he had hematuria and hemoptysis and so he is Eliquis was cut down to 2.5 Mg twice daily which he is taking. His hematuria has resolved but he still have mild hemoptysis. With new findings of suspected PE on CT chest--he is started on heparin. Will monitor for signs and symptoms of bleeding. As he is CTA of the chest showed clot in left atrium-a follow-up echocardiogram showed 3.2 x 4.1 cm echogenic structure/mass seen in the upper portion of the left atrium possibly representing a thrombus versus extension of tumor process. Recommended cardiac MRI. As there is no intervention for pulmonary vein/left side thrombus-recommendation was to continue anticoagulation; vascular surgery at [facility] were consulted and recommendations appreciated. Informed patient about his high risk for developing stroke and the need to continue anticoagulation. It is to be noted that previously he was on Eliquis 5 Mg twice daily for A-fib RVR-which caused him hematuria and hemoptysis-dose reduced to 2.5 Mg twice daily and his hematuria improved but mild hemoptysis continued. Now with ongoing anticoagulation-he needs close monitoring for bleeding. After 48 hours of heparin switch to Eliquis send patient can be discharged outpatient Qualifiers: Pulmonary embolism type: unspecified Chronicity: acute Acute cor pulmonale presence: unspecified Qualified Code(s): I26.99 - Other pulmonary embolism without acute cor pulmonale (3) Pleural effusion, right: Recurrent right pleural effusion Reports having thoracentesis October 2022-transudative Second thoracentesis 11/30/2023-1100 cc hemorrhagic fluid lttjqkp-[id number]-ewsufuab negative for malignancy Prior thoracentesis 01/05/20246230-7498 cc fluid removed Imaging shows worsening right lung opacification suggestive of worsening pleural effusion however review of PET/CT shows significantly elevated uptake in atelectatic right lung suggestive of malignant mass within the right pleural cavity. Bronchoscopy 11/09/2023-showed near complete occlusion of right bronchus intermedius-which is contributing to collapse of right lower lobe/right middle lobe-causing trapped lung and contributing to majority of his pleural effusion. Even though patient is getting recurrent thoracentesis- postthoracentesis-there is no significant improvement in his right lower lobe opacification-suggestive of incomplete expansion as well as existence of lung mass. For now we will continue heparin to treat his pulmonary emboli which may be contributing to his current increase in oxygen requirements. I reiterated that placing a West drain into the pleural effusion due to trapped lung will not yield significant benefit and as he is relatively stable with slight increase in his FiO2 requirements-we will defer [place] drain placement.he would benefit from debulking endobronchial tumor -which is responsible for right lower lung and middle lobe atelectasis causing trapped lung and recurrent fluid accumulation. However given his ongoing anticoagulation he may not be a candidate for tumor debulking at this point of time. However recommended to consult interventional pulmonary in [place] and get their opinion/arrange for follow-up prior to discharge. Overall explained in detail patient about the grave prognosis-given clot in left atrium with high risk for for developing stroke; need for tumor debulking at higher facility while still needing to receive his chemotherapy/radiation for underlying cancer. He is currently on Bumex 1 Mg every 12. (4) Chronic hypercapnic respiratory failure: Patient had underlying COPD-uses 3 L supplemental oxygen Previous admissions he had baseline CO2 60s to 70s This admission even with CO2 65-pH is 7.25-suspect if he has underlying metabolic lactic acidosis secondary to underlying tumor-I am going to obtain lactate levels (5) COPD (chronic obstructive pulmonary disease): Patient was using Trelegy 1 puff daily Currently is not in exacerbation-we can use DuoNeb nebulization as needed. 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 Biopsy of the right bronchus intermedius mass showed poorly differentiated squamous cell carcinoma. FNA biopsies of station 7 and station 11R showed metastatic poorly differentiated squamous cell carcinoma. By clinical evaluation, his disease is stage at least IIIA (T2, N2, M0). 12/01/23: Ultrasound-guided right thoracentesis with removal of approximately 1100 cc of sanguinous pleural fluid - Cytology negative for malignancy Feb 12/22/23: PET scan which confirmed the extent of disease in the chest and no evidence of metastatic disease. Intense abnormal uptake within the collapsed right lower lobe associated with occlusion of the bronchus intermedius the suggestive of primary lung malignancy contiguous with metastatic lymphadenopathy in the right hilum and the right subcarinal area. 01/05/2024-patient went for radiation therapy evaluation-however he was referred for outpatient thoracentesis to drain right Pleural effusion prior to simulation. She was drained 1600 cc pleural effusion. 01/12/2024: Port-A-Cath was placed in anticipation for chemotherapy Overall explained in detail patient about the grave prognosis-given clot in left atrium with high risk for for developing stroke; need for tumor debulking at higher facility while still needing to receive his chemotherapy/radiation for underlying cancer. Plan Overall patient has grave prognosis-with extensive right lower lung cancer and suspected tumor emboli-still not on chemotherapy versus small pulmonary emboli with significant bleeding risk with anticoagulation. Attestations 2 Medical Necessity Statement*: Currently on heparin GTT Time Spent in Patient Care: Greater than 35 minutes (>than 50% of time spent in counselling and/or direct pt care on unit) . 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
[2024-01-24] MEDS: heparin drip 25,000 UNIT/500 ML PREMIX 29 UNIT IV (08:28)
[2024-01-24] MEDS: famotidine 20 mg Tablet PO ×2 (08:32→17:44)
[2024-01-24] MEDS: sennosides-docusate Tablet 1 TAB PO (08:32)
[2024-01-24] MEDS: bumetanide 0.25 mg/mL SDV 4 mL 1 MG IVP ×2 (08:33→20:40)
[2024-01-24] MEDS: buPROPion SR (12 HR) 150 mg Tablet PO ×2 (08:33→17:43)
--- NOTE | 2024-01-24 08:48 | P.PN_ITS ---
Subjective 2 Subjective: Seen this morning. Patient currently on 5 L nasal cannula. Resting comfortably in bed. Denies any complaints at this time. Vitals/I&O/Wt Last Vital Signs Temp 97.8 F 01/24/24 08:00 Pulse 77 01/24/24 08:19 Resp 18 01/24/24 08:19 BP 126/59 01/24/24 08:00 Pulse Ox 92 01/24/24 08:19 O2 Del Method High Flow Nasal Cannula 01/24/24 08:19 O2 Flow Rate 6 01/24/24 08:19 FiO2 40 01/23/24 23:56 01/23/24 01/24/24 01/24/24 22:59 06:59 14:59 Intake Total 1415.6 / 2778.150 664.6 / 3442.750 359.8 / 359.8 Output Total 1200 / 1750 400 / 2150 Balance 215.6 / 1028.150 264.6 / 1292.750 359.8 / 359.8 Weight last 48 hrs Weight 146.057 kg Weight 144.923 kg Weight 140.614 kg Weight 140.614 kg Weight 137.438 kg Physical Exam 2 Narrative: Morbid obese male Currently at 5 L nasal cannula. Awake and alert No asterixis Able to follow commands No sign of confusion Mainly clear to auscultation, reduced breath sounds in right lower lung base. 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: without skilled nursing use Diabetes mellitus complication status: without complication Qualified Code(s): E11.9 - Type 2 diabetes mellitus without complications (5) Obesity hypoventilation syndrome: (6) COPD (chronic obstructive pulmonary disease): Qualifiers: COPD type: emphysema Emphysema type: centrilobular Qualified Code(s): J43.2 - Centrilobular emphysema (7) Acute exacerbation of chronic obstructive airways disease: (8) Hilar mass: (9) Large pleural effusion: (10) Chronic kidney disease: (11) Acute hypoxic on chronic hypercapnic respiratory failure: Plan Acute hypoxic hypercapnic respite failure COPD exacerbation Related to underlying malignancy Concern for extension of tumor into left atrial right pulmonary vein Last Eliquis dose was 9 AM this morning I will switch him to heparin drip He will be able to get Pleurx catheter until Wednesday Spoke with Dr. Benitez who is in agreement I will let him have cardiac diet for tonight I have started him on BiPAP Repeat ABG at 9:30 PM Recurrent pleural effusion Will need Pleurx catheter Large hilar mass Significant atelectasis Will treat him with broad-spectrum antibiotics for now He is afebrile Patient has history of sleep apnea Currently I would continue BiPAP Will put him on cardiac diet Acute diastolic CHF exacerbation Will put him on Bumex every [address] a Sanchez catheter for accurate output Full code goals of care discussed with the patient, He lives with his son Uses a wheelchair Lives 1 hour away from the hospital Poorly differentiated lung cancer stage III, has not started chemo or radiotherapy yet Patient got Mediport placed Plan for today : 01/23/24 : CTA chest and echocardiogram show mass in the left atrium which likely represents thrombus versus extension of malignant process. Discussed case with cardiology on-call. TEJ would likely not be able to delineate mass from thrombus given high riding location. Likely patient will not be a candidate for clot extraction due to high risk of embolization. Recommended to obtain cardiac MRI to be able to differentiate between the 2 processes. We are unable to get a cardiac MRI at our institution. Will attempt to transfer, patient prefers a hospital in [place] over [place]. In the interim continue heparin drip. Appreciate pulmonology and cardiology recommendations. Noted to have hyperkalemia this morning. Received insulin and dextrose. Recheck CMP now. 01/24/2024 ? Patient requiring 5 L nasal cannula ? Discussed at length in detail with pulmonology. It is being recommended that patient be transferred to higher level of care for interventional pulmonology if possible for endobronchial tumor debulking which is responsible for right lower lung and middle lobe atelectasis causing trapped lung and recurrent fluid accumulation. However given ongoing anticoagulation he may not be a candidate for tumor debulking at this point in time. I have reached out to [facility] to discuss the case with IP to get their opinion/arrange for follow-up care prior to discharge. ? There was also clot versus mass in left atrium which will need further workup however most likely it is a thrombus and patient is at risk of developing a stroke. He is currently on a heparin drip. He is to be discharged home on Eliquis for stroke prevention. It has been discussed with patient that he is at high risk of a stroke and requires tumor debulking while saline doing to receive chemotherapy radiation for underlying cancer. ? Will either attempt to transfer patient to [place] for further care if recommended by interventional paid search marketing strategist or at least attempt to arrange follow-up prior to discharge. ? Please see pulmonology note. Recommendations appreciated. ? Continue Bumex 1 mg IV twice daily, atorvastatin 20, Tessalon Perles, Zosyn, vancomycin. ? Continue to hold Cozaar at this time ? Continue metoprolol succinate 100 daily ? Patient carries a poor prognosis given his multiple comorbid conditions at this time. Attestations 2 Medical Necessity Statement*: Currently on heparin GTT Time Spent in Patient Care: Greater than 35 minutes (>than 50% of time spent in counselling and/or direct pt care on unit) . 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
[2024-01-24 09:09] LABS: Partial Thromboplastin Time 53.1 SECONDS (23.9-36.7)
[2024-01-24] MEDS: heparin 5,000 unit/mL INJ 1 mL IV (10:04)
--- NOTE | 2024-01-24 10:10 | PC.CHAP ---
Pastoral Care Encounter/Spiritual Assessment Type of Contact [] Declined freight conductor visit [] Patient/Family/Request visit [] Outpatient visit [] Follow-up visit [] Physician referral [] Code/Alert [x] Routine visit [] Staff referral [] Actively dying [] Patient sleeping [] Family support [] [] Out of room [] Palliative care [] [] Receiving care in room [] Pre-surgical visit [] Trauma [] Long length of stay [] ICU visit [] Other: Relational/Emotional Strength [] Patient feels connected with others/family/visitors/staff [] Distress [] Loneliness/isolation [] Abandonment Spirituality of Patient [x] Person of Milagros [] Attends Moravian of their Milagros [x] Believes in Prayer [] Reads Bible or Rastafarian materials [] There are Spiritual issues to be addressed Yardage Control Clerk Interventions [x] Prayer [x] Active listening [] Non-anxious presence [] Spiritual/emotional support [] Crisis/trauma care [] Spiritual counseling [] Bereavement support [] Provided bereavement packet [x] Provided Bible/devotional materials [] Provided toy/stuffed animal, coloring book to patient or family member [] Provided Communion [] Anointing/[place] [] Salvation [x] Completed spiritual assessment [] Other: Impact on Illness or Injury [] Angry [] Fearful [] Anxious [] Often cries [] Exhaustion [] Unable to work [] Unable to attend confucianism [] Unable to walk/stand [] Unable to read [] Unable to drive [] Unable to eat/drink [] Unable to sleep [] Unable to be with family [] Patient intubated [] Other: Summary Time spent with patient 5 min
[2024-01-24 16:50] LABS: Partial Thromboplastin Time 59.4 SECONDS (23.9-36.7)
[2024-01-24] MEDS: atorvastatin 40 mg Tablet 20 MG PO (17:43)
[2024-01-24 22:03] LABS: Vancomycin Trough 19.9 ug/mL (10-15)
[2024-01-24 22:29] LABS: Partial Thromboplastin Time 68.7 SECONDS (23.9-36.7)
[2024-01-24] MEDS: heparin drip 25,000 UNIT/500 ML PREMIX 32 UNIT IV (23:31)
[2024-01-24] MEDS: vancomycin 2,000 MG/400 ML PIGGYBACK 200 MG IV (23:31)
[2024-01-25] VITALS (58 sets, daily range): BP systolic 74–163; BP diastolic 48–100; PULSE 0–107; RESP 16–23; TEMP 36.4–37; O2SAT 93–100
--- NOTE | 2024-01-25 00:19 | PC.NURSE ---
Results for Vanc trough reviewed, Tele-pharmacy called with results of 19.9, this nurse spoke with Dominga who instructed to give the 2000 mg dose of vancomycin and to order another vancomycin trough to be drawn 01/24 at 2130.
[2024-01-25 04:23] LABS: Basophils % 0.2 %; Eosinophils # 0.1 10^3/uL (0.0-0.8); Eosinophils % 1.2 %; Hematocrit 34.4 % (37-53); Lymphocytes # 1.6 10^3/uL (0.8-4.8); Lymphocytes % 13.1 %; Mean Corpuscular HGB Conc 28.5 g/dL (30-55); Mean Corpuscular Volume 94.8 fl (82-101); Mean Platelet Volume 9.7 fL (7.4-10.4); Monocytes # 1.3 10^3/uL (0.2-0.9); Monocytes % 10.6 %; Neutrophils # 8.86 10^3/uL (1.8-7.7); Neutrophils % 74.6 %; Nucleated Red Blood Cells % 0 %; Platelet Count 164 10^3/cmm (157-399); Red Blood Count 3.63 10^6/uL (3.85-5.65); Red Cell Distribution Width 14.8 % (12.1-15.1); White Blood Count 11.87 10^3/uL (3.29-11.43)
[2024-01-25 04:40] LABS: Anion Gap 15.4 (5-19); Blood Urea Nitrogen 32 mg/dL (8-23); Calcium 8.9 mg/dL (8.5-10.5); Carbon Dioxide 30 mmol/L (22-29); Chloride 101 mmol/L (98-107); Creatinine Clr Calc Pharmacy 57.5975; Glucose 71 mg/dL (65-115); Magnesium 2.1 mg/dL (1.7-2.3); Osmolality Calculated 299 mOsm/kg (285-295); Potassium 4.4 mmol/L (3.5-5.1); Sodium 142 mmol/L (136-145)
[2024-01-25] MEDS: piperacillin-tazobactam 3.375 GM in sodium chloride 0.9% (plus) 50 ML IV ×3 (05:27→20:20)
[2024-01-25] MEDS: metoprolol succinate ER (24 HR) 100 mg Tablet PO (05:29)
[2024-01-25] MEDS: bumetanide 0.25 mg/mL SDV 4 mL 1 MG IVP ×2 (08:33→20:20)
[2024-01-25] MEDS: sennosides-docusate Tablet 1 TAB PO (09:00)
[2024-01-25] MEDS: famotidine 20 mg Tablet PO ×2 (09:01→17:53)
[2024-01-25] MEDS: buPROPion SR (12 HR) 150 mg Tablet PO (09:01)
[2024-01-25] MEDS: fluticasone nasal spray 16gm Btl 1 SPRAY NASAL (09:50)
[2024-01-25 10:55] LABS: Partial Thromboplastin Time 66.1 SECONDS (23.9-36.7)
--- NOTE | 2024-01-25 12:26 | XR_ITS ---
WS: [id number] Exam: XR chest 1V portable [id number] Date/Time of Exam: 01/25/2024 12:41 PM Reason For Exam: intubation Comparison 05/23/2024. ET tube ends about 5 cm above the geronimo in good position. An enteric tube extends into the stomach. The heart is enlarged. Large volume right-sided pleural effusion with compressive atelectasis of the middle and lower lobes of the RIGHT lung. The heart is probably enlarged. New increasing infiltrate i n the LEFT lower lobe with LEFT basal pleural effusion. No pneumothorax. Right-sided port noted proba larry ending near the caval atrial junction. Bony structures are intact as visualized. IMPRESSION: 1. ET tube and enteric tube both in satisfactory location. 2. Large volume right-sided pleural effusion with significant compressive atelectasis of the middle a nd lower lobes of the right lung. Very little change. 3. New increasing infiltrate in the LEFT lower lobe and small LEFT basal pleural effusion. 4. Cardiac enlargement unchanged. Right-sided port in satisfactory location.
[2024-01-25] MEDS: propofol 1,000 MG/100 ML INJ 4.30999999999999961 MG IV (13:00)
[2024-01-25] MEDS: fentaNYL 1,000 MCG/100 ML BAG 2.5 MCG IV (13:00)
--- NOTE | 2024-01-25 13:14 | ANES.PROC ---
Anesthesia Procedures Procedure/Date: 01/25/24 Intubation: Time Out Performed: Yes Consent: from patient, risks and benefits reviewed and patient agrees to proceed Sedative (amount): etomidate Paralytic (amount): vecuronium Laryngoscope: fiber optic video scope Assist Device Used: Bougie ET Tube Size: 8 ET Tube Uncuffed: Yes Tube Secured Depth (cm): 28 Tube Secured Location: lips Tube Placement Confirmation: visualized tube passing through cords, equal breath sounds bilaterally, no breath sounds over epigastrium, confirmation by capnometry and color change noted Patient Tolerated Procedure: well Intubation Complications: none Additional Comments: Procedure was performed by me, with observance by Dr. Holman
[2024-01-25] MEDS: norepinephrine 4 MG/250 ML BAG 7.5 MG IV (13:16)
[2024-01-25] MEDS: vecuronium 10 mg SDV IVP (13:46)
[2024-01-25] MEDS: etomidate 2 mg/mL INJ SDV 10 mL 20 MG IVP (13:47)
[2024-01-25] MEDS: FUROsemide 10 mg/mL SDV 4mL 40 MG IVP (13:49)
[2024-01-25 14:15] LABS: Blood Gas Allen Test Pos; Blood Gas Operator Identificat GD; Blood Gas Sample Site Radial, left; Blood Gas Sample Type Arterial; Blood Gas Tidal Volume 0.55; Ionized Calcium Level - ABG 1.2 mmol/L (1.1-1.4); Oxygen Device VENT; PO2 FiO2 Ratio Arterial Blood 0; Total Hemoglobin 10.1 g/dL (14-18)
[2024-01-25 14:29] LABS: ABG PCO2 47.7 mmHg (35-45); ABG PH Result 7.41 (7.35-7.45); Alveolar-Arterial Oxygen Gradi 67.2 mmHg (5-10); Base Excess ABG 4.9 mmol/L (-2.0-2.0); Carboxyhemoglobin 1.2 %THgb (0.4-20.1); HCO3 ABG 30.3 mmol/L (22-26); Methemoglobin 0.6 % (0.4-1.5); Oxygen Saturation ABG 99.9; Potassium Level - ABG 4.1 mmol/L (3.5-5.0)
--- NOTE | 2024-01-25 14:46 | PM.PN ---
Subjective Subjective: Seen this morning. Patient previously on 10 L nasal cannula however now requiring 15 L. He is hypoxic. Says he feels he cannot breathe. Patient has been accepted to [facility] for further management and care. Discussed with patient again regarding his further management plan and he says he would like to be intubated if required even if it is electively for protection of airway and transferred to [place]. He would like to pursue further chemotherapy, invasive procedures. He will be concerning his consent to transfer. I discussed with him regarding intubation which he has agreed to at this time. Will be moving patient to ICU and proceeding with intubation to protect airway. Discussed with pulmonology over the phone as well. Vitals/I&O/Wt Last Vital Signs Temp 97.8 F 01/25/24 08:00 Pulse 65 01/25/24 08:00 Resp 16 01/25/24 12:35 BP 128/79 01/25/24 08:00 Pulse Ox 98 01/25/24 12:35 O2 Del Method High Flow Nasal Cannula 01/25/24 09:24 O2 Flow Rate 15 01/25/24 09:24 FiO2 100 01/25/24 12:35 01/24/24 01/25/24 01/25/24 22:59 06:59 14:59 Intake Total 631.867 / 1564.684 662.267 / 2226.951 588.667 / 588.667 Output Total 750 / 1725 400 / 2125 550 / 550 Balance -118.133 / -160.316 262.267 / 101.951 38.667 / 38.667 Weight last 48 hrs Weight 143.743 kg Weight 146.057 kg Physical Exam Narrative: Morbid obese male 15 L high flow nasal cannula at this time. No conversational dyspnea however does get tachypneic when talks more than a few sentences Able to follow commands, alert oriented x 3 at this time Neuro: Nonfocal at this time Lungs clear to auscultation with rhonchi at right lung base. 2+ pitting edema bilateral lower extremities Is wearing compression stockings at this time. Normal S1-S2 Abdomen soft nontender, obese rounded abdomen. 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: without petroleum terminal plant operator use Diabetes mellitus complication status: without complication Qualified Code(s): E11.9 - Type 2 diabetes mellitus without complications (5) Obesity hypoventilation syndrome: (6) COPD (chronic obstructive pulmonary disease): Qualifiers: COPD type: emphysema Emphysema type: centrilobular Qualified Code(s): J43.2 - Centrilobular emphysema (7) Acute exacerbation of chronic obstructive airways disease: (8) Hilar mass: (9) Large pleural effusion: (10) Chronic kidney disease: (11) Acute hypoxic on chronic hypercapnic respiratory failure: Plan Acute hypoxic hypercapnic respite failure COPD exacerbation Related to underlying malignancy Concern for extension of tumor into left atrial right pulmonary vein Last Eliquis dose was 9 AM this morning I will switch him to heparin drip He will be able to get Pleurx catheter until Wednesday Spoke with Dr. Benitez who is in agreement I will let him have cardiac diet for tonight I have started him on BiPAP Repeat ABG at 9:30 PM Recurrent pleural effusion Will need Pleurx catheter Large hilar mass Significant atelectasis Will treat him with broad-spectrum antibiotics for now He is afebrile Patient has history of sleep apnea Currently I would continue BiPAP Will put him on cardiac diet Acute diastolic CHF exacerbation Will put him on Bumex every [address] a Sanchez catheter for accurate output Full code goals of care discussed with the patient, He lives with his son Uses a wheelchair Lives 1 hour away from the hospital Poorly differentiated lung cancer stage III, has not started chemo or radiotherapy yet Patient got Mediport placed Plan for today : 01/23/24 : CTA chest and echocardiogram show mass in the left atrium which likely represents thrombus versus extension of malignant process. Discussed case with cardiology on-call. TEJ would likely not be able to delineate mass from thrombus given high riding location. Likely patient will not be a candidate for clot extraction due to high risk of embolization. Recommended to obtain cardiac MRI to be able to differentiate between the 2 processes. We are unable to get a cardiac MRI at our institution. Will attempt to transfer, patient prefers a hospital in [place] over [place]. In the interim continue heparin drip. Appreciate pulmonology and cardiology recommendations. Noted to have hyperkalemia this morning. Received insulin and dextrose. Recheck CMP now. 01/24/2024 ? Patient requiring 5 L nasal cannula ? Discussed at length in detail with pulmonology. It is being recommended that patient be transferred to higher level of care for interventional pulmonology if possible for endobronchial tumor debulking which is responsible for right lower lung and middle lobe atelectasis causing trapped lung and recurrent fluid accumulation. However given ongoing anticoagulation he may not be a candidate for tumor debulking at this point in time. I have reached out to [facility] to discuss the case with IP to get their opinion/arrange for follow-up care prior to discharge. ? There was also clot versus mass in left atrium which will need further workup however most likely it is a thrombus and patient is at risk of developing a stroke. He is currently on a heparin drip. He is to be discharged home on Eliquis for stroke prevention. It has been discussed with patient that he is at high risk of a stroke and requires tumor debulking while saline doing to receive chemotherapy radiation for underlying cancer. ? Will either attempt to transfer patient to [place] for further care if recommended by interventional grain receiver or at least attempt to arrange follow-up prior to discharge. ? Please see pulmonology note. Recommendations appreciated. ? Continue Bumex 1 mg IV twice daily, atorvastatin 20, Tessalon Perles, Zosyn, vancomycin. ? Continue to hold Cozaar at this time ? Continue metoprolol succinate 100 daily ? Patient carries a poor prognosis given his multiple comorbid conditions at this time. 01/25/2024 ? Patient on 15 L high flow nasal cannula. ? Transfer to ICU and proceed with intubation. ? Patient is awaiting transfer to [place] at this time. ? Had a goals of care discussion with patient again. He is to remain full code and would like to be intubated and have CPR done. He would like to pursue tumor debulking endobronchially if required and would like to proceed with any other invasive procedures needed. Blood pressure stable at this time. ? Patient will be signing consent to transfer to [facility] prior to being intubated. ? I have ordered Lasix 40 IV x 1 additional dose. ? Continue Bumex 1 mg IV twice daily. - Continue vancomycin, Zosyn, Tessalon Perles, atorvastatin ? Postintubation Place OG tube for medications. ? Continue heparin drip at this time. ? Will order propofol and fentanyl. May switch to Versed if heart rate drops further ? Levophed if needed to maintain MAP greater than 65. ? May hold heparin drip if ET tube aspirate is bloody. Will hold for few hours and restart. Discussed with RN. Pulmonology updated. ? I will call [facility] to inform them of patient's change in status. Patient has been accepted to ICU at [facility]. The high probability of a clinically significant, sudden or life threatening deterioration of the patient's [respiratory, cardiovascular] system(s) required my full and direct attention, intervention and personal management. The critical care time is as shown. This time is in addition to time spent performing any reported procedures but includes the following: [x] Data and vital sign review and interpretation [x] Patient assessment, examination and intervention [x] Documentation [x] Medication orders and management Critical Care Time (min): 45 (patient intubated by Dr. Felix. See separate note.) By time involves talking to patient, grain receiver, assessing bedside, speaking to RN. Reviewing chart and calling [facility] and placing orders for transfer and postintubation management.. Attestations Medical Necessity Statement*: Plan dependent respiratory failure. Awaiting transfer to [facility]. Coding Level of Care Code Critical Care >/= 30 minutes Critical care time (in minutes): 45 The high probability of a clinically significant, sudden or life threatening deterioration, as referenced in this documentation, required my full and direct attention, intervention and personal management. The critical care time shown is in addition to time spent performing any reported separately billable procedures and includes the following: [x] Data and vital sign review and interpretation [x] Patient assessment, examination and intervention [x] Medication orders and management [x] Patient/Family updates as able [x] Care Coordination and Documentation. Diagnoses Acute on chronic diastolic (congestive) heart failure I50.33 Chronic atrial fibrillation I48.20 D-dimer, elevated R79.89 Type 2 diabetes mellitus without complication, without long-term current use of insulin E11.9 Diabetes mellitus type: type 2 Diabetes mellitus fci insulin use: without fci use Diabetes mellitus complication status: without complication Obesity hypoventilation syndrome E66.2 Centrilobular emphysema J43.2 COPD type: emphysema Emphysema type: centrilobular Acute exacerbation of chronic obstructive airways disease J44.1 Hilar mass R91.8 Large pleural effusion J90 Chronic kidney disease N18.9 Acute hypoxic on chronic hypercapnic respiratory failure J96.01; J96.12
--- NOTE | 2024-01-25 15:10 | PC.NURSE ---
Addendum entered by Keaton Sorto RN 01/25/24 17:28: recieved patient from [facility] staff at approximately 1200. Dr warner in room for intubation due to declining respiratory status. Patient intubated at approximately 1220. Etomidate and vecoronium used. Size 8 ET tube, 29 at the lip. After intubation, inline suction removed sanguinous drainage. NUrse alerted Dr celestin and received orders to pause heparin drip. Original Note: recieved patient from [facility] staff at approximately 1200. Dr warner in room for intubation due to declining respiratory status. Patient intubated at approximately 1220. Etomidate and vecoronium used. Size 8 ET tube, 29 at the lip.
[2024-01-25] MEDS: lidocaine 2% INJ 20 mL INJECTION (16:27)
--- NOTE | 2024-01-25 16:42 | PC.RESP ---
bedside bronch performed with Dr. Yang
[2024-01-25 17:13] LABS: Partial Thromboplastin Time 31.5 SECONDS (23.9-36.7)
--- NOTE | 2024-01-25 17:20 | PC.NURSE ---
At 1545, patient was repositioned and he coughed during repositioning. Coughing caused a large clot to enter the ET tube resulting in a partial occlusion and low minute volume. RT attempted to suction out the blood clot with inline suction. With suction, large amounts of blood and additional clots entered the ET tube causing a complete occlusion of the ET tube and inline suction catheter. Disconnection of the vent and yaunker suction of the ET tube successfully cleared the obstruction. Saturations dropped to the mid 80's during this event which lasted about 2 minutes and quickly recovered. Nurse alerted Dr Pimentel, and Dr newell who came to bedside and performed a bronchoscopy to investigate source of bleeding and clear any further obstructions. Dr Newell ordered to keep heparin turned off.
[2024-01-25] MEDS: atorvastatin 40 mg Tablet 20 MG PO (17:53)
[2024-01-25] MEDS: propofol 1,000 MG/100 ML INJ 25.870000000000001 MG IV ×3 (18:08→23:42)
--- NOTE | 2024-01-25 18:13 | PC.NURSE ---
Shift SUmmary: Intubated upon arrival to ICU. Bronchoscopy shows continued bleeding from tumor in right lung, Dr newell requests patient be positioned with left lung elevated. Heparin stopped due to bleeding. We have acceptance to [facility] ICU. Accepted by Dr Duenas and Dr Marie for interventional pulmonology. Waiting on a bed.
--- NOTE | 2024-01-25 18:45 | PM.PN ---
Subjective Subjective: -Yesterday interventional pulmonary at [facility] in [place] accepted patient in transfer for tumor debulking-however pending transfer due to bed availability -Today patient was transferred to ICU and was intubated for increasing oxygen requirements; postintubation chest x-ray did not show any worsening of right pleural effusion but showed infiltrates on left lung -Postintubation-patient has significant bloody secretions from ET tube-heparin was held and performed bronchoscopy which again demonstrated endobronchial mass occluding bronchus intermedius. There is mild oozing noted from the tumor. There were some spillage into the left bronchial tree with clots. -Recommended to place patient on right lateral position to keep bilateral lung down; adequately sedated with fentanyl and propofol. Currently requiring 70% FiO2 on ventilator Medications: Reviewed: Yes Vitals/I&O/Wt Last Vital Signs Temp 98.1 F 01/25/24 17:30 Pulse 64 01/25/24 17:30 Resp 16 01/25/24 17:52 BP 91/64 01/25/24 17:30 Pulse Ox 99 01/25/24 17:52 O2 Del Method Mechanical Ventilation 01/25/24 17:30 O2 Flow Rate 15 01/25/24 09:24 FiO2 80 01/25/24 17:52 01/25/24 01/25/24 01/25/24 06:59 14:59 22:59 Intake Total 662.267 / 2226.951 599.965 / 599.965 134.805 / 734.770 Output Total 400 / 2125 1000 / 1000 225 / 1225 Balance 262.267 / 101.951 -400.035 / -400.035 -90.195 / -490.230 Weight last 48 hrs Weight 316 lb 14.4 oz Weight 322 lb Physical Exam Narrative: General: alert, NAD HEENT: conj clear, EOMI, PERRL, mmm, Neck: supple, no meningismus Heme: no cervical LAP Respiratory: Inspection: No visible deformity of the chest wall Palpation: Trachea is mildly deviated to the right, bilateral symmetric expansion Percussion: Bilateral tympanic percussion note both anterior and posteriorly Auscultation: Reduced breath sounds on right lower lung zone Cardiovascular: rrr, nl s1s2, no mrg Abdomen: soft, nt, nd, no r/g, bs+ Extremities: pulses +, no edema, no c/c : no CVA tenderness Skin: intact, no rash MSK: no back or neck pain Neurologic: grossly intact Urinary Catheter Management: Sanchez: Cath Placed During This Visit: yes Reason for Continuing Indwelling Catheter: Accurate Measurement of Urinary Output in Critically Ill Patients Urinary Catheter Date of Insertion: 01/22/24 Urinary Catheter Time of Insertion: 22:00 Data 01/25/24 16:43 01/25/24 04:14 Other Labs: Radiology Impressions Chest CTA 01/22/24 18:13 IMPRESSION: 1. There are filling defects in the right pulmonary veins extending into the right side of the left atrium consistent with thrombus and/or tumor. 2. Right perihilar mass lesion obscured by adjacent pulmonary consolidation. 3. Large right pleural effusion and moderate left pleural effusion with adjacent compressive atelectasis or pneumonia. Findings raise concern for congestive heart failure however the heart is not currently enlarged. 4. There is mediastinal and right perihilar lymphadenopathy. COMMENTS: The presence of pulmonary emphysema on CT is an independent risk factor for lung cancer. In the absence of a history or active diagnosis of lung cancer, it is recommended that this patient with emphysema be evaluated for enrollment in a low dose CT lung cancer screening program. Laboratory Results WBC 12.27 10^3/uL (3.29-11.43) H 01/25/24 16:43 RBC 3.40 10^6/uL (3.85-5.65) L 01/25/24 16:43 Hgb 9.30 g/dL (11.27-16.99) L 01/25/24 16:43 Hct 31.6 % (37-53) L 01/25/24 16:43 MCV 92.9 fl (82-101) 01/25/24 16:43 MCH 27.4 pg (27-33) 01/25/24 16:43 MCHC 29.4 g/dL (30-55) L 01/25/24 16:43 RDW 15.0 % (12.1-15.1) 01/25/24 16:43 Plt Count 211 10^3/cmm (157-399) 01/25/24 16:43 MPV 10.5 fL (7.4-10.4) H 01/25/24 16:43 Neut % (Auto) 78.1 % 01/25/24 16:43 Lymph % (Auto) 10.7 % 01/25/24 16:43 Kershaw % (Auto) 9.5 % 01/25/24 16:43 Eos % (Auto) 1.1 % 01/25/24 16:43 Baso % (Auto) 0.3 % 01/25/24 16:43 Neut # (Auto) 9.58 10^3/uL (1.8-7.7) H 01/25/24 16:43 Lymph # (Auto) 1.3 10^3/uL (0.8-4.8) 01/25/24 16:43 Kershaw # (Auto) 1.2 10^3/uL (0.2-0.9) H 01/25/24 16:43 Eos # (Auto) 0.1 10^3/uL (0.0-0.8) 01/25/24 16:43 Baso # (Auto) 0.0 10^3/uL (0.0-0.1) 01/25/24 16:43 Nucleated RBC % (auto) 0 % 01/25/24 16:43 Nucleated RBCs # 0.0 /100WBC 01/25/24 16:43 APTT 31.5 SECONDS (23.9-36.7) D 01/25/24 16:43 D-Dimer 3.15 ug/mLFEU (0-0.59) H 01/22/24 14:45 Specimen Type Arterial 01/25/24 14:00 Sample Site Radial, left 01/25/24 14:00 ABG pH 7.41 (7.35-7.45) 01/25/24 14:00 ABG pCO2 47.7 mmHg (35-45) H 01/25/24 14:00 ABG pO2 131.0 mmHg (80.0-100.0) H 01/25/24 14:00 ABG PO2/FiO2 Ratio 0 01/25/24 14:00 ABG HCO3 30.3 mmol/L (22-26) H 01/25/24 14:00 ABG O2 Saturation 99.9 01/25/24 14:00 ABG Base Excess 4.9 mmol/L (-2.0-2.0) H 01/25/24 14:00 Uli Test Pos 01/25/24 14:00 A-a O2 Gradient 67.2 mmHg (5-10) H 01/25/24 14:00 Hematocrit 31.0 % (42-52) L 01/25/24 14:00 Hgb O2 Saturation 98.0 % (95-100) 01/25/24 14:00 Carboxyhemoglobin 1.2 %THgb (0.4-20.1) 01/25/24 14:00 Methemoglobin 0.6 % (0.4-1.5) 01/25/24 14:00 Total Hemoglobin 10.1 g/dL (14-18) L 01/25/24 14:00 Sodium 144.0 mmol/L (131-143) H 01/25/24 14:00 Potassium 4.1 mmol/L (3.5-5.0) 01/25/24 14:00 Glucose 92.0 mg/dL (70-115) 01/25/24 14:00 Ionized Calcium 1.2 mmol/L (1.1-1.4) 01/25/24 14:00 O2 Delivery Device Vent 01/25/24 14:00 O2 Liters/Min 5.0 % 01/22/24 19:24 FiO2 100.0 % 01/25/24 14:00 Tidal Volume 0.55 01/25/24 14:00 PEEP 6.0 cmH20 01/25/24 14:00 Glass Production Machine Operator ID [id number] 01/25/24 14:00 Sodium 142 mmol/L (136-145) 01/25/24 04:14 Potassium 4.4 mmol/L (3.5-5.1) 01/25/24 04:14 Chloride 101 mmol/L (98-107) 01/25/24 04:14 Carbon Dioxide 30 mmol/L (22-29) H 01/25/24 04:14 Anion Gap 15.4 (5-19) 01/25/24 04:14 BUN 32 mg/dL (8-23) H 01/25/24 04:14 Creatinine 1.7 mg/dL (0.7-1.2) H 01/25/24 04:14 GFR Calculation Not Reportable 01/25/24 04:14 Glucose 71 mg/dL (65-115) 01/25/24 04:14 Calculated Osmolality 299 mOsm/kg (285-295) H 01/25/24 04:14 Lactate 2.4 mmol/L (0.5-2.2) H 01/23/24 10:46 Calcium 8.9 mg/dL (8.5-10.5) 01/25/24 04:14 Phosphorus 4.8 mg/dL (2.5-4.5) H 01/23/24 04:12 Magnesium 2.1 mg/dL (1.7-2.3) 01/25/24 04:14 Total Bilirubin 0.4 mg/dL (0.15-1.2) 01/23/24 10:46 AST 13 U/L (0-40) 01/23/24 10:46 ALT 7 U/L (0-41) 01/23/24 10:46 Alkaline Phosphatase 80 U/L (40-130) 01/23/24 10:46 Troponin T Baseline 28 ng/L (0-15) H 01/22/24 15:49 Troponin T 120 Minute 26.14 ng/L (0-15) H 01/22/24 18:23 Delta Troponin T -1.86 ABS# (0-10) L 01/22/24 18:23 Troponin T Hi Sens 6Hr 25.09 ng/L (0-15) H 01/22/24 21:55 Troponin T Hi Sens 6Hr Delta -2.91 ng/L (0-12) L 01/22/24 21:55 C-Reactive Protein 24.8 mg/L (0.0-4.9) H 01/23/24 04:12 Total Protein 6.9 g/dL (6.6-8.7) 01/23/24 10:46 Albumin 3.7 g/dL (3.5-5.2) 01/23/24 10:46 Globulin 3.2 g/dL (1.3-4.6) 01/23/24 10:46 Urine Color Yellow (Yellow) 01/22/24 22:00 Urine Appearance Cloudy (CLEAR) A 01/22/24 22:00 Urine pH 5 (5-7) 01/22/24 22:00 Ur Specific Ames 1.015 (1.005-1.030) 01/22/24 22:00 Urine Protein 1+ (Negative) H 01/22/24 22:00 Urine Glucose (UA) Norm (Normal) 01/22/24 22:00 Urine Ketones Negative (Negative) 01/22/24 22:00 Urine Blood 3+ (Negative) H 01/22/24 22:00 Urine Nitrate Positive (Negative) H 01/22/24 22:00 Urine Bilirubin Neg (Negative) 01/22/24 22:00 Urine Urobilinogen Neg mg/dL (Negative) 01/22/24 22:00 Ur Leukocyte Esterase 2+ (Negative) H 01/22/24 22:00 Urine RBC 5-10 /hpf (0-2) H 01/22/24 22:00 Urine WBC 15-25 /hpf (0-5) H 01/22/24 22:00 Ur Squamous Epith Cells 0-4 /hpf (0-5) H 01/22/24 22:00 Amorphous Sediment Trace /hpf 01/22/24 22:00 Urine Bacteria 2+ /hpf (NONE) H 01/22/24 22:00 Hyaline Casts 0-4 /lpf H 01/22/24 22:00 Fine Granular Casts 0-4 /lpf H 01/22/24 22:00 Urine Mucus 1+ /hpf 01/22/24 22:00 Vancomycin Trough 19.9 ug/mL (10-15) H 01/24/24 21:37 Serum Ketones Negative (Negative) 01/23/24 10:46 Micro: Microbiology 01/25/24 12:25 Gram Stain - Final Sputum - Endotracheal Tube Aspirate A&P Assessment and plan (1) Acute hypoxic on chronic hypercapnic respiratory failure: -This patient with 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 right bronchus intermedius causing right lower lung/middle lobe patient CT chest did not show any definitive lesion-explained atelectasis can happen postinfectious weakening of bronchial Alonso and can cause infections, pleuritic chest pain and encouraged patient to do incentive spirometry -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-cytology was negative in November 2023; underwent multiple thoracentesis-more recently 01/05/2024 with normal reexpansion of right lower lung and residual pleural effusion -This admission-CTA showed multiple filling defects in right pulmonary veins with possible clot in left atrium -Started on heparin unfortunately started coughing of blood-worsening FiO2 requirements transferred to ICU-requiring endotracheal intubation; held heparin -Yesterday interventional pulmonary at [facility] in [place] accepted patient in transfer for tumor debulking-however pending transfer due to bed availability - postintubation chest x-ray did not show any worsening of right pleural effusion but showed infiltrates on left lung -Postintubation-patient has significant bloody secretions from ET tube-heparin was held and performed bronchoscopy which again demonstrated endobronchial mass occluding bronchus intermedius. There is mild oozing noted from the tumor. There were some spillage into the left bronchial tree with clots. No active bleeding noted; we do not have endobronchial blockers available. Currently patient awaiting transfer to [facility] pending bed availability -Recommended to place patient on right lateral position to keep bilateral lung down and sedated with fentanyl/propofol adequately (2) Pulmonary embolism: CTA 01/22/2024 showed filling defects in the right pulmonary veins extending into the right side of the left atrium consistent with thrombus and/or tumor. Echocardiogram revealed clot in left atrium versus tumor extension; Vascular consultation over phone with Cassie Sheehan-no current intervention planned and recommended to continue heparin Today heparin held as patient was having bleeding from tumor Qualifiers: Pulmonary embolism type: unspecified Chronicity: acute Acute cor pulmonale presence: unspecified Qualified Code(s): I26.99 - Other pulmonary embolism without acute cor pulmonale (3) Pleural effusion, right: Recurrent right pleural effusion Reports having thoracentesis October 2022-transudative Second thoracentesis 11/30/2023-1100 cc hemorrhagic fluid vvwcjne-vujeoftaj-cczgunjt negative for malignancy Prior thoracentesis 01/05/20244281-7300 cc fluid removed Imaging shows worsening right lung opacification suggestive of worsening pleural effusion however review of PET/CT shows significantly elevated uptake in atelectatic right lung suggestive of malignant mass within the right pleural cavity. Bronchoscopy 11/09/2023-showed near complete occlusion of right bronchus intermedius-which is contributing to collapse of right lower lobe/right middle lobe-causing trapped lung and contributing to majority of his pleural effusion. Even though patient is getting recurrent thoracentesis- postthoracentesis-there is no significant reexpansion of right lower lung due to endobronchial obstruction Prior to intubation I also discussed with patient about placing a pleural drain to prevent recurrent thoracentesis and to help draining at home if his breathing were to get worse-however given his trapped lung due to endobronchial mass-we cannot achieve complete drainage. There is also risk of infection associated with an indwelling Pleurx catheter. He is currently on Bumex 1 Mg every 12 held due to hypotension (4) COPD (chronic obstructive pulmonary disease): Patient was using Trelegy 1 puff daily Currently is not in exacerbation-we can use DuoNeb nebulization as needed. 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 Biopsy of the right bronchus intermedius mass showed poorly differentiated squamous cell carcinoma. FNA biopsies of station 7 and station 11R showed metastatic poorly differentiated squamous cell carcinoma. By clinical evaluation, his disease is stage at least IIIA (T2, N2, M0). 12/01/23: Ultrasound-guided right thoracentesis with removal of approximately 1100 cc of sanguinous pleural fluid - Cytology negative for malignancy Feb 12/22/23: PET scan which confirmed the extent of disease in the chest and no evidence of metastatic disease. Intense abnormal uptake within the collapsed right lower lobe associated with occlusion of the bronchus intermedius the suggestive of primary lung malignancy contiguous with metastatic lymphadenopathy in the right hilum and the right subcarinal area. 01/05/2024-patient went for radiation therapy evaluation-however he was referred for outpatient thoracentesis to drain right Pleural effusion prior to simulation. She was drained 1600 cc pleural effusion. 01/12/2024: Port-A-Cath was placed in anticipation for chemotherapy 01/22/2024-patient got admitted for worsening FiO2 requirements due to PE Attestations Medical Necessity Statement*: Patient awaiting transfer to [place] Time Spent in Patient Care: Greater than 35 minutes Critical Care Time: The high probability of a clinically significant, sudden or life threatening deterioration of the patient's [pulmonary, cardiac, renal] system(s) required my full and direct attention, intervention and personal management. The critical care time is as shown. This time is in addition to time spent performing any reported procedures but includes the following: [x] Data and vital sign review and interpretation [x] Patient assessment, examination and intervention [x] Documentation [x] Medication orders and management Critical Care Time (min): 71 Coding Level of Care Code Acute Code for Chg Fwd Diagnoses Acute hypoxic on chronic hypercapnic respiratory failure J96.01; J96.12 Acute pulmonary embolism, unspecified pulmonary embolism type, unspecified whether acute cor pulmonale present I26.99 Pulmonary embolism type: unspecified Chronicity: acute Acute cor pulmonale presence: unspecified Pleural effusion, right J90 Centrilobular emphysema J43.2 COPD type: emphysema Emphysema type: centrilobular 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
--- NOTE | 2024-01-25 18:45 | PM.ACPR ---
Procedure/Consent Time out: Time Out Performed: Yes Consent: Consent for Procedure: Emergency procedure (Prior to intubation-patient wanted all interventions that are necessary) Procedure Narrative: Procedure : 55302 Dx Bronchoscope w/Washings or airway inspection [id number] Bronchoscopy w/ therapeutic aspiration of the tracheobronchial tree (clearance of airway secretions, removal of mucus plugs) Pre-Operative Diagnosis: Bloody secretions in ET tube Post-Operative Diagnosis: Same Indication: Flank bloody secretions in ET tube in patient with right bronchus intermedius endobronchial mass Brief History: 73-year-old male with past medical history of COPD, recently diagnosed of right lung squamous cell cancer-intubated due to worsening FiO2 requirements-postintubation significant bloody secretions noted in ET tube Consent: Emergency consent implied as patient is having roland bloody secretions during suctioning of ET tube. With history of endobronchial mass. Prior to intubation-patient agreed for all necessary intubations and was full code. Tried to contact next of kin patient's son prior to procedure to get verbal consent but he did not pickle maker. Pre-procedure Evaluation: Patient was evaluated clinically and ancillary testing reviewed. The risk of having active MTB infection is very low in my clinical judgement. ASA: 4 Malampati score: unable to evaluate due to presence of endotracheal tube Indication: Roland bloody secretions during suctioning of ET tube Time out: Performed by the procedure team and nursing staff. Vent support maintained on Fio2 100. Anesthesia: Patient is already intubated and sedated with fentanyl and propofol gtt.-titrated to achieve adequate sedation Local anesthesia: The geronimo in the right and left mainstem bronchi were anesthetized with 1% lidocaine, 6 mL. Summary of Significant Findings: -Bronchoscope passed through ET tube used for initial inspection and airway clearance. The scope was advanced through the ET tube. The lower trachea mucosa appeared normal, no endotracheal lesion was seen. The geronimo was sharp. The geronimo, the right and left mainstem bronchi are anesthetized with 1% lidocaine. The bronchoscope was advanced through the ET tube. The distal trachea was visualized. There were scant amount of bloody secretions and couple of clots-which were suctioned right away. Tracheal mucosa appeared normal, no endotracheal lesion was seen. The geronimo was sharp. 1 mL each of 1% lidocaine was instilled in the trachea the right and left mainstem bronchi for local anesthesia. In a systematic manner bilateral bronchial tree was then examined. The bronchoscope was then introduced into the right mainstem bronchus. I can visualize right upper lobe opening but there is a near complete occlusion of bronchus intermedius with infiltrating mass with mild oozing of blood. This mass was biopsied 11/09/2023 which showed poorly differentiated squamous cell cancer. The right upper lobe is examined up to the third subsegmental level and no abnormalities were identified. The bronchoscope was advanced into the left mainstem bronchus. There is a endobronchial lesion in distal left mainstem bronchus noted-this lesion was biopsied 11/09/2023 and was negative for malignancy. The left upper lobe, and lingula were examined up to the third subsegmental level and no abnormalities were identified. Mucosa of left upper lobe and lingula appeared normal with no endobronchial lesion. There were some spillage of bloody secretions from right side with 1 clot which were suctioned right away. After cleaning both the airways-I waited for few minutes to see if there is any active bleeding. There was a very minimal oozing from right endobronchial mass. We do not have endobronchial blockers to block right bronchus intermedius. At this point I did not feel it is appropriate to advance ET tube into left mainstem bronchus as the bleeding is minimal. I retracted bronchoscope and terminated the procedure. Recommended to continue holding heparin and turn patient to right lateral position with bad lung down. Estimated Blood Loss: None Complications:None; patient tolerated the procedure well. Disposition: Patient remains critically ill, intubated and stays in ICU-still awaiting for transfer to higher center pending bed availability Surgeon: Sriram Yang MD, [facility] Pulmonary critical Care Medicine [facility] Acute Procedures Epistaxis Control: Time out performed: Yes
[2024-01-25 19:34] LABS: Basophils % 0.3 %; Eosinophils # 0.1 10^3/uL (0.0-0.8); Eosinophils % 1.1 %; Hematocrit 31.6 % (37-53); Lymphocytes # 1.3 10^3/uL (0.8-4.8); Lymphocytes % 10.7 %; Mean Corpuscular HGB Conc 29.4 g/dL (30-55); Mean Corpuscular Hemoglobin 27.4 pg (27-33); Mean Corpuscular Volume 92.9 fl (82-101); Mean Platelet Volume 10.5 fL (7.4-10.4); Monocytes # 1.2 10^3/uL (0.2-0.9); Monocytes % 9.5 %; Neutrophils # 9.58 10^3/uL (1.8-7.7); Neutrophils % 78.1 %; Nucleated Red Blood Cells % 0 %; Platelet Count 211 10^3/cmm (157-399); White Blood Count 12.27 10^3/uL (3.29-11.43)
[2024-01-25] MEDS: vancomycin 1,750 MG/350 ML PIGGYBACK 233.330000000000013 MG IV (22:20)
[2024-01-25] MEDS: fentaNYL 1,000 MCG/100 ML BAG 7.5 MCG IV (22:33)
[2024-01-26] VITALS (79 sets, daily range): BP systolic 90–118; BP diastolic 52–70; PULSE 64–83; RESP 15–20; TEMP 36.8–37.4; O2SAT 90–100
[2024-01-26] MEDS: propofol 1,000 MG/100 ML INJ 25.870000000000001 MG IV ×6 (03:42→20:01)
[2024-01-26 04:38] LABS: Basophils % 0.4 %; Eosinophils # 0.3 10^3/uL (0.0-0.8); Eosinophils % 2.6 %; Hematocrit 29.7 % (37-53); Lymphocytes # 1.3 10^3/uL (0.8-4.8); Lymphocytes % 13.9 %; Mean Corpuscular Hemoglobin 27.5 pg (27-33); Mean Corpuscular Volume 91.7 fl (82-101); Mean Platelet Volume 10.1 fL (7.4-10.4); Monocytes % 10.8 %; Neutrophils # 6.84 10^3/uL (1.8-7.7); Nucleated Red Blood Cells % 0 %; Platelet Count 175 10^3/cmm (157-399); Red Blood Count 3.24 10^6/uL (3.85-5.65); White Blood Count 9.51 10^3/uL (3.29-11.43)
[2024-01-26 05:01] LABS: Alanine Aminotransferase 7 U/L (0-41); Albumin Level 3.2 g/dL (3.5-5.2); Alkaline Phosphatase 61 U/L (40-130); Anion Gap 16.7 (5-19); Aspartate Amino Transferase 11 U/L (0-40); Blood Urea Nitrogen 36 mg/dL (8-23); Calcium 8.9 mg/dL (8.5-10.5); Carbon Dioxide 27 mmol/L (22-29); Chloride 103 mmol/L (98-107); Creatinine Clr Calc Pharmacy 51.5346; Glucose 68 mg/dL (65-115); Magnesium 1.9 mg/dL (1.7-2.3); Osmolality Calculated 303 mOsm/kg (285-295); Potassium 3.7 mmol/L (3.5-5.1); Sodium 143 mmol/L (136-145); Total Bilirubin 0.6 mg/dL (0.15-1.2); Total Protein 6.2 g/dL (6.6-8.7)
[2024-01-26] MEDS: piperacillin-tazobactam 3.375 GM in sodium chloride 0.9% (plus) 50 ML IV ×2 (05:25→13:05)
[2024-01-26 05:33] LABS: ABG PCO2 40.9 mmHg (35-45); ABG PH Result 7.45 (7.35-7.45); Alveolar-Arterial Oxygen Gradi 43.8 mmHg (5-10); Arterial Blood Gas Hematocrit 30.8 % (42-52); Blood Gas Operator Identificat JB; Blood Gas Sample Site Brachial, right; Blood Gas Sample Type Arterial; Carboxyhemoglobin 1.1 %THgb (0.4-20.1); HCO3 ABG 28.4 mmol/L (22-26); HGB O2 Sat 97.9 % (95-100); Ionized Calcium Level - ABG 1.2 mmol/L (1.1-1.4); Methemoglobin 0.5 % (0.4-1.5); Oxygen Device VENT; Oxygen Saturation ABG 99.5; PO2 FiO2 Ratio Arterial Blood 0; Potassium Level - ABG 3.7 mmol/L (3.5-5.0); Total Hemoglobin 10.1 g/dL (14-18)
[2024-01-26 05:34] LABS: Blood Gas Tidal Volume 0.55
[2024-01-26 07:23] LABS: Glucose Point of Care 71 mg/dL (70-110)
--- NOTE | 2024-01-26 08:18 | XR_ITS ---
WS: [id number] Exam: XR chest 1V portable [id number] Date/Time of Exam: 01/26/2024 8:37 AM Reason For Exam: pneumonia Comparison 01/25/2024. Large right-sided pleural effusion with compressive atelectasis of the right lung unchanged. Infiltra te in the mid and lower LEFT lung also unchanged. The heart is enlarged but unchanged in size. ET tub e ends about 3 cm above the geronimo. An enteric tube extends below the level of the diaphragm but the tip is not visible. Right-sided Port-A-Cath appears to in near the cavoatrial junction unchanged. No pneumothorax. Bony structures are intact as visualized. IMPRESSION: 1. ET tube has migrated inferiorly and now ends about 3 cm above the geronimo. 2. The chest is otherwise unchanged since the prior study 01/25/2024.
[2024-01-26 08:19] LABS: Glucose Point of Care 76 mg/dL (70-110)
[2024-01-26] MEDS: famotidine 20 mg Tablet PO ×2 (09:28→19:30)
[2024-01-26] MEDS: sennosides-docusate Tablet 1 TAB PO (09:28)
[2024-01-26] MEDS: bumetanide 0.25 mg/mL SDV 4 mL 1 MG IVP (09:28)
--- NOTE | 2024-01-26 10:45 | PC.NURSE ---
RIght lung has a mass which is bleeding. to prevent blood from entering left lung, the patient needs to be positioned so that the left lung is elevated. WHen repositioning, fluid and clots in lung shift, enter the ET tube, and cause near or complete occlusion. Because of this, nurses have not been able to assess the backside, or reposition to prevent skin breakdown. Dr Pimentel aware, advised to continue with turning restrictions at this time. WHen reducing sedation for neurochecks, patient will occasionally cough, sending blood clots into ET tube also causing occlusions. Unable to do appropriate neuro checks without compromising airway. Dr Pimentel aware, advised no reduction in sedation at this time.
--- NOTE | 2024-01-26 10:50 | PC.SOCIAL ---
IMM Update Pg. 2 of IMM updated and copy left in room. Patient intubated at this time; awaiting transfer to higher level of care.
[2024-01-26] MEDS: fentaNYL 1,000 MCG/100 ML BAG 7.5 MCG IV (11:27)
--- NOTE | 2024-01-26 12:29 | P.PN_ITS ---
Subjective 2 Subjective: Seen this morning. Intubated sedated, FiO2 50% at this time. Nurses are not frequently repositioning patient since there is bloody aspirate and ET tube upon repositioning which frequently causes occlusion requiring suctioning. Patient had emergency bronchoscopy done yesterday and blood clots were evacuated from left lung. Patient is currently positioned on his side with right lung down. Hemoglobin 8.9 this morning. Will be rechecking another CBC this afternoon. Patient awaiting transfer to [facility]. I tried to call patient's son multiple times yesterday however phone goes to voicemail and there is no option to leave voicemail either. Vitals/I&O/Wt Last Vital Signs Temp 98.9 F 01/26/24 07:45 Pulse 74 01/26/24 08:00 Resp 15 01/26/24 11:08 BP 106/63 01/26/24 08:00 Pulse Ox 97 01/26/24 11:08 O2 Del Method Mechanical Ventilation 01/26/24 08:00 O2 Flow Rate 15 01/25/24 09:24 FiO2 50 01/26/24 11:08 01/25/24 01/26/24 01/26/24 22:59 06:59 14:59 Intake Total 241.184 / 841.149 690.375 / 1531.524 283.846 / 283.846 Output Total 225 / 1225 650 / 1875 125 / 125 Balance 16.184 / -383.851 40.375 / -343.476 158.846 / 158.846 Weight last 48 hrs Weight 144.016 kg Weight 143.743 kg Physical Exam 2 Narrative: Intubated sedated Neuro: Unable to assess as patient is sedated Lungs clear to auscultation with rhonchi at right lung base. Difficult to auscultate due to patient positioning. 1+ pitting edema bilateral lower extremi ties Is wearing compression stockings at this time. Normal S1-S2 Abdomen soft nontender, obese rounded abdomen. Urinary Catheter Management: Sanchez: Cath Placed During This Visit: yes Reason for Continuing Indwelling Catheter: Accurate Measurement of Urinary Output in Critically Ill Patients Urinary Catheter Date of Insertion: 01/22/24 Urinary Catheter Time of Insertion: 22:00 Data 01/26/24 04:25 01/26/24 04:25 Micro: Microbiology 01/25/24 12:25 Gram Stain - Final Sputum - Endotracheal Tube Aspirate Sputum Culture - Preliminary A&P Assessment and plan (1) Acute on chronic diastolic (congestive) heart failure: (2) Chronic atrial fibrillation: (3) D-dimer, elevated: (4) Diabetes: Qualifiers: Diabetes mellitus type: type 2 Diabetes mellitus penitentiary insulin use: without penitentiary use Diabetes mellitus complication status: without complication Qualified Code(s): E11.9 - Type 2 diabetes mellitus without complications (5) Obesity hypoventilation syndrome: (6) COPD (chronic obstructive pulmonary disease): Qualifiers: COPD type: emphysema Emphysema type: centrilobular Qualified Code(s): J43.2 - Centrilobular emphysema (7) Acute exacerbation of chronic obstructive airways disease: (8) Hilar mass: (9) Large pleural effusion: (10) Chronic kidney disease: (11) Acute hypoxic on chronic hypercapnic respiratory failure: Plan Acute hypoxic hypercapnic respite failure COPD exacerbation Related to underlying malignancy Concern for extension of tumor into left atrial right pulmonary vein Last Eliquis dose was 9 AM this morning I will switch him to heparin drip He will be able to get Pleurx catheter until Wednesday Spoke with Dr. Benitez who is in agreement I will let him have cardiac diet for tonight I have started him on BiPAP Repeat ABG at 9:30 PM Recurrent pleural effusion Will need Pleurx catheter Large hilar mass Significant atelectasis Will treat him with broad-spectrum antibiotics for now He is afebrile Patient has history of sleep apnea Currently I would continue BiPAP Will put him on cardiac diet Acute diastolic CHF exacerbation Will put him on Bumex every [address] a Sanchez catheter for accurate output Full code goals of care discussed with the patient, He lives with his son Uses a wheelchair Lives 1 hour away from the hospital Poorly differentiated lung cancer stage III, has not started chemo or radiotherapy yet Patient got Mediport placed Plan for today : 01/23/24 : CTA chest and echocardiogram show mass in the left atrium which likely represents thrombus versus extension of malignant process. Discussed case with cardiology on-call. TEJ would likely not be able to delineate mass from thrombus given high riding location. Likely patient will not be a candidate for clot extraction due to high risk of embolization. Recommended to obtain cardiac MRI to be able to differentiate between the 2 processes. We are unable to get a cardiac MRI at our institution. Will attempt to transfer, patient prefers a hospital in [place] over [place]. In the interim continue heparin drip. Appreciate pulmonology and cardiology recommendations. Noted to have hyperkalemia this morning. Received insulin and dextrose. Recheck CMP now. 01/24/2024 ? Patient requiring 5 L nasal cannula ? Discussed at length in detail with pulmonology. It is being recommended that patient be transferred to higher level of care for interventional pulmonology if possible for endobronchial tumor debulking which is responsible for right lower lung and middle lobe atelectasis causing trapped lung and recurrent fluid accumulation. However given ongoing anticoagulation he may not be a candidate for tumor debulking at this point in time. I have reached out to [facility] to discuss the case with IP to get their opinion/arrange for follow-up care prior to discharge. ? There was also clot versus mass in left atrium which will need further workup however most likely it is a thrombus and patient is at risk of developing a stroke. He is currently on a heparin drip. He is to be discharged home on Eliquis for stroke prevention. It has been discussed with patient that he is at high risk of a stroke and requires tumor debulking while saline doing to receive chemotherapy radiation for underlying cancer. ? Will either attempt to transfer patient to [facility] for further care if recommended by interventional assembler finger buffs or at least attempt to arrange follow-up prior to discharge. ? Please see pulmonology note. Recommendations appreciated. ? Continue Bumex 1 mg IV twice daily, atorvastatin 20, Tessalon Perles, Zosyn, vancomycin. ? Continue to hold Cozaar at this time ? Continue metoprolol succinate 100 daily ? Patient carries a poor prognosis given his multiple comorbid conditions at this time. 01/25/2024 ? Patient on 15 L high flow nasal cannula. ? Transfer to ICU and proceed with intubation. ? Patient is awaiting transfer to [facility] at this time. ? Had a goals of care discussion with patient again. He is to remain full code and would like to be intubated and have CPR done. He would like to pursue tumor debulking endobronchially if required and would like to proceed with any other invasive procedures needed. Blood pressure stable at this time. ? Patient will be signing consent to transfer to [facility] prior to being intubated. ? I have ordered Lasix 40 IV x 1 additional dose. ? Continue Bumex 1 mg IV twice daily. - Continue vancomycin, Zosyn, Tessalon Perles, atorvastatin ? Postintubation Place OG tube for medications. ? Continue heparin drip at this time. ? Will order propofol and fentanyl. May switch to Versed if heart rate drops further ? Levophed if needed to maintain MAP greater than 65. ? May hold heparin drip if ET tube aspirate is bloody. Will hold for few hours and restart. Discussed with RN. Pulmonology updated. ? I will call [facility] to inform them of patient's change in status. Patient has been accepted to ICU at [facility]. 01/26/2024 -Bloody aspirate in the ET tube. Patient underwent emergency bronchoscopy for diagnostic purposes. See report. Clots were evacuated out of the left side. ? Heparin drip has been held ? Continue to position patient on the right side ? Blood sugar remaining in 70s range. ? Order D10 drip at this time ? Patient is off Levophed ? Discussed with pulmonology. Patient will be reassessed this afternoon. We may restart heparin at that time. ? Okay to reposition patient. Discussed with pulmonology. ? Hemoglobin 8.9 this morning. ? Recheck CBC this afternoon and transfuse for hemoglobin less than 8. Of note did try to reach out to patient's son yesterday multiple times however unable to reach via phone. Attestations 2 Medical Necessity Statement*: Patient awaiting transfer to [facility] Time Spent in Patient Care: Greater than 35 minutes Critical Care Time: The high probability of a clinically significant, sudden or life threatening deterioration of the patient's [pulmonary, cardiac, renal] system(s) required my full and direct attention, intervention and personal management. The critical care time is as shown. This time is in addition to time spent performing any reported procedures but includes the following: [x] Data and vital sign review and interpretation [x] Patient assessment, examination and intervention [x] Documentation [x] Medication orders and management Critical Care Time (min): 30 Coding Level of Care Code Critical Care >/= 30 minutes Critical care time (in minutes): 30 The high probability of a clinically significant, sudden or life threatening deterioration, as referenced in this documentation, required my full and direct attention, intervention and personal management. The critical care time shown is in addition to time spent performing any reported separately billable procedures and includes the following: [x] Data and vital sign review and interpretation [x ] Patient assessment, examination and intervention [x] Medication orders and management [x] Patient/Family updates as able [x] Care Coordination and Documentation. Diagnoses Acute on chronic diastolic (congestive) heart failure I50.33 Chronic atrial fibrillation I48.20 D-dimer, elevated R79.89 Type 2 diabetes mellitus without complication, without long-term current use of insulin E11.9 Diabetes mellitus type: type 2 Diabetes mellitus penitentiary insulin use: without penitentiary use Diabetes mellitus complication status: without complication Obesity hypoventilation syndrome E66.2 Centrilobular emphysema J43.2 COPD type: emphysema Emphysema type: centrilobular Acute exacerbation of chronic obstructive airways disease J44.1 Hilar mass R91.8 Large pleural effusion J90 Chronic kidney disease N18.9 Acute hypoxic on chronic hypercapnic respiratory failure J96.01; J96.12
[2024-01-26 12:38] LABS: Glucose Point of Care 76 mg/dL (70-110)
[2024-01-26] MEDS: dextrose 10% 1,000 ML 70 ML IV (13:04)
--- NOTE | 2024-01-26 14:44 | DCPLANNER ---
MTS referral call made, reference#[id number].
[2024-01-26 14:46] LABS: Glucose Point of Care 92 mg/dL (70-110)
--- NOTE | 2024-01-26 15:11 | P.TS_ITS ---
Transfer Summary Providers Date of Admission: 01/22/24 17:34 Date of Discharge/Transfer: 01/24/24 Attending Provider at Admission: Linn Lau MD Attending Provider at Transfer: Naz Pimentel MD Primary Care Provider: Unruly Starkey Transfer Plans: Anticipated date of transfer: 01/24/24 . Receiving Facility: [facility] . Receiving Provider: Hospitalist Team . Additional transfer facility information: Interventional pulmonology to consult . Diagnoses at Discharge Discharge Diagnosis (1) Acute on chronic diastolic (congestive) heart failure: Status: Acute (2) Chronic atrial fibrillation: Status: Acute (3) D-dimer, elevated: Status: Acute (4) Diabetes: Status: Acute Qualifiers: Diabetes mellitus type: type 2 Diabetes mellitus supervisor intermediates insulin use: without supervisor intermediates use Diabetes mellitus complication status: without complication Qualified Code(s): E11.9 - Type 2 diabetes mellitus without complications (5) Obesity hypoventilation syndrome: Status: Acute (6) COPD (chronic obstructive pulmonary disease): Status: Acute Qualifiers: COPD type: emphysema Emphysema type: centrilobular Qualified Code(s): J43.2 - Centrilobular emphysema (7) Acute exacerbation of chronic obstructive airways disease: Status: Acute (8) Hilar mass: Status: Acute (9) Large pleural effusion: Status: Acute (10) Chronic kidney disease: Status: Chronic (11) Acute hypoxic on chronic hypercapnic respiratory failure: Status: Acute Reason for Visit Reason for Visit SOB Brief History: Juan Jose Lamb is a 73 year old male with history of 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 Patient has not noticed any fever, chest pain, diarrhea stating that he has been extremely short of breath on minimal exertion, orthopnea and PND positive, his last dose of Eliquis was around 9 AM on 01/21, in the ER he has been diagnosed with recurrence of pleural effusion, motorcoach driver is planning for Pleurx catheter placement CT chest showing filling defect in right pulmonary veins consistent with thrombus/tumor, right perihilar mass with enlarged pleural effusions, last thoracentesis was on 04 January, Discontinue Eliquis, started on heparin Spoke with Dr. 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 Patient also has past medical history of COPD and extensive smoking history 1 pack/day 20 years quit in 1994. October 2022: Patient reported having had thoracentesis on right side (1000 cc ) and next day on left side (900 cc). exudative per light's criteria however unlikely parapneumonic effusion or empyema, LDH normal, Ph elevated. October 2023: Patient was has beent C/O months of intermittent cough with hemoptysis. He had CT chest 10/05/23 for hemoptysis and found to have right hilar mass and moderate right pleural effusion. 11/09/23: He underwent bronchoscopic inspection of airways as well as endobronchial ultrasound-guided biopsy of hilar mass/mediastinal lymph nodes on 11/09/2023-; there is near complete occlusion of right bronchus intermedius with infiltrating mass causing collapse of right middle lobe as well as right lower lobe. Biopsy of the right bronchus intermedius mass showed poorly differentiated squamous cell carcinoma. FNA biopsies of station 7 and station 11R showed metastatic poorly differentiated squamous cell carcinoma. By clinical evaluation, his disease is stage at least IIIA (T2, N2, M0). 12/01/23: Ultrasound-guided right thoracentesis with removal of approximately 1100 cc of sanguinous pleural fluid - Cytology negative for malignancy Feb 12/22/23: PET scan which confirmed the extent of disease in the chest and no evidence of metastatic disease. Intense abnormal uptake within the collapsed right lower lobe associated with occlusion of the bronchus intermedius the suggestive of primary lung malignancy contiguous with metastatic lymphadenopathy in the right hilum and the right subcarinal area. 01/05/2024-patient went for radiation therapy evaluation-however he was referred for outpatient thoracentesis to drain right Pleural effusion prior to simulation. She was drained 1600 cc pleural effusion. 01/12/2024: Port-A-Cath was placed in anticipation for chemotherapy 01/22/2024: Patient comes to emergency room complaining of worsening shortness of breath on exertion. Chest x-ray showed increased right pleural effusion. Showed and was placed on 4 L supplemental oxygen. ABG showed acidotic pH with CO2 62 (previously baseline CO2 around 80 with normal pH)-suspect metabolic component. CTA during admission showed filling defects in right pulmonary veins extending into right side of the left atrium consistent with thrombus/tumor. Patient tells me that he was previously on Eliquis 5 Mg twice daily for A-fib RVR-he had hematuria and hemoptysis and so he is Eliquis was cut down to 2.5 Mg twice daily which he is taking. His hematuria has resolved but he still have mild hemoptysis. With new findings of PE on CT chest--he is started on heparin. Pulmonary consult requested for worsening leg right pleural effusion and increasing oxygen requirement. ? Patient requiring 5 L nasal cannula ? Discussed at length in detail with pulmonology. It is being recommended that patient be transferred to higher level of care for interventional pulmonology if possible for endobronchial tumor debulking which is responsible for right lower lung and middle lobe atelectasis causing trapped lung and recurrent fluid accumulation. However given ongoing anticoagulation he may not be a candidate for tumor debulking at this point in time. ? There was also clot versus mass in left atrium which will need further workup however most likely it is a thrombus and patient is at risk of developing a stroke. He is currently on a heparin drip. He is to be discharged home on Eliquis for stroke prevention. It has been discussed with patient that he is at high risk of a stroke and requires tumor debulking while saline doing to receive chemotherapy radiation for underlying cancer. ? Discussed with interventional motorcoach driver at [facility] who is excepted the patient for transfer at this time. Patient will go to medicine service. Images will be sent electronically to [facility]. Patient to remain on heparin drip for now. He will be seen by vascular surgery/cardiology once transferred. Currently vitally stable for transfer. Physical Exam Narrative: Morbid obese male Currently at 5 L nasal cannula. Awake and alert No asterixis Able to follow commands No sign of confusion Mainly clear to auscultation, reduced breath sounds in right lower lung base. S1, S2 Abdomen distended nontender Lower extremity swelling Patient has compression stockings Urinary Catheter Management: Sanchez: Cath Placed During This Visit: yes Reason for Continuing Indwelling Catheter: Other Urinary Catheter Date of Insertion: 01/22/24 Urinary Catheter Time of Insertion: 22:00 TS Data Studies Completed and Pending Pending at discharge Category Date Time Status Basic Metabolic Panel AM LABS Lab 01/25/24 04:00 Ordered Complete Blood Count w/Auto AM LABS Lab 01/25/24 04:00 Ordered Magnesium AM LABS Lab 01/25/24 04:00 Ordered PTT [Partial Thromboplastin Time] Timed Lab 01/24/24 16:00 Ordered Platelet Count Q2D Lab 01/26/24 04:00 Ordered Sputum Culture and Gram Stain Stat Lab 01/22/24 20:27 Uncollected Vancomycin Trough Timed Lab 01/24/24 21:00 Ordered Completed Studies During Hospitalization Category Date Time Status CTA chest [CT angio chest PE protcl [id number]] Stat Cat Scan 01/22/24 18:13 Completed XR chest 1V portable [id number] Stat Exams 01/22/24 14:32 Completed CV. echo complete* [id number] Stat Ultrasound 01/23/24 10:36 Completed Laboratory Last Values WBC 12.18 10^3/uL (3.29-11.43) H 01/23/24 04:12 RBC 3.81 10^6/uL (3.85-5.65) L 01/23/24 04:12 Hgb 10.40 g/dL (11.27-16.99) L 01/23/24 04:12 Hct 35.4 % (37-53) L 01/23/24 04:12 MCV 92.9 fl (82-101) 01/23/24 04:12 MCH 27.3 pg (27-33) 01/23/24 04:12 MCHC 29.4 g/dL (30-55) L 01/23/24 04:12 RDW 14.5 % (12.1-15.1) 01/23/24 04:12 Plt Count 200 10^3/cmm (157-399) 01/24/24 02:20 MPV 10.3 fL (7.4-10.4) 01/23/24 04:12 Neut % (Auto) 91.3 % 01/23/24 04:12 Lymph % (Auto) 5.8 % 01/23/24 04:12 Evangeline % (Auto) 2.2 % 01/23/24 04:12 Eos % (Auto) 0.0 % 01/23/24 04:12 Baso % (Auto) 0.2 % 01/23/24 04:12 Neut # (Auto) 11.12 10^3/uL (1.8-7.7) H 01/23/24 04:12 Lymph # (Auto) 0.7 10^3/uL (0.8-4.8) L 01/23/24 04:12 Evangeline # (Auto) 0.3 10^3/uL (0.2-0.9) 01/23/24 04:12 Eos # (Auto) 0.0 10^3/uL (0.0-0.8) 01/23/24 04:12 Baso # (Auto) 0.0 10^3/uL (0.0-0.1) 01/23/24 04:12 Nucleated RBC % (auto) 0 % 01/23/24 04:12 Nucleated RBCs # 0.0 /100WBC 01/23/24 04:12 APTT 53.1 SECONDS (23.9-36.7) H 01/24/24 08:48 D-Dimer 3.15 ug/mLFEU (0-0.59) H 01/22/24 14:45 Specimen Type Arterial 01/23/24 03:28 Sample Site Radial, right 01/23/24 03:28 ABG pH 7.29 (7.35-7.45) L 01/23/24 03:28 ABG pCO2 62.5 mmHg (35-45) H* 01/23/24 03:28 ABG pO2 112.0 mmHg (80.0-100.0) H 01/23/24 03:28 ABG PO2/FiO2 Ratio 0 01/23/24 03:28 ABG HCO3 30.2 mmol/L (22-26) H 01/23/24 03:28 ABG Base Excess 2.5 mmol/L (-2.0-2.0) H 01/23/24 03:28 Uli Test Pos 01/23/24 03:28 Hematocrit 31.6 % (42-52) L 01/23/24 03:28 O2 Delivery Device Bipap 01/23/24 03:28 O2 Liters/Min 5.0 % 01/22/24 19:24 FiO2 50.0 % 01/23/24 03:28 PEEP 12.0 cmH20 01/23/24 03:28 Post Secondary Professional ID [email or web address] 01/23/24 03:28 Sodium 139 mmol/L (136-145) 01/23/24 10:46 Potassium 5.1 mmol/L (3.5-5.1) 01/23/24 10:46 Chloride 99 mmol/L (98-107) 01/23/24 10:46 Carbon Dioxide 24 mmol/L (22-29) 01/23/24 10:46 Anion Gap 21.1 (5-19) H 01/23/24 10:46 BUN 37 mg/dL (8-23) H 01/23/24 10:46 Creatinine 2.0 mg/dL (0.7-1.2) H 01/23/24 10:46 GFR Calculation Not Reportable 01/23/24 10:46 Glucose 118 mg/dL (65-115) H 01/23/24 10:46 Calculated Osmolality 298 mOsm/kg (285-295) H 01/23/24 10:46 Lactate 2.4 mmol/L (0.5-2.2) H 01/23/24 10:46 Calcium 8.9 mg/dL (8.5-10.5) 01/23/24 10:46 Phosphorus 4.8 mg/dL (2.5-4.5) H 01/23/24 04:12 Magnesium 2.2 mg/dL (1.7-2.3) 01/23/24 04:12 Total Bilirubin 0.4 mg/dL (0.15-1.2) 01/23/24 10:46 AST 13 U/L (0-40) 01/23/24 10:46 ALT 7 U/L (0-41) 01/23/24 10:46 Alkaline Phosphatase 80 U/L (40-130) 01/23/24 10:46 Troponin T Baseline 28 ng/L (0-15) H 01/22/24 15:49 Troponin T 120 Minute 26.14 ng/L (0-15) H 01/22/24 18:23 Delta Troponin T -1.86 ABS# (0-10) L 01/22/24 18:23 Troponin T Hi Sens 6Hr 25.09 ng/L (0-15) H 01/22/24 21:55 Troponin T Hi Sens 6Hr Delta -2.91 ng/L (0-12) L 01/22/24 21:55 C-Reactive Protein 24.8 mg/L (0.0-4.9) H 01/23/24 04:12 Total Protein 6.9 g/dL (6.6-8.7) 01/23/24 10:46 Albumin 3.7 g/dL (3.5-5.2) 01/23/24 10:46 Globulin 3.2 g/dL (1.3-4.6) 01/23/24 10:46 Urine Color Yellow (Yellow) 01/22/24 22:00 Urine Appearance Cloudy (CLEAR) A 01/22/24 22:00 Urine pH 5 (5-7) 01/22/24 22:00 Ur Specific [place] 1.015 (1.005-1.030) 01/22/24 22:00 Urine Protein 1+ (Negative) H 01/22/24 22:00 Urine Glucose (UA) Norm (Normal) 01/22/24 22:00 Urine Ketones Negative (Negative) 01/22/24 22:00 Urine Blood 3+ (Negative) H 01/22/24 22:00 Urine Nitrate Positive (Negative) H 01/22/24 22:00 Urine Bilirubin Neg (Negative) 01/22/24 22:00 Urine Urobilinogen Neg mg/dL (Negative) 01/22/24 22:00 Ur Leukocyte Esterase 2+ (Negative) H 01/22/24 22:00 Urine RBC 5-10 /hpf (0-2) H 01/22/24 22:00 Urine WBC 15-25 /hpf (0-5) H 01/22/24 22:00 Ur Squamous Epith Cells 0-4 /hpf (0-5) H 01/22/24 22:00 Amorphous Sediment Trace /hpf 01/22/24 22:00 Urine Bacteria 2+ /hpf (NONE) H 01/22/24 22:00 Hyaline Casts 0-4 /lpf H 01/22/24 22:00 Fine Granular Casts 0-4 /lpf H 01/22/24 22:00 Urine Mucus 1+ /hpf 01/22/24 22:00 Serum Ketones Negative (Negative) 01/23/24 10:46 Radiology Impressions Chest X-Ray 01/22/24 14:32 IMPRESSION: 1. Right chest port terminates at the superior cavoatrial junction. 2. Increased large right pleural effusion. Stable small left pleural effusion. 3. Stable retrocardiac left lower lobe consolidation may represent atelectasis or pneumonia. Chest CTA 01/22/24 18:13 IMPRESSION: 1. There are filling defects in the right pulmonary veins extending into the right side of the left atrium consistent with thrombus and/or tumor. 2. Right perihilar mass lesion obscured by adjacent pulmonary consolidation. 3. Large right pleural effusion and moderate left pleural effusion with adjacent compressive atelectasis or pneumonia. Findings raise concern for congestive heart failure however the heart is not currently enlarged. 4. There is mediastinal and right perihilar lymphadenopathy. COMMENTS: The presence of pulmonary emphysema on CT is an independent risk factor for lung cancer. In the absence of a history or active diagnosis of lung cancer, it is recommended that this patient with emphysema be evaluated for enrollment in a low dose CT lung cancer screening program. Recent Clincial Data Last Vital Signs Temp 98.0 F 01/24/24 11:45 Pulse 71 01/24/24 15:02 Resp 16 01/24/24 11:45 BP 105/45 01/24/24 11:45 Pulse Ox 96 01/24/24 11:45 O2 Del Method Nasal Cannula 01/24/24 11:45 O2 Flow Rate 6 01/24/24 08:19 FiO2 40 01/24/24 11:00 Vital Signs Temp Pulse Resp BP Pulse Ox O2 Del Method O2 Flow Rate 01/24/24 15:02 71 01/24/24 11:45 98.0 F 70 16 105/45 96 Nasal Cannula 01/24/24 11:00 77 96 01/24/24 08:19 77 18 92 High Flow Nasal Cannula 6 01/24/24 08:00 97.8 F 76 16 126/59 97 Nasal Cannula 01/24/24 06:00 71 01/24/24 04:00 97.8 F 79 20 H 166/91 95 FiO2 01/24/24 15:02 01/24/24 11:45 01/24/24 11:00 40 01/24/24 08:19 01/24/24 08:00 01/24/24 06:00 01/24/24 04:00 Intake & Output/Weight 01/22/24 01/23/24 01/24/24 01/25/24 06:59 06:59 06:59 06:59 Intake Total 727.55 / 727.55 3442.750 / 3442.750 932.817 / 932.817 Output Total 1200 / 1200 2150 / 2150 975 / 975 Balance -472.45 / -472.45 1292.750 / 1292.750 -42.183 / -42.183 Weight 144.923 kg 146.057 kg Vitals Last Vital Signs Temp 98.0 F 01/24/24 11:45 Pulse 71 01/24/24 15:02 Resp 16 01/24/24 11:45 BP 105/45 01/24/24 11:45 Pulse Ox 96 01/24/24 11:45 O2 Del Method Nasal Cannula 01/24/24 11:45 O2 Flow Rate 6 01/24/24 08:19 FiO2 40 01/24/24 11:00 TS Medications Medications Acetaminophen (Acetaminophen 325 Mg Tablet) 650 mg PO Q6H PRN PRN Reason: Mild/Mod Pain Or Temp >/= 101 Albuterol/Ipratropium (Ipratropium-Albuterol 3 Ml Neb) 3 ml INHALATION Q6H PRN PRN Reason: SHORTNESS OF BREATH Alprazolam (Alprazolam 0.5 Mg Tablet) 0.5 mg PO BID PRN PRN Reason: ANXIETY Last Admin: 01/24/24 02:30 Dose: 0.5 mg Atorvastatin Calcium (Atorvastatin 40 Mg Tablet) 20 mg PO QPM [facility] Last Admin: 01/23/24 17:34 Dose: 20 mg Benzonatate (Benzonatate 100 Mg Capsule) 200 mg PO Q6H PRN PRN Reason: COUGH Bumetanide (Bumetanide 0.25 Mg/Ml Sdv 4 Ml) 1 mg IVP Q12H [facility] Last Admin: 01/24/24 08:33 Dose: 1 mg Bupropion HCl (Bupropion Sr (12 Hr) 150 Mg Tablet) 150 mg PO BID [facility] Last Admin: 01/24/24 08:33 Dose: 150 mg Famotidine (Famotidine 20 Mg Tablet) 20 mg PO BID [facility] Last Admin: 01/24/24 08:32 Dose: 20 mg Heparin Sodium (Porcine) (Heparin 5,000 Unit/Ml Inj 1 Ml) 0 unit IV PRN PRN; Protocol PRN Reason: Heparin weight-base protocol Last Admin: 01/24/24 10:04 Dose: 2,700 unit Piperacillin Sod/Tazobactam (Sod 3.375 gm/ Sodium Chloride) 50 mls @ 12.5 mls/hr IV Q8H [facility] Last Admin: 01/24/24 14:17 Dose: 12.5 mls/hr Vancomycin/PEG/NADA/Lysine/Water (Vancocin) 2,000 mg in 400 mls @ 200 mls/hr IV Q24H [facility] Last Infusion: 01/23/24 23:24 Dose: Infused Heparin Sodium/Sodium Chloride (Heparin Drip) 25,000 unit in 500 mls @ 0 mls/hr IV .Q0M [facility]; Protocol Last Titration: 01/24/24 09:57 Dose: 11.64 unit/kg/hr, 32 mls/hr Losartan Potassium (Losartan 50 Mg Tablet) 25 mg PO BEDTIME [facility] Last Admin: 01/22/24 21:18 Dose: 25 mg Metoprolol Succinate (Metoprolol Succinate Er (24 Hr) 100 Mg Tablet) [facility] [place] Admin: 01/24/24 05:29 Dose: 100 mg Morphine Sulfate (Morphine 4 Mg/Ml Sdv 1 Ml) 2 mg IVP Q4H PRN PRN Reason: SEVERE PAIN Morphine Sulfate (Morphine Ir 15 Mg Tablet) 15 mg PO Q6H PRN PRN Reason: MODERATE PAIN Ondansetron HCl (Ondansetron 2 Mg/Ml Sdv 2 Ml) 4 mg IVP Q6H PRN PRN Reason: NAUSEA AND VOMITING Oxycodone HCl (Oxycodone 5 Mg Ir Tab/Cap) 5 mg PO Q8H PRN PRN Reason: Moderate pain Senna/Docusate Sodium (Sennosides-Docusate Tablet) 1 tab PO DAILY [facility] Last Admin: 01/24/24 08:32 Dose: 1 tab Discontinued Medications Acetaminophen (Acetaminophen 500 Mg Tablet) 500 mg PO Q4H PRN PRN Reason: fever Albuterol/Ipratropium (Ipratropium-Albuterol 3 Ml Neb) 3 ml INHALATION ONCE ONE Stop: 01/22/24 17:45 Last Admin: 01/22/24 17:54 Dose: 3 ml Amlodipine Besylate (Amlodipine 10 Mg Tablet) 10 mg PO [facility] Bumetanide (Bumetanide 1 Mg Tablet) 1 mg PO BID PRN PRN Reason: Edema Piperacillin Sod/Tazobactam (Sod / Sodium Chloride) 50 mls @ 0 mls/hr [id number] CONT TRELL; Protocol Vancomycin HCl / Sodium (Chloride) 250 mls @ 0 mls/hr [id number] PROTOCOL TRELL; Protocol Dextrose (D10w) 250 mls @ 1,000 mls/hr IV PRN PRN PRN Reason: HYPOGLYCEMIA Insulin Human Regular 10 unit/ (N/A) 0.1 mls @ 0 mls/hr IVP ONCE ONE Stop: 01/23/24 05:28 Last Infusion: 01/23/24 07:04 Dose: Infused Dextrose (D10w) 250 mls @ 1,000 mls/hr IV ONCE ONE Stop: 01/23/24 05:51 Last Infusion: 01/23/24 07:03 Dose: Infused Iohexol (Iohexol 350 Mg/Ml 500 Ml Btl (Per Ml)) 0 ml IV ONCE ONE Stop: 01/22/24 18:49 Last Admin: 01/22/24 18:48 Dose: 93 ml Ondansetron HCl (Ondansetron 2 Mg/Ml Sdv 2 Ml) 4 mg IVP Q6H PRN PRN Reason: NAUSEA AND VOMITING Allergies No Known Allergies Allergy (Verified 01/22/24 14:34) Home Medications albuterol sulfate 2.5 mg/3 mL (0.083 %) solution for nebulization 2.5 mg continuous nebulization Q6H PRN Shortness Of Breath 05/04/21 [History Confirmed 01/22/24] amlodipine 10 mg tablet 10 mg PO QAM 05/04/21 [History Confirmed 01/22/24] bupropion HCl 150 mg tablet,12 hr sustained-release (Wellbutrin SR) 150 mg PO BID 05/04/21 [History Confirmed 01/22/24] fluoxetine 40 mg capsule 40 mg PO QAM 05/04/21 [History Confirmed 01/22/24] simvastatin 20 mg tablet 20 mg PO QPM 05/04/21 [History Confirmed 01/22/24] multivitamin 1 tab PO QAM 05/29/21 [History Confirmed 01/22/24] fluticasone fur. 200 mcg-umeclid 62.5 mcg-vilant 25 mcg inhalat.powder (Trelegy Ellipta) 1 inh inhalation DAILY 10/23/22 [History Confirmed 01/22/24] metoprolol succinate 100 mg tablet,extended release 24 hr 100 mg PO QAM 10/23/22 [History Confirmed 01/22/24] spironolactone 25 mg tablet 25 mg PO QAM 10/27/23 [History Confirmed 01/22/24] oxycodone 5 mg tablet 5 mg PO Q8H PRN pain #14 tabs 01/12/24 [Rx Confirmed 01/22/24] apixaban 2.5 mg tablet (Eliquis) 2.5 mg PO BID 01/22/24 [History Confirmed 01/22/24] bumetanide 1 mg tablet 1 mg PO BID PRN Edema 01/22/24 [History Confirmed 01/22/24] famotidine 20 mg tablet 20 mg PO BID 01/22/24 [History Confirmed 01/22/24] isosorbide mononitrate 30 mg tablet,extended release 24 hr 30 mg PO QAM 01/22/24 [History Confirmed 01/22/24] losartan 25 mg tablet 25 mg PO BEDTIME 01/22/24 [History Confirmed 01/22/24] nitroglycerin 0.4 mg sublingual tablet (Nitrostat) 0.4 mg sublingual Q5M PRN [facility] Pain 01/22/24 [History Confirmed 01/22/24] potassium chloride 8 mEq tablet,extended release 8 meq PO QAM 01/22/24 [History Confirmed 01/22/24] tramadol 50 mg tablet 50 mg PO Q6H PRN Pain 01/22/24 [History Confirmed 01/22/24] Discharge Plan Discharge Patient Disposition: Xfer Other Condition: Stable Prescriptions: No Action multivitamin Tablet 1 tab PO QAM spironolactone 25 mg tablet 25 mg PO QAM fluoxetine 40 mg Capsule 40 mg PO QAM bupropion HCl [Wellbutrin SR] 150 mg tablet sustained-release 12 hr 150 mg PO BID albuterol sulfate 2.5 mg /3 mL (0.083 %) solution for nebulization 2.5 mg continuous nebulization Q6H PRN (Reason: Shortness Of Breath) amlodipine 10 mg tablet 10 mg PO QAM simvastatin 20 mg tablet 20 mg PO QPM metoprolol succinate 100 mg tablet extended release 24 hr 100 mg PO QAM Trelegy Ellipta 200-62.5-25 mcg blister with device 1 inh INHALATION DAILY nitroglycerin [Nitrostat] 0.4 mg Tablet, Sublingual 0.4 mg SUBLINGUAL Q5M PRN (Reason: Chest Pain) Rx Instructions: do not exceed 3 doses per episode Eliquis 2.5 mg tablet 2.5 mg PO BID famotidine 20 mg tablet 20 mg PO BID bumetanide 1 mg tablet 1 mg PO BID PRN (Reason: Edema) tramadol 50 mg tablet 50 mg PO Q6H PRN (Reason: Pain) isosorbide mononitrate 30 mg tablet extended release 24 hr 30 mg PO QAM potassium chloride 8 mEq tablet extended release 8 meq PO QAM losartan 25 mg tablet 25 mg PO BEDTIME oxycodone 5 mg tablet 5 mg PO Q8H PRN (Reason: pain) Qty: 14 0RF Referrals: Unruly Starkey [Primary Care Provider] - Transfer Attestations Time Spent in Transfer Care: greater than 30 min Status at Transfer: Cognitive status at transfer: cognitively intact ; Behavioral status at transfer: cooperative ; Quality Metrics Clinical Quality Measures [ No reported AMI, CVA or VTE this stay] Coding Level of Care Code 41189 Total time (in minutes) for Discharge: 50 Diagnoses Acute on chronic diastolic (congestive) heart failure I50.33 Chronic atrial fibrillation I48.20 D-dimer, elevated R79.89 Type 2 diabetes mellitus without complication, without long-term current use of insulin E11.9 Diabetes mellitus type: type 2 Diabetes mellitus chcf insulin use: without chcf use Diabetes mellitus complication status: without complication Obesity hypoventilation syndrome E66.2 Centrilobular emphysema J43.2 COPD type: emphysema Emphysema type: centrilobular Acute exacerbation of chronic obstructive airways disease J44.1 Hilar mass R91.8 Large pleural effusion J90 Chronic kidney disease N18.9 Acute hypoxic on chronic hypercapnic respiratory failure J96.01; J96.12
[2024-01-26 15:28] LABS: Basophils # 0.1 10^3/uL (0.0-0.1); Basophils % 0.5 %; Eosinophils # 0.3 10^3/uL (0.0-0.8); Eosinophils % 3.1 %; Hematocrit 30.9 % (37-53); Lymphocytes # 1.5 10^3/uL (0.8-4.8); Lymphocytes % 14.5 %; Mean Corpuscular HGB Conc 30.1 g/dL (30-55); Mean Corpuscular Hemoglobin 27.3 pg (27-33); Mean Corpuscular Volume 90.6 fl (82-101); Mean Platelet Volume 9.7 fL (7.4-10.4); Monocytes # 1.2 10^3/uL (0.2-0.9); Monocytes % 11.5 %; Neutrophils # 7.08 10^3/uL (1.8-7.7); Neutrophils % 70.1 %; Nucleated Red Blood Cells % 0 %; Platelet Count 164 10^3/cmm (157-399); Red Blood Count 3.41 10^6/uL (3.85-5.65); Red Cell Distribution Width 15.3 % (12.1-15.1); White Blood Count 10.09 10^3/uL (3.29-11.43)
[2024-01-26] MEDS: heparin drip 25,000 UNIT/500 ML PREMIX 41 UNIT IV (17:40)
[2024-01-26] MEDS: atorvastatin 40 mg Tablet 20 MG PO (17:45)
[2024-01-26 17:47] LABS: Glucose Point of Care 91 mg/dL (70-110)
--- NOTE | 2024-01-26 18:32 | PC.NURSE ---
received call from Paula at the [facility]. They have assigned us bed 8312 in the medical ICU. REport can be called to [phone]. Nurse called [phone]. Spoke to Alicia. Gave patient report. Nurse called [facility]. They do not have a unit available at this time and stated it may be a while before one becomes available. Nurse called. [facility] and spoke to Barak. GIven an estimated 46 minute ETA for [facility], but they may have a closer base available. She will offer flight to her crews and will call back. Nurse attempted to call patient's son Dago Lamb. No Answer.
--- NOTE | 2024-01-26 19:20 | PC.NURSE ---
[facility] accepted flight at 0720. 15 minute ete. Nurse alerted DIspatcher named Tania to another helicopter currently landed at our facility.
--- NOTE | 2024-01-26 19:46 | PC.NURSE ---
Melissa: On unit @1945.
--- NOTE | 2024-01-26 20:02 | PC.NURSE ---
Propofol: New vial scanned @2000, sent with [facility] team.
--- NOTE | 2024-01-26 21:22 | PC.NURSE ---
Code Blue: Left ICU @2029 w/ [facility] team to transport to helicopter. Mid transport from stretcher to helicopter ventilator alarmed and heart monitor started to alarm. Bilateral limb restraints removed. No pulse felt. Immediately began bagging pt and transferred back to stretcher. CPR began. Dr. Nuñez on scene. PT transported from [facility] to ER trauma bay. Resilient Tile Installer, Cassia arrived shortly after. Pt care was taken over by ER nurse KARMEN Bay. Notified Daniella, charge nurse on Medical ICU @[facility] @2101 that pt had .
--- NOTE | 2024-01-26 21:55 | PC.NURSE ---
Addendum entered by Gurpreet Nava RN 01/26/24 22:03: I witnessed waste of fentanyl and propofol. Gurpreet PERAZA Original Note: Wasted Fent/Prop: 31ml Fentanyl and 100ml Propofol w/ KARMEN Vázquez and KAREMN Morales. MAR reflects this.
--- NOTE | 2024-01-26 22:02 | PC.NURSE ---
Catheter: Removed in ER post TOD.
--- NOTE | 2024-01-26 22:04 | PC.NURSE ---
Pt Belongings: Belongings transported from ICU to ER, w/ body.
--- NOTE | 2024-01-27 08:32 | P.PN_ITS ---
Subjective 2 Subjective: Note dated 01/26/2024: 5 PM Seen patient at bedside intubated sedated, right lung down On ventilator -FiO2 down to 40% at this time. ET tube suctioning did not show significant bloody secretions; chest x-ray today morning no change in infiltrates Recent hemoglobin 9.3 this afternoon. Still awaiting transfer to [place]. Medications: Reviewed: Yes Vitals/I&O/Wt Last Vital Signs Temp 99.3 F 01/26/24 12:30 Pulse 66 01/26/24 19:45 Resp 16 01/26/24 17:21 BP 105/68 01/26/24 19:45 Pulse Ox 93 01/26/24 20:15 O2 Del Method Mechanical Ventilation 01/26/24 20:15 O2 Flow Rate 15 01/25/24 09:24 FiO2 40 01/26/24 20:15 01/26/24 01/27/24 01/27/24 22:59 06:59 14:59 Intake Total 912.098 / 1334.333 Output Total 200 / 325 Balance 712.098 / 1009.333 Weight last 48 hrs Weight 317 lb 8 oz Physical Exam 2 Narrative: General: alert, NAD HEENT: conj clear, EOMI, PERRL, mmm, Neck: supple, no meningismus Heme: no cervical LAP Respiratory: Inspection: No visible deformity of the chest wall Palpation: Trachea is mildly deviated to the right, bilateral symmetric expansion Percussion: Bilateral tympanic percussion note both anterior and posteriorly Auscultation: Reduced breath sounds on right lower lung zone Cardiovascular: rrr, nl s1s2, no mrg Abdomen: soft, nt, nd, no r/g, bs+ Extremities: pulses +, no edema, no c/c : no CVA tenderness Skin: intact, no rash MSK: no back or neck pain Neurologic: grossly intact Urinary Catheter Management: Sanchez: Cath Placed During This Visit: yes, but has since been removed by the nurse Reason for Continuing Indwelling Catheter: Accurate Measurement of Urinary Output in Critically Ill Patients Urinary Catheter Date of Insertion: 01/22/24 Urinary Catheter Time of Insertion: 22:00 Date Urinary Catheter Removed: 01/26/24 Time Urinary Catheter Discontinued: 22:02 Data 01/26/24 15:18 01/26/24 04:25 Micro: Microbiology 01/25/24 12:25 Gram Stain - Final Sputum - Endotracheal Tube Aspirate Sputum Culture - Preliminary A&P Assessment and plan (1) Acute hypoxic on chronic hypercapnic respiratory failure: -This patient with 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 right bronchus intermedius causing right lower lung/middle lobe patient CT chest did not show any definitive lesion-explained atelectasis can happen postinfectious weakening of bronchial Alonso and can cause infections, pleuritic chest pain and encouraged patient to do incentive spirometry -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-cytology was negative in November 2023; underwent multiple thoracentesis-more recently 01/05/2024 with normal reexpansion of right lower lung and residual pleural effusion -This admission-CTA showed multiple filling defects in right pulmonary veins with possible clot in left atrium -Started on heparin unfortunately started coughing of blood-worsening FiO2 requirements transferred to ICU 01/25/2024-requiring endotracheal intubation; - postintubation chest x-ray did not show any worsening of right pleural effusion but showed infiltrates on left lung -Postintubation yesterday patient has significant bloody secretions from ET tube-heparin was held and performed bronchoscopy which again demonstrated endobronchial mass occluding bronchus intermedius. There is mild oozing noted from the tumor. There were some spillage into the left bronchial tree with clots. No active bleeding noted; we do not have endobronchial blockers available. -Patient was interventional pulmonary at [facility] in [place] accepted patient in transfer for tumor debulking-however pending transfer due to bed availability -Heparin was held for more than 24 hours-today seen patient at bedside intubated sedated, right lung down; FiO2 down to 40% at this time; ET tube suctioning did not show significant bloody secretions; chest x-ray today morning no change in infiltrates compared to yesterday; Recent hemoglobin 9.3 this afternoon.restarted heparin for PE and a left atrial thrombus -Recommended to place patient on right lateral position to keep bilateral lung down and sedated with fentanyl/propofol adequately (2) Pulmonary embolism: CTA 01/22/2024 showed filling defects in the right pulmonary veins extending into the right side of the left atrium consistent with thrombus and/or tumor. Echocardiogram revealed clot in left atrium versus tumor extension; Vascular consultation over phone with Cassie Sheehan-no current intervention planned and recommended to continue heparin which was held yesterday due to endobronchial bleeding -Heparin was held for more than 24 hours-today seen patient at bedside intubated sedated, right lung down; FiO2 down to 40% at this time; ET tube suctioning did not show significant bloody secretions; chest x-ray today morning no change in infiltrates compared to yesterday; Recent hemoglobin 9.3 this afternoon.restarted heparin for PE and a left atrial thrombus Qualifiers: Pulmonary embolism type: unspecified Chronicity: acute Acute cor pulmonale presence: unspecified Qualified Code(s): I26.99 - Other pulmonary embolism without acute cor pulmonale (3) Pleural effusion, right: Recurrent right pleural effusion Reports having thoracentesis October 2022-transudative Second thoracentesis 11/30/2023-1100 cc hemorrhagic fluid lexnreb-fqxhkdfob-csncqmci negative for malignancy Prior thoracentesis 01/05/20249591-3416 cc fluid removed Imaging shows worsening right lung opacification suggestive of worsening pleural effusion however review of PET/CT shows significantly elevated uptake in atelectatic right lung suggestive of malignant mass within the right pleural cavity. Bronchoscopy 11/09/2023-showed near complete occlusion of right bronchus intermedius-which is contributing to collapse of right lower lobe/right middle lobe-causing trapped lung and contributing to majority of his pleural effusion. Even though patient is getting recurrent thoracentesis- postthoracentesis-there is no significant reexpansion of right lower lung due to endobronchial obstruction Prior to intubation I also discussed with patient about placing a pleural drain to prevent recurrent thoracentesis and to help draining at home if his breathing were to get worse-however given his trapped lung due to endobronchial mass-we cannot achieve complete drainage. However patient is down to 40% FiO2 He is currently on Bumex 1 Mg every 12 held due to hypotension (4) COPD (chronic obstructive pulmonary disease): Patient was using Trelegy 1 puff daily Currently is not in exacerbation-we can use DuoNeb nebulization as needed. 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 Biopsy of the right bronchus intermedius mass showed poorly differentiated squamous cell carcinoma. FNA biopsies of station 7 and station 11R showed metastatic poorly differentiated squamous cell carcinoma. By clinical evaluation, his disease is stage at least IIIA (T2, N2, M0). 12/01/23: Ultrasound-guided right thoracentesis with removal of approximately 1100 cc of sanguinous pleural fluid - Cytology negative for malignancy Feb 12/22/23: PET scan which confirmed the extent of disease in the chest and no evidence of metastatic disease. Intense abnormal uptake within the collapsed right lower lobe associated with occlusion of the bronchus intermedius the suggestive of primary lung malignancy contiguous with metastatic lymphadenopathy in the right hilum and the right subcarinal area. 01/05/2024-patient went for radiation therapy evaluation-however he was referred for outpatient thoracentesis to drain right Pleural effusion prior to simulation. She was drained 1600 cc pleural effusion. 01/12/2024: Port-A-Cath was placed in anticipation for chemotherapy 01/22/2024-patient got admitted for worsening FiO2 requirements due to PE Attestations 2 Medical Necessity Statement*: Pending transfer Coding Level of Care Code Acute Code for [facility] Fwd Diagnoses Acute hypoxic on chronic hypercapnic respiratory failure J96.01; J96.12 Acute pulmonary embolism, unspecified pulmonary embolism type, unspecified whether acute cor pulmonale present I26.99 Pulmonary embolism type: unspecified Chronicity: acute Acute cor pulmonale presence: unspecified Pleural effusion, right J90 Centrilobular emphysema J43.2 COPD type: emphysema Emphysema type: centrilobular 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
== END 2024-01-26 21:00 | disposition expired | DRG 208 ==
LOC: ER 14:57 → MEDSURG 19:46 → ICU 01-26 09:21 → ER IP 01-26 22:14 → ICU 01-28 08:25
PROVIDERS: Emergency Medicine; Internal Medicine; Internal Medicine Pulmonary Disease; Admitting Provider Student in an Organized Health Care Education/Training Program; Emergency Provider Family Medicine; PCP Family Medicine; Visit Provider Internal Medicine
DX: C34.90 Malignant neoplasm of unspecified part of unspecified bronchus or lung (principal); I50.33 Acute on chronic diastolic (congestive) heart failure; J96.22 Acute and chronic respiratory failure with hypercapnia; J96.21 Acute and chronic respiratory failure with hypoxia; I26.99 Other pulmonary embolism without acute cor pulmonale; I13.0 Hypertensive heart and chronic kidney disease with heart failure and stage 1 through stage 4 chronic kidney disease, or unspecified chronic kidney disease; I48.20 Chronic atrial fibrillation, unspecified; E66.2 Morbid (severe) obesity with alveolar hypoventilation; Z68.41 Body mass index [BMI] 40.0-44.9, adult; J44.1 Chronic obstructive pulmonary disease with (acute) exacerbation; T17.890A Other foreign object in other parts of respiratory tract causing asphyxiation, initial encounter; E78.5 Hyperlipidemia, unspecified; N18.2 Chronic kidney disease, stage 2 (mild); E11.22 Type 2 diabetes mellitus with diabetic chronic kidney disease; I25.10 Atherosclerotic heart disease of native coronary artery without angina pectoris; G47.00 Insomnia, unspecified; N40.0 Benign prostatic hyperplasia without lower urinary tract symptoms; J43.2 Centrilobular emphysema; Z79.01 Long term (current) use of anticoagulants; Z95.828 Presence of other vascular implants and grafts; Z99.81 Dependence on supplemental oxygen; Z99.3 Dependence on wheelchair; Z95.5 Presence of coronary angioplasty implant and graft; Z87.891 Personal history of nicotine dependence
CPT/HCPCS: 31622; 36415; 36416; 36600; 51702; 71045; 71275; 80048; 80051; 80053; 80202; 81001; 82009; 82330; 82803; 82805; 82962; 83605; 83735; 84100; 84484; 85025; 85049; 85378; 85730; 86140; 87070; 87086; 87205; 93005; 93306; 94002; 94003; 94640; 94660; 94799; 96376; 99214; 99285; A4570; J0171; J1644; J1815; J1940; J2543; J2704; J3010; J3372; J3490; J7799; Q9967

== ENCOUNTER 2024-01-26 20:48 | Emergency (ER) | payer MEDICARE, SELFPAY ==
[2024-01-26 20:48] VITALS: BP 0/0; PULSE 0; RESP 0; O2SAT 0; BMI 38.5
[2024-01-26] MEDS: EPINEPHrine 0.1 mg/mL SYR 10 mL 1 MG IVP (20:48)
--- NOTE | 2024-01-26 21:14 | PC.NURSE ---
2113 Patient's son Dago Lamb has been notified that patient has at 2055. Dago states he does not know which Home he wants at this time, he is waiting to speak to his brother. I gave him the [facility] phone number to call when they decide.
--- NOTE | 2024-01-26 21:26 | ED_ITS ---
HPI - General Adult General: Stated complaint: cardiac distress Time Seen by Provider: 01/26/24 21:25 Limitations: altered mental status History of Present Illness: HPI - General Adult General: Chief complaint: C ardiac Arrest/CPR Stated complaint: cardiac distress Time Seen by Prov ider: 01/26/24 20: 49 Source: other Mode of arrival: other Limitations : altered mental s tatus History of Present Illness: 74-year-old male who is being goins sferred to [place] history of a large intrathoracic mas s he had been intu bated in our ICU p atient when brendan t to the [place] pad lost pulses. I w ent out to the leslie l pad with the cre w and I was not ab le to feel a pulse and had them brin g him into the ER. Patient is recei ving CPR he is alr edward intubated. Review of Systems General: Reports: ROS unobt ainable due to men neal status Physical Exam Const: OTHER: Intubated currently receivi ng CPR HENMT: COMMON NORMALS: no rmocephalic and at raumatic HEAD & S CALP: normocephali c and atraumatic Eye: OTHER: Pupils ar e fixed unresponsi ve Chest: COMMONS NORMALS: n ormal inspection o f the chest Resp: OTHER: Intubated breath sounds are heard bilaterally with crackles Cardio: OTHER: Patient's pulseless GI: COMMON NORMALS: So ft to palpation P ALPATION: Yes Soft to palpation Extremity: COMMON NORMALS: no rmal to inspection Course Vital Signs: Vital signs: Vi neal Signs Pulse R ate 0 L 20:48 Resp iratory Rate 0 L 01/26/24 20:48 B lood Pressure 0/0 01/26/24 20:48 Pulse Oximetry 0 L 01/26/24 20 :48 [facility] - General Adult Medical Decision Making Patient presents here after attempting to transfer with poor prognosis of large intrathoracic mass was able to get a ROSC after CPR and epinephrine lasted for roughly 1 to 2 minutes and patient coded again her Dr. Vincent had spoken to patient's son did make patient comfort care did have another short ROSC but then patient did at 2055 No radiology studies performed this visit Review of Systems General: Reports: ROS unobtainable due to mental status PFS ED PFSH: Medical History Hyperlipidemia Hypertension Squamous cell lung cancer Atrial fibrillation Coronary stent patent Chronic kidney disease, stage II (mild) Sleep apnea Obesity hypoventilation syndrome BPH (benign prostatic hyperplasia) Morbid obesity B12 deficiency Diastolic congestive heart failure Chronic diarrhea Coronary artery disease Diabetes COPD (chronic obstructive pulmonary disease) 4L oxygen dependent Surgical History H/O left inguinal hernia repair Hx of tonsillectomy History of bronchoscopy (11/09/23) Bronchoscopy/EBUS History of coronary artery stent placement Family History Other Diabetes Social History Smoking and tobacco/nicotine status: former use of tobacco/nicotine Quit status (tobacco/nicotine): has quit using Year quit tobacco: 1994 Former quit date comment: Hx of 1 PPD x 20 Years Second hand smoke exposure: No Alcohol intake: never Substance/Drug Use: never Caregiver/support person: Yes Lives independently: Yes Household members: children Housing: House Marital status: / Current occupational status: retired and disabled Do you think of yourself as: Straight/Heterosexual Current gender identity: Male MDM - General Adult Medical Decision Making Patient presents here after attempting to transfer with poor prognosis of large intrathoracic mass was able to get a ROSC after CPR and epinephrine lasted for roughly 1 to 2 minutes and patient coded again her Dr. Vincent had spoken to patient's son did make patient comfort care did have another short ROSC but then patient did at 2055 Medical Records I reviewed the patient's medical records. No radiology studies performed this visit Discharge Plan Discharge Patient Disposition: Clinical Impression: Cardiac arrest Condition: Stable Prescriptions: No Action multivitamin Tablet 1 tab PO QAM spironolactone 25 mg tablet 25 mg PO QAM fluoxetine 40 mg Capsule 40 mg PO QAM bupropion HCl [Wellbutrin SR] 150 mg tablet sustained-release 12 hr 150 mg PO BID albuterol sulfate 2.5 mg /3 mL (0.083 %) solution for nebulization 2.5 mg continuous nebulization Q6H PRN (Reason: Shortness Of Breath) amlodipine 10 mg tablet 10 mg PO QAM simvastatin 20 mg tablet 20 mg PO QPM metoprolol succinate 100 mg tablet extended release 24 hr 100 mg PO QAM Trelegy Ellipta 200-62.5-25 mcg blister with device 1 inh INHALATION DAILY nitroglycerin [Nitrostat] 0.4 mg Tablet, Sublingual 0.4 mg SUBLINGUAL Q5M PRN (Reason: Chest Pain) Rx Instructions: do not exceed 3 doses per episode Eliquis 2.5 mg tablet 2.5 mg PO BID famotidine 20 mg tablet 20 mg PO BID bumetanide 1 mg tablet 1 mg PO BID PRN (Reason: Edema) tramadol 50 mg tablet 50 mg PO Q6H PRN (Reason: Pain) isosorbide mononitrate 30 mg tablet extended release 24 hr 30 mg PO QAM potassium chloride 8 mEq tablet extended release 8 meq PO QAM losartan 25 mg tablet 25 mg PO BEDTIME oxycodone 5 mg tablet 5 mg PO Q8H PRN (Reason: pain) Qty: 14 0RF Referrals: Unruly Starkey [Primary Care Provider] - Coding Level of Care Code ED Pigment Grinder for Юлия Kenny
--- NOTE | 2024-01-26 21:27 | PC.NURSE ---
2126 [facility] Coroner Gt Rhodes has been notified of patient's in ER. Mr. Rhodes has authorized the release of patient's body to Home of family's choice.
--- NOTE | 2024-01-26 21:48 | PC.NURSE ---
2147 [facility] has been notified of patient's . Patient is not a candidate for donation, [facility] has released patient. Will wait to hear from [facility].
--- NOTE | 2024-01-26 21:55 | PC.NURSE ---
Pt was being loaded onto [facility] helicopter on helipad when security ntfd ER staff that they needed assistance on the pad due to pt deterioration. ER staff met AEL staff and ICU staff on pad and determined pt to be without a pulse. Pt was brought from [facility] aircraft cot into ER room 10. CPR started on AEL cot and continued into ER room 10. seed production field supervisor and hospitilist ntfd. 2041 pulse check, no pulse, 1 mg epinephrine given 2041 Resumed compressions 2043 pulse check, positive pulse 2045 compressions resumed 2046 hospitalist speaking with family, decision was made to change code status, comfort care only 2047 ET tube removed by RT 2054 PEA 2055 Pt
--- NOTE | 2024-01-26 23:18 | PC.NURSE ---
TOD was 2045. Can not discharge out at TOD due to charting errors. Discharge time should be same as TOD at 2045.
== END 2024-01-26 21:26 | disposition expired ==
PROVIDERS: Emergency Provider Emergency Medicine; PCP Family Medicine
DX: I46.9 Cardiac arrest, cause unspecified (principal); Z79.01 Long term (current) use of anticoagulants; Z87.891 Personal history of nicotine dependence; E78.5 Hyperlipidemia, unspecified; E11.22 Type 2 diabetes mellitus with diabetic chronic kidney disease; I13.0 Hypertensive heart and chronic kidney disease with heart failure and stage 1 through stage 4 chronic kidney disease, or unspecified chronic kidney disease; N18.2 Chronic kidney disease, stage 2 (mild); I50.9 Heart failure, unspecified; Z85.118 Personal history of other malignant neoplasm of bronchus and lung; I25.10 Atherosclerotic heart disease of native coronary artery without angina pectoris; J44.9 Chronic obstructive pulmonary disease, unspecified; Z99.81 Dependence on supplemental oxygen
CPT/HCPCS: 99285; J0171